=== PATIENT | male | born 1940 | race Caucasian/White ===

== ENCOUNTER → 2020-07-29 09:24 | Outpatient (BNVA) | payer MEDICARE, OTHER, SELFPAY | PROVIDERS: PCP Internal Medicine; Referring Provider Internal Medicine; Visit Provider Internal Medicine Cardiovascular Disease | DX: I49.5 Sick sinus syndrome (principal); I48.92 Unspecified atrial flutter; I50.20 Unspecified systolic (congestive) heart failure; I42.8 Other cardiomyopathies; Z79.01 Long term (current) use of anticoagulants; Z79.899 Other long term (current) drug therapy; Z95.2 Presence of prosthetic heart valve | CPT/HCPCS: Q3014 ==

== ENCOUNTER 2020-11-09 07:08 | Outpatient (REF) | payer MEDICARE, OTHER, SELFPAY ==
[2020-11-09 11:13] LABS: MANUAL DIFF FLAG NO
[2020-11-09 11:36] LABS: Basophils Percent Auto 0.3 % (0-2); Eosinophils Absolute Auto 0.1 X10*3/uL (0.0-0.4); Eosinophils Percent Auto 1.3 % (0-4); Hematocrit 39.8 % (42-52); Hemoglobin 12.8 g/dl (14.0-18.0); Imm Gran Abs Auto 0.06 X10*3/uL (0.00-0.03); Imm Gran Pct Auto 0.9 % (0.0-0.4); Lymphocytes Absolute Auto 1.3 X10*3/uL (1.2-4.9); Mean Corpuscular HGB Conc 32.2 g/dl (31.0-36.0); Mean Corpuscular Volume 93.4 fL (80-98); Monocytes Absolute Auto 0.7 X10*3/uL (0.1-1.2); Monocytes Percent Auto 10.2 % (2-11); Neutrophils Absolute Auto 4.9 X10*3/uL (2.0-8.3); Neutrophils Percent Auto 69.3 % (45-73); Platelet Count 269 X10*3/uL (160-400); Red Blood Count 4.26 X10*6/uL (4.60-5.80); Red Cell Distribution Width 12.8 % (11.0-16.0)
[2020-11-09 11:40] LABS: Glucose Urine UA NEG (NEG); Leukocyte Esterase Urine NEG (NEG); Nitrite Urine NEG (NEG); PH 5.5 (5.0-8.0); Specific Gravity - Urine 1.015 (1.005-1.025); Urine Blood NEG (NEG); Urine Ketones NEG (NEG); Urine Protein NEG (NEG-TRACE)
[2020-11-09 11:48] LABS: Estimated Average Glucose 177 mg/dL; Hemoglobin A1c % 7.8 %
[2020-11-09 11:57] LABS: Appearance Urine CLEAR; Color Urine STRAW
[2020-11-09 12:08] LABS: RBC Urine 0 /HPF (0); WBC Urine 0 /HPF (0-4)
[2020-11-09 12:14] LABS: Alanine Aminotransferase 17 U/L (0-40); Albumin Level 4.3 g/dL (3.5-5.0); Alkaline Phosphatase 56 U/L (39-117); Anion Gap 15 (12-20); Aspartate Amino Transferase 16 U/L (5-37); Bilirubin Total 0.6 mg/dL (0.0-1.0); Blood Urea Nitrogen 24 mg/dL (9-16); Calcium 8.6 mg/dL (8.4-10.2); Carbon Dioxide 26 mmol/L (22-29); Chloride 103 mmol/L (96-108); Cholesterol 162 mg/dL; Estimated Glomerular Filt Rate 34; Glucose Fasting 193 mg/dL (60-99); HDL Cholesterol 38 mg/dL; LDL Cholesterol Calculated 83 mg/dl; Potassium 4.9 mmol/L (3.3-5.1); Sodium 139 mmol/L (135-145); Thyroid Stimulating Hormone 1.55 uIU/mL (0.32-4.0); Triglycerides 209 mg/dL
[2020-11-09 12:18] LABS: Creatinine Urine 24.33 mg/dL; Microalbum/Creatinine Ratio Ur 73.9 ug/mg cr
[2020-11-09 12:48] LABS: Folate 11.3 ng/mL (> or = 4.0); Vitamin B12 746 pg/mL (200-900)
== END 2020-11-09 07:09 | disposition home or self-care (01) ==
LOC: HO.HMGCLDS 07:08
PROVIDERS: PCP Internal Medicine; Visit Provider Internal Medicine Cardiovascular Disease
DX: E11.21 Type 2 diabetes mellitus with diabetic nephropathy (principal); I48.3 Typical atrial flutter; E53.8 Deficiency of other specified B group vitamins; I35.0 Nonrheumatic aortic (valve) stenosis
CPT/HCPCS: 36415; 80053; 80061; 81001; 82043; 82607; 82746; 83036; 84443; 85025

== ENCOUNTER 2021-01-28 06:16 | Outpatient (REF) | payer MEDICARE, OTHER, SELFPAY ==
[2021-01-28 11:22] LABS: Glucose Urine UA 100 MG/DL (NEG); Leukocyte Esterase Urine NEG (NEG); Nitrite Urine NEG (NEG); Specific Gravity - Urine 1.025 (1.005-1.025); Urine Blood NEG (NEG); Urine Ketones 5 MG/DL (NEG); Urine Protein 1+ MG/DL (NEG-TRACE)
[2021-01-28 11:23] LABS: Appearance Urine CLOUDY; Color Urine YELLOW
[2021-01-28 11:26] LABS: MANUAL DIFF FLAG NO
[2021-01-28 11:38] LABS: Basophils Percent Auto 0.4 % (0-2); Eosinophils Absolute Auto 0.1 X10*3/uL (0.0-0.4); Eosinophils Percent Auto 1.4 % (0-4); Hematocrit 40.6 % (42-52); Hemoglobin 13.1 g/dl (14.0-18.0); Imm Gran Abs Auto 0.04 X10*3/uL (0.00-0.03); Imm Gran Pct Auto 0.6 % (0.0-0.4); Lymphocytes Absolute Auto 1.2 X10*3/uL (1.2-4.9); Lymphocytes Percent Auto 17.5 % (20-40); Mean Corpuscular HGB Conc 32.3 g/dl (31.0-36.0); Mean Corpuscular Hemoglobin 30.3 pg (27.0-33.0); Mean Platelet Volume 9.8 fL (9.4-12.4); Monocytes Absolute Auto 0.6 X10*3/uL (0.1-1.2); Monocytes Percent Auto 8.2 % (2-11); Neutrophils Absolute Auto 5.1 X10*3/uL (2.0-8.3); Neutrophils Percent Auto 71.9 % (45-73); Platelet Count 301 X10*3/uL (160-400); Red Blood Count 4.32 X10*6/uL (4.60-5.80); Red Cell Distribution Width 12.6 % (11.0-16.0); White Blood Count 7.1 X10*3/uL (4.8-10.8)
[2021-01-28 11:41] LABS: Amorphous Sediment Urine 1+ /LPF; Mucus Urine 1+ /LPF; RBC Urine 0 /HPF (0); Squamous Epithelial Cell Urine 1+ /LPF; WBC Urine 0 /HPF (0-4)
[2021-01-28 11:42] LABS: Hematocrit 40.6 % (42-52); Mean Corpuscular Volume 93.8 fL (80-98); Mean Platelet Volume 9.8 fL (9.4-12.4); Platelet Count 300 X10*3/uL (160-400); Red Blood Count 4.33 X10*6/uL (4.60-5.80); Red Cell Distribution Width 12.7 % (11.0-16.0); White Blood Count 6.8 X10*3/uL (4.8-10.8)
[2021-01-28 12:07] LABS: Anion Gap 17 (12-20); Blood Urea Nitrogen 27 mg/dL (9-16); Calcium 9.1 mg/dL (8.4-10.2); Carbon Dioxide 22 mmol/L (22-29); Chloride 104 mmol/L (96-108); Estimated Glomerular Filt Rate 36; Glucose Random 270 mg/dL (60-115); Potassium 4.7 mmol/L (3.3-5.1); Sodium 138 mmol/L (135-145)
[2021-01-28 12:10] LABS: Alanine Aminotransferase 20 U/L (0-40); Albumin Level 4.2 g/dL (3.5-5.0); Alkaline Phosphatase 56 U/L (39-117); Anion Gap 18 (12-20); Aspartate Amino Transferase 14 U/L (5-37); Bilirubin Total 0.6 mg/dL (0.0-1.0); Blood Urea Nitrogen 27 mg/dL (9-16); Calcium 8.8 mg/dL (8.4-10.2); Carbon Dioxide 22 mmol/L (22-29); Chloride 105 mmol/L (96-108); Cholesterol 168 mg/dL; Estimated Glomerular Filt Rate 36; Glucose Fasting 267 mg/dL (60-99); HDL Cholesterol 38 mg/dL; LDL Cholesterol Calculated 80 mg/dl; Potassium 4.6 mmol/L (3.3-5.1); Sodium 140 mmol/L (135-145); Total Protein 6.9 g/dL (6.5-8.0); Triglycerides 251 mg/dL
[2021-01-28 12:22] LABS: Creatinine Urine 264.07 mg/dL
[2021-01-28 13:08] LABS: Estimated Average Glucose 174 mg/dL; Hemoglobin A1c % 7.7 %
== END 2021-01-28 06:17 | disposition home or self-care (01) ==
LOC: HO.HMGCLDS 06:16
PROVIDERS: Internal Medicine Cardiovascular Disease; PCP Internal Medicine; Visit Provider Internal Medicine
DX: E11.21 Type 2 diabetes mellitus with diabetic nephropathy (principal); I35.0 Nonrheumatic aortic (valve) stenosis; I11.0 Hypertensive heart disease with heart failure; I50.20 Unspecified systolic (congestive) heart failure; I48.0 Paroxysmal atrial fibrillation
CPT/HCPCS: 36415; 80048; 80053; 80061; 81001; 82043; 83036; 83880; 85025; 85027

== ENCOUNTER 2021-10-31 10:04 | Outpatient (REF) | payer MEDICARE, OTHER, SELFPAY ==
[2021-10-31 11:13] LABS: MANUAL DIFF FLAG NO
[2021-10-31 11:17] LABS: Basophils Percent Auto 0.2 % (0-2); Eosinophils Absolute Auto 0.1 X10*3/uL (0.0-0.4); Eosinophils Percent Auto 0.8 % (0-4); Hematocrit 40.1 % (42.0-52.0); Imm Gran Abs Auto 0.04 X10*3/uL (0.00-0.03); Imm Gran Pct Auto 0.5 % (0.0-0.4); Lymphocytes Absolute Auto 1.3 X10*3/uL (1.2-4.9); Lymphocytes Percent Auto 14.9 % (20-40); Mean Corpuscular HGB Conc 32.4 g/dl (31.0-36.0); Mean Corpuscular Hemoglobin 30.4 pg (27.0-33.0); Mean Corpuscular Volume 93.7 fL (80.0-98.0); Mean Platelet Volume 9.7 fL (9.4-12.4); Monocytes Absolute Auto 0.7 X10*3/uL (0.1-1.2); Monocytes Percent Auto 8.6 % (2-11); Neutrophils Absolute Auto 6.5 x10*3/uL (2.0-8.3); Platelet Count 334 X10*3/uL (160-400); Red Blood Count 4.28 X10*6/uL (4.60-5.80); Red Cell Distribution Width 12.6 % (11.0-16.0); White Blood Count 8.6 X10*3/uL (4.8-10.8)
[2021-10-31 11:42] LABS: Alanine Aminotransferase 13 U/L (0-40); Albumin Level 4.4 g/dL (3.5-5.0); Alkaline Phosphatase 60 U/L (39-117); Anion Gap 15 (12-20); Aspartate Amino Transferase 13 U/L (5-37); Bilirubin Total 0.5 mg/dL (0.0-1.0); Blood Urea Nitrogen 30 mg/dL (9-16); Calcium 9.4 mg/dL (8.4-10.2); Carbon Dioxide 23 mmol/L (22-29); Chloride 105 mmol/L (96-108); Estimated Glomerular Filt Rate 30; Glucose Random 157 mg/dL (60-115); Magnesium 1.7 mg/dL (1.6-2.6); Potassium 5.6 mmol/L (3.3-5.1); Sodium 137 mmol/L (135-145); Total Protein 7.3 g/dL (6.5-8.0)
== END 2021-10-31 10:05 | disposition home or self-care (01) ==
LOC: HO.HMGCLDS 10:04
PROVIDERS: Visit Provider Internal Medicine
DX: I44.2 Atrioventricular block, complete (principal); I48.3 Typical atrial flutter; E53.8 Deficiency of other specified B group vitamins; E11.21 Type 2 diabetes mellitus with diabetic nephropathy
CPT/HCPCS: 36415; 80053; 83735; 85025

== ENCOUNTER 2021-11-03 08:43 | Outpatient (REF) | payer MEDICARE, OTHER, SELFPAY ==
[2021-11-03 11:46] LABS: Anion Gap 13 (12-20); Blood Urea Nitrogen 28 mg/dL (9-16); Calcium 9.3 mg/dL (8.4-10.2); Carbon Dioxide 24 mmol/L (22-29); Chloride 106 mmol/L (96-108); Estimated Glomerular Filt Rate 30; Glucose Random 165 mg/dL (60-115); Potassium 5.5 mmol/L (3.3-5.1); Sodium 137 mmol/L (135-145)
== END 2021-11-03 08:44 | disposition home or self-care (01) ==
LOC: HO.HMGCLDS 08:43
PROVIDERS: PCP Internal Medicine; Visit Provider Internal Medicine
DX: E87.5 Hyperkalemia (principal); N28.9 Disorder of kidney and ureter, unspecified
CPT/HCPCS: 36415; 80048

== ENCOUNTER → 2021-11-21 14:41 | Outpatient (BNVA) | payer MEDICARE, OTHER, SELFPAY | PROVIDERS: PCP Internal Medicine; Visit Provider Internal Medicine Cardiovascular Disease | DX: I50.20 Unspecified systolic (congestive) heart failure (principal); I48.92 Unspecified atrial flutter; Z79.01 Long term (current) use of anticoagulants; Z79.899 Other long term (current) drug therapy; Z95.2 Presence of prosthetic heart valve; Z45.018 Encounter for adjustment and management of other part of cardiac pacemaker | CPT/HCPCS: 93005 ==

== ENCOUNTER → 2021-11-22 13:50 | Outpatient (REF) | payer MEDICARE, OTHER, SELFPAY ==
--- NOTE | 2021-11-22 14:01 | CA_ITS ---
Transthoracic Echocardiogram Patient (Last, First, Middle): Mario Walters O Gender: Male Date of : 1940 Age: 81 Procedure Date: 11/22/2021 Procedure Type: Transthoracic Echocardiogram Location: OP Height: 170.18 cm Weight: 87.54 kg BSA: 1.99 m2 Heart Rate: bpm BP: 138 / 82 mmHg Prep Manager: PRINCESS Referring MD: Hipolito Mehta MD Symptoms: I50.20 - Unspecified systolic (congestive) heart failure Study Quality: Fair/contrast Conclusions: - The left ventricular systolic function is moderately decreased. The visually estimated ejection fraction is between 35-40%. - A bioprosthetic aortic valve is present. The prosthetic aortic valve appears to be functioning normally. - There is moderate mitral annular calcification. There is mild mitral valve regurgitation. - There is mild dilatation of the sinuses of Valsalva measuring 4.14 cm. Findings Procedure Information Contrast agent, definity, is being given per protocol without apparent complications. Left Ventricle Normal left ventricular cavity size. The left ventricular systolic function is moderately decreased. The visually estimated ejection fraction is between 35-40%. There is moderate global hypokinesis. E/E prime ratio is between 8 and 15 consistent with indeterminate filling pressures. Evidence suggests grade I (mild) diastolic dysfunction. There is mild septal asymmetric hypertrophy. Basal to mid anterior septum looks almost akinetic. Right Ventricle Mildly increased right ventricular cavity size. There is normal right ventricular systolic function. Atria The left atrium is mildly dilated. The right atrium is normal in size. Aortic Valve A bioprosthetic aortic valve is present. The prosthetic aortic valve appears to be functioning normally. The mean gradient is 10 mmHg. The aortic valve area is 1.95 cm2. There is no aortic valve regurgitation. Mitral Valve There is moderate mitral annular calcification. There is mild mitral valve regurgitation. There is no mitral valve stenosis. Pulmonic Valve The pulmonic valve was not well visualized. Tricuspid Valve Normal tricuspid valve structure. There is trace tricuspid valve regurgitation. The pulmonary artery systolic pressure is normal. Great Vessels There is mild dilatation of the sinuses of Valsalva measuring 4.14 cm, no dilatation of the sino tubular ridge measuring 3.60 cm, and no dilatation of the ascending aorta measuring 3.80 cm. Venous The inferior vena cava is normal in size and collapses greater than 50% with inspiration. Pericardium/Pleural There is no evidence of pericardial effusion. Prior Study Comparison No significant change compared to prior study dated: 09/15/2019. Measurements 2D Linear Measurements IVSd: 1.16 0.6-0.9/0.6-1.0 cm LVIDd: 5.85 3.9-5.3/4.2-5.9 cm LVIDd Index: 2.94 2.4-3.2/2.2-3.1 cm/m2 LVIDs: 4.88 2.0-3.6 cm LVPWd: 0.94 0.7-1.1 cm LA Diam: 4.00 2.7-3.8/3.0-4.0 cm LAIDs Index: 2.01 1.5-2.3 cm/m2 LV Mass: 313.95 67-162/88-224 g LV Mass Index: 157.77 43-95/49-115 g/m2 LVOT Diam: 2.10 3.0+(-)1.3 cm 2D Systolic Function EF 4C: 40.40 >55% EF 2C: 42.40 >55% EF BiP: 41.30 >55% Mitral Valve MV Pk E: 0.72 MV PK A: 1.04 MV Decel Time: 254.00 E/A: 0.70 E'Lateral: 5.00 E'Medial: 4.79 E/E' Med: 15.10 E/E' Lat: 14.50 PHT: 74.00 MVA PHT: 2.97 Decel Union: 2.86 Aortic Valve AoV Pk Mitch: 2.03 AoV Mn Mitch: 1.53 AoV VTI: 0.47 AoV Pk Grad: 16.00 Aov Mn Grad: 10.00 BRADLEY Cont.VTI: 1.95 LVOT LVOT Pk Mitch: 1.07 LVOT Mn Mitch: 0.86 LVOT VTI: 0.26 LVOT Pk Grad: 5.00 LVOT Mn Grad: 3.00 LVOT Diam: 2.10 LVOT Area: 3.46 Diastolic Function MV Pk E: 0.72 MV Pk A: 1.04 E/A: 0.70 E'Medial: 4.79 E/E' Med: 15.10 E' Laterial: 5.00 E/E' Lat: 14.50 Right Ventricle TAPSE (mm): 19.40 TVS' Mitch: 9.90 Tricuspid Valve TR Pk Mitch: 2.65 TR Pk Grad: 28.00 RA Press: 3.00 RVSP: 31.00 Great Vessels Aorta Sinus of Valsalva: 4.14 2.0-3.[address] Ridge: 3.60 1.7-3.4 cm Ao Asc: 3.80 2.1-3.4 cm Updated in Other Vendor System with Status of Final Sandro Shea MD electronically signed on 11/24/2021 11:50:16 AM with status of Final
== END ==
LOC: HO.CARD 13:50
PROVIDERS: PCP Internal Medicine; Visit Provider Internal Medicine Cardiovascular Disease
DX: I50.20 Unspecified systolic (congestive) heart failure (principal)
CPT/HCPCS: 93306; 99212; Q9957

== ENCOUNTER 2021-11-30 12:28 | Outpatient (REF) | payer MEDICARE, OTHER, SELFPAY ==
[2021-11-30 13:43] LABS: MANUAL DIFF FLAG NO
[2021-11-30 13:48] LABS: Basophils Percent Auto 0.4 % (0-2); Eosinophils Absolute Auto 0.1 X10*3/uL (0.0-0.4); Eosinophils Percent Auto 1.6 % (0-4); Hematocrit 38.9 % (42.0-52.0); Hemoglobin 12.6 g/dl (14.0-18.0); Imm Gran Abs Auto 0.05 X10*3/uL (0.00-0.03); Imm Gran Pct Auto 0.7 % (0.0-0.4); Lymphocytes Absolute Auto 1.2 X10*3/uL (1.2-4.9); Lymphocytes Percent Auto 15.5 % (20-40); Mean Corpuscular HGB Conc 32.4 g/dl (31.0-36.0); Mean Corpuscular Hemoglobin 30.1 pg (27.0-33.0); Mean Corpuscular Volume 92.8 fL (80.0-98.0); Mean Platelet Volume 9.8 fL (9.4-12.4); Monocytes Absolute Auto 0.6 X10*3/uL (0.1-1.2); Monocytes Percent Auto 8.6 % (2-11); Neutrophils Absolute Auto 5.5 x10*3/uL (2.0-8.3); Neutrophils Percent Auto 73.2 % (45-73); Platelet Count 299 X10*3/uL (160-400); Red Blood Count 4.19 X10*6/uL (4.60-5.80); Red Cell Distribution Width 12.8 % (11.0-16.0); White Blood Count 7.4 X10*3/uL (4.8-10.8)
[2021-11-30 14:13] LABS: Anion Gap 16 (12-20); Blood Urea Nitrogen 23 mg/dL (9-16); Calcium 9.2 mg/dL (8.4-10.2); Carbon Dioxide 23 mmol/L (22-29); Chloride 104 mmol/L (96-108); Estimated Glomerular Filt Rate 28; Glucose Random 204 mg/dL (60-115); Potassium 4.5 mmol/L (3.3-5.1); Sodium 138 mmol/L (135-145)
[2021-11-30 14:35] LABS: Thyroid Stimulating Hormone 0.78 uIU/mL (0.32-4.0)
[2021-11-30 15:12] LABS: Vitamin B12 622 pg/mL (200-900)
[2021-11-30 15:49] LABS: Folate 12.4 ng/mL (> or = 4.0)
== END 2021-11-30 12:29 | disposition home or self-care (01) ==
LOC: HO.HMGCLDS 12:28
PROVIDERS: PCP Internal Medicine; Referring Provider Internal Medicine Cardiovascular Disease; Visit Provider Internal Medicine
DX: I48.3 Typical atrial flutter (principal); I44.2 Atrioventricular block, complete; E11.21 Type 2 diabetes mellitus with diabetic nephropathy; E53.8 Deficiency of other specified B group vitamins; I10 Essential (primary) hypertension
CPT/HCPCS: 36415; 80048; 82607; 82746; 83735; 84443; 85025

== ENCOUNTER 2022-01-25 07:56 | Outpatient (REF) | payer MEDICARE, OTHER, SELFPAY ==
[2022-01-25 11:59] LABS: Anion Gap 13 (12-20); Blood Urea Nitrogen 33 mg/dL (9-16); Calcium 9.1 mg/dL (8.4-10.2); Carbon Dioxide 24 mmol/L (22-29); Chloride 104 mmol/L (96-108); Estimated Glomerular Filt Rate 25; Potassium 4.6 mmol/L (3.3-5.1); Sodium 136 mmol/L (135-145)
[2022-01-25 12:18] LABS: Creatinine Urine 155.77 mg/dL; Microalbum/Creatinine Ratio Ur 67.4 ug/mg cr; Protein/Creatinine Ratio, Ur 0.18 (<0.2); Total Protein Urine Random 28 mg/dL (<12)
[2022-01-25 12:43] LABS: B Type Natriuretic Peptide 143 pg/mL (<100)
[2022-01-26 13:14] LABS: Calcium (PTHI) 9.2 mg/dL (8.6-10.3); PTHI 94 pg/mL (16-77)
== END 2022-01-25 07:57 | disposition home or self-care (01) ==
LOC: HO.HMGCLDS 07:56
PROVIDERS: Internal Medicine Cardiovascular Disease; Visit Provider Internal Medicine Nephrology
DX: N18.30 Chronic kidney disease, stage 3 unspecified (principal)
CPT/HCPCS: 36415; 80051; 82043; 82306; 82310; 82565; 83880; 83970; 84156; 84520

== ENCOUNTER 2022-03-16 06:38 | Outpatient (REF) | payer MEDICARE, OTHER, SELFPAY ==
[2022-03-16 11:38] LABS: Estimated Average Glucose 180 mg/dL; Hemoglobin A1c % 7.9 %
[2022-03-16 11:50] LABS: Appearance Urine CLEAR; Color Urine YELLOW; Glucose Urine UA NEG (NEG); Leukocyte Esterase Urine NEG (NEG); Nitrite Urine NEG (NEG); PH 5.5 (5.0-8.0); Urine Blood NEG (NEG); Urine Ketones NEG (NEG); Urine Protein TRACE MG/DL (NEG-TRACE)
[2022-03-16 11:51] LABS: Alanine Aminotransferase 24 U/L (0-40); Albumin Level 4.3 g/dL (3.5-5.0); Alkaline Phosphatase 66 U/L (39-117); Anion Gap 14 (12-20); Aspartate Amino Transferase 18 U/L (5-37); Bilirubin Total 0.7 mg/dL (0.0-1.0); Blood Urea Nitrogen 39 mg/dL (9-16); Calcium 9.2 mg/dL (8.4-10.2); Carbon Dioxide 26 mmol/L (22-29); Chloride 103 mmol/L (96-108); Cholesterol 205 mg/dL; Estimated Glomerular Filt Rate 24; Glucose Fasting 200 mg/dL (60-99); HDL Cholesterol 38 mg/dL; LDL Cholesterol Calculated 118 mg/dl; Potassium 4.9 mmol/L (3.3-5.1); Sodium 138 mmol/L (135-145); Total Protein 7.1 g/dL (6.5-8.0); Triglycerides 247 mg/dL
[2022-03-16 12:26] LABS: Microalbum/Creatinine Ratio Ur 99.8 ug/mg cr
[2022-03-16 14:12] LABS: Oval Fat Bodies Urine NOTED; RBC Urine 0-2 /HPF (0); Squamous Epithelial Cell Urine 1+ /LPF; WBC Urine 0-2 /HPF (0-4)
== END 2022-03-16 06:39 | disposition home or self-care (01) ==
LOC: HO.HMGCLDS 06:38
PROVIDERS: Visit Provider Internal Medicine
DX: E11.21 Type 2 diabetes mellitus with diabetic nephropathy (principal); I48.3 Typical atrial flutter; I35.0 Nonrheumatic aortic (valve) stenosis; E53.8 Deficiency of other specified B group vitamins
CPT/HCPCS: 36415; 80053; 80061; 81001; 82043; 83036

== ENCOUNTER 2022-06-16 07:02 | Outpatient (REF) | payer MEDICARE, OTHER, SELFPAY ==
[2022-06-16 11:43] LABS: Estimated Average Glucose 194 mg/dL; Hemoglobin A1c % 8.4 %
[2022-06-16 11:44] LABS: Alanine Aminotransferase 25 U/L (0-40); Albumin Level 4.3 g/dL (3.5-5.0); Alkaline Phosphatase 63 U/L (39-117); Anion Gap 15 (12-20); Aspartate Amino Transferase 19 U/L (5-37); Bilirubin Total 0.6 mg/dL (0.0-1.0); Blood Urea Nitrogen 40 mg/dL (9-16); Calcium 8.9 mg/dL (8.4-10.2); Carbon Dioxide 25 mmol/L (22-29); Chloride 103 mmol/L (96-108); Cholesterol 208 mg/dL; Estimated Glomerular Filt Rate 20; Glucose Fasting 219 mg/dL (60-99); HDL Cholesterol 36 mg/dL; LDL Cholesterol Calculated 120 mg/dl; Potassium 4.8 mmol/L (3.3-5.1); Sodium 138 mmol/L (135-145); Triglycerides 262 mg/dL
[2022-06-16 14:13] LABS: Creatinine Urine 203.27 mg/dL; Microalbum/Creatinine Ratio Ur 33.9 ug/mg cr
== END 2022-06-16 07:03 | disposition home or self-care (01) ==
LOC: HO.HMGCLDS 07:02
PROVIDERS: PCP Internal Medicine; Visit Provider Internal Medicine
DX: E11.21 Type 2 diabetes mellitus with diabetic nephropathy (principal); E53.8 Deficiency of other specified B group vitamins; I10 Essential (primary) hypertension
CPT/HCPCS: 36415; 80053; 80061; 82043; 83036

== ENCOUNTER 2022-07-17 09:55 | Emergency (ER) | payer MEDICARE, OTHER, SELFPAY ==
--- NOTE | ~2022-07-17 | XR_ITS ---
EXAMINATION: XR CHEST CLINICAL INFORMATION: Cough. COMPARISON: 04/30/2019 chest radiograph. TECHNIQUE: Frontal view of the chest was obtained. FINDINGS: Support devices: Left-sided pacemaker device appears in good position. Aortic valve prosthesis in place. Multilevel sternotomy wires are intact. No significant abnormality is noted involving the heart, lungs, mediastinum, bony thorax or soft tissues. XR/XR chest 1V IMPRESSION: No acute cardiopulmonary process.
[2022-07-17 09:58] VITALS: BP 134/52; PULSE 70; RESP 18; TEMP 36.6; O2SAT 97; BMI 31.3
--- NOTE | 2022-07-17 11:13 | ED.GENADULT ---
HPI - General Adult General Chief complaint: Upper Respiratory Symptoms Stated complaint: COVID + CONGESTION Time Seen by Provider: 07/17/22 11:12 Source: patient Mode of arrival: ambulatory Limitations: no limitations History of Present Illness HPI narrative: Patient is an 82 year old assigned male at with a history of a-flutter, DM, HTN, and a pacemaker presenting to the emergency department today with persistent COVID-19 symptoms. Patient states that he tested positive for COVID-19 over 13 days ago and he continues to have a cough, sore throat, and feeling generally unwell. Patient denies any dizziness, lightheadedness, abdominal pain, nausea, vomiting, fever, chills, blurry vision, double vision, loss of vision, chest pain, difficulty breathing, shortness of breath, back pain, night sweats, pain with urination, increased urinary frequency, increased urinary urgency, blood in his urine or stool, syncope or a near syncopal episode, recent trauma or falls, bowel incontinence, bladder incontinence, bowel retention, bladder retention, or any other complaints at this time. Onset (ago): day(s) Severity: mild Severity scale (1-10): 2 Relieving factors: none Exacerbating factors: none Associated symptoms: cough Treatments prior to arrival: none Related Data Home Medications Medication Instructions Recorded Confirmed metformin 1,000 mg tablet 1,000 mg PO BID 07/29/20 11/21/21 tamsulosin 0.4 mg capsule 0.4 mg PO DAILY 07/29/20 11/21/21 vitamin B12 500 mcg-folic acid 400 1 tab PO DAILY 07/29/20 11/21/21 mcg tablet Previous Rx's Medication Instructions Recorded furosemide 20 mg tablet 20 mg PO DAILY #90 tabs 12/22/20 metoprolol succinate 25 mg 25 mg PO BID #90 tabs 11/23/21 tablet,extended release 24 hr apixaban 2.5 mg tablet (Eliquis) 2.5 mg PO BID #180 tabs 01/02/22 amiodarone 200 mg tablet 200 mg PO DAILY #90 tabs 05/01/22 hydralazine 25 mg tablet 25 mg PO BID #180 tabs 05/16/22 benzonatate 100 mg capsule 100 mg PO BID PRN cough 7 days #14 07/17/22 caps doxycycline hyclate 100 mg tablet 100 mg PO BID 7 days #14 tabs 07/17/22 lidocaine HCl 2 % mucosal solution 2.5 ml mucous membrane BID PRN 07/17/22 (Lidocaine Viscous) pain #100 mL prednisone 20 mg tablet 20 mg PO DAILY 12 days #26 tabs 07/17/22 Allergies Allergy/AdvReac Type Severity Reaction Status Date / Time No Known Allergies Allergy Verified 11/21/21 14:43 [No Known Allergies*] Review of Systems Constitutional: Constitutional: Reports no additional constitutional complaints, Denies chills, Denies fever(s) and Denies night sweats Eyes: Eyes: Reports no additional eye complaints, Denies blurry vision, Denies change in vision, Denies diplopia, Denies eye discharge, Denies loss of vision and Denies eye pain ENT: Denies dizziness and Reports sore throat Cardiovascular: Cardiovascular: Reports no additional cardiovascular complaints, Denies chest pain, Denies lightheadedness, Denies Loss of Consciousness and Denies dyspnea Respiratory: Respiratory: Reports no additional respiratory complaints, Reports cough and Denies dyspnea Gastrointestinal: Gastrointestinal: Reports no additional gastrointestinal complaints, Denies abdominal pain, Denies melena, Denies hematochezia, Denies change in bowel habits and Denies change in stool character Genitourinary: Genitourinary: Reports no additional male genitourinary complaints, Denies hematuria, Denies oliguria, Denies difficulty urinating, Denies dysuria, Denies urinary frequency, Denies urinary hesitancy, Denies urinary incontinence and Denies urinary urgency Musculoskeletal: Musculoskeletal: Reports no additional musculoskeletal complaints, Denies numbness and Denies tingling Neurologic: Denies dizziness, Denies loss of vision, Denies numbness and Denies tingling Psychiatric: Psychiatric: Reports no additional psychiatric complaints Endocrine: Endocrine: Reports no additional endocrine complaints Hematologic/Lymphatic: Hematologic/Lymphatic: Reports no additional hematologic/lymphatic complaints Allergic/Immunologic: Allergic/Immunologic: Reports no additional allergic/immunologic complaints PMFSH Past Medical History Attestation statement: The following information was validated with the patient. Source: old records reviewed Medical History Cardiac pacemaker in situ CKD (chronic kidney disease) CVA (cerebral vascular accident) Diabetes mellitus Heart failure with reduced ejection fraction HTN (hypertension) Nonischemic cardiomyopathy Paroxysmal atrial flutter Sick sinus syndrome Surgical History History of cardioversion Hx of cardiac cath Hx of colonoscopy Status post aortic valve replacement Family History Family History Father No problems noted. Mother CVD (cardiovascular disease) Social History Social History Smoked in Last 30 Days: No Advance Directives: No Advance Directives Information Provided: Yes Physical Exam ED Vital Signs: Vital Signs - 24 hr 07/17/22 09:58 Temperature 97.8 F Pulse Rate 70 Respiratory Rate 18 Blood Pressure 134/52 L Pulse Oximetry 97 Oxygen Delivery Method Room Air BMI result Body Mass Index 31.3 Const General: cooperative, no acute distress, alert and awake Nutritional Appearance: well nourished Orientation/consciousness: patient oriented x3 Limitations: no limitations HENMT Head: Yes normal to inspection and Yes atraumatic Ears: hearing grossly normal bilaterally and external ears normal General nose exam: Normal external nose present, no nasal discharge noted and no epistaxis Face and sinus: Yes normal facial exam, No abrasion and No laceration Mouth: Normal oral and palatal mucosa present, no drooling and no muffled voice Eyes General: appearance normal, both eyes and all related structures Periorbital: periorbital findings normal Eyelids: Yes eyelids normal Conjunctivae: conjunctivae normal Pupils: Equal, round and reactive pupils present EOM: EOMs intact bilaterally Neck Neck: Yes normal visual inspection, Yes full ROM and Yes no lymphadenopathy Chest Chest palpation & inspection: normal inspection of the chest Resp Effort & Inspection: normal respiratory effort, able to speak in complete sentences and Actively coughing Auscultation: clear to auscultation bilaterally Cardio Rate: regular rate Rhythm: regular rhythm GI Inspection: Yes normal to inspection Neuro General: patient oriented x3 and moves all extremities Cranial nerves: Yes Equal, round and reactive pupils present Cognition (Neuro): normal cognition Motor exam (neuro): 5/5 motor strength present throughout Sensory Exam: Normal double simultaneous stimulation for sensation Coordination: [id number] test normal Extrem General: Yes normal to inspection, Yes full ROM and Yes capillary refill normal Psych Appearance: grossly normal Mental Status: mental status grossly normal Affect: normal affect Attitude: cooperative Thought process: Normal thought process present Thought content: Normal thought content present Insight: Good insight present (Psych) Medical Decision Making MDM Narrative Medical decision making narrative: Patient is an 82 year old assigned male at with a history of a-flutter, DM, HTN, and a pacemaker presenting to the emergency department today with continued COVID-19 symptoms. Patient's physical exam showed an actively coughing individual but was otherwise unremarkable. Patient's chest x-ray showed no acute process. I explained my physical exam findings as well as all test results to the patient. I answered all questions asked by the patient. I stressed the importance of the patient taking his medication as prescribed. I stressed the importance of the patient following up with his primary care provider. I stressed the importance of the patient returning to the emergency department immediately if his symptoms were to worsen or if he were to develop any dizziness, shortness of breath, difficulty breathing, chest pain, blurry vision, loss of vision, nausea, vomiting, abdominal pain, fever, chills, back pain, or any other complaints. Patient verbalized agreement and understanding with this treatment plan and discharge. Medical Records Medical records reviewed: Yes I reviewed the patient's medical records. Imaging Data Chest x-ray: Attestation: I personally reviewed and interpreted this imaging study as follows: My impression: No acute process. Radiologist's impression: EXAMINATION: XR CHEST CLINICAL INFORMATION: Cough. COMPARISON: 04/30/2019 chest radiograph. TECHNIQUE: Frontal view of the chest was obtained. FINDINGS: Support devices: Left-sided pacemaker device appears in good position. Aortic valve prosthesis in place. Multilevel sternotomy wires are intact. No significant abnormality is noted involving the heart, lungs, mediastinum, bony thorax or soft tissues. XR/XR chest 1V IMPRESSION: No acute cardiopulmonary process. ? Dictated By: Ash Lan MD Signed By: Electronically signed by Ash Lan MD 07/17/22 1100 Discharge Plan Discharge Clinical Impression: Upper respiratory infection Patient Disposition: Home, Self-Care Instructions: Upper Respiratory Infection (ED) Additional Instructions: Follow up with your primary care provider. Return to the emergency department immediately if your symptoms worsen or if you develop any dizziness, shortness of breath, difficulty breathing, chest pain, blurry vision, loss of vision, nausea, vomiting, abdominal pain, fever, chills, back pain, or any other complaints. Prescriptions: New prednisone 20 mg tablet 20 mg PO DAILY 12 Days Qty: 26 0RF Rx Instructions: Take 3 tablets for 5 days THEN; Take 2 tablets for 4 days THEN; Take 1 tablet for 3 days doxycycline hyclate 100 mg tablet 100 mg PO BID 7 Days Qty: 14 0RF lidocaine HCl [Lidocaine Viscous] 2 % solution 2.5 ml mucous membrane BID PRN (Reason: pain) Qty: 100 0RF benzonatate 100 mg capsule 100 mg PO BID PRN (Reason: cough) 7 Days Qty: 14 0RF No Action furosemide 20 mg tablet 20 mg PO DAILY Qty: 90 1RF metoprolol succinate 25 mg tablet extended release 24 hr 25 mg PO BID Qty: 90 1RF Eliquis 2.5 mg tablet 2.5 mg PO BID Qty: 180 0RF Rx Instructions: Please call and schedule cardiology appt for refills amiodarone 200 mg tablet 200 mg PO DAILY Qty: 90 0RF Rx Instructions: Call for cardiology follow up appointment hydralazine 25 mg tablet 25 mg PO BID Qty: 180 2RF tamsulosin 0.4 mg capsule 0.4 mg PO DAILY metformin 1,000 mg tablet 1,000 mg PO BID vitamin G42-mwtmo acid 500-400 mcg tablet 1 tab PO DAILY Rx Instructions: administer with a meal Referrals: Talat Paz DO [Primary Care Provider] - Interventions: ED Discharge Assessment Last Done: 07/17/22 12:32 Discharge Date/Time: 07/17/22 12:33 Print Language: Hungarian
--- OUTSIDE RECORDS SUMMARY | 2022-07-17 11:37 | XMS_ITS | Continuity of Care Document ---
:1940 Author Organization [facility] Address [address] [place] [id number]- Care Team Providers Name Role Phone Talat Paz DO Primary Care Physician Encounter [facility] [place] Date(s): 01/25/22 - 02/01/22 [facility] [address] [place] [id number] Attending Physician: Kj Dorsey MD Referring Physician: Talat Paz DO Allergies, Adverse Reactions, Alerts No Known Allergies Medications amiodarone 200 mg oral tablet 200 mg, 1, tablet, By Mouth, Daily, Refills 0, Maintenance, 10/02/19 13:04:00 EST Start Date: 10/02/19 Status: Orderedapixaban 5 mg oral tablet = 5 mg, By Mouth, 2 times a day, # 60 tablet, 3 Refills, Maintenance, 01/18/19 14:09:25 EDT, Tablet Start Date: 01/18/19 Stop Date: 05/18/19 Status: OrderedB-12 1000 mcg oral tablet 1 tablet = 1,000 mcg, By Mouth, Daily, 0 Refills, Maintenance, 10/02/19 13:04:00 EST Start Date: 10/02/19 Status: OrderedglipiZIDE 5 mg oral tablet, extended release 1 tablet = 5 mg, By Mouth, Daily, # 30 tablet, 0 Refills, Maintenance, 01/25/22 13:51:00 EDT, ER Tablet, Partial fill upon patient request if the prescription is for a schedule II opioid drug. Start Date: 01/25/22 Status: OrderedhydrALAZINE 25 mg oral tablet 25 mg, 1, tablet, By Mouth, 2 times a day, # 60 tablet, Refills 0, Maintenance, 01/25/22 13:50:00 EDT, Partial fill upon patient request if the prescription is for a schedule II opioid drug. Start Date: 01/25/22 Status: OrderedMetformin = 1,000 mg, By Mouth, 2 times a day, Start on 01/20/2019, 0 Refills, Maintenance, 01/02/18 11:43:18 EDT, Start on 01/20/2019 Start Date: 01/02/18 Status: Orderedmetoprolol 25 mg oral tablet, extended release 25 mg, 1, tablet, By Mouth, Daily, # 30 tablet, Refills 0, Maintenance, 08/08/21 19:19:00 EST, Partial fill upon patient request if the prescription is for a schedule II opioid drug. Start Date: 08/08/21 Status: Orderedtamsulosin 0.4 mg oral capsule 0.4 mg, 1, capsule, By Mouth, Daily, # 30 capsule, Refills 0, Maintenance, 01/02/18 11:43:52 EDT Start Date: 01/02/18 Status: OrderedWalker See Instructions, # 1 each, Maintenance, Use the walker for stability as you get stronger following cardiac surgery, 02/26/19 12:02:20 EDT, Compound Start Date: 02/26/19 Status: Ordered Problem List Condition Effective Dates Status Health Status Informant Ascending aortic Active aneurysm/dilation(Confirmed) Aortic stenosis, severe(Confirmed) Active Atrial flutter(Confirmed) Active Cholelithiasis(Confirmed) Active Obesity (BMI 33 as of Active 02/05/2019)(Confirmed) Cardiomyopathy(Confirmed) Active CVA (cerebral vascular accident), 1987 Active residual aphasia(Confirmed)1 CKD (chronic kidney Active disease)(Confirmed) Diabetes mellitus(Confirmed)2 Active SOBOE (shortness of breath on Active exertion)(Confirmed) Ex-smoker(Confirmed) Active Alcohol use, drinks bourbon Active daily(Confirmed) HTN (hypertension)(Confirmed) Active ED (erectile dysfunction)(Confirmed) Active 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) Mild Mitral regurgitation(Confirmed) 01/16/19 Active Neuropathy(Confirmed) Active Obese class I(Confirmed) Active PND (paroxysmal nocturnal Active dyspnea)(Confirmed) Right bundle branch block 01/02/18 Active (RBBB)(Confirmed) Umbilical hernia(Confirmed) Active 1RIGHT CEREBELLAR [id number] NEUROPATHY Vital Signs Most recent to oldest [Reference Range]: 1 Height 170 cm (01/25/22 1:46 PM) Weight 87.2 kg (01/25/22 1:46 PM) Oxygen Saturation [94-100 %] 99 % (01/25/22 1:46 PM) Pulse Rate [55-90 bpm] 88 bpm (01/25/22 1:46 PM) Body Mass Index [18.5-24.99] 30.17 *>HHI* (01/25/22 1:46 PM) Blood Pressure [90-138/55-84 mm Hg] 124/76 mm Hg (01/25/22 1:46 PM) Respiratory Rate [16-30 br/min] 18 br/min (01/25/22 1:46 PM) Mode of Delivery (Oxygen) Room air (01/25/22 1:46 PM) Blood pressure sites Arm, right (01/25/22 1:46 PM) Weight Obtained Via Patient/family stated (01/25/22 1:46 PM) Social History Social History Type Response Smoking Status Former smoker entered on: 05/06/18 Sex
--- OUTSIDE RECORDS SUMMARY | 2022-07-17 11:37 | XMS_ITS | Continuity of Care Document ---
:1940 Author Organization [facility] Address [address] [place] [phone]- Care Team Providers Name Role Phone Talat Paz DO Primary Care Physician Encounter [facility] [facility] [id number] Date(s): 10/02/19 - 10/09/19 [facility] [address] [place] [id number] [facility] Attending Physician: Kj Dorsey MD Referring Physician: Hipoilto Metha MD Allergies, Adverse Reactions, Alerts Substance Reaction Severity Status NKA Active Medications amiodarone 200 mg oral tablet 200 mg, 1, tablet, By Mouth, Daily, Refills 0, Maintenance, 10/02/19 13:04:00 EST Start Date: 10/02/19 Status: Orderedapixaban 5 mg oral tablet = 5 mg, By Mouth, 2 times a day, # 60 tablet, 3 Refills, Maintenance, 01/18/19 14:09:25 EDT, Tablet Start Date: 01/18/19 Stop Date: 05/18/19 Status: Orderedaspirin 81 mg oral delayed release tablet 81 mg, By Mouth, Daily, # 30 tablet, Refills 11, Tot. Refills 11, Maintenance, 01/18/19 14:06:35 EDT, Route to Pharmacy Electronically, [id number], [facility] Start Date: 01/18/19 Stop Date: 01/13/20 Status: OrderedB-12 1000 mcg oral tablet 1 tablet = 1,000 mcg, By Mouth, Daily, 0 Refills, Maintenance, 10/02/19 13:04:00 EST Start Date: 10/02/19 Status: OrderedCoreg 6.25 mg oral tablet 6.25 mg, 1, tablet, By Mouth, 2 times a day, # 60 tablet, Refills 0, Tot. Refills 0, Maintenance, 02/26/19 12:00:17 EDT, Route to Pharmacy Electronically, [id number], [facility] Start Date: 02/26/19 Status: Orderedfluticasone 27.5 mcg/inh nasal spray 1 sprays, Nares, Both, Daily, PRN for allergy symptoms, # 10 Gm, 0 Refills, Maintenance, 01/02/18 11:45:14 EDT, [place] Start Date: 01/02/18 Status: OrderedGlyBURIDE = 5 mg, By Mouth, Daily, 0 Refills, Maintenance, 01/02/18 11:43:38 EDT Start Date: 01/02/18 Status: OrderedMetformin = 1,000 mg, By Mouth, 2 times a day, Start on 01/20/2019, 0 Refills, Maintenance, 01/02/18 11:43:18 EDT, Start on 01/20/2019 Start Date: 01/02/18 Status: Orderedmetoprolol 25 mg oral tablet 25 mg, 1, tablet, By Mouth, 2 times a day, Refills 0, Maintenance, 10/02/19 13:04:00 EST Start Date: 10/02/19 Status: Orderedtamsulosin 0.4 mg oral capsule 0.4 mg, 1, capsule, By Mouth, Daily, # 30 capsule, Refills 0, Maintenance, 01/02/18 11:43:52 EDT Start Date: 01/02/18 Status: Orderedvalsartan 80 mg oral tablet 80 mg, 1, tablet, By Mouth, Daily, Refills 0, Maintenance, 10/02/19 13:03:00 EST Start Date: 10/02/19 Status: OrderedWalker See Instructions, # 1 each, [...] Mild Mitral regurgitation(Confirmed) 01/16/19 Active Neuropathy(Confirmed) Active PND (paroxysmal nocturnal Active dyspnea)(Confirmed) Right bundle branch block 01/02/18 Active (RBBB)(Confirmed) Umbilical hernia(Confirmed) Active 1RIGHT CEREBELLAR [id number] NEUROPATHY Vital Signs Most recent to oldest [Reference Range]: 1 Height 170 cm (10/02/19 12:59 PM) Oxygen Saturation [94-100 %] 98 % (10/02/19 12:59 PM) Pulse Rate [55-90 bpm] 60 bpm (10/02/19 12:59 PM) Blood Pressure [90-138/55-84 mm Hg] 138/60 mm Hg (10/02/19 12:59 PM) Blood pressure sites Arm, left (10/02/19 12:59 PM) Social History Social History Type Response Smoking Status Former smoker entered on: 05/06/18 Sex
--- OUTSIDE RECORDS SUMMARY | 2022-07-17 11:37 | XMS_ITS | Continuity of Care Document ---
:1940 Author Organization [facility] Address [address] [place] [address]- Care Team Providers Name Role Phone Talat Paz DO Primary Care Physician Encounter [facility] [place] Date(s): 03/24/19 - 09/26/[address] [address]- [facility] Encounter Diagnosis Nonrheumatic aortic valve disorder, unspecified (Final) - Discharge Disposition: A-D/C Home Attending Physician: Kj Dorsey MD Admitting Physician: Kj Dorsey MD Referring Physician: Kj Dorsey MD Allergies, Adverse Reactions, Alerts Substance Reaction Severity Status NKA Active Medications apixaban 5 mg oral tablet = 5 mg, By Mouth, 2 times a day, # 60 tablet, 3 Refills, Maintenance, 01/18/19 14:09:25 EDT, Tablet Start Date: 01/18/19 Stop Date: 05/18/19 Status: Orderedaspirin 81 mg oral delayed release tablet 81 mg, By Mouth, Daily, # 30 tablet, Refills 11, Tot. Refills 11, Maintenance, 01/18/19 14:06:35 EDT, Route to Pharmacy Electronically, [id number], [facility] Start Date: 01/18/19 Stop Date: 01/13/20 Status: OrderedCoreg 6.25 mg oral tablet 6.25 mg, 1, tablet, By Mouth, 2 times a day, # 60 tablet, Refills 0, Tot. Refills 0, Maintenance, 02/26/19 12:00:17 EDT, Route to Pharmacy Electronically, [id number], [facility] 3 Start Date: 02/26/19 Status: Orderedfluticasone 27.5 mcg/inh nasal spray 1 sprays, Nares, Both, Daily, PRN for allergy symptoms, # 10 Gm, 0 Refills, Maintenance, 01/02/18 11:45:14 EDT, [place] Start Date: 01/02/18 Status: OrderedGlyBURIDE = 5 mg, By Mouth, Daily, 0 Refills, Maintenance, 01/02/18 11:43:38 EDT Start Date: 01/02/18 Status: OrderedMetformin = 1,000 mg, By Mouth, 2 times a day, Start on 01/20/2019, 0 Refills, Maintenance, 01/02/18 11:43:18 EDT, Start on 01/20/2019 Start Date: 01/02/18 Status: Orderedtamsulosin 0.4 mg oral capsule 0.4 [...] Active (RBBB)(Confirmed) Umbilical hernia(Confirmed) Active 1RIGHT CEREBELLAR [id number] NEUROPATHY Vital Signs Most recent to oldest [Reference Range]: 1 Height 170 cm (03/24/19 2:26 PM) Weight 85 kg (03/24/19 2:26 PM) Pulse Rate [55-90 bpm] 85 bpm (03/24/19 2:26 PM) Body Mass Index [18.5-24.99] 29.41 *H* (03/24/19 2:26 PM) Blood Pressure [90-138/55-84 mm Hg] 104/60 mm Hg (03/24/19 2:26 PM) Blood pressure sites Arm, right (03/24/19 2:26 PM) Weight Obtained Via Patient/family stated (03/24/19 2:26 PM) Dry Weight Obtained Via Patient/family stated (03/24/19 2:26 PM) Social History Social History Type Response Smoking Status Former smoker entered on: 05/06/18 Sex
--- OUTSIDE RECORDS SUMMARY | 2022-07-17 11:37 | XMS_ITS | Continuity of Care Document ---
:1940 Author Organization [facility] Address [address] [address]- Care Team Providers Name Role Phone Talat Paz DO Primary Care Physician Encounter [facility] [place] Date(s): 12/03/20 - 01/02/21 [facility] [address] [place] [id number] Allergies, Adverse Reactions, Alerts Substance Reaction Severity [...] 01/18/19 14:06:35 EDT, Route to Pharmacy Electronically, [id number], [facility] Start Date: 01/18/19 Stop Date: 01/13/20 Status: OrderedB-12 1000 mcg oral tablet 1 tablet = 1,000 mcg, By Mouth, Daily, 0 Refills, Maintenance, 10/02/19 13:04:00 EST Start Date: 10/02/19 Status: OrderedCoreg 6.25 mg oral tablet 6.25 mg, 1, tablet, By Mouth, 2 times a day, # 60 tablet, Refills 0, Tot. Refills 0, Maintenance, 02/26/19 12:00:17 EDT, Route to Pharmacy Electronically, [id number][facility] Start Date: 02/26/19 Status: Orderedfluticasone 27.5 mcg/inh nasal spray 1 sprays, Nares, Both, Daily, PRN for allergy symptoms, # 10 Gm, 0 Refills, Maintenance, 01/02/18 11:45:14 EDT, [place] Start Date: 01/02/18 Status: OrderedGlyBURIDE = 5 [...] Active (RBBB)(Confirmed) Umbilical hernia(Confirmed) Active 1RIGHT CEREBELLAR [id number] NEUROPATHY Social History Social History Type Response Smoking Status Former smoker entered on: 05/06/18 Sex
--- OUTSIDE RECORDS SUMMARY | 2022-07-17 11:37 | XMS_ITS | Continuity of Care Document ---
:1940 Author Organization [facility] Address [address] [place] [address]- Care Team Providers Name Role Phone Talat Paz DO Primary Care Physician Encounter [facility] [place] [facility] R [id number] Date(s): 10/02/19 - 10/12/19 [facility] [address] [place] [address]- [facility] Attending Physician: Linda Begum Admitting Physician: AdmtrLinda Referring Physician: Admtr, Linda Allergies, Adverse Reactions, Alerts Substance Reaction Severity [...] 01/18/19 14:06:35 EDT, Route to Pharmacy Electronically, [id number], [facility] Start Date: 01/18/19 Stop [...] 02/26/19 12:00:17 EDT, Route to Pharmacy Electronically, [id number], [facility] 3 Start Date: 02/26/19 Status: Orderedfluticasone 27.5 mcg/inh nasal spray 1 sprays, Nares, Both, Daily, PRN for allergy symptoms, # 10 Gm, 0 Refills, Maintenance, 01/02/18 11:45:14 EDT, [place] Start Date: 01/02/18 Status: OrderedGlyBURIDE = 5 [...] Active (RBBB)(Confirmed) Umbilical hernia(Confirmed) Active 1RIGHT CEREBELLAR [id number] NEUROPATHY Social History Social History Type Response Smoking Status Former smoker entered on: 05/06/18 Sex
--- OUTSIDE RECORDS SUMMARY | 2022-07-17 11:37 | XMS_ITS | Continuity of Care Document ---
:1940 Author Organization [facility] Address [address] [place] [address]- Care Team Providers Name Role Phone Talat Paz DO Primary Care Physician Encounter [facility] Date(s): 08/08/21 - 08/09/[address] [id number] Encounter Diagnosis Complete heart block (Final) - 08/08/21 Discharge Disposition: A-D/C Home Attending Physician: Eugene Arrieta MD Admitting Physician: Meagan Barnett MD Referring Physician: Not on Staff, Referring MD Allergies, Adverse Reactions, Alerts Substance Reaction [...] 10/02/19 13:04:00 EST Start Date: 10/02/19 Status: Orderedmagnesium oxide 400 mg oral tablet 1 tablet = 400 mg, By Mouth, 2 times a day, for 5 days, # 10 tablet, 0 Refills, Acute 08/14/21 12:55:00 EST, 08/09/21 12:55:00 EST, Tablet, [facility], Partial fill upon patient request if the prescription is for a schedule II opioid rebecca... Start Date: 08/09/21 Stop Date: 08/14/21 Status: OrderedMetformin = 1,000 mg, By Mouth, [...] II opioid drug. Start Date: 08/08/21 Status: Orderedmetoprolol 25 mg oral tablet, extended release 25 mg, XL Tablet, By Mouth, 08/09/21 9:00:00 EST Start Date: 08/09/21 Stop Date: 08/09/21 Status: Completedtamsulosin 0.4 mg oral capsule 0.4 mg, 1, [...] Active (RBBB)(Confirmed) Umbilical hernia(Confirmed) Active 1RIGHT CEREBELLAR [id number] NEUROPATHY Results Radiology Reports Exam Date Time Procedure Performing Provider Status 08/09/21 10:07 AM Chest 2 Views Frontal and Lat Navdeep Calderon (Verified) Notes:(Chest 2 Views Frontal and Lat) Reason For Exam: PostopRESULT: Chest 2 Views Frontal and Lat Chest 2 Views Frontal and Lat CLINICAL INDICATION: Reason: Postop; Clinical Question(s): Line Placement; Pneumothorax; Special Instructions: Patient may go unmonitored. Please keep film at back desk COMPARISON: Chest x-ray, 08/08/2021. Chest CT, 12/24/2020. FINDINGS: Right IJ sheath and temporary pacer lead have been removed. There is a new left-sided pacemaker with leads directed towards the right atrium and right ventricle. The cardiac silhouette is within normal limits status post aortic valve replacement. Intact median sternotomy wires are present. Hilar and mediastinal contours are normal. The lungs are clear. Minimal bilateral pleural effusions are seen on the lateral view. There is no pneumothorax or evidence of CHF No acute osseous abnormality is noted. IMPRESSION: New left-sided pacemaker in appropriate position. Minimal bilateral pleural effusions are present. The lungs are otherwise clear. No CHF. WSN: [id number] Ordering Physician: Luis Jacobo Dictated By: Danna Morris MD Dictated Date/Time: 08/09/21 10:11 a Reviewed By: Danna Morris MD Signed By: Danna Morris MD Signed Date/Time: 08/09/21 10:11 am Transcribed By: KATHY Transcribed Date/Time: 08/09/21 10:08 am Exam Date Time Procedure Performing Provider Status 08/08/21 1:34 PM Chest Portable Livier Tirado; Jaylon (Verified) Notes:(Chest Portable) Reason For Exam: Line PlacementRESULT: Chest Portable Chest Portable Reason: Line Placement; Clinical Question(s): Line Placement COMPARISON: Chest CT 12/24/2020. FINDINGS: LINES AND TUBES: Right IJ temporary pacer terminates at the anatomical site of the subclavian/IJ junction. LUNGS AND PLEURA: Decreased lung volumes. Worsening mild scattered bilateral interstitial opacities, worse at the bases and on the left. Prominent central pulmonary vascularity. No pleural effusion. No pneumothorax. HEART, MEDIASTINUM AND PINA: Heart is at the upper limits of normal for size. Aortic valve replacement. Widened mediastinal silhouette which may be positional. BONES AND SOFT TISSUES: No acute abnormality. IMPRESSION: Slight worsening of bilateral interstitial opacities and central pulmonary vascularity concerning for pulmonary edema. Temporary right IJ pacer. I have personally reviewed the images and I agree with this report. WSN: [id number] Ordering Physician: Florida Rodriguez Dictated By: Toi Sidhu MD Dictated Date/Time: 08/08/21 3:09 pm Reviewed By: Lawrence Mccray MD, V Signed By: Lawrence Mccray MD, V Signed Date/Time: 08/08/21 3:14 pm Transcribed By: KATHY Transcribed Date/Time: 08/08/21 1:44 pm Exam Date Time Procedure Performing Provider Status 08/08/21 11:07 AM Chest Portable Toya Maza; Auth (V erified) Notes:(Chest Portable) Reason For Exam: Shortness of BreathRESULT: Chest Portable Chest Portable INDICATION: Pt reported initial period of SOB and called EMS. SOB resolved prior to EMS arrival- reporting vertigo, found to be bradycardic in the mid twenties; Reason: Shortness of Breath; Clinical Question(s): CHF COMPARISON: Chest radiographs most recently 02/24/2019. CT chest 12/24/2020. FINDINGS: LINES AND TUBES: None. LUNGS AND PLEURA: Mild bibasilar patchy opacities. No pleural effusion. No pneumothorax. HEART, MEDIASTINUM AND PINA: Heart is normal in size. Aortic valve prosthesis. Aorta is mildly calcified. BONES AND SOFT TISSUES: No acute abnormality. Unchanged median sternotomy wires. IMPRESSION: Mild bibasilar opacities could represent atelectasis, pneumonia, or aspiration. I have personally reviewed the images and I agree with this report. WSN: [id number] Ordering Physician: Florida Rodriguez Dictated By: Carol Ramos MD Dictated Date/Time: 08/08/21 11:19 a Reviewed By: Juan Ceron MD Signed By: Juan Ceron MD Signed Date/Time: 08/08/21 11:24 am Transcribed By: KATHY Transcribed Date/Time: 08/08/21 11:13 am Vital Signs Most recent to oldest 1 2 3 [Reference Range]: Height 170 cm 170 cm 170 cm (08/09/21 7:46 AM) (08/09/21 2:40 AM) (08/08/21 8:14 PM) Weight 87.2 kg (08/09/21 5:20 AM) Oxygen Saturation [94-100 %] 100 % 98 % 95 % (08/09/21 7:46 AM) (08/09/21 2:40 AM) (08/08/21 8:14 PM) Pulse Rate [55-90 bpm] 59 bpm 59 bpm 60 bpm (08/09/21 9:24 AM) (08/09/21 7:46 AM) (08/09/21 2:40 AM) Blood Pressure [90-138/55-84 169/77 mm Hg 169/77 mm Hg 132 /65 mm Hg mm Hg] *H* *H* (08/09/21 2:40 A M) (08/09/21 9:24 AM) (08/09/21 7:46 AM) Respiratory Rate [16-30 18 br/min 20 br/min 19 br/mi n br/min] (08/09/21 7:46 AM) (08/09/21 2:40 AM) (08/08/21 8:14 PM) Temperature [96.8-100.4 97.4 DegF 97.5 DegF 97.9 Deg F DegF] (08/09/21 7:46 AM) (08/09/21 2:40 AM) (08/08/21 8:14 PM) Mode of Delivery (Oxygen) Room air Room air Room a ir (08/09/21 7:46 AM) (08/09/21 2:40 AM) (08/08/21 8:14 PM) Blood pressure sites Arm, right Arm, right Arm, right (08/09/21 7:46 AM) (08/09/21 2:40 AM) (08/08/21 8:14 PM) Temperature Route Temporal Temporal Oral (08/09/21 7:46 AM) (08/09/21 2:40 AM) (08/08/21 8:14 PM) Dry Weight 88.4 kg (08/08/21 4:43 PM) Weight Obtained Via Bed scale (08/09/21 5:20 AM) Social History Social History Type Response Smoking Status Former smoker entered on: 05/06/18 Sex
--- OUTSIDE RECORDS SUMMARY | 2022-07-17 11:37 | XMS_ITS | Continuity of Care Document ---
:1940 Author Organization [facility] Address [address] [place] [address]- Care Team Providers Name Role Phone Talat Paz DO Primary Care Physician Encounter [place] Date(s): 12/08/21 - 01/07/22 [facility] [address] [place] [id number] Allergies, Adverse Reactions, Alerts No Known Allergies [...] 10/02/19 13:04:00 EST Start Date: 10/02/19 Status: OrderedMetformin = 1,000 mg, By Mouth, [...] Active (RBBB)(Confirmed) Umbilical hernia(Confirmed) Active 1RIGHT CEREBELLAR [id number] NEUROPATHY Social History Social History Type Response Smoking Status Former smoker entered on: 05/06/18 Sex
--- OUTSIDE RECORDS SUMMARY | 2022-07-17 11:37 | XMS_ITS | Continuity of Care Document ---
:1940 Author Organization [facility] Address [address] [place] [address]- Care Team Providers Name Role Phone Talat Paz DO Primary Care Physician [place] [facility] [place](s): 08/26/21 - 09/25/21 [facility] [address] [place] [address]- [place] Allergies, Adverse Reactions, Alerts No Known Allergies [...] Active (RBBB)(Confirmed) Umbilical hernia(Confirmed) Active 1RIGHT CEREBELLAR [id number] NEUROPATHY Social History Social History Type Response Smoking Status Former smoker entered on: 05/06/18 Sex
--- OUTSIDE RECORDS SUMMARY | 2022-07-17 11:37 | XMS_ITS | Continuity of Care Document ---
:1940 Author Organization [facility] Address [address] [place] [address]- Care Team Providers Name Role Phone Talat Paz DO Primary Care Physician [place] [facility] [place](s): 08/25/21 - 09/24/21 [facility] [address] [place] [address]- Attending Physician: Linda Begum Admitting Physician: Linda Begum Referring Physician: Linda Begum Allergies, Adverse Reactions, Alerts No Known Allergies [...] Active (RBBB)(Confirmed) Umbilical hernia(Confirmed) Active 1RIGHT CEREBELLAR [id number] NEUROPATHY Social History Social History Type Response Smoking Status Former smoker entered on: 05/06/18 Sex
--- OUTSIDE RECORDS SUMMARY | 2022-07-17 11:37 | XMS_ITS | Continuity of Care Document ---
:1940 Author Organization [facility] Address [address] [place] [address]- Care Team Providers Name Role Phone Talat Paz DO Primary Care Physician Encounter [facility] [place] Date(s): 01/25/22 - 02/24/22 [facility] [address] [place] [id number] Attending Physician: Linda Begum Admitting Physician: Linda [...] Active (RBBB)(Confirmed) Umbilical hernia(Confirmed) Active 1RIGHT CEREBELLAR [id number] NEUROPATHY Social History Social History Type Response Smoking Status Former smoker entered on: 05/06/18 Sex
--- OUTSIDE RECORDS SUMMARY | 2022-07-17 11:37 | XMS_ITS | Continuity of Care Document ---
:1940 Author Organization [facility] Address [address] [address]- Care Team Providers Name Role Phone Talat Paz DO Primary Care Physician [place] [facility] [place] [facility] [place] 01[place]21[place]21 - 01/28/21 [facility] [address] [place] [id number] Attending Physician: Kj Dorsey MD Referring Physician: Talat Paz DO Allergies, Adverse Reactions, Alerts Substance Reaction Severity [...] 01/18/19 14:06:35 EDT, Route to Pharmacy Electronically, [id number], [facility] Start Date: 01/18/19 Stop [...] 02/26/19 12:00:17 EDT, Route to Pharmacy Electronically, [id number], [facility] Start Date: 02/26/19 Status: Orderedfluticasone 27.5 mcg/inh nasal spray 1 sprays, Nares, Both, Daily, PRN for allergy symptoms, # 10 Gm, 0 Refills, Maintenance, 01/02/18 11:45:14 EDT, [place] Start Date: 01/02/18 Status: OrderedGlyBURIDE = 5 [...] Active (RBBB)(Confirmed) Umbilical hernia(Confirmed) Active 1RIGHT CEREBELLAR [id number] NEUROPATHY Vital Signs Most recent to oldest [Reference Range]: 1 Height 170 cm (01/21/21 11:43 AM) Weight 87.5 kg (01/21/21 11:43 AM) Body Mass Index [18.5-24.99] 30.28 *>HHI* (01/21/21 11:43 AM) Weight Obtained Via Patient/family stated (01/21/21 11:43 AM) Social History Social History Type Response Smoking Status Former smoker entered on: 05/06/18 Sex
--- OUTSIDE RECORDS SUMMARY | 2022-07-17 11:37 | XMS_ITS | Continuity of Care Document ---
:1940 Author Organization [facility] Address [address] [address]- Care Team Providers Name Role Phone Talat Paz DO Primary Care Physician [place] [facility] [place] [facility] [place] 01/21/21 - 02/20/21 [facility] [address] [id number] Attending Physician: Linda Begum Admitting Physician: Linda Begum Referring Physician: AdmtrLinda Allergies, Adverse Reactions, Alerts Substance Reaction Severity [...] 01/18/19 14:06:35 EDT, Route to Pharmacy Electronically, [id number], [facility] Start Date: 01/18/19 Stop [...] 02/26/19 12:00:17 EDT, Route to Pharmacy Electronically, [id number], [facility] 3 Start Date: 02/26/19 Status: Orderedfluticasone 27.5 mcg/inh nasal spray 1 sprays, Nares, Both, Daily, PRN for allergy symptoms, # 10 Gm, 0 Refills, Maintenance, 01/02/18 11:45:14 EDT, [place] Start Date: 01/02/18 Status: OrderedGlyBURIDE = 5 [...] Active (RBBB)(Confirmed) Umbilical hernia(Confirmed) Active 1RIGHT CEREBELLAR [id number] NEUROPATHY Social History Social History Type Response Smoking Status Former smoker entered on: 05/06/18 Sex
--- NOTE | 2022-07-17 12:32 | PC.NURSE ---
patient discharged by provider . patient aware of plan of care .
== END 2022-07-17 12:33 | disposition home or self-care (01) ==
PROVIDERS: Emergency Provider Emergency Medicine; PCP Internal Medicine
DX: J06.9 Acute upper respiratory infection, unspecified (principal); E11.22 Type 2 diabetes mellitus with diabetic chronic kidney disease; I13.0 Hypertensive heart and chronic kidney disease with heart failure and stage 1 through stage 4 chronic kidney disease, or unspecified chronic kidney disease; N18.9 Chronic kidney disease, unspecified; I50.20 Unspecified systolic (congestive) heart failure; Z95.0 Presence of cardiac pacemaker; Z79.84 Long term (current) use of oral hypoglycemic drugs; Z79.01 Long term (current) use of anticoagulants
CPT/HCPCS: 71045; 99283; 99284

== ENCOUNTER 2022-09-07 06:15 | Outpatient (REF) | payer MEDICARE, OTHER, SELFPAY ==
[2022-09-07 11:42] LABS: Creatinine Urine 92.04 mg/dL; Microalbum/Creatinine Ratio Ur 73.8 ug/mg cr
[2022-09-07 12:13] LABS: Anion Gap 13 (12-20); Blood Urea Nitrogen 36 mg/dL (9-16); Calcium 8.8 mg/dL (8.4-10.2); Carbon Dioxide 27 mmol/L (22-29); Chloride 103 mmol/L (96-108); Estimated Glomerular Filt Rate 25; Potassium 4.8 mmol/L (3.3-5.1); Sodium 138 mmol/L (135-145); Vitamin D 25-OH Total 22.5 ng/mL (>30)
[2022-09-10 13:09] LABS: Calcium (PTHI) 8.8 mg/dL (8.6-10.3); PTHI 98 pg/mL (16-77)
== END 2022-09-07 06:16 | disposition home or self-care (01) ==
LOC: HO.HMGCLDS 06:15
PROVIDERS: PCP Internal Medicine; Visit Provider Internal Medicine Nephrology
DX: N18.30 Chronic kidney disease, stage 3 unspecified (principal)
CPT/HCPCS: 36415; 80051; 82043; 82306; 82310; 82565; 83970; 84520

== ENCOUNTER → 2022-09-13 15:22 | Outpatient (BNVA) | payer MEDICARE, OTHER, SELFPAY | PROVIDERS: PCP Internal Medicine; Referring Provider Internal Medicine; Visit Provider Internal Medicine Cardiovascular Disease | DX: I48.92 Unspecified atrial flutter (principal); I50.20 Unspecified systolic (congestive) heart failure; Z79.01 Long term (current) use of anticoagulants; Z79.899 Other long term (current) drug therapy; Z45.018 Encounter for adjustment and management of other part of cardiac pacemaker; Z95.2 Presence of prosthetic heart valve | CPT/HCPCS: 93005; 93280; 99212 ==

== ENCOUNTER 2022-10-26 07:34 | Outpatient (REF) | payer MEDICARE, OTHER, SELFPAY ==
[2022-10-26 11:24] LABS: MANUAL DIFF FLAG NO
[2022-10-26 11:32] LABS: Basophils Percent Auto 0.5 % (0-2); Eosinophils Absolute Auto 0.1 X10*3/uL (0.0-0.4); Hemoglobin 12.8 g/dl (14.0-18.0); Imm Gran Abs Auto 0.03 X10*3/uL (0.00-0.03); Imm Gran Pct Auto 0.5 % (0.0-0.4); Lymphocytes Absolute Auto 1.3 X10*3/uL (1.2-4.9); Lymphocytes Percent Auto 21.2 % (20-40); Mean Corpuscular Volume 90.5 fL (80.0-98.0); Mean Platelet Volume 9.9 fL (9.4-12.4); Monocytes Absolute Auto 0.6 X10*3/uL (0.1-1.2); Monocytes Percent Auto 9.6 % (2-11); Neutrophils Percent Auto 66.2 % (45-73); Platelet Count 334 X10*3/uL (160-400); Red Blood Count 4.42 X10*6/uL (4.60-5.80); Red Cell Distribution Width 13.2 % (11.0-16.0)
[2022-10-26 11:47] LABS: Estimated Average Glucose 203 mg/dL; Hemoglobin A1c % 8.7 %
[2022-10-26 12:07] LABS: Alanine Aminotransferase 19 U/L (0-40); Alkaline Phosphatase 57 U/L (39-117); Anion Gap 16 (12-20); Aspartate Amino Transferase 14 U/L (5-37); Bilirubin Total 0.6 mg/dL (0.0-1.0); Blood Urea Nitrogen 38 mg/dL (9-16); Calcium 8.9 mg/dL (8.4-10.2); Carbon Dioxide 23 mmol/L (22-29); Chloride 105 mmol/L (96-108); Cholesterol 172 mg/dL; Estimated Glomerular Filt Rate 23; Glucose Fasting 183 mg/dL (60-99); HDL Cholesterol 39 mg/dL; LDL Cholesterol Calculated 108 mg/dl; Potassium 4.7 mmol/L (3.3-5.1); Sodium 139 mmol/L (135-145); Total Protein 6.4 g/dL (6.5-8.0); Triglycerides 127 mg/dL
== END 2022-10-26 07:35 | disposition home or self-care (01) ==
LOC: HO.HMGCLDS 07:34
PROVIDERS: PCP Internal Medicine; Visit Provider Internal Medicine
DX: E11.21 Type 2 diabetes mellitus with diabetic nephropathy (principal); N18.30 Chronic kidney disease, stage 3 unspecified
CPT/HCPCS: 36415; 80053; 80061; 83036; 85025

== ENCOUNTER 2023-01-29 06:07 | Outpatient (REF) | payer MEDICARE, OTHER, SELFPAY ==
[2023-01-29 11:59] LABS: Estimated Average Glucose 194 mg/dL; Hemoglobin A1c % 8.4 %
[2023-01-29 12:16] LABS: Alanine Aminotransferase 18 U/L (0-40); Albumin Level 3.9 g/dL (3.5-5.0); Alkaline Phosphatase 52 U/L (39-117); Anion Gap 12 (12-20); Aspartate Amino Transferase 14 U/L (5-37); Bilirubin Total 0.7 mg/dL (0.0-1.0); Blood Urea Nitrogen 31 mg/dL (9-16); Carbon Dioxide 28 mmol/L (22-29); Chloride 104 mmol/L (96-108); Cholesterol 188 mg/dL; Estimated Glomerular Filt Rate 23; Glucose Fasting 193 mg/dL (60-99); HDL Cholesterol 34 mg/dL; LDL Cholesterol Calculated 107 mg/dl; Potassium 4.7 mmol/L (3.3-5.1); Sodium 139 mmol/L (135-145); Total Protein 6.3 g/dL (6.5-8.0); Triglycerides 238 mg/dL
== END 2023-01-29 06:08 | disposition home or self-care (01) ==
LOC: HO.HMGCLDS 06:07
PROVIDERS: PCP Internal Medicine; Visit Provider Internal Medicine
DX: E11.21 Type 2 diabetes mellitus with diabetic nephropathy (principal); I48.3 Typical atrial flutter; I10 Essential (primary) hypertension; E53.8 Deficiency of other specified B group vitamins
CPT/HCPCS: 36415; 80053; 80061; 83036

== ENCOUNTER 2023-03-01 06:01 | Outpatient (REF) | payer MEDICARE, OTHER, SELFPAY ==
--- NOTE | ~2023-03-01 | XR_ITS ---
EXAMINATION: XR CHEST CLINICAL INFORMATION: Atrial flutter COMPARISON: 07/17/2022 TECHNIQUE: 2 views of the chest were obtained. FINDINGS: Heart size upper limits of normal. Status post median sternotomy with aortic valve prosthesis and left chest wall bipolar pacemaker. There is no evidence of CHF. No infiltrates, pleural effusions or lung masses are seen. XR/XR chest 2V IMPRESSION: No acute intrathoracic disease.
[2023-03-01 11:30] LABS: Hematocrit 36.8 % (42.0-52.0); Hemoglobin 11.8 g/dl (14.0-18.0); Mean Corpuscular HGB Conc 32.1 g/dl (31.0-36.0); Mean Corpuscular Hemoglobin 30.2 pg (27.0-33.0); Mean Corpuscular Volume 94.1 fL (80.0-98.0); Mean Platelet Volume 9.8 fL (9.4-12.4); Platelet Count 312 X10*3/uL (160-400); Red Blood Count 3.91 X10*6/uL (4.60-5.80); Red Cell Distribution Width 13.1 % (11.0-16.0); White Blood Count 5.8 X10*3/uL (4.8-10.8)
[2023-03-01 12:14] LABS: Alanine Aminotransferase 18 U/L (0-40); Alkaline Phosphatase 49 U/L (39-117); Anion Gap 12 (12-20); Aspartate Amino Transferase 17 U/L (5-37); Bilirubin Direct 0.2 mg/dL (0.0-0.5); Bilirubin Total 0.7 mg/dL (0.0-1.0); Blood Urea Nitrogen 39 mg/dL (9-16); Calcium 8.5 mg/dL (8.4-10.2); Carbon Dioxide 24 mmol/L (22-29); Chloride 110 mmol/L (96-108); Estimated Glomerular Filt Rate 25; Glucose Random 208 mg/dL (60-115); Potassium 4.7 mmol/L (3.3-5.1); Sodium 141 mmol/L (135-145); TSH reflex Free T4 1.58 uIU/mL (0.32-4.0); Total Protein 6.8 g/dL (6.5-8.0)
== END 2023-03-01 06:02 | disposition home or self-care (01) ==
LOC: HO.HMGCLDS 06:01
PROVIDERS: Absent Provider Internal Medicine Cardiovascular Disease; PCP Internal Medicine; Visit Provider Internal Medicine Nephrology
DX: I48.92 Unspecified atrial flutter (principal); N18.30 Chronic kidney disease, stage 3 unspecified; Z79.899 Other long term (current) drug therapy
CPT/HCPCS: 36415; 71046; 80048; 80076; 84443; 85027

== ENCOUNTER 2023-03-01 08:22 | Outpatient (REF) | payer MEDICARE, OTHER, SELFPAY | END 2023-03-01 08:23 | disposition home or self-care (01) | LOC: HO.HMGCX 08:22 | PROVIDERS: Visit Provider Internal Medicine Cardiovascular Disease | DX: Z13.89 Encounter for screening for other disorder (principal) ==

== ENCOUNTER → 2023-03-12 09:46 | Outpatient (REF) | payer MEDICARE, OTHER, SELFPAY | LOC: HO.CARD 09:46 | PROVIDERS: PCP Internal Medicine; Visit Provider Internal Medicine Cardiovascular Disease | DX: I50.20 Unspecified systolic (congestive) heart failure (principal) | CPT/HCPCS: 93306; Q9957 ==

== ENCOUNTER 2023-03-22 13:28 | Outpatient (AMB) | payer MEDICARE, OTHER, SELFPAY ==
--- NOTE | 2023-03-22 13:54 | MHC.OFFVIS ---
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 Recent echocardiogram shows moderate LV systolic dysfunction with LVEF of 35-40%. Normally functioning bioprosthetic aortic valve. He has been doing well overall from cardiac perspective. He has had no recurrent palpitation irregular heartbeat. No recent hospitalization with heart failure. Denies orthopnea, PND, leg edema. Weight has remained stable. Takes all his medications. No bleeding issues or neurologic events. No lightheadedness, syncope. [facility] Medical History Cardiac pacemaker in situ CKD (chronic kidney disease) CVA (cerebral vascular accident) Diabetes mellitus Heart failure with reduced ejection fraction HTN (hypertension) Nonischemic cardiomyopathy Paroxysmal atrial flutter Sick sinus syndrome Surgical History History of cardioversion Hx of cardiac cath Hx of colonoscopy Status post aortic valve replacement Family History Father No problems noted. Mother CVD (cardiovascular disease) Review of Systems Const Denies chills, Denies fatigue, Denies fever(s), Denies frequent falls, Denies weakness, Denies weight gain and Denies weight loss ENT Denies dizziness Card Denies chest pain, Denies leg edema, Denies lightheadedness, Denies palpitations, Denies dyspnea, Denies dyspnea on exertion, Denies orthopnea and Denies other (loss of consciousness) Resp Denies cough, Denies dyspnea and Denies dyspnea on exertion GI Denies hematochezia and Denies change in stool character Musc Denies abnormal gait, Denies muscle weakness, Denies numbness, Denies radiating pain into limb and Denies tingling Neuro Denies abnormal gait, Denies dizziness, Denies frequent falls, Denies numbness, Denies tingling and Denies weakness Endo Denies fatigue and Denies palpitations Physical Exam Vital Signs: Last Vital Signs Pulse 68 03/22/23 13:55 BP 120/76 03/22/23 13:55 BMI result Body Mass Index 31.8 Const General: cooperative, comfortable, no acute distress, alert and awake Nutritional Appearance: overweight Orientation/consciousness: patient oriented x3 Neck Neck: Yes trachea midline, Yes supple and Yes no JVD Chest Chest palpation & inspection: normal inspection of the chest Resp Effort & Inspection: normal respiratory effort Auscultation: clear to auscultation bilaterally Cardio Jugular venous distension: no JVD Palpation: normal PMI Rate: regular rate Rhythm: regular rhythm Heart sounds: S1 normal heart sound present, S2 normal heart sound present, no click, no gallops and Murmur heart sound present systolic early, decrescendo and crescendo GI Auscultation: normal bowel sounds Skin General skin exam: no rashes or lesions noted and ecchymosis Neuro General: patient oriented x3 and no focal motor deficits Extrem General: Yes no clubbing, cyanosis or edema Office Procedures Cardiac Device Check Cardiac Device Check Details: Dual-chamber Medtronic pacemaker in place. Programmed in DDDR at 60 beats per minute. Atrial pacing 96% of time. Ventricular pacing 99% time. No episodes of atrial fibrillation noted. Atrial ventricular pacing thresholds are excellent and reprogrammed to enhance battery life. Atrial ventricular sensing could not be checked. Pacing lead impedance is stable. Battery life is excellent at 10 years after reprogramming [id number] Cardiac Device Check, pacemaker dual lead Procedure code (CPT) selection complete EKG Details: EKGs AV dual paced rhythm at 68 beats per minute [id number], Complete Assessment & Plan Assessment & Plan (1) Heart failure with reduced ejection fraction: Code(s): I50.20 - Unspecified systolic (congestive) heart failure Plan: Heart failure with reduced ejection fraction with persistent moderate LV systolic dysfunction. Clinically euvolemic and well compensated. Doing well on current medical therapy. No recent hospitalization. Given his renal dysfunction cannot be on renin angiotensin antagonist. Currently on hydralazine for afterload reduction. Continue metoprolol therapy for neurohormonal modulation. Blood pressure is currently well optimized. Continue current low-dose Lasix therapy. Has done very well with rhythm control approach. Daily weight monitoring avoidance of salt loading was discussed advised to call me with worsening symptoms. (2) Paroxysmal atrial flutter: Code(s): I48.92 - Unspecified atrial flutter Plan: Paroxysmal atrial flutter with heart failure syndrome. Clinically doing well with rhythm control approach will continue pursue rhythm control approach. Continue amiodarone therapy. Annual check for amiodarone toxicity should be pursued. EKGs every 6 months. Continue full oral anticoagulation, currently on Eliquis 2.5 mg b.i.d.. Quarterly renal function test should be pursued. (3) Cardiac pacemaker in situ: Code(s): Z95.0 - Presence of cardiac pacemaker Plan: Cardiac pacemaker in-situ, working well. Reprogrammed for adequate function. Will follow remotely every 3 months. Follow up in the clinic in 6 months time. Pacemaker was reprogrammed with improvement in battery life overall. (4) Status post aortic valve replacement: Comment: status post 25 mm Griffin Magna valve along with 32 mm Tarumo Dacron graft for severe aortic stenosis and ascending aortic aneurysm, February of 2019. minimal coronary artery disease at the time of cardiac catheterization for surgery Code(s): Z95.2 - Presence of prosthetic heart valve Plan: Status post bioprosthetic aortic valve replacement with ascending aortic repair. Currently doing well. Continue full oral anticoagulation as above. Continue aggressive risk factor modification. SBE prophylaxis as per ACC/aha guidelines. Will follow up in the clinic in 6 months time, sooner p.r.n.. Thank you for allowing me to partake in his care Coding Level of Care Code Est Pt Level 4 (81499) Diagnoses Heart failure with reduced ejection fraction I50.20 Paroxysmal atrial flutter I48.92 Cardiac pacemaker in situ Z95.0 Status post aortic valve replacement Z95.2 CPT Codes Cardiac Device Check - Cardiac Device 2: 54310-VC Cardiac Device Check, pacemaker dual lead ([id number]) EKG - CPT: 63817-Xbsmqtkrmezulnnbr, Complete ([id number])
[2023-03-22 13:55] VITALS: BP 120/76; PULSE 68; BMI 31.8
== END 2023-03-22 15:00 | disposition home or self-care (01) ==
PROVIDERS: Visit Provider Internal Medicine Cardiovascular Disease
DX: I48.92 Unspecified atrial flutter (principal); Z95.0 Presence of cardiac pacemaker
CPT/HCPCS: 93280; 99214

== ENCOUNTER → 2023-03-22 13:28 | Outpatient (BNVA) | payer MEDICARE, OTHER, SELFPAY | PROVIDERS: Visit Provider Internal Medicine Cardiovascular Disease | DX: I50.20 Unspecified systolic (congestive) heart failure (principal); I48.92 Unspecified atrial flutter; Z45.018 Encounter for adjustment and management of other part of cardiac pacemaker; Z95.2 Presence of prosthetic heart valve; Z79.01 Long term (current) use of anticoagulants; Z79.899 Other long term (current) drug therapy | CPT/HCPCS: 93005; 93280; 99212 ==

== ENCOUNTER 2023-04-24 06:12 | Outpatient (REF) | payer MEDICARE, OTHER, SELFPAY ==
[2023-04-24 11:37] LABS: Estimated Average Glucose 183 mg/dL
[2023-04-24 12:12] LABS: Alanine Aminotransferase 25 U/L (0-40); Albumin Level 4.1 g/dL (3.5-5.0); Alkaline Phosphatase 52 U/L (39-117); Anion Gap 13 (12-20); Aspartate Amino Transferase 17 U/L (5-37); Bilirubin Total 0.5 mg/dL (0.0-1.0); Blood Urea Nitrogen 50 mg/dL (9-16); Calcium 9.1 mg/dL (8.4-10.2); Carbon Dioxide 25 mmol/L (22-29); Chloride 105 mmol/L (96-108); Cholesterol 141 mg/dL; Estimated Glomerular Filt Rate 21; Glucose Fasting 218 mg/dL (60-99); HDL Cholesterol 38 mg/dL; LDL Cholesterol Calculated 65 mg/dl; Potassium 5.1 mmol/L (3.3-5.1); Sodium 138 mmol/L (135-145); Total Protein 6.9 g/dL (6.5-8.0); Triglycerides 192 mg/dL
== END 2023-04-24 06:13 | disposition home or self-care (01) ==
LOC: HO.HMGCLDS 06:12
PROVIDERS: PCP Internal Medicine; Visit Provider Internal Medicine
DX: E11.21 Type 2 diabetes mellitus with diabetic nephropathy (principal); I35.0 Nonrheumatic aortic (valve) stenosis; I48.3 Typical atrial flutter; E53.8 Deficiency of other specified B group vitamins; I10 Essential (primary) hypertension
CPT/HCPCS: 36415; 80053; 80061; 83036

== ENCOUNTER → 2023-05-29 23:59 | Outpatient (BNV) | payer MEDICARE, OTHER, SELFPAY ==
--- NOTE | 2023-06-04 10:46 | MHC.OFFVIS ---
Intake Intake Visit Reasons: Remote Device Check- Medtronic Allergies No Known Allergies [No Known Allergies*] Allergy (Verified 11/21/21 14:43) [facility] Medical History Cardiac pacemaker in situ CKD (chronic kidney disease) CVA (cerebral vascular accident) Diabetes mellitus Heart failure with reduced ejection fraction HTN (hypertension) Nonischemic cardiomyopathy Paroxysmal atrial flutter Sick sinus syndrome Surgical History History of cardioversion Hx of cardiac cath Hx of colonoscopy Status post aortic valve replacement Family History Father No problems noted. Mother CVD (cardiovascular disease) Office Procedures Cardiac Device Check Cardiac Device Check Details: Remote pacemaker report generated 05/29/2023. Pacemaker function is adequate [id number] Cardiac Device Interrogation, pacemaker Procedure code (CPT) selection complete Coding Level of Care Code Procedure Only CPT Codes Cardiac Device Check - Cardiac Device 12: [id number]-[id number] Cardiac Device Interrogation, pacemaker ([id number])
== END ==
PROVIDERS: PCP Internal Medicine; Visit Provider Internal Medicine Cardiovascular Disease
DX: I49.5 Sick sinus syndrome (principal); Z95.0 Presence of cardiac pacemaker
CPT/HCPCS: 93294

== ENCOUNTER 2023-07-25 06:06 | Outpatient (REF) | payer MEDICARE, OTHER, SELFPAY ==
[2023-07-25 11:20] LABS: MANUAL DIFF FLAG NO
[2023-07-25 11:53] LABS: Alanine Aminotransferase 21 U/L (0-40); Albumin Level 4.2 g/dL (3.5-5.0); Alkaline Phosphatase 61 U/L (39-117); Anion Gap 13 (12-20); Aspartate Amino Transferase 19 U/L (5-37); Bilirubin Direct 0.3 mg/dL (0.0-0.5); Bilirubin Total 0.6 mg/dL (0.0-1.0); Blood Urea Nitrogen 43 mg/dL (9-16); Calcium 9.1 mg/dL (8.4-10.2); Carbon Dioxide 24 mmol/L (22-29); Chloride 106 mmol/L (96-108); Estimated Glomerular Filt Rate 22; Glucose Fasting 204 mg/dL (60-99); Potassium 4.2 mmol/L (3.3-5.1); Sodium 139 mmol/L (135-145)
[2023-07-25 11:55] LABS: Estimated Average Glucose 194 mg/dL; Hemoglobin A1c % 8.4 % (<6.0)
[2023-07-25 12:03] LABS: Basophils Percent Auto 0.2 % (0-2); Eosinophils Absolute Auto 0.1 X10*3/uL (0.0-0.4); Eosinophils Percent Auto 1.1 % (0-4); Hematocrit 37.9 % (42.0-52.0); Hemoglobin 12.3 g/dl (14.0-18.0); Imm Gran Abs Auto 0.05 X10*3/uL (0.00-0.03); Imm Gran Pct Auto 0.8 % (0.0-0.4); Lymphocytes Percent Auto 16.7 % (20-40); Mean Corpuscular HGB Conc 32.5 g/dl (31.0-36.0); Mean Corpuscular Hemoglobin 30.2 pg (27.0-33.0); Mean Corpuscular Volume 93.1 fL (80.0-98.0); Mean Platelet Volume 10.1 fL (9.4-12.4); Monocytes Absolute Auto 0.5 X10*3/uL (0.1-1.2); Monocytes Percent Auto 8.4 % (2-11); Neutrophils Absolute Auto 4.5 x10*3/uL (2.0-8.3); Neutrophils Percent Auto 72.8 % (45-73); Platelet Count 380 X10*3/uL (160-400); Red Blood Count 4.07 X10*6/uL (4.60-5.80); Red Cell Distribution Width 12.6 % (11.0-16.0); White Blood Count 6.2 X10*3/uL (4.8-10.8)
== END 2023-07-25 06:07 | disposition home or self-care (01) ==
LOC: HO.HMGCLDS 06:06
PROVIDERS: PCP Internal Medicine; Visit Provider Internal Medicine
DX: E11.21 Type 2 diabetes mellitus with diabetic nephropathy (principal); I35.0 Nonrheumatic aortic (valve) stenosis; I48.3 Typical atrial flutter; E53.8 Deficiency of other specified B group vitamins; I10 Essential (primary) hypertension
CPT/HCPCS: 36415; 80048; 80076; 83036; 85025

== ENCOUNTER → 2023-08-28 23:59 | Outpatient (BNV) | payer MEDICARE, OTHER, SELFPAY ==
--- NOTE | 2023-08-28 16:03 | MHC.OFFVIS ---
Intake Intake Visit Reasons: Remote Device Check- Medtronic Allergies No Known Allergies [No Known Allergies*] Allergy (Verified 11/21/21 14:43) PFSH Medical History Cardiac pacemaker in situ CKD (chronic kidney disease) CVA (cerebral vascular accident) Diabetes mellitus Heart failure with reduced ejection fraction HTN (hypertension) Nonischemic cardiomyopathy Paroxysmal atrial flutter Sick sinus syndrome Surgical History History of cardioversion Hx of cardiac cath Hx of colonoscopy Status post aortic valve replacement Family History Father No problems noted. Mother CVD (cardiovascular disease) Office Procedures Cardiac Device Check Cardiac Device Check Details: Remote pacemaker report generated 08/28/2023. Pacemaker function is adequate. [id number] Cardiac Device Interrogation, pacemaker Procedure code (CPT) selection complete Assessment & Plan Assessment & Plan (1) Cardiac pacemaker in situ: Code(s): Z95.0 - Presence of cardiac pacemaker Plan: See above Coding Level of Care Code Procedure Only Diagnoses Cardiac pacemaker in situ Z95.0 CPT Codes Cardiac Device Check - Cardiac Device 12: [id number] Cardiac Device Interrogation, pacemaker ([id number])
== END ==
PROVIDERS: PCP Internal Medicine; Visit Provider Internal Medicine Cardiovascular Disease
DX: I49.5 Sick sinus syndrome (principal); Z95.0 Presence of cardiac pacemaker
CPT/HCPCS: 93294

== ENCOUNTER 2023-09-07 13:42 | Outpatient (AMB) | payer MEDICARE, OTHER, SELFPAY ==
[2023-09-07 13:57] VITALS: BP 110/62; PULSE 65; BMI 30.5
--- NOTE | 2023-09-07 13:57 | MHC.OFFVIS ---
Intake Vital Signs 09/07/23 13:57 Height 5 ft 7 in Weight 194 lb 14.218 oz BMI 30.5 BP 110/62 Blood Pressure Location Lt brachial Position Sitting Pulse 65 Pulse Source Monitor Intake Visit Reasons: overdue follow-up Synthetic Department Supervisor: Synthetic Department Supervisor Present Allergies No Known Allergies [No Known Allergies*] Allergy (Verified 09/07/23 14:00) Medication List - Last Reconciled 09/07/23 by Gertrude Cuevas NP-C amiodarone 200 mg PO DAILY apixaban (Eliquis) 2.5 mg PO BID atorvastatin 10 mg PO DAILY furosemide 20 mg PO DAILY glipizide ER 10 mg PO DAILY hydralazine 25 mg PO BID metformin 1,000 mg PO BID metoprolol succinate ER 50 mg PO DAILY tamsulosin 0.4 mg PO DAILY vitamin W17-fqyen acid 500-400 mcg 1 tab PO DAILY HPI overdue follow-up HPI Details Mario is an 83-year-old male with past medical history of hypertension, diabetes, nonischemic cardiomyopathy, heart failure with reduced EF, aortic stenosis status post aortic valve replacement, paroxysmal atrial fibrillation, sick sinus syndrome status post dual-chamber pacemaker placement who presents for follow-up. Today he reports that he has been doing well since his last visit. He denies having any concerning cardiac symptoms. No chest discomfort at rest or with activity. He will feel some shortness of breath if having to climb an incline but otherwise breathing is comfortable. No heart palpitations, presyncope, syncope, PND, orthopnea or edema. Takes all meds as directed. Plans to go on a cruise in September. No bleeding issues reported. Significant other is present. [facility] Medical History Cardiac pacemaker in situ CVA (cerebral vascular accident) Diabetes mellitus CKD (chronic kidney disease) HTN (hypertension) Paroxysmal atrial flutter Heart failure with reduced ejection fraction Nonischemic cardiomyopathy Sick sinus syndrome Surgical History Status post aortic valve replacement History of cardioversion Hx of cardiac cath Hx of colonoscopy Family History Father No problems noted. Mother CVD (cardiovascular disease) Review of Systems Const All systems reviewed & are unremarkable except as noted in HPI and below ENT Reports dizziness (if stands quickly) Card Denies chest pain, Denies chest pain at rest, Denies chest pain with activity, Denies rapid heart rate, Denies pedal edema, Denies edema, Denies leg edema, Denies lightheadedness, Denies palpitations, Denies dyspnea, Denies dyspnea on exertion and Denies orthopnea Resp Denies cough, Denies dyspnea and Denies dyspnea on exertion GI Denies hematochezia and Denies change in stool character Musc Denies abnormal gait, Denies limited range of motion, Denies muscle cramps, Denies muscle weakness, Denies numbness, Denies radiating pain into limb, Denies stiffness and Denies tingling Neuro Denies abnormal gait, Reports dizziness (if stands quickly), Denies numbness and Denies tingling Endo Denies palpitations Physical Exam Vital Signs: Last Vital Signs Pulse 65 09/07/23 13:57 BP 110/62 09/07/23 13:57 BMI result Body Mass Index 30.5 Const General: cooperative, healthy appearing, comfortable and no acute distress Orientation/consciousness: patient oriented x3 Neck Neck: Yes normal visual inspection Resp Effort & Inspection: normal respiratory effort Auscultation: clear to auscultation bilaterally, no crackles, no rales, no rhonchi and no wheezes Cardio Jugular venous distension: no JVD Rate: regular rate Rhythm: regular rhythm Heart sounds: S1 normal heart sound present, S2 normal heart sound present, no murmurs and no rubs Neuro General: patient oriented x3 Extrem General: Yes normal to inspection and No no pedal edema Psych Appearance: grossly normal Mental Status: mental status grossly normal Speech and movement: Normal speech and movement present Office Procedures Cardiac Device Check Cardiac Device Check Details: Medtronic device check today showing battery 7.6 years, A and V thresholds, DDDRmode, low rate 60, no 80 or AF, V paced 98.2%, a paced 96.2% [id number] Cardiac Device Check, pacemaker dual lead Procedure code (CPT) selection complete EKG Details: Today, read by me, AV paced rhythm, rate 65, no acute findings noted [id number], Complete Assessment & Plan Assessment & Plan (1) Heart failure with reduced ejection fraction: Code(s): I50.20 - Unspecified systolic (congestive) heart failure Plan: History of heart failure with reduced EF. Last echocardiogram done 03/22/2023 showing EF 35-40%, normally function bioprosthetic aortic valve replacement. EF unchanged from echo a year prior. On examination today he has no clinical signs of decompensated heart failure. He is not on Dudley/Arb due to chronic kidney disease. He is on hydralazine, metoprolol and Lasix. Signs and symptoms of heart failure reviewed with him and he states understanding. Vital signs well controlled at present. Cardiology follow-up 6 months, sooner if needed (2) Nonischemic cardiomyopathy: Comment: LVEF of 40% by echocardiogram Code(s): I42.8 - Other cardiomyopathies Plan: As above (3) Status post aortic valve replacement: Comment: status post 25 mm Griffin Magna valve along with 32 mm Tarumo Dacron graft for severe aortic stenosis and ascending aortic aneurysm, February of 2019. minimal coronary artery disease at the time of cardiac catheterization for surgery Code(s): Z95.2 - Presence of prosthetic heart valve Plan: Aortic valve functioning normally on last echocardiogram. Will plan for repeat echo prior to his next visit in 6 months (4) Paroxysmal atrial flutter: Code(s): I48.92 - Unspecified atrial flutter Plan: History of paroxysmal atrial fibrillation. Currently suppressed with amiodarone 200 mg daily. He is reporting no concerning symptoms suggestive of toxicity. Labs done on 07/25/2023 showed normal LFTs. Labs done 03/01/2023 showed TSH 1.58. Chest x-ray from 03/01/2023 showed no acute findings. EKG from today shows a/V paced rhythm. Will have him continue on amiodarone for rhythm control, continue metoprolol for heart rate control. Continue Eliquis at 2.5 mg b.i.d. for anticoagulation. No bleeding issues reported. Labs from 07/25/2023 showed creatinine 2.71, hematocrit 37.9. (5) Cardiac pacemaker in situ: Code(s): Z95.0 - Presence of cardiac pacemaker Plan: Medtronic dual-chamber pacemaker in place. Office interrogation today shows device is functioning normally. No alerts. Remote monitoring in use. Next office interrogation in 6 months. Pacemaker site benign (6) Sick sinus syndrome: Code(s): I49.5 - Sick sinus syndrome Plan: As above Plan Time spent on chart review, documentation, interview and assessment Orders: Orders CA echo transthoracic complete 02/11/24 I42.8 - Other cardiomyopathies, Z95.2 - Presence of prosthetic heart valve Coding Level of Care Code Est Pt Level 4 (58275) Diagnoses Heart failure with reduced ejection fraction I50.20 Nonischemic cardiomyopathy I42.8 Status post aortic valve replacement Z95.2 Paroxysmal atrial flutter I48.92 Cardiac pacemaker in situ Z95.0 Sick sinus syndrome I49.5 CPT Codes Cardiac Device Check - Cardiac Device 2: 28615-MS Cardiac Device Check, pacemaker dual lead ([id number]) EKG - CPT: 50290-Rwqlvfyjtepqgyvfj, Complete ([id number]) Time Spent (min) 30
== END 2023-09-07 14:54 | disposition home or self-care (01) ==
PROVIDERS: PCP Internal Medicine; Visit Provider Nurse Practitioner Family
DX: I50.20 Unspecified systolic (congestive) heart failure (principal); I42.8 Other cardiomyopathies; Z95.2 Presence of prosthetic heart valve; I48.92 Unspecified atrial flutter; Z95.0 Presence of cardiac pacemaker; I49.5 Sick sinus syndrome
CPT/HCPCS: 93010; 93280; 99214

== ENCOUNTER → 2023-09-07 13:42 | Outpatient (BNVA) | payer MEDICARE, OTHER, SELFPAY | PROVIDERS: PCP Internal Medicine; Visit Provider Nurse Practitioner Family | DX: I50.20 Unspecified systolic (congestive) heart failure (principal); I42.8 Other cardiomyopathies; I48.92 Unspecified atrial flutter; Z95.2 Presence of prosthetic heart valve; Z79.01 Long term (current) use of anticoagulants; Z79.899 Other long term (current) drug therapy; Z45.018 Encounter for adjustment and management of other part of cardiac pacemaker | CPT/HCPCS: 93005; 93280; 99212 ==

== ENCOUNTER → 2023-11-27 23:59 | Outpatient (BNV) | payer MEDICARE, OTHER, SELFPAY ==
--- NOTE | 2023-11-28 14:44 | MHC.OFFVIS ---
Intake Intake Visit Reasons: Remote Device Check- Medtronic Allergies No Known Allergies [No Known Allergies*] Allergy (Verified 09/07/23 14:00) [facility] Medical History Cardiac pacemaker in situ CVA (cerebral vascular accident) Diabetes mellitus CKD (chronic kidney disease) HTN (hypertension) Paroxysmal atrial flutter Heart failure with reduced ejection fraction Nonischemic cardiomyopathy Sick sinus syndrome Surgical History Status post aortic valve replacement History of cardioversion Hx of cardiac cath Hx of colonoscopy Family History Father No problems noted. Mother CVD (cardiovascular disease) Office Procedures Cardiac Device Check Cardiac Device Check Details: Remote pacemaker report generated 11/27/2023. Pacemaker function is adequate. No episodes of atrial fibrillation noted [id number] Cardiac Device Interrogation, pacemaker Procedure code (CPT) selection complete Assessment & Plan Assessment & Plan (1) Cardiac pacemaker in situ: Code(s): Z95.0 - Presence of cardiac pacemaker Plan: See above Coding Level of Care Code Procedure Only Diagnoses Cardiac pacemaker in situ Z95.0 CPT Codes Cardiac Device Check - Cardiac Device 12: [id number] Cardiac Device Interrogation, pacemaker ([id number])
== END ==
PROVIDERS: PCP Internal Medicine; Visit Provider Internal Medicine Cardiovascular Disease
DX: Z45.018 Encounter for adjustment and management of other part of cardiac pacemaker (principal)
CPT/HCPCS: 93294

== ENCOUNTER 2024-01-22 06:16 | Outpatient (REF) | payer MEDICARE, OTHER, SELFPAY ==
[2024-01-22 10:42] LABS: MANUAL DIFF FLAG NO
[2024-01-22 10:53] LABS: Basophils Percent Auto 0.4 % (0-2); Eosinophils Absolute Auto 0.2 X10*3/uL (0.0-0.4); Eosinophils Percent Auto 2.6 % (0-4); Hematocrit 38.1 % (42.0-52.0); Hemoglobin 12.3 g/dl (14.0-18.0); Imm Gran Abs Auto 0.05 X10*3/uL (0.00-0.03); Imm Gran Pct Auto 0.7 % (0.0-0.4); Lymphocytes Percent Auto 14.6 % (20-40); Mean Corpuscular HGB Conc 32.3 g/dl (31.0-36.0); Mean Corpuscular Hemoglobin 30.5 pg (27.0-33.0); Mean Corpuscular Volume 94.5 fL (80.0-98.0); Mean Platelet Volume 9.6 fL (9.4-12.4); Monocytes Absolute Auto 0.7 X10*3/uL (0.1-1.2); Monocytes Percent Auto 9.5 % (2-11); Neutrophils Absolute Auto 4.9 x10*3/uL (2.0-8.3); Neutrophils Percent Auto 72.2 % (45-73); Platelet Count 345 X10*3/uL (160-400); Red Blood Count 4.03 X10*6/uL (4.60-5.80); White Blood Count 6.8 X10*3/uL (4.8-10.8)
[2024-01-22 11:26] LABS: Anion Gap 14 (12-20); Blood Urea Nitrogen 38 mg/dL (9-16); Calcium 9.2 mg/dL (8.4-10.2); Carbon Dioxide 25 mmol/L (22-29); Chloride 106 mmol/L (96-108); Estimated Glomerular Filt Rate 28; Potassium 5.1 mmol/L (3.3-5.1); Sodium 140 mmol/L (135-145)
[2024-01-22 11:38] LABS: Creatinine Urine 131.53 mg/dL; Microalbum/Creatinine Ratio Ur 50.1 ug/mg cr (<30)
[2024-01-22 11:43] LABS: Parathyroid Hormone Intact 90.1 pg/mL (8.7-77.1)
[2024-01-22 11:48] LABS: Vitamin D 25-OH Total 45.5 ng/mL (>30)
== END 2024-01-22 06:17 | disposition home or self-care (01) ==
LOC: HO.HMGCLDS 06:16
PROVIDERS: PCP Internal Medicine; Visit Provider Internal Medicine Nephrology
DX: N18.30 Chronic kidney disease, stage 3 unspecified (principal)
CPT/HCPCS: 36415; 80051; 82043; 82306; 82310; 82565; 82570; 83970; 84520; 85025

== ENCOUNTER → 2024-02-11 10:58 | Outpatient (REF) | payer MEDICARE, OTHER, SELFPAY ==
--- NOTE | 2024-02-11 11:01 | CA_ITS ---
Transthoracic Echocardiogram Patient (Last, First, Middle): Mario Walters O Gender: Male Date of : 1940 Age: 84 Procedure Date: 02/11/2024 Procedure Type: Transthoracic Echocardiogram Location: OP Height: 170.18 cm Weight: 87.54 kg BSA: 1.99 m2 Heart Rate: bpm BP: 119 / 70 mmHg Lab Engineer: PRINCESS Referring MD: Gertrude Cuevas DOOR SLINGER-C Perforator: Hipolito Mehta MD Symptoms: I42.8 - Other cardiomyopathies Study Quality: Fair ECG Rhythm: Sinus Conclusions: - 1. Moderately reduced LV systolic function with LVEF of 35-40% with pseudonormal filling pattern 2. Mild biatrial enlargement 3. Increased gradient across bioprosthetic aortic valve with possible patient prosthesis mismatch 4. Normal RV systolic pressure 5. Mildly dilated aortic root and upper limits of normal ascending aorta 6. No gross pericardial effusion Findings Left Ventricle Normal left ventricular cavity size. There is normal left ventricular wall thickness. The left ventricular systolic function is moderately decreased. The visually estimated ejection fraction is between 35-40%. There is moderate global hypokinesis. There is paradoxical septal motion consistent with a right ventricular pacemaker. Spectral Doppler is indicative of a pseudonormal filling pattern. E/E prime ratio is between 8 and 15 consistent with indeterminate filling pressures. There is mild septal asymmetric hypertrophy. Peak GLS is -13.1%, moderately reduced. Right Ventricle Normal right ventricular cavity size. There is normal right ventricular systolic function. There is a pacemaker wire seen in the right ventricle. Atria The left atrium is mildly dilated. There is no evidence of interatrial shunt. The right atrium is mildly dilated. A pacemaker wire is identified in the right atrium. Aortic Valve A bioprosthetic aortic valve is present. The mean gradient is 17 mmHg. Mean gradient across the bioprosthetic aortic valve on mildly increased a 17 mm Hg. Would suggest patient prosthesis mismatch.The valve is well seated without abnormal rocking motion Mitral Valve There is mild anterior and moderate posterior mitral leaflet thickening. There is mild mitral annular calcification. There is trace mitral valve regurgitation. There is no mitral valve stenosis. Pulmonic Valve The pulmonic valve was not well visualized. Tricuspid Valve Likely normal tricuspid valve structure and function. There is mild tricuspid valve regurgitation. The right ventricular systolic pressure is normal. The right ventricular systolic pressure is 33 mmHg. Normal right atrial pressure. There is no evidence of pulmonary hypertension. Great Vessels The pulmonary artery was not well visualized. Small plaque is seen in the sino tubular ridge. Venous The inferior vena cava is normal in size and collapses greater than 50% with inspiration. Pericardium/Pleural There is no evidence of pericardial effusion. Measurements 2D Linear Measurements IVSd: 1.21 0.6-0.9/0.6-1.0 cm LVIDd: 5.51 3.9-5.3/4.2-5.9 cm LVIDd Index: 2.77 2.4-3.2/2.2-3.1 cm/m2 LVIDs: 4.65 2.0-3.6 cm LVPWd: 0.92 0.7-1.1 cm LA Diam: 3.90 2.7-3.8/3.0-4.0 cm LAIDs Index: 1.96 1.5-2.3 cm/m2 LV Mass: 290.17 67-162/88-224 g LV Mass Index: 145.81 43-95/49-115 g/m2 LVOT Diam: 2.00 3.0+(-)1.3 cm 2D Systolic Function EF 4C: 39.90 >55% EF 2C: 38.20 >55% EF BiP: 37.80 >55% Mitral Valve MV Pk E: 0.95 MV PK A: 0.87 MV Decel Time: 200.00 E/A: 1.10 E'Lateral: 8.38 E'Medial: 5.33 E/E' Med: 17.80 E/E' Lat: 11.30 PHT: 58.00 MVA PHT: 3.79 Decel [place]: 4.74 Aortic Valve AoV Pk Mitch: 2.72 AoV Mn Mitch: 1.94 AoV VTI: 0.65 AoV Pk Grad: 30.00 Aov Mn Grad: 17.00 BRADLEY Cont.VTI: 0.95 LVOT LVOT Pk Mitch: 0.84 LVOT Mn Mitch: 0.64 LVOT VTI: 0.20 LVOT Pk Grad: 3.00 LVOT Mn Grad: 2.00 LVOT Diam: 2.00 LVOT Area: 3.14 Diastolic Function MV Pk E: 0.95 MV Pk A: 0.87 E/A: 1.10 E'Medial: 5.33 E/E' Med: 17.80 E' Laterial: 8.38 E/E' Lat: 11.30 Right Ventricle TAPSE (mm): 25.90 TVS' Mitch: 10.70 Tricuspid Valve TR Pk Mitch: 2.74 TR Pk Grad: 30.00 RA Press: 3.00 RVSP: 33.00 Great Vessels Aorta Sinus of Valsalva: 4.37 2.0-3.[address] Ridge: 3.09 1.7-3.4 cm Ao Asc: 3.60 2.1-3.4 cm Updated in Other Vendor System with Status of Final Hipolito Mehta MD electronically signed on 02/11/2024 1:23:49 PM with status of Final
== END ==
LOC: HO.CARD 10:58
PROVIDERS: PCP Internal Medicine; Visit Provider Nurse Practitioner Family
DX: I42.9 Cardiomyopathy, unspecified (principal); Z95.2 Presence of prosthetic heart valve
CPT/HCPCS: 93306; 93356

== ENCOUNTER → 2024-02-11 11:01 | Outpatient (BNV) | payer MEDICARE, OTHER, SELFPAY | PROVIDERS: PCP Internal Medicine; Visit Provider Internal Medicine Cardiovascular Disease | DX: T82.09XA Other mechanical complication of heart valve prosthesis, initial encounter (principal); I42.2 Other hypertrophic cardiomyopathy; R93.1 Abnormal findings on diagnostic imaging of heart and coronary circulation; I36.1 Nonrheumatic tricuspid (valve) insufficiency | CPT/HCPCS: 93306; 93356 ==

== ENCOUNTER 2024-02-25 12:36 | Outpatient (AMB) | payer MEDICARE, OTHER, SELFPAY ==
--- NOTE | 2024-02-25 12:40 | A.OFFVIS_ITS ---
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 Web Site Designer: Web Site Designer Present Accompanied by: Spouse Allergies No Known Allergies [No Known Allergies*] Allergy (Verified 09/07/23 14:00) Medication List - Last Reconciled 02/25/24 by Hipolito Mehta MD amiodarone 200 mg PO DAILY apixaban (Eliquis) 2.5 mg PO BID atorvastatin 10 mg PO DAILY dulaglutide (Trulicity) mg subcut furosemide 20 mg PO DAILY glipizide ER 10 mg PO DAILY hydralazine 25 mg PO BID metformin 1,000 mg PO BID metoprolol succinate ER 50 mg PO DAILY tamsulosin 0.4 mg PO DAILY vitamin O60-bndwq acid 500-400 mcg 1 tab PO DAILY HPI Comments Details: Mario comes for follow-up. He has been doing very well from cardiac perspective. Regularly doing activity 5 times a week. Denies any worsening cardiac symptoms. No lightheadedness at rest. Does get some orthostatic lightheadedness and has to get up slowly. Denies any syncopal episodes. No prolonged palpitation irregular heartbeat. No bleeding issues or neurologic events. Denies any orthopnea, PND, leg edema. Denies any exertional chest pain. Comes for pacemaker evaluation. He says furosemide was reduced by his sausage stringer about 6 weeks ago. Since then he has not noticed any worsening heart failure symptoms. [facility] Medical History Cardiac pacemaker in situ CVA (cerebral vascular accident) Diabetes mellitus CKD (chronic kidney disease) HTN (hypertension) Paroxysmal atrial flutter Heart failure with reduced ejection fraction Nonischemic cardiomyopathy Sick sinus syndrome Surgical History Status post aortic valve replacement History of cardioversion Hx of cardiac cath Hx of colonoscopy Family History Father No problems noted. Mother CVD (cardiovascular disease) Review of Systems Const Denies chills, Denies fatigue, Denies fever(s), Denies frequent falls, Denies weakness, Denies weight gain and Denies weight loss ENT Denies dizziness Card Denies chest pain, Denies leg edema, Denies lightheadedness, Denies palpitations, Denies dyspnea, Denies dyspnea on exertion, Denies orthopnea and Denies other (loss of consciousness) Resp Denies cough, Denies dyspnea and Denies dyspnea on exertion GI Denies hematochezia and Denies change in stool character Musc Denies abnormal gait, Denies muscle weakness, Denies numbness, Denies radiating pain into limb and Denies tingling Neuro Denies abnormal gait, Denies dizziness, Denies frequent falls, Denies numbness, Denies tingling and Denies weakness Endo Denies fatigue and Denies palpitations Physical Exam Vital Signs: Last Vital Signs Pulse 67 02/25/24 12:44 BP 110/70 02/25/24 12:44 BMI result Body Mass Index 28.7 Const General: cooperative, healthy appearing, comfortable and no acute distress Orientation/consciousness: patient oriented x3 Neck Neck: Yes normal visual inspection Resp Effort & Inspection: normal respiratory effort Auscultation: clear to auscultation bilaterally, no crackles, no rales, no rhonchi and no wheezes Cardio Jugular venous distension: no JVD Rate: regular rate Rhythm: regular rhythm Heart sounds: S1 normal heart sound present, S2 normal heart sound present, no murmurs and no rubs Neuro General: patient oriented x3 Extrem General: Yes normal to inspection and No no pedal edema Psych Appearance: grossly normal Mental Status: mental status grossly normal Speech and movement: Normal speech and movement present Office Procedures Cardiac Device Check Cardiac Device Check Details: Dual-chamber Medtronic pacemaker in place. Programmed in DDDR at 60 beats per minute. Atrial ventricular pacing greater than 90% of time. No arrhythmias detected. Atrial sensing was at 2.4 mV. Ventricular sensing could not be check ed. Atrial ventricular pacing thresholds excellent and reprogrammed to enhance battery life. Pacing lead impedance is stable. Battery life is at about 9 years [id number] Cardiac Device Check, pacemaker dual lead Procedure code (CPT) selection complete EKG Details: EKG shows AV dual paced rhythm at 67 beats per minute [id number], Complete Assessment & Plan Assessment & Plan (1) Cardiac pacemaker in situ: Code(s): Z95.0 - Presence of cardiac pacemaker Category: Medical Plan: Cardiac pacemaker in-situ, patient ventricularly pacer dependent most likely due to aortic valve replacement and AV conduction abnormality. Will continue monitor remotely every 3 months. Also follow-up pacer telemetry remotely. Pacemaker was reprogrammed for adequate functioning. (2) Paroxysmal atrial flutter: Code(s): I48.92 - Unspecified atrial flutter Category: Medical Plan: Paroxysmal atrial fibrillation which is currently suppressed on amiodarone therapy. Has derived significant clinical benefit from rhythm control approach with no heart failure admissions. Continue rhythm control approach. Continue amiodarone therapy. Annual check for amiodarone toxicity. Continue full oral anticoagulation, currently on Eliquis 2.5 mg b.i.d.. (3) Heart failure with reduced ejection fraction: Code(s): I50.20 - Unspecified systolic (congestive) heart failure Category: Medical Plan: Heart failure with reduced ejection fraction, clinically euvolemic and well compensated on current dose of diuretics. Advise heart failure monitoring at home. Daily weight monitoring avoidance of salt loading was discussed. Additio nal diuretics as need be. Continue current neurohormonal modulation with metoprolol therapy. Continue current vasodilators therapy with hydralazine. Continue rhythm control approach as above. Additional diuretics as need be. Most recent echocardiogram shows persistent moderate LV systolic dysfunction. (4) Status post aortic valve replacement: Comment: status post 25 mm Griffin Magna valve along with 32 mm Tarumo Dacron graft for severe aortic stenosis and ascending aortic aneurysm, February of 2019. minimal coronary artery disease at the time of cardiac catheterization for surgery Code(s): Z95.2 - Presence of prosthetic heart valve Category: Surgical Plan: Status post aortic valve replacement with increased gradient noted on recent echocardiogram. Will continue monitor clinically as well as follow-up echocardiogram in a year's time. SBE prophylaxis as per ACC/aha guidelines. Continue full oral anticoagulation as above. Will follow up in the clinic in 6 months time, sooner p.r.n.. Thank you for allowing me to partake in his care Coding Level of Care Code Est Pt Level 4 (48019) Diagnoses Cardiac pacemaker in situ Z95.0 Paroxysmal atrial flutter I48.92 Heart failure with reduced ejection fraction I50.20 Status post aortic valve replacement Z95.2 CPT Codes Cardiac Device Check - Cardiac Device 2: [id number]-[id number] Cardiac Device Check, pacemaker dual lead ([id number]) EKG - CPT: 34286-[id number], Complete ([id number])
[2024-02-25 12:44] VITALS: BP 110/70; PULSE 67; BMI 28.7
== END 2024-02-25 13:05 | disposition home or self-care (01) ==
PROVIDERS: PCP Internal Medicine; Visit Provider Internal Medicine Cardiovascular Disease
DX: I50.20 Unspecified systolic (congestive) heart failure (principal); I48.92 Unspecified atrial flutter; Z95.0 Presence of cardiac pacemaker; Z95.2 Presence of prosthetic heart valve; R94.31 Abnormal electrocardiogram [ECG] [EKG]
CPT/HCPCS: 93010; 93280; 99214

== ENCOUNTER → 2024-02-25 12:36 | Outpatient (BNVA) | payer MEDICARE, OTHER, SELFPAY | PROVIDERS: PCP Internal Medicine; Visit Provider Internal Medicine Cardiovascular Disease | DX: Z45.018 Encounter for adjustment and management of other part of cardiac pacemaker (principal); I48.92 Unspecified atrial flutter; I50.20 Unspecified systolic (congestive) heart failure; Z95.2 Presence of prosthetic heart valve | CPT/HCPCS: 93005; 93280; 99212 ==

== ENCOUNTER → 2024-02-25 23:59 | Outpatient (BNV) | payer MEDICARE, OTHER, SELFPAY ==
--- NOTE | 2024-03-03 13:28 | MHC.OFFVIS ---
Intake Visit Reasons: Remote Device Check- Medtronic Allergies No Known Allergies [No Known Allergies*] Allergy (Verified 09/07/23 14:00) PFS Medical History Cardiac pacemaker in situ CVA (cerebral vascular accident) Diabetes mellitus CKD (chronic kidney disease) HTN (hypertension) Paroxysmal atrial flutter Heart failure with reduced ejection fraction Nonischemic cardiomyopathy Sick sinus syndrome Surgical History Status post aortic valve replacement History of cardioversion Hx of cardiac cath Hx of colonoscopy Family History Father No problems noted. Mother CVD (cardiovascular disease) Office Procedures Cardiac Device Check Cardiac Device Check Details: Remote pacemaker report generated 02/25/2024. Pacemaker function is adequate [id number] Cardiac Device Interrogation, pacemaker Procedure code (CPT) selection complete Assessment & Plan Assessment & Plan (1) Cardiac pacemaker in situ: Code(s): Z95.0 - Presence of cardiac pacemaker Category: Medical Plan: See above Coding Level of Care Code Procedure Only Diagnoses Cardiac pacemaker in situ Z95.0 CPT Codes Cardiac Device Check - Cardiac Device 12: [id number] Cardiac Device Interrogation, pacemaker ([id number])
== END ==
PROVIDERS: PCP Internal Medicine; Visit Provider Internal Medicine Cardiovascular Disease
DX: Z45.018 Encounter for adjustment and management of other part of cardiac pacemaker (principal)
CPT/HCPCS: 93294

== ENCOUNTER 2024-04-14 13:06 | Outpatient (AMB) | payer MEDICARE, OTHER, SELFPAY ==
--- NOTE | 2024-04-14 14:11 | MHC.OFFWIV ---
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 Diabetic. 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 His assists with HPI he apparently walked on the hot pavement of their driveway Thursday 04/05. He has significant neuropathy in his feet and he could not feel the burning. notes she applied cold water and ice to feet and there was no blistering at the time. They left on a cruise the following morning this is when they noted significant blistering of the bottom of his bilateral feet. Was seen by the cruise ship doctor where it seems he was started on a course of clindamycin, dressing changes, Silvadene an elevation of his feet. They note he was doing fairly well throughout their trip and over the past 2 days the left foot began with increased swelling, redness and drainage. He is afebrile here today but notes he has been complaining of chills for the past several days. [facility] Medical History Cardiac pacemaker in situ CVA (cerebral vascular accident) Diabetes mellitus CKD (chronic kidney disease) HTN (hypertension) Paroxysmal atrial flutter Heart failure with reduced ejection fraction Nonischemic cardiomyopathy Sick sinus syndrome Surgical History Status post aortic valve replacement History of cardioversion Hx of cardiac cath Hx of colonoscopy Family History Father No problems noted. Mother CVD (cardiovascular disease) Social History Patient Tobacco Use Status: Former Tobacco user Review of Systems Const Reports as per HPI and Reports no additional complaints Musc Reports no additional complaints and Reports as per HPI Skin/Breast Denies lesions Neuro Reports no additional complaints and Reports as per HPI Physical Exam Vital Signs: Last Vital Signs Temp 98.7 F 04/14/24 14:12 Pulse 87 04/14/24 14:12 BP 128/80 04/14/24 14:12 Pulse Ox 98 04/14/24 14:12 Oxygen Delivery Method Room Air 04/14/24 14:12 BMI result Body Mass Index 30.2 Const General: cooperative, comfortable and no acute distress Orientation/consciousness: patient oriented x3 Resp Effort & Inspection: normal respiratory effort Auscultation: clear to auscultation bilaterally Cardio Rate: regular rate Rhythm: regular rhythm Heart sounds: S1 normal heart sound present and S2 normal heart sound present Neuro General: patient oriented x3 Extrem Right lower extremity: edema (Mild generalized of the foot) and foot (Plantar surface under MTPs there is second-degree burn without sign of infe) Details: toes with normal ROM and motor-sensory exam (Patient has no feeling in foot) Left lower extremity: edema, ankle (1+ edema with reduced pulses) and foot (Rubor and edema extending up past the mid foot) Details: other (Second-degree burn with significant weeping dorsal surface of MTPs eschar noted a great toe); abnormal capillary refill Assessment & Plan Assessment & Plan (1) Second degree burn of plantar aspect of foot: Code(s): T25.229A - Burn of second degree of unspecified foot, initial encounter Qualifiers: Encounter type: initial encounter Laterality: left Qualified Code(s): T25.222A - Burn of second degree of left foot, initial encounter (2) Cellulitis of foot associated with diabetes mellitus: Code(s): E11.628 - Type 2 diabetes mellitus with other skin complications; L03.119 - Cellulitis of unspecified part of limb Plan Advised patient given worsening symptoms while on antibiotics he likely needs IV antibiotics and inpatient wound care. They will proceed to [facility] Emergency Department of colon and expect. Follow-up with PCP post hospital. Coding Level of Care Code New Pt Level 4 (43420) Diagnoses Partial thickness burn of plantar aspect of left foot, initial encounter T25.222A Encounter type: initial encounter Laterality: left Cellulitis of foot associated with diabetes mellitus E11.628; L03.119
[2024-04-14 14:12] VITALS: BP 128/80; PULSE 87; TEMP 37.1; O2SAT 98; BMI 30.2
== END 2024-04-14 14:47 | disposition home or self-care (01) ==
PROVIDERS: PCP Internal Medicine; Visit Provider Physician Assistant
DX: T25.222A Burn of second degree of left foot, initial encounter (principal); E11.628 Type 2 diabetes mellitus with other skin complications; L03.119 Cellulitis of unspecified part of limb
CPT/HCPCS: 99204

== ENCOUNTER 2024-04-14 15:15 | Observation (INO) | payer MEDICARE, OTHER, SELFPAY ==
--- NOTE | ~2024-04-14 | XR_ITS ---
EXAMINATION: BILATERAL FEET CLINICAL INFORMATION: Redness and swelling of feet with question of osteomyelitis COMPARISON: None available. TECHNIQUE: 3 views each foot FINDINGS: Left: Degenerative changes are seen at the interphalangeal joints. Some mild degenerative changes are seen at the first MTP joint. Some small osteophytes are noted arising from the medial and lateral malleolus. Enthesopathy seen at the Achilles tendon insertion. There is a small plantar calcaneal spur. No bony destructive lesions seen to suggest the presence of osteomyelitis. Vascular calcium is present. Right: Degenerative changes are seen at the interphalangeal joints. Some mild degenerative changes are seen at the first MTP joint. Some small osteophytes are noted arising from the medial and lateral malleolus. Enthesopathy seen at the Achilles tendon insertion. No bony destructive lesions seen to suggest the presence of osteomyelitis. Vascular calcium is present. XR/XR foot RT 2V IMPRESSION: No evidence of osteomyelitis. Degenerative changes as described above.
--- NOTE | ~2024-04-14 | XR_ITS ---
EXAMINATION: BILATERAL FEET CLINICAL INFORMATION: Redness and swelling of feet with question of osteomyelitis COMPARISON: None available. TECHNIQUE: 3 views each foot FINDINGS: Left: Degenerative changes are seen at the interphalangeal joints. Some mild degenerative changes are seen at the first MTP joint. Some small osteophytes are noted arising from the medial and lateral malleolus. Enthesopathy seen at the Achilles tendon insertion. There is a small plantar calcaneal spur. No bony destructive lesions seen to suggest the presence of osteomyelitis. Vascular calcium is present. Right: Degenerative changes are seen at the interphalangeal joints. Some mild degenerative changes are seen at the first MTP joint. Some small osteophytes are noted arising from the medial and lateral malleolus. Enthesopathy seen at the Achilles tendon insertion. No bony destructive lesions seen to suggest the presence of osteomyelitis. Vascular calcium is present. XR/XR foot LT 2V IMPRESSION: No evidence of osteomyelitis. Degenerative changes as described above.
[2024-04-14 16:10] VITALS: BP 130/48; PULSE 89; RESP 16; TEMP 36.9; O2SAT 94; BMI 30.2
--- NOTE | 2024-04-14 16:24 | ED_ITS ---
HPI - General Adult General Chief complaint: Extremity Problem Stated complaint: burned both feet Time Seen by Provider: 04/14/24 23:10 Source: patient Mode of arrival: ambulatory Limitations: no limitations History of Present Illness ED Provider: MILY TREVINO narrative: Patient diabetic with history of AFib on amiodarone and Eliquis apparently walked on hot black top about 10 days ago just for 2 minute and noticed blister sole of both front of the feet patient went to cruise and was taken care of wounds locally day comes here as wound seems to be infected now spreading to the left dorsum of the foot no fever but does feel chills patient is prescribed clindamicin at the cruise ship and was given tetanus immunoglobulin which has been taking clindamycin for 1 week without much response Related Data Home Medications ?Medication ?Instructions ?Recorded ?Confirmed metformin 1,000 mg tablet 1,000 mg PO BID 07/29/20 02/25/24 tamsulosin 0.4 mg capsule 0.4 mg PO DAILY 07/29/20 02/25/24 vitamin B12 500 mcg-folic acid 400 1 tab PO DAILY 07/29/20 02/25/24 mcg tablet glipizide 10 mg tablet, extended 10 mg PO DAILY 09/13/22 02/25/24 release 24 hr metoprolol succinate 50 mg 50 mg PO DAILY 09/13/22 02/25/24 tablet,extended release 24 hr atorvastatin 10 mg tablet 10 mg PO DAILY 09/07/23 02/25/24 dulaglutide 0.75 mg/0.5 mL mg subcut 02/25/24 02/25/24 subcutaneous pen injector (Trulicity) cholecalciferol (vitamin D3) 25 25 mcg PO DAILY 04/14/24 mcg (1,000 unit) capsule Previous Rx's ?Medication ?Instructions ?Recorded furosemide 20 mg tablet 20 mg PO DAILY #90 tabs 12/22/20 hydralazine 25 mg tablet 25 mg PO BID #180 tabs 07/17/23 amiodarone 200 mg tablet 200 mg PO DAILY #90 tabs 08/13/23 apixaban 2.5 mg tablet (Eliquis) 2.5 mg PO BID #180 tabs 03/25/24 Allergies Allergy/AdvReac Type Severity Reaction Status Date / Time No Known Allergies Allergy Verified 04/14/24 16:14 [No Known Allergies*] Review of Systems 2 Review of Systems: Yes all other systems are reviewed and are negative [facility] Past Medical History Medical History Cardiac pacemaker in situ CVA (cerebral vascular accident) Diabetes mellitus CKD (chronic kidney disease) HTN (hypertension) Paroxysmal atrial flutter Heart failure with reduced ejection fraction Nonischemic cardiomyopathy Sick sinus syndrome Surgical History Status post aortic valve replacement History of cardioversion Hx of cardiac cath Hx of colonoscopy Family History Family History Father No problems noted. Mother CVD (cardiovascular disease) Social History Social History Alcohol intake: never Patient Tobacco Use Status: Former Tobacco user Smoked in Last 30 Days: No Advance Directives: No Advance Directives Information Provided: No Physical Exam ED Vital Signs: Vital Signs - 24 hr 04/14/24 16:10 04/14/24 22:10 04/14/24 23:56 Temperature 98.4 F 97 F 98.1 F Pulse Rate 89 71 60 Respiratory Rate 16 16 18 Blood Pressure 130/48 L 151/76 H 133/46 L Pulse Oximetry 94 99 98 Oxygen Delivery Method Room Air Room Air Room Air 04/15/24 02:53 04/15/24 04:53 04/15/24 06:16 Temperature 98.1 F 97.9 F Pulse Rate 64 64 62 Respiratory Rate 18 18 18 Blood Pressure 108/50 L 118/52 L 120/52 L Pulse Oximetry 98 98 98 Oxygen Delivery Method Room Air Room Air Room Air BMI result Body Mass Index 30.2 Appearance: Alert. Oriented X3. No acute distress. Complaining of chills Eyes: No pallor or icterus ENT: Pharynx normal. Oral Mucosa moist Neck: Normal inspection. Neck supple. CVS: Normal heart rate and rhythm. Pulses normal. Respiratory: No respiratory distress. Equal air entry bilateral, no wheezing/rales/rhonchi Abdomen: Soft and nontender. Bowel sounds are present, Skin: Skin warm and dry. Warmth in the left lower extremity ulcers at soles of both feet with surrounding erythema. Normal skin turgor. Extremities: No lower extremity edema. No calf tenderness Neuro: Oriented X 3. No motor deficit. No sensory deficit.No cerebellar signs , cranial nerves II-XII intact Extrem Other: Course Course Course Narrative: RME: done by ALYSSA Seals. Patient presents to ED for bilateral foot burn that occurred last week but now left foot is red warm and swollen. Patient denies any chest pain or shortness of breath. Patient states no fever but admits to chills. On exam right foot burn is healing. Left foot significantly more swollen with redness and warmth. Labs x-ray ordered. Medications Administered Discontinued Medications Generic Name Dose Route Start Last Admin Trade Name Freq PRN Reason Stop Dose Admin Diphtheria/Tetanus/Acell Pertussis 0.5 ml 04/15/24 07:07 04/15/24 07:20 Diphth,Pertus(Acell),Tet Adult 0.5 Ml Syringe IM 04/15/24 07:08 0.5 ml .ONCE ONE Administration Vancomycin HCl 1,500 mg/ 500 mls @ 333.333 mls/hr 04/14/24 23:17 04/15/24 01:52 Sodium Chloride IV 04/15/24 00:46 Infused ONCE ONE Infusion Sodium Chloride 1,000 mls @ 999 mls/hr 04/15/24 01:29 04/15/24 06:31 Ns IV 04/15/24 02:29 Infused .Q1H1M ONE Infusion Medical Decision Making Medical Decision Making [facility] Narrative: Patient with stage II thermal burn both feet with surrounding infection diabetic failed outpatient clindamycin will admit patient for IV antibiotics wound cleaned and Xeroform dressing was applied Differential Diagnosis Differential Diagnoses: The differential diagnosis associated with the presentation includes Cellulitis/bacteremia/second-degree infected burn Admission/Observation Consideration of admission/observation: Escalation of care including admission/observation considered Consult Healthcare Provider Management of the patient was discussed with: Hospitalist Hospitalist was informed about admission of this patient at 04:00 Lab Data [facility] Lab Attestation statement: I reviewed the patient's lab results. 04/14/24 16:56 04/14/24 16:56 Labs: Lab Results 04/14/24 04/14/24 Range/Units 16:56 23:34 WBC 12.6 H (4.8-10.8) X10*3/uL RBC 3.58 L (4.60-5.80) X10*6/uL Hgb 10.8 L (14.0-18.0) g/dl Hct 33.6 L (42.0-52.0) % MCV 93.9 (80.0-98.0) fL MCH 30.2 (27.0-33.0) pg MCHC 32.1 (31.0-36.0) g/dl RDW 13.2 (11.0-16.0) % Plt Count 426 H (160-400) X10*3/uL MPV 9.4 (9.4-12.4) fL Immature Gran % (Auto) 0.6 H (0.0-0.4) % Neut % (Auto) 80.0 H (45-73) % Lymph % (Auto) 7.9 L (20-40) % Cache % (Auto) 10.7 (2-11) % Eos % (Auto) 0.6 (0-4) % Baso % (Auto) 0.2 (0-2) % Lymph # (Auto) 1.0 L (1.2-4.9) X10*3/uL Cache # (Auto) 1.4 H (0.1-1.2) X10*3/uL Eos # (Auto) 0.1 (0.0-0.4) X10*3/uL Baso # (Auto) 0.0 (0.0-0.2) X10*3/uL Abs Immat Gran (auto) 0.07 H (0.00-0.03) X10*3/uL Absolute Neuts (auto) 10.1 H (2.0-8.3) x10*3/uL Absolute Nucleated RBC 0.000 (0.0-0.012) X10*3/uL Nucleated RBC % (auto) 0.0 (0.0-0.2) /100WBC ESR 87 H (0-15) MM/HR PT 14.0 H (11.1-13.3) SEC INR 1.2 H (0.9-1.1) APTT 31.8 (26.0-36.8) SEC Sodium 140 (135-145) mmol/L Potassium 4.9 (3.3-5.1) mmol/L Chloride 106 (96-108) mmol/L Carbon Dioxide 25 (22-29) mmol/L Anion Gap 14 (12-20) BUN 38 H (9-16) mg/dL Creatinine 2.58 H (0.5-1.4) mg/dL Estim Creat Clear Calc 21.7 Estimated GFR 24 Random Glucose 134 H (60-115) mg/dL Lactic Acid 0.9 (0.5-2.0) mmol/L Calcium 9.5 (8.4-10.2) mg/dL Total Bilirubin 0.5 (0.0-1.0) mg/dL AST 32 (5-37) U/L ALT 32 (0-40) U/L Alkaline Phosphatase 69 (39-117) U/L C-Reactive Protein 10.35 H (< or = 0.50) mg/dL Total Protein 7.0 (6.5-8.0) g/dL Albumin 3.9 (3.5-5.0) g/dL Discharge Plan Discharge Clinical Impression: Second degree burn of plantar aspect of foot, Cellulitis Patient Disposition: Admitted As Inpatient Print Language: Australian
[2024-04-14 17:01] LABS: MANUAL DIFF FLAG NO
[2024-04-14 17:10] LABS: Basophils Percent Auto 0.2 % (0-2); Eosinophils Absolute Auto 0.1 X10*3/uL (0.0-0.4); Eosinophils Percent Auto 0.6 % (0-4); Hematocrit 33.6 % (42.0-52.0); Hemoglobin 10.8 g/dl (14.0-18.0); Imm Gran Abs Auto 0.07 X10*3/uL (0.00-0.03); Imm Gran Pct Auto 0.6 % (0.0-0.4); Lymphocytes Percent Auto 7.9 % (20-40); Mean Corpuscular HGB Conc 32.1 g/dl (31.0-36.0); Mean Corpuscular Hemoglobin 30.2 pg (27.0-33.0); Mean Corpuscular Volume 93.9 fL (80.0-98.0); Mean Platelet Volume 9.4 fL (9.4-12.4); Monocytes Absolute Auto 1.4 X10*3/uL (0.1-1.2); Monocytes Percent Auto 10.7 % (2-11); Neutrophils Absolute Auto 10.1 x10*3/uL (2.0-8.3); Platelet Count 426 X10*3/uL (160-400); Red Blood Count 3.58 X10*6/uL (4.60-5.80); Red Cell Distribution Width 13.2 % (11.0-16.0); White Blood Count 12.6 X10*3/uL (4.8-10.8)
[2024-04-14 17:15] LABS: Alanine Aminotransferase 32 U/L (0-40); Albumin Level 3.9 g/dL (3.5-5.0); Alkaline Phosphatase 69 U/L (39-117); Anion Gap 14 (12-20); Aspartate Amino Transferase 32 U/L (5-37); Bilirubin Total 0.5 mg/dL (0.0-1.0); Blood Urea Nitrogen 38 mg/dL (9-16); C Reactive Protein 10.35 mg/dL (< or = 0.50); Calcium 9.5 mg/dL (8.4-10.2); Carbon Dioxide 25 mmol/L (22-29); Chloride 106 mmol/L (96-108); Creatinine Clr Calc Pharmacy 21.7; Estimated Glomerular Filt Rate 24; Glucose Random 134 mg/dL (60-115); Potassium 4.9 mmol/L (3.3-5.1); Sodium 140 mmol/L (135-145)
[2024-04-14 17:37] LABS: INTERNATIONAL NORM RATIO 1.2 (0.9-1.1)
[2024-04-14 17:40] LABS: Partial Thromboplastin Time 31.8 SEC (26.0-36.8)
[2024-04-14 18:23] LABS: Erythrocyte Sedimentation Rate 87 MM/HR (0-15)
[2024-04-14 22:10] VITALS: BP 151/76; PULSE 71; RESP 16; TEMP 36.1; O2SAT 99
[2024-04-14] MEDS: vancomycin HCL 1,500 MG in 0.9 % Sodium Chloride 500 ML 333.33 MG IV (23:42)
[2024-04-14 23:50] LABS: Lactic Acid 0.9 mmol/L (0.5-2.0)
[2024-04-14 23:56] VITALS: BP 133/46; PULSE 60; RESP 18; TEMP 36.7; O2SAT 98
--- NOTE | 2024-04-14 23:57 | MHC.EDTECH ---
Patient came in from the waiting room,changed into hospital attire,vitals taken. Patient has wounds bilaterally to the bottoms of both feet,cleaned with peroxide and saline per doctors request xeroform applied to areas with a telfa dressing and cling wrap,patient tolerated well,patient was given a tuna sandwich and a can of lynn brittni. Belongings list completed copy placed in chart,call han in reach
[2024-04-15] VITALS (10 sets, daily range): BP systolic 105–155; BP diastolic 46–69; PULSE 58–68; RESP 16–18; TEMP 36.1–37; O2SAT 96–98
[2024-04-15] MEDS: 0.9 % Sodium Chloride 1,000 ML 999 ML IV (01:50)
--- NOTE | 2024-04-15 03:14 | MHC.EDTECH ---
Patient stood at the side of bed to use urinal,urinated 250MLs yellow in color,vitals taken,patient repositioned to comfort call han in reach
--- NOTE | 2024-04-15 06:18 | MHC.EDTECH ---
Hourly rounds and vitals completed,patient urinated 225MLS in urinal,patient is resting comfortably call han in reach
[2024-04-15] MEDS: Diphth,Pertus(ACell),Tet Adult 0.5 ML SYRINGE IM (07:20)
[2024-04-15 08:22] LABS: Estimated Average Glucose 131 mg/dL; Hemoglobin A1c % 6.2 % (<6.0)
--- NOTE | 2024-04-15 09:03 | P.HPHOSP_ITS ---
History of Present Illness Date of Service: 04/15/24 Attending physician on admission: [facility] Chief Complaint: bilateral foot becerril 84 year old male with history of paroxysmal atrial flutter anticoagulated with Eliquis, [id number] type 2 diabetes, heart failure reduced ejection fraction, sick sinus syndrome s/p pacemaker placement, nonischemic cardiomyopathy, hypertension, s/p TAVR, diabetic polyneuropathy presents to the ED for evaluation of becerril to the bilateral feet sustained 11 days ago. He reports he was walking barefoot on pavement and due to his polyneuropathy, was unable to feel the pain of the pavement burning him. About 2 days later he developed large blisters on the bottom of his feet. He had just embarked on a cruise for vacation and [place] He was ultimately prescribed clindamycin and recommended to use Silvadene with dressings and leg elevation. He has been taking as prescribed and had been improving until 2 days ago when the redness and swelling began worsening and was present on the dorsal aspect of the left foot. Denies any fevers but has had chills. Denies purulent drainage. Reports his girlfriend has been cleaning and dressing his feet on a daily basis. Since arrival, vitals have been stable the blood pressures overnight were slightly soft. Blood pressure on admission 120/51. He initially had a leukocytosis of 12.6, improved to 8.5 this morning. Renal function is baseline, consistent with CKD stage 4, electrolyte levels are normal. Hemoglobin A1c was checked and is normal at 6.2%. CRP 10.35, ESR 87. X-ray of the bilateral feet negative for osteomyelitis. In the ED, was given 1 L IV NS and vancomycin. Tetanus booster was also administered. Review of Systems 2 Review of Systems: Yes all other systems are reviewed and are negative [facility] Medical History Cardiac pacemaker in situ CVA (cerebral vascular accident) Diabetes mellitus CKD (chronic kidney disease) HTN (hypertension) Paroxysmal atrial flutter Heart failure with reduced ejection fraction Nonischemic cardiomyopathy Sick sinus syndrome Family History Father No problems noted. Mother CVD (cardiovascular disease) Surgical History Status post aortic valve replacement History of cardioversion Hx of cardiac cath Hx of colonoscopy Social History Alcohol intake: never Patient Tobacco Use Status: Never used Tobacco Smoked in Last 30 Days: No Currently Displaying Signs/Symptoms of Drug Intoxication Withdrawal: No Advance Directives: No Advance Directives Information Provided: No service: No Meds Allergies Allergy/AdvReac Type Severity Reaction Status Date / Time No Known Allergies Allergy Verified 04/14/24 16:14 [No Known Allergies*] Active Medications: Current Medications Apixaban (Apixaban 2.5 Mg Tablet) 2.5 mg PO BID [facility] Glucose (Glucose Gel 15 Gm Gel..Gram.) 15 gm PO Q15M PRN; Protocol PRN Reason: per Hypoglycemia Standing Ord. Dextrose (D10) 250 mls @ 750 mls/hr IV Q15M PRN; Protocol PRN Reason: per Hypoglycemia Standing Ord. Insulin Human Lispro (Insulin Lispro 100 Unit/Ml 3 Ml Vial) 0 unit SUBCUT QIDACHS [facility]; Protocol Home Medications ?Medication ?Instructions ?Recorded ?Confirmed ?Last Taken ?Type tamsulosin 0.4 mg capsule 0.4 mg PO DAILY 07/29/20 04/15/24 04/14/24 History vitamin B12 500 mcg-folic acid 400 1 tab PO DAILY 07/29/20 04/15/24 04/14/24 History mcg tablet glipizide 10 mg tablet, extended 10 mg PO BID 09/13/22 04/15/24 04/14/24 History release 24 hr metoprolol succinate 50 mg 50 mg PO DAILY 09/13/22 04/15/24 04/14/24 History tablet,extended release 24 hr atorvastatin 10 mg tablet 10 mg PO DAILY 09/07/23 04/15/24 04/14/24 History dulaglutide 0.75 mg/0.5 mL 0.75 mg subcut MCCLURE 02/25/24 04/15/24 04/13/24 History subcutaneous pen injector (Trulicity) cholecalciferol (vitamin D3) 25 25 mcg PO DAILY 04/14/24 04/15/24 04/14/24 History mcg (1,000 unit) capsule Physical Exam 2 Vital Signs and Narrative: Vital Signs: Last Vital Signs Temp 97.7 F 04/15/24 08:39 Pulse 58 04/15/24 08:39 Resp 16 04/15/24 08:39 BP 105/50 L 04/15/24 08:39 Pulse Ox 98 04/15/24 08:39 O2 Del Method Room Air 04/15/24 08:39 BMI result Body Mass Index 30.2 Constitutional - Awake and Alert, No apparent distress Eyes - PERRLA, EOMI Cardiovascular - S1S2, RRR, No edema Respiratory - Normal lung expansion, Normal respiratory effort, No respiratory distress, CTA bilaterally Gastrointestinal - NT / ND; +BS; No rebound or guarding Extremities - no calf tenderness bilaterally, no swelling Skin - Warm/Dry. stage 2 partial thickness becerril to the plantar surface of the ball of the bilatearl feet extending between the L great and 2nd toes. There is erythema, warmth, and swelling wrapping to the medial dorsum of the foot onto themedial malleolus Neurological - Alert & oriented x3 Psychological - Appropriate affect Results Labs 04/15/24 09:51 04/15/24 09:51 Labs: Laboratory Results - last 24 hr 04/14/24 04/14/24 16:56 23:34 MCV 93.9 MCH 30.2 MCHC 32.1 RDW 13.2 Plt Count 426 H MPV 9.4 Immature Gran % (Auto) 0.6 H Neut % (Auto) 80.0 H Lymph % (Auto) 7.9 L [place] % (Auto) 10.7 Eos % (Auto) 0.6 Baso % (Auto) 0.2 Lymph # (Auto) 1.0 L [place] # (Auto) 1.4 H Eos # (Auto) 0.1 Baso # (Auto) 0.0 Abs Immat Gran (auto) 0.07 H Absolute Neuts (auto) 10.1 H Absolute Nucleated RBC 0.000 Nucleated RBC % (auto) 0.0 ESR 87 H PT 14.0 H INR 1.2 H APTT 31.8 Anion Gap 14 Estim Creat Clear Calc 21.7 Estimated GFR 24 Random Glucose 134 H Estimat Average Glucose 131 Hemoglobin A1c % 6.2 H Lactic Acid 0.9 Calcium 9.5 Total Bilirubin 0.5 AST 32 ALT 32 Alkaline Phosphatase 69 C-Reactive Protein 10.35 H Total Protein 7.0 Albumin 3.9 Imaging Radiologist's Impressions: Impressions Foot X-Ray 04/14/24 16:30 IMPRESSION: No evidence of osteomyelitis. Degenerative changes as described above. Foot X-Ray 04/14/24 16:30 IMPRESSION: No evidence of osteomyelitis. Degenerative changes as described above. Assessment and Plan (1) Cellulitis: Status: Acute (2) Second degree burn of plantar aspect of foot: Status: Acute Plan 84 year old male with history of paroxysmal atrial flutter anticoagulated with Eliquis, [id number] type 2 diabetes, heart failure reduced ejection fraction, sick sinus syndrome s/p pacemaker placement, nonischemic cardiomyopathy, hypertension, s/p TAVR, diabetic polyneuropathy to be observed for cellulitis of the LLE r/t 2nd degree partial thickness becerril of the bilateral plantar surface of the feet. #Acute cellulitis of the LLE r/t 2nd degree partial thickness becerril of the bilateral plantar surface of the feet failed outpt therapy with clindamycin IV zosyn (initiated 04/15) silvadene to plantar surface feet bilaterally with nonstick dressing and gauze for now. Wound care consult pending Leukocytosis resolved. No sepsis #Non insulin dependent type 2 diabetes controlled with a1c 6.2% poc glucose, diabetic diet admelog ss. hold glipizide/trulicity #HTN blood pressures soft. resume metoprolol and lasix. hold lisinopril for now #Paroxysmal atrial fibrillation/flutter- rate controlled contionue eliquis for ac, metorprolol and amiodarone #HFrEF/ischemic cardiomyopathy/hld euvolemic, continue po lasix continue bb, statin #bph flomax #CKD stage 4 renal function baseline #Anemia of chronic disease h/h above transfusion threshold dvt prophylaxis- eliquis full code Quality Stroke Does the patient have a stroke diagnosis?: No VTE Prior VTE?: No VTE Risk Level:: Medical - moderate - high VTE Device Contraindication: Treatment Not Indicated VTE Drug Contraindication: N/A - Med Ordered
--- NOTE | 2024-04-15 09:03 | PHA.MEDREC ---
Addendum entered by Page Francisco [facility] 04/15/24 09:32: REVIEWED Original Note: Pharmacy Consult ? Medication Reconciliation Pharmacy has completed the medication reconciliation. Confirmed medications with list provided by patient. Patient also confirmed his Trulicity Pen which he takes once weekly on Sundays and he took it this past Sunday.
[2024-04-15] MEDS: Apixaban 2.5 MG TABLET PO ×2 (09:12→20:24)
[2024-04-15 09:56] LABS: MANUAL DIFF FLAG NO
[2024-04-15 10:00] LABS: Basophils Percent Auto 0.4 % (0-2); Eosinophils Absolute Auto 0.2 X10*3/uL (0.0-0.4); Hematocrit 28.7 % (42.0-52.0); Hemoglobin 9.6 g/dl (14.0-18.0); Imm Gran Abs Auto 0.04 X10*3/uL (0.00-0.03); Imm Gran Pct Auto 0.5 % (0.0-0.4); Lymphocytes Absolute Auto 0.7 X10*3/uL (1.2-4.9); Lymphocytes Percent Auto 7.8 % (20-40); Mean Corpuscular HGB Conc 33.4 g/dl (31.0-36.0); Mean Corpuscular Hemoglobin 31.1 pg (27.0-33.0); Mean Corpuscular Volume 92.9 fL (80.0-98.0); Mean Platelet Volume 9.1 fL (9.4-12.4); Monocytes Absolute Auto 0.9 X10*3/uL (0.1-1.2); Monocytes Percent Auto 10.5 % (2-11); Neutrophils Absolute Auto 6.7 x10*3/uL (2.0-8.3); Neutrophils Percent Auto 78.8 % (45-73); Platelet Count 347 X10*3/uL (160-400); Red Blood Count 3.09 X10*6/uL (4.60-5.80); Red Cell Distribution Width 13.1 % (11.0-16.0); White Blood Count 8.5 X10*3/uL (4.8-10.8)
[2024-04-15] MEDS: Amiodarone HCL 200 MG TABLET PO (10:11)
[2024-04-15 10:12] LABS: Anion Gap 13 (12-20); Blood Urea Nitrogen 30 mg/dL (9-16); Calcium 8.4 mg/dL (8.4-10.2); Carbon Dioxide 24 mmol/L (22-29); Chloride 108 mmol/L (96-108); Creatinine Clr Calc Pharmacy 25.4; Estimated Glomerular Filt Rate 29; Glucose Random 124 mg/dL (60-115); Sodium 140 mmol/L (135-145)
[2024-04-15] MEDS: Piperacillin Sodium/Tazobactam 3.375 GM in 0.9 % Sodium Chloride 50 ML IV ×2 (10:46→18:32)
[2024-04-15] MEDS: Silver Sulfadiazine 1 % Cream 20 GM TUBE 1 APPL TOPICAL (10:51)
[2024-04-15 11:36] LABS: Glucose, Whole Blood 87 mg/dL (60-115)
--- NOTE | 2024-04-15 12:26 | HO.WOUND ---
Wound Consult: Initial 84yr old Male admitted to [facility] on 03/10/24 - See progress notes and H&P for detailed history.? Wound consult placed for Bilateral Plantar Foot Kirk.? Patient agreeable to assessment and photo documentation.? Patient reports the injury happened over a week ago due to walking on Asphalt barefoot - pt reports he has neuropathy and did not realize he was burning his feet. He reports he went on cruise to [facility] the following day and saw a doctor on the ship. He reports upon completion of cruise when home he went to walk in clinic who sent him to [facility] ED. Patient continue to denies pain and reports neuropathy. Patient reports he is a diabetic but does not check his sugars at home often - he is not able to provide recent blood glucose trends. Silvadine was ordered by provider for daily application I have requested for twice a a day to keep moist and prevent microbial growth. The patient will benefit from Diabetic Education, including blood glucose monitoring, neuropathy, shoe fit and feet inspections. Bilateral Plantar Feet Etiology: ?Thermal Kirk - second degree Measurements: see charting for detailed measurements Wound Bed: partial thickness tissue loss with no deeper structures noted - dry pale slough adherent to wound bed Drainage / Odor: None noted at the time of my consult Edges: ? well defined and macerated on the left April wound: ?blanchable erythema, + DP pulse noted, no warmth and minimal swelling noted Pain: denies reports neuropathy Goals of Treatment: ? Continue with Silvadine twice daily and wrap dressings Recommendations: 1. Provide adequate and supplemental nutrition.? 2. When applicable maintain blood glucose levels per Providers order. 3. Bilateral Plantar Feet - Elevate Lower Legs with pillows. Cleanse with NS moist gauze. Apply thick layer of Silvadine per Provider orders, cover with dry gauze / nonadherent gauze, followed by wrap. Change twice a day. Re-consult wound care Nurse for wound deterioration or wound changes.
[2024-04-15 17:03] LABS: Glucose, Whole Blood 135 mg/dL (60-115)
[2024-04-15] MEDS: 0.9 % Sodium Chloride Flush 3 ML SYRINGE IVFLUSH ×2 (17:12→20:24)
--- NOTE | 2024-04-15 18:24 | MHC.EDTECH ---
Patient given dinner tray
[2024-04-15 20:05] LABS: Glucose, Whole Blood 153 mg/dL (60-115)
[2024-04-15] MEDS: Insulin Lispro 100 UNIT/ML 3 ML VIAL SUBCUT (20:24)
[2024-04-16] MEDS: Piperacillin Sodium/Tazobactam 3.375 GM in 0.9 % Sodium Chloride 50 ML IV ×2 (01:08→06:30)
[2024-04-16 04:00] VITALS: BP 149/66; PULSE 86; RESP 20; TEMP 36.6; O2SAT 94
[2024-04-16 07:06] VITALS: BP 140/68; PULSE 55; RESP 16; TEMP 36.7; O2SAT 97
[2024-04-16] MEDS: Apixaban 2.5 MG TABLET PO (07:21)
[2024-04-16] MEDS: Amiodarone HCL 200 MG TABLET PO (07:21)
[2024-04-16] MEDS: Cyanocobalamin (Vitamin B-12) 500 MCG TABLET PO (07:21)
[2024-04-16] MEDS: Tamsulosin HCL 0.4 MG CAPSULE PO (07:21)
[2024-04-16] MEDS: Cholecalciferol (Vitamin D3) 25 MCG TABLET PO (07:21)
[2024-04-16] MEDS: Furosemide 20 MG TABLET PO (07:22)
[2024-04-16] MEDS: Atorvastatin Calcium 10 MG TABLET PO (07:22)
[2024-04-16 07:26] LABS: Glucose, Whole Blood 85 mg/dL (60-115)
[2024-04-16] MEDS: Silver Sulfadiazine 1 % Cream 20 GM TUBE 1 APPL TOPICAL (08:24)
--- NOTE | 2024-04-16 08:52 | PC.NURSE ---
Refusing Fall risk interventions.
--- NOTE | 2024-04-16 09:11 | PC.NURSE ---
Wound care done per Order. Pt tolerated well. Wound be with granulation, no odor, mod s/s drainage, wound edges slightly macerated, MD photos sent. Wound Progressing well.
--- NOTE | 2024-04-16 09:56 | MHC.CM.PN ---
pt lives with girlfriend is independent has a ride home
--- NOTE | 2024-04-16 10:22 | P.DS_ITS ---
DS: Providers Provider Date of Service: 04/16/24 Date of admission: 04/15/24 09:55 Primary care physician: Talat Paz DO Consults: 04/15/24 09:50 Consult to Wound Care Routine Reason for consultation: becerril plantar surface bilateral feet 04/16/24 06:46 Consult to Wound Care Routine Reason for consultation: Bilateral Food Wounds. DS: Diagnosis Discharge Diagnosis (1) Cellulitis: Status: Acute (2) Second degree burn of plantar aspect of foot: Status: Acute DS: Summary Hospital Course Hospital Course: admission hpi Chief Complaint: bilateral foot becerril 84 year old male with history of paroxysmal atrial flutter anticoagulated with Eliquis, [id number] type 2 diabetes, heart failure reduced ejection fraction, sick sinus syndrome s/p pacemaker placement, nonischemic cardiomyopathy, hypertension, s/p TAVR, diabetic polyneuropathy presents to the ED for evaluation of becerril to the bilateral feet sustained 11 days ago. He reports he was walking barefoot on pavement and due to his polyneuropathy, was unable to feel the pain of the pavement burning him. About 2 days later he developed large blisters on the bottom of his feet. He had just embarked on a cruise for vacation and [place] He was ultimately prescribed clindamycin and recommended to use Silvadene with dressings and leg elevation. He has been taking as prescribed and had been improving until 2 days ago when the redness and swelling began worsening and was present on the dorsal aspect of the left foot. Denies any fevers but has had chills. Denies purulent drainage. Reports his girlfriend has been cleaning and dressing his feet on a daily basis. Since arrival, vitals have been stable the blood pressures overnight were slightly soft. Blood pressure on admission 120/51. He initially had a leukocytosis of 12.6, improved to 8.5 this morning. Renal function is baseline, consistent with CKD stage 4, electrolyte levels are normal. Hemoglobin A1c was checked and is normal at 6.2%. CRP 10.35, ESR 87. X-ray of the bilateral feet negative for osteomyelitis. In the ED, was given 1 L IV NS and vancomycin. Tetanus booster was also administered. Hospital course 84 year old male with history of paroxysmal atrial flutter anticoagulated with Eliquis, [id number] type 2 diabetes, heart failure reduced ejection fraction, sick sinus syndrome s/p pacemaker placement, nonischemic cardiomyopathy, hypertension, s/p TAVR, diabetic polyneuropathy to be observed for cellulitis of the LLE r/t 2nd degree partial thickness becerril of the bilateral plantar surface of the feet. #Acute cellulitis of the left lower extremity related to second-degree partial thickness becerril on the bilateral plantar surfaces of the feet. He had minimal erythema in the right foot which seems resolved. The wounds on the plantar aspect don't look infected. Will change antibiotics to Doxycycline for 1 week. W ound care for bilateral plantar feet: elevate lower legs with pillows. Cleanse with normal saline (NS) moist gauze. Apply a thick layer of Silvadene as per provider orders, cover with dry gauze or non-adherent gauze, followed by a wrap. Change twice a day. Outpatient wound clinic follow-up. He will have home health services. Final diagnoses: Ceelulitis of the foot, wound of plantar of both feet Time Attestation Discharge Coordination Time (in mins): 35 Quality: Safe Use of Opioids Does Pt have an Active Cancer Diagnosis on the Problem List?: No Quality: Stroke Does the patient have a stroke diagnosis?: No Physical Exam Vital Signs: Vital Signs: Last Vital Signs Temp 98.1 F 04/16/24 07:06 Pulse 55 04/16/24 07:06 Resp 16 04/16/24 07:06 BP 140/68 H 04/16/24 07:06 Pulse Ox 97 04/16/24 07:06 O2 Del Method Room Air 04/16/24 07:06 BMI result Body Mass Index 30.2 General: AO X 3, no acute distress Resp: CTA bilateral CVS: S1,S2,RRR GI: +BS, NT, no distention Skin: No rash Neuro: motor grossly intact Psych: appropriate affect DS: Data Data Completed and Pending Labs on day of discharge: Laboratory Results - last 24 hr 04/15/24 04/15/24 04/15/24 11:33 16:57 19:58 POC Glucose 87 135 H 153 H 04/16/24 07:10 POC Glucose 85 Discharge Plan Discharge Anticipated Discharge Date/Time: 04/16/24 10:16 Patient Disposition: Home Health Service Discharge Diagnosis: Cellulitis and wound of plantar of both fee Referrals: Talat Paz DO [Primary Care Provider] - 1 Week Discharge Medications: New doxycycline hyclate 100 mg tablet 100 mg PO BID 7 Days Qty: 14 0RF silver sulfadiazine [Silvadene] 1 % cream 1 appl topical BID Qty: 50 0RF Rx Instructions: apply a 1.5 mm thickness Continued furosemide 20 mg tablet 20 mg PO DAILY Qty: 90 1RF hydralazine 25 mg tablet 25 mg PO BID Qty: 180 2RF amiodarone 200 mg tablet 200 mg PO DAILY Qty: 90 3RF Eliquis 2.5 mg tablet 2.5 mg PO BID Qty: 180 3RF cholecalciferol (vitamin D3) 25 mcg (1,000 unit) capsule 25 mcg PO DAILY tamsulosin 0.4 mg capsule 0.4 mg PO DAILY vitamin [id number] acid 500-400 mcg tablet 1 tab PO DAILY Rx Instructions: administer with a meal glipizide 10 mg tablet extended release 24hr 10 mg PO BID metoprolol succinate 50 mg tablet extended release 24 hr 50 mg PO DAILY atorvastatin 10 mg tablet 10 mg PO DAILY Trulicity 0.75 mg/0.5 mL pen injector 0.75 mg subcut MCCLURE Discharge Orders: Discharge Order (Routine); Ordered 04/16/24 Ordered By: Joseph Torrez Diet: Diabetic diet Activity on Discharge: As tolerated Stand Alone Forms: Patient Portal Discharge page Print Language: Slovenian Activity Restrictions/Additional Instructions: Topical Wound Care Recommendations: Bilateral Plantar Feet - Elevate Lower Legs with pillows. Cleanse with NS moist gauze. Apply thick layer of Silvadine per Provider orders, cover with dry gauze / nonadherent gauze, followed by wrap. Change twice a day. Recommend follow up out patient Wound Clinic at [address] [place] [id number] and to call for an appointment at time of discharge. [phone].? Care Plan Goals: wound healing and resolution of cellulitis Health Concerns: Acute cellulitis of the LLE r/t 2nd degree partial thickness becerril of the bilateral plantar surface of the feet Plan of Treatment: take Doxycyline for cellulitis follow above instruction follow up with your doctor in a week Assessment: see above
[2024-04-16 10:25] LABS: MANUAL DIFF FLAG NO
[2024-04-16 10:32] LABS: Basophils Percent Auto 0.2 % (0-2); Eosinophils Absolute Auto 0.2 X10*3/uL (0.0-0.4); Eosinophils Percent Auto 1.9 % (0-4); Hematocrit 33.2 % (42.0-52.0); Hemoglobin 10.9 g/dl (14.0-18.0); Imm Gran Abs Auto 0.08 X10*3/uL (0.00-0.03); Imm Gran Pct Auto 0.7 % (0.0-0.4); Lymphocytes Absolute Auto 0.8 X10*3/uL (1.2-4.9); Lymphocytes Percent Auto 6.9 % (20-40); Mean Corpuscular HGB Conc 32.8 g/dl (31.0-36.0); Mean Corpuscular Hemoglobin 30.5 pg (27.0-33.0); Mean Platelet Volume 9.1 fL (9.4-12.4); Monocytes Absolute Auto 1.2 X10*3/uL (0.1-1.2); Monocytes Percent Auto 10.7 % (2-11); Neutrophils Percent Auto 79.6 % (45-73); Platelet Count 419 X10*3/uL (160-400); Red Blood Count 3.57 X10*6/uL (4.60-5.80); Red Cell Distribution Width 12.9 % (11.0-16.0); White Blood Count 11.3 X10*3/uL (4.8-10.8)
[2024-04-16 10:51] LABS: Anion Gap 13 (12-20); Blood Urea Nitrogen 25 mg/dL (9-16); Calcium 9.3 mg/dL (8.4-10.2); Carbon Dioxide 24 mmol/L (22-29); Chloride 107 mmol/L (96-108); Creatinine Clr Calc Pharmacy 25.9; Estimated Glomerular Filt Rate 29; Glucose Random 135 mg/dL (60-115); Potassium 5.4 mmol/L (3.3-5.1); Sodium 139 mmol/L (135-145)
--- NOTE | 2024-04-16 10:55 | W.MHC.F2F ---
Service Date Service Date: 04/16/24 Encounter Date of encounter: 05/14/24 Reasons for Services Signs and symptoms assessed: Bilateral plantar wounds Reason for assisted: wound care Homebound: Leaving the home is medically contraindicated at this time without the asist of a device and/or another person due th the listed conditions above and below. Reason homebound: pain with ambulation and unable to drive Homebound supporting statement: Has burn wounds at the plantar of both feet, making ambulation difficult and therefore needs the assistance of another person Certification: Based on the above findings, I certify that this patient is confined to the home and needs intermittent assisted care, physical therapy and/or speech therapy, or continues to need occupational therapy. The patient is under my care, and I have initiated the establishment of the plan of care. The patient will be followed by a physician who will periodically review the plan of care. Time Spent With Patient Time: Total time managing care of this patient today ____ minutes.
[2024-04-16] MEDS: Sodium Zirconium Cyclosilicate 10 GM POWD.PACK PO (11:43)
[2024-04-16 11:46] LABS: Glucose, Whole Blood 114 mg/dL (60-115)
[2024-04-16 14:54] VITALS: BP 143/71; PULSE 70; RESP 18; TEMP 36.5; O2SAT 95
--- NOTE | 2024-04-16 15:33 | HO.WOUND ---
Wound Consult: Chart follow up 84yr old Male admitted to [facility] on 03/10/24 - See progress notes and H&P for detailed history.? Wound consult follow up for Bilateral Plantar Foot Becerril.? Received second wound consult request for bilateral foot becerril which were assessed yesterday 04/15/24. Spoke to direct care nurse auto trigger from assessment - no new concerns for bilateral feet at this time - direct care nurse advised to follow topical wound care orders in place. (Confirmed topical orders are in chart from ED) Information from previous consultation: Patient reports the injury happened over a week ago due to walking on Asphalt barefoot - pt reports he has neuropathy and did not realize he was burning his feet. He reports he went on cruise to [employer] the following day and saw a doctor on the ship. He reports upon completion of cruise when home he went to walk in clinic who sent him to [facility] ED. Patient continue to denies pain and reports neuropathy. Patient reports he is a diabetic but does not check his sugars at home often - he is not able to provide recent blood glucose trends. Silvadine was ordered by provider for daily application I have requested for twice a a day to keep moist and prevent microbial growth. The patient will benefit from Diabetic Education, including blood glucose monitoring, neuropathy, shoe fit and feet inspections. Bilateral Plantar Feet Etiology: ?Thermal Becerril - second degree Measurements: see charting for detailed measurements Wound Bed: partial thickness tissue loss with no deeper structures noted - dry pale slough adherent to wound bed Drainage / Odor: None noted at the time of my consult Edges: ? well defined and macerated on the left April wound: ?blanchable erythema, + DP pulse noted, no warmth and minimal swelling noted Pain: denies reports neuropathy Goals of Treatment: ? Continue with Silvadine twice daily and wrap dressings Recommendations: 1. Provide adequate and supplemental nutrition.? 2. When applicable maintain blood glucose levels per Providers order. 3. Bilateral Plantar Feet - Elevate Lower Legs with pillows. Cleanse with NS moist gauze. Apply thick layer of Silvadine per Provider orders, cover with dry gauze / nonadherent gauze, followed by wrap. Change twice a day. Re-consult wound care Nurse for wound deterioration or wound changes.
[2024-04-16 15:51] LABS: Glucose, Whole Blood 123 mg/dL (60-115)
[2024-04-16 16:09] LABS: Anion Gap 12 (12-20); Carbon Dioxide 25 mmol/L (22-29); Chloride 105 mmol/L (96-108); Sodium 138 mmol/L (135-145)
[2024-04-16 16:09] LABS: Anion Gap 15 (12-20); Carbon Dioxide 22 mmol/L (22-29); Chloride 105 mmol/L (96-108); Sodium 138 mmol/L (135-145)
== END 2024-04-16 16:39 | disposition home health service (06) ==
LOC: HO.ED 04-15 07:19 → HO.EDOVER 04-15 10:05 → HO.S3 04-15 16:46
PROVIDERS: Physician Assistant; Admitting Provider Physician Assistant; Emergency Provider Internal Medicine; PCP Internal Medicine; Visit Provider Internal Medicine
DX: L03.90 Cellulitis, unspecified (principal); T25.222A Burn of second degree of left foot, initial encounter; T25.221A Burn of second degree of right foot, initial encounter; X08.8XXA Exposure to other specified smoke, fire and flames, initial encounter; Y93.9 Activity, unspecified; Y92.9 Unspecified place or not applicable; Y99.9 Unspecified external cause status; I13.0 Hypertensive heart and chronic kidney disease with heart failure and stage 1 through stage 4 chronic kidney disease, or unspecified chronic kidney disease; I43 Cardiomyopathy in diseases classified elsewhere; E11.22 Type 2 diabetes mellitus with diabetic chronic kidney disease; N18.4 Chronic kidney disease, stage 4 (severe); I50.20 Unspecified systolic (congestive) heart failure; D63.1 Anemia in chronic kidney disease; I48.0 Paroxysmal atrial fibrillation; N40.0 Benign prostatic hyperplasia without lower urinary tract symptoms; Z79.01 Long term (current) use of anticoagulants; Z95.0 Presence of cardiac pacemaker; Z23 Encounter for immunization
CPT/HCPCS: 36415; 73620; 80048; 80051; 80053; 82947; 83036; 83605; 85025; 85610; 85652; 85730; 86140; 90471; 90715; 96361; 96365; 96366; 96367; 99221; 99285; J2543; J3371

== ENCOUNTER → 2024-04-15 09:55 | Outpatient (BNV) | payer MEDICARE, OTHER, SELFPAY | PROVIDERS: Admitting Provider Physician Assistant; Emergency Provider Internal Medicine; PCP Internal Medicine; Visit Provider Physician Assistant | DX: L03.90 Cellulitis, unspecified (principal); T25.229A Burn of second degree of unspecified foot, initial encounter | CPT/HCPCS: 99222; 99239; G0180 ==

== ENCOUNTER → 2024-05-25 23:59 | Outpatient (BNV) | payer MEDICARE, OTHER, SELFPAY ==
--- NOTE | 2024-05-30 14:46 | MHC.OFFVIS ---
Intake Visit Reasons: Remote Device Check- [employer] Allergies No Known Allergies [No Known Allergies*] Allergy (Verified 04/14/24 16:14) PFS Medical History Cardiac pacemaker in situ CVA (cerebral vascular accident) Diabetes mellitus CKD (chronic kidney disease) HTN (hypertension) Paroxysmal atrial flutter Heart failure with reduced ejection fraction Nonischemic cardiomyopathy Sick sinus syndrome Surgical History Status post aortic valve replacement History of cardioversion Hx of cardiac cath Hx of colonoscopy Family History Father No problems noted. Mother CVD (cardiovascular disease) Social History Alcohol intake: never Patient Tobacco Use Status: Never used Tobacco service: No Office Procedures Cardiac Device Check Cardiac Device Check Details: Remote pacemaker report generated 05/25/2024. Pacemaker function is adequate. No episodes of atrial fibrillation [id number] Cardiac Device Interrogation, pacemaker Procedure code (CPT) selection complete Assessment & Plan Assessment & Plan (1) Cardiac pacemaker in situ: Code(s): Z95.0 - Presence of cardiac pacemaker Category: Medical Plan: See above Coding Level of Care Code Procedure Only Diagnoses Cardiac pacemaker in situ Z95.0 CPT Codes Cardiac Device Check - Cardiac Device 12: [id number] Cardiac Device Interrogation, pacemaker ([id number])
== END ==
PROVIDERS: PCP Internal Medicine; Visit Provider Internal Medicine Cardiovascular Disease
DX: Z45.018 Encounter for adjustment and management of other part of cardiac pacemaker (principal)
CPT/HCPCS: 93294

== ENCOUNTER 2024-08-19 13:00 | Outpatient (RCR) | payer MEDICARE, OTHER, SELFPAY ==
--- NOTE | ~2024-08-19 | XR_ITS ---
EXAMINATION: XR FOOT, LEFT CLINICAL INFORMATION: Nonhealing wound left foot COMPARISON: 04/14/2024 report only. Images are not available at this time for comparison. TECHNIQUE: AP, lateral, and oblique views of the left foot. FINDINGS: Moderate degenerative changes in the first MTP joint and IP joints of the toes. Diffuse demineralization. Radiopaque marker placed by technologist to indicate the area of concern as indicated by the patient and the fifth metatarsophalangeal joint. There are destructive changes along the proximal lateral aspect of the base of the fifth toe proximal phalanx with fracture extending into the proximal articular surface concerning for osteomyelitis given the clinical history provided. Adjacent soft tissue swelling. Bony erosion at the medial aspect of the fifth metatarsal head. Small plantar calcaneal spur. Dorsal calcaneal enthesopathy. XR/XR foot LT min 3V IMPRESSION: There are destructive changes along the proximal lateral aspect of the base of the fifth toe proximal phalanx with fracture extending into the proximal articular surface concerning for osteomyelitis given the clinical history provided. Adjacent soft tissue swelling. This study was presented to me on July 09, 2024 for interpretation. PSA staff will provide results to referring provider at this time. Electronically signed by: Erlinda Davis MD 07/09/2024 07:49 AM EDT RP
== END 2024-10-02 14:26 | disposition home or self-care (01) ==
LOC: HO.WCC 13:00
PROVIDERS: PCP Internal Medicine; Visit Provider Surgery
DX: T25.292A Burn of second degree of multiple sites of left ankle and foot, initial encounter (principal); T25.291A Burn of second degree of multiple sites of right ankle and foot, initial encounter; Z79.01 Long term (current) use of anticoagulants; Z79.2 Long term (current) use of antibiotics; Z79.899 Other long term (current) drug therapy
CPT/HCPCS: 11042; 11043; 11044; 16020; 16025; 73630; 87070; 87073; 87077; 87186; 87205; 88304; 88305; 88311; 97597

== ENCOUNTER → 2024-08-23 23:59 | Outpatient (BNV) | payer MEDICARE, OTHER, SELFPAY ==
--- NOTE | 2024-09-04 16:03 | MHC.OFFVIS ---
Intake Visit Reasons: Remote Device Check- [employer] Allergies No Known Allergies [No Known Allergies*] Allergy (Verified 08/26/24 07:30) PFS Medical History Cardiac pacemaker in situ CVA (cerebral vascular accident) Diabetes mellitus CKD (chronic kidney disease) HTN (hypertension) Paroxysmal atrial flutter Heart failure with reduced ejection fraction Nonischemic cardiomyopathy Sick sinus syndrome Surgical History Status post aortic valve replacement History of cardioversion Hx of cardiac cath Hx of colonoscopy Family History Father No problems noted. Mother CVD (cardiovascular disease) Social History Household Members: Significant Other and Family Housing: House Alcohol intake: never Patient Tobacco Use Status: Never used Tobacco service: Yes Office Procedures Cardiac Device Check Cardiac Device Check Details: Remote pacemaker report generated 08/23/2024. Pacemaker function is adequate. [id number] Cardiac Device Interrogation, pacemaker Procedure code (CPT) selection complete Assessment & Plan Assessment & Plan (1) Cardiac pacemaker in situ: Code(s): Z95.0 - Presence of cardiac pacemaker Category: Medical Plan: See above Coding Level of Care Code Procedure Only Diagnoses Cardiac pacemaker in situ Z95.0 CPT Codes Cardiac Device Check - Cardiac Device 12: [id number] Cardiac Device Interrogation, pacemaker ([id number])
== END ==
PROVIDERS: PCP Internal Medicine; Visit Provider Internal Medicine Cardiovascular Disease
DX: Z45.018 Encounter for adjustment and management of other part of cardiac pacemaker (principal)
CPT/HCPCS: 93294

== ENCOUNTER 2024-08-26 07:09 | Inpatient (IN) | payer MEDICARE, OTHER, SELFPAY ==
[2024-08-26] VITALS (15 sets, daily range): BP systolic 95–136; BP diastolic 33–96; PULSE 56–86; RESP 14–20; TEMP 35.8–37.2; O2SAT 96–98; BMI 29.0
--- NOTE | ~2024-08-26 | CT_ITS ---
EXAMINATION: CT left foot CLINICAL INFORMATION: Question osteomyelitis COMPARISON: X-ray 08/26/2024 TECHNIQUE: Axial imaging. Sagittal and coronal reconstructions. FINDINGS: Resection of the fifth digit at the level of the proximal fifth metatarsal shaft. Nonspecific amorphous calcifications adjacent to the amputation margin. Status post resection of the fourth digit at the level of the mid metatarsal shaft. No erosive changes or periosteal reactions are evident in this region. No erosive or aggressive changes identified in the remainder of the bones. There is undulation of the plantar aspect of the soft tissues of the mid/forefoot could be related to the positioning, versus soft tissue ulceration. There is soft tissue swelling and edema in the plantar soft tissues of the mid and forefoot, and in the first toe, which could reflect edema or cellulitis. No organized fluid collection or abscess is evident by CT. There is dorsal foot soft tissue swelling and strandy changes in the subcutaneous tissues which could represent edema or cellulitis.. CT/CT foot LT wo IV con IMPRESSION: 1. Status post resection of the fifth ray and the fourth ray at the level of the metatarsal shafts. No CT findings suggest definite osteomyelitis. 2. There is a soft tissue swelling in the foot, and in the first toe, with findings suggesting edema or cellulitis. No organized fluid collection is evident on the noncontrast CT. 3. No CT findings of definite osteomyelitis otherwise evident. MRI evaluation is more sensitive, could be considered as clinically indicated. Electronically signed by: Jone Fontaine MD 08/27/2024 05:40 PM EST
--- NOTE | ~2024-08-26 | CT_ITS ---
EXAMINATION: CT HEAD WITHOUT CONTRAST (STROKE PROTOCOL) CLINICAL INFORMATION: Stroke protocol. Left sided weakness. COMPARISON: CT chest dated May 01, 2019. TECHNIQUE: Contiguous axial imaging was performed from the skull base to vertex without intravenous administration of contrast. This CT examination was performed using dose optimization techniques as appropriate, variously including the following: *Automated exposure control *Adjustment of mA and/or kV according to patient size (this includes techniques or standardized protocols for targeted exams where dose is matched to indication/reason for exam; i.e. extremities or head) *Use of iterative reconstruction technique DLP: 818 mGy-cm FINDINGS: Focal hypodensity centered in the right basal ganglia frontal crane radiata white matter. No acute intracranial hemorrhage, mass effect, midline shift, hydrocephalus or herniation. Bilateral multifocal patchy and confluent deep periventricular white matter hypodensities involving centrum semiovale and crane radiata. Prominence of the extra-axial CSF spaces, cerebral sulci and ventricles likely central volume loss. Posterior cranial fossa contents demonstrated no acute intracranial hemorrhage or mass effect. Sellar/suprasellar region demonstrated no gross masses. Craniocervical junction is intact. There is a partially calcified pannus formation, periodontal region. Calcified plaques in the cavernous and supraclinoid segments both ICA. Tympanic cavities and mastoid air cells are aerated. Bony calvarium is intact. Skull base is intact. No air-fluid levels in the included paranasal sinuses. No mass or hemorrhage in the intraconal or extraconal compartments of the orbits. CT/CT head for STROKE IMPRESSION: Concerning acute to subacute nonhemorrhagic stroke/ischemia centered in the right basal ganglia/frontal crane radiata white matter. Discussed with the emergency physician Dr. Makenna Tirado at 8:00 AM. Small vessel occlusive disease. Global atrophy. Atherosclerosis disease. This critical result was discussed with at hours on . It was ascertained that the content and urgency of the report was understood at the time of direct communication. Electronically signed by: Real Nunez MD 08/26/2024 08:04 AM [facility]
--- NOTE | ~2024-08-26 | CT_ITS ---
EXAMINATION: CT angio head neck STROKE CLINICAL INFORMATION: CONFUSED COMPARISON: CT head 11/27/2018 and 08/26/2024 TECHNIQUE: Test bolus sequences followed by intravenous administration of Omnipaque 350. Helical imaging was performed in the axial plane from the mediastinum to the skull vertex. Delayed postcontrast imaging of the head was also performed. The data was processed at the health information technologist's workstation for generation of MIP sequences. Three-dimensional volume rendered reformatted images were also generated at an offline 3-D workstation. Arterial stenoses are measured in accordance with NASCET criteria or similar method if applicable. This CT examination was performed using dose optimization techniques as appropriate, variously including the following: * Automated exposure control * Adjustment of mA and/or kV according to patient size (this includes techniques or standardized protocols for targeted exams where dose is matched to indication/reason for exam; i.e. extremities or head) Use of iterative reconstruction technique DLP: 1703 mGy-cm. FINDINGS: CT head: Right basal ganglial lacunar infarct is new from 2019. Otherwise, santoyo-white matter differentiation is preserved. No acute edematous territorial infarction or intracranial hemorrhage. No abnormal enhancement. No abnormal mass effect or midline shift is seen. No extra-axial fluid collections are identified. There is no abnormal enhancement. No hydrocephalus. Proportional prominence of the ventricles and sulcal spaces is consistent with mild volume loss. Patchy periventricular and deep white matter hypoattenuation is consistent with mild small vessel ischemic changes. The cerebellar tonsils are well positioned. No acute osseous or soft tissue abnormality. The mastoid air cells and visualized portions of the paranasal sinuses are well aerated. CTA neck: The imaged aortic arch is normal. The origins of the great vessels are normal. The common carotid arteries are widely patent. Mild peripheral calcifications of the right greater than left carotid bifurcation, nonhemodynamically significant. The cervical internal carotid arteries are normal. The left vertebral artery is not opacified with a short segment reconstituted from C2 to C4, and the intracranial segment with retrograde opacification from the dominant right vertebral artery. The right vertebral artery is widely patent throughout its course. Nonvascular: There is a right thyroid 0.8 cm hypodense nodule. The soft tissues of the neck are otherwise unremarkable. The imaged portions of the lungs are clear. Moderate to severe cervical spondylosis with multilevel ankylosis. Calcification of the posterior longitudinal ligament results in multilevel mild canal stenosis. Partially visualized intact sternotomy wires and left subclavian pacemaker. CTA head: Cavernous ICAs: Scattered atherosclerotic calcifications results in multifocal moderate stenosis bilaterally. A1 segments, anterior communicating artery, and A2 segments: Left A1 segment is diminutive. Patent without significant stenosis. M1 segments and major MCA branches: Bilateral M1 segments are patent without significant stenosis. P1, P2 and proximal P3 segments of the regrinder: Moderate right P1 stenosis of the short segment of the right STONE UNLOADER. Otherwise, patent without significant stenosis. Left -type STONE UNLOADER. Intracranial vertebral arteries, cerebellar arteries and basilar artery: Patent without significant stenosis. CT/CT angio head neck STROKE IMPRESSION: Head CT: 1. Right basal ganglial/crane radiata lacunar infarct, new from 2019. 2. No evidence for acute edematous territorial infarction or intracranial hemorrhage. CTA Head/Neck: 1. Multifocal moderate stenosis in the bilateral cavernous internal carotid arteries related to atherosclerotic calcifications. 2. Right P1 segment moderate stenosis. 3. No high-grade stenosis, proximal occlusion or saccular aneurysm of the vasculature of the head and neck. Nonvascular: Right thyroid 0.8 cm hypodense nodule. If clinically warranted, consider nonemergent thyroid ultrasound for further assessment. Electronically signed by: Sarah Albert DO 08/26/2024 08:38 AM [facility]
--- NOTE | ~2024-08-26 | MR_ITS ---
EXAMINATION: MR BRAIN WITHOUT CONTRAST CLINICAL INFORMATION: Right lacunar infarct on CT COMPARISON: CTA head and neck on 08/26/2024 TECHNIQUE: MRI of the brain was obtained using routine sequences without contrast. FINDINGS: Multiple foci of restricted diffusion scattered through the bilateral cerebral hemispheres including the right basal ganglia, right crane radiata, and left precentral gyrus cortex. There is suggestion of additional focus in the right cerebellum. No hemorrhagic transformation. There are several foci of susceptibility artifact scattered through the bilateral cerebral hemispheres likely reflecting chronic microhemorrhages. Scattered and confluent periventricular and deep white matter T2/FLAIR hyperintensities, nonspecific however commonly seen with small vessel ischemic disease. Diffuse prominence of the sulci with associated ex vacuo dilation of the ventricles compatible with global cerebral atrophy. No midline shift or hydrocephalus. No acute extra-axial fluid collections. The osseous structures are unremarkable. The pituitary gland, pineal gland and remaining midline structures are unremarkable. No orbital pathology. The paranasal sinuses and mastoid air cells are clear. MR/MR head/brain wo con IMPRESSION: -Multifocal acute infarcts scattered through the bilateral cerebral hemispheres and probably the right cerebellum most suggestive of embolic shower. No hemorrhagic transformation. -Chronic microangiopathy and global cerebral atrophy. Electronically signed by: Ariana Aguilera MD 08/29/2024 01:34 PM EST
--- NOTE | ~2024-08-26 | XR_ITS ---
EXAMINATION: XR CHEST CLINICAL INFORMATION: ?aspiration COMPARISON: 08/27/2024 CT abdomen and pelvis. 08/26/2024 x-ray chest. 03/01/2023 x-ray chest. TECHNIQUE: AP portable view of the chest was obtained. FINDINGS: [Lead pacemaker device again noted in place with leads extending into the right atrium and right ventricle. There has been a median sternotomy and aortic valve replacement. Top normal cardiac size although possibly magnified by projection. Mediastinal and hilar contours are normal. Mild calcification of the aorta. Lungs are clear bilaterally. No pneumothorax or effusion. There are mild to moderate degenerative changes throughout the spine and involving both shoulder joints. XR/XR chest 1V IMPRESSION: 1. No active pulmonary disease. 2. Minor left greater than right basilar airspace disease seen on recent CT abdomen and pelvis is not well seen on today's radiograph. Electronically signed by: Darrius Somers MD 08/28/2024 02:44 PM [facility]
--- NOTE | ~2024-08-26 | XR_ITS ---
EXAMINATION: XR RIGHT SHOULDER XR LEFT FOOT CLINICAL INFORMATION: Fall, right shoulder pain. Left foot chronic wound, question osteomyelitis. COMPARISON: Left foot 06/12/2024, 04/14/2024. TECHNIQUE: 2 views of the right shoulder. 3 views of the left foot. FINDINGS: RIGHT SHOULDER: Diffuse demineralization. Advanced degenerative changes in the acromioclavicular joint with joint space narrowing and hypertrophic change. Minimally imaged median sternotomy wires and overlying leads would be better characterized with dedicated views of the chest. Glenohumeral alignment maintained. Advanced degenerative changes in the glenohumeral joint. There appears to be periosteal reaction/periostitis along the partially imaged proximal shaft of the humerus with faint calcifications in the adjacent soft tissues. Dedicated views of the right humerus recommended for further evaluation. LEFT FOOT: Diffuse demineralization. Moderate degenerative changes in the first metatarsophalangeal joint. Degenerative changes in the interphalangeal joints. Small plantar and posterior calcaneal spurs. Interval resection of the fourth digit at the level of the mid fourth metatarsal shaft. Interval resection of fifth digit at the level of the proximal fifth metatarsal shaft. Overlying soft tissue swelling with faint amorphous calcifications distal to the fourth and fifth metatarsal remnants. There are lucencies in the overlying soft tissues. XR/XR foot LT min 3V IMPRESSION: 1. Advanced degenerative changes in the acromioclavicular and glenohumeral joints. 2. There appears to be periosteal reaction/periostitis along the partially imaged proximal shaft of the humerus with faint calcifications in the adjacent soft tissues. Dedicated views of the right humerus recommended for further evaluation. 3. Interval resection of the fourth digit of the left foot at the level of the mid fourth metatarsal shaft. Interval resection of fifth digit at the level of the proximal fifth metatarsal shaft. Overlying soft tissue swelling with faint amorphous calcifications distal to the fourth and fifth metatarsal remnants. There are lucencies in the overlying soft tissues. This study was presented today. August 26, 2024. for interpretation. Stat results provided at this time as requested by referring provider. Electronically signed by: Erlinda Davis MD 08/26/2024 11:33 AM [facility]
--- NOTE | ~2024-08-26 | XR_ITS ---
EXAMINATION: XR RIGHT SHOULDER XR LEFT FOOT CLINICAL INFORMATION: Fall, right shoulder pain. Left foot chronic wound, question osteomyelitis. COMPARISON: Left foot 06/12/2024, 04/14/2024. TECHNIQUE: 2 views of the right shoulder. 3 views of the left foot. FINDINGS: RIGHT SHOULDER: Diffuse demineralization. Advanced degenerative changes in the acromioclavicular joint with joint space narrowing and hypertrophic change. Minimally imaged median sternotomy wires and overlying leads would be better characterized with dedicated views of the chest. Glenohumeral alignment maintained. Advanced degenerative changes in the glenohumeral joint. There appears to be periosteal reaction/periostitis along the partially imaged proximal shaft of the humerus with faint calcifications in the adjacent soft tissues. Dedicated views of the right humerus recommended for further evaluation. LEFT FOOT: Diffuse demineralization. Moderate degenerative changes in the first metatarsophalangeal joint. Degenerative changes in the interphalangeal joints. Small plantar and posterior calcaneal spurs. Interval resection of the fourth digit at the level of the mid fourth metatarsal shaft. Interval resection of fifth digit at the level of the proximal fifth metatarsal shaft. Overlying soft tissue swelling with faint amorphous calcifications distal to the fourth and fifth metatarsal remnants. There are lucencies in the overlying soft tissues. XR/XR shoulder RT min 2V IMPRESSION: 1. Advanced degenerative changes in the acromioclavicular and glenohumeral joints. 2. There appears to be periosteal reaction/periostitis along the partially imaged proximal shaft of the humerus with faint calcifications in the adjacent soft tissues. Dedicated views of the right humerus recommended for further evaluation. 3. Interval resection of the fourth digit of the left foot at the level of the mid fourth metatarsal shaft. Interval resection of fifth digit at the level of the proximal fifth metatarsal shaft. Overlying soft tissue swelling with faint amorphous calcifications distal to the fourth and fifth metatarsal remnants. There are lucencies in the overlying soft tissues. This study was presented today. August 26, 2024. for interpretation. Stat results provided at this time as requested by referring provider. Electronically signed by: Erlinda Davis MD 08/26/2024 11:33 AM [facility] [place] [place]
--- NOTE | ~2024-08-26 | CT_ITS ---
EXAMINATION: CT ABDOMEN AND PELVIS WITHOUT CONTRAST CLINICAL INFORMATION: Bacteremia COMPARISON: None available. TECHNIQUE: Multidetector volumetric imaging was performed from the superior aspect of the liver through the pubic symphysis. Sagittal and coronal reformatted images were obtained on the technologist's workstation. This CT examination was performed using dose optimization techniques as appropriate, variously including the following: *Automated exposure control *Adjustment of mA and/or kV according to patient size (this includes techniques or standardized protocols for targeted exams where dose is matched to indication/reason for exam; i.e. extremities or head) *Use of iterative reconstruction technique DLP: 982 mGy-cm FINDINGS: LUNG BASES: There is bilateral basilar pleural thickening and bilateral lower lobe atelectasis/lower lower lobe consolidation. Mild cardiomegaly without effusion. There is aortic valve stent in place. There are pacer electrodes in right atrium and right ventricle. LIVER, GALLBLADDER, AND BILIARY TREE: The liver is normal in size, shape, and attenuation. No focal hepatic lesion or biliary ductal dilatation is present. There are multiple radiopaque gallstones without wall thickening. PANCREAS: Unremarkable. SPLEEN: Unremarkable. ADRENAL GLANDS: Unremarkable. KIDNEYS AND URETERS: The kidneys are normal in size, shape, and attenuation. No hydronephrosis, hydroureter, or calculi seen. There is mild bilateral perinephric stranding. BLADDER: The bladder is nondistended with a Zavala's catheter within. GASTROINTESTINAL TRACT: There is scattered gas, stool and diverticuli seen throughout the colon without mural thickening, obstruction. The small bowel loops are normal caliber. Appendix is normal caliber. No free air or free fluid. ABDOMINAL WALL: No significant hernia is appreciated. LYMPH NODES: Normal. VASCULAR: Unremarkable. PELVIC VISCERA: There is significant enlargement of prostate gland old with Zavala's catheter in the bladder. There is no free air or free fluid. No evidence of inguinal hernia. OSSEOUS STRUCTURES: Mild ventral spondylosis upper and mid lumbar spine. No aggressive lytic or sclerotic process seen. There are median sternotomy sutures from previous intervention. CT/CT abdomen pelvis wo IV con IMPRESSION: No acute intra-abdominal process seen. Mild constipation. Cholelithiasis without wall thickening. Significant prostate enlargement with a Zavala's catheter in the decompressed bladder. Fleischner guidelines were followed. Electronically signed by: Casey Herrera MD 08/28/2024 06:10 PM [facility]
--- NOTE | ~2024-08-26 | XR_ITS ---
EXAMINATION: XR CHEST CLINICAL INFORMATION: confusion COMPARISON: X-ray dated March 01, 2023 TECHNIQUE: Frontal view of the chest was obtained. FINDINGS: Poor inspiration. Cardiomediastinal silhouette overlaps the left hemithorax due to patient's positioning. Questionable haziness in the left lower hemithorax. Prominence of the interstitial markings. Metallic heart valve prosthesis likely aortic. 2. Intact electrode leads in the right heart chambers, left-sided pacemaker. Sternal wires. Calcified plaque thoracic aortic arch. Normal-sized heart silhouette. Osteopenia versus osteoporosis. Multilevel spondylosis. Degenerative changes in the right shoulder. XR/XR chest 1V IMPRESSION: Mild interstitial lung edema and questionable left-sided pleural effusion. Electronically signed by: Real Nunez MD 08/26/2024 08:34 AM [facility]
--- NOTE | ~2024-08-26 | CT_ITS ---
EXAMINATION: CT CERVICAL SPINE WITHOUT CONTRAST CLINICAL INFORMATION: neck pain r/o osteo, subulxation. COMPARISON: CTA head/neck 08/26/2024 TECHNIQUE: Contiguous helical images of the cervical spine were obtained without IV contrast. Multiplanar reconstructions were performed. This CT examination was performed using dose optimization techniques as appropriate, variously including the following: * Automated exposure control * Adjustment of mA and/or kV according to patient size (this includes techniques or standardized protocols for targeted exams where dose is matched to indication/reason for exam; i.e. extremities or head) Use of iterative reconstruction technique DLP: 386 mGy-cm FINDINGS: Partial ankylosis of C2-C3 and C5-C7 with calcification of the posterior longitudinal ligament and multilevel anterior bridging osteophytes. Calcified posterior longitudinal in a result in multilevel mild canal stenosis. No significant neural foraminal stenosis. The atlantoaxial and atlantooccipital articulations are intact. Moderate atlantodental spondylosis. No evidence of acute fracture or traumatic subluxation of the cervical spine. There is straightening of the normal cervical curvature with otherwise maintained sagittal alignment. Vertebral body heights and intervertebral disc spaces are maintained. No prevertebral soft tissue swelling. There is no cervical lymphadenopathy. Multiple hypodense bilateral thyroid nodules, largest right-sided nodule measuring up to 1 cm and the largest left-sided nodule measuring up to 1.5 cm. The visualized base of the brain is unremarkable. The visualized lung apices are clear. CT/CT cervical spine wo IV con IMPRESSION: 1. No evidence of acute fracture or traumatic subluxation of the cervical spine. 2. Multiple hypodense bilateral thyroid nodules, largest right-sided nodule measuring up to 1 cm and the largest left-sided nodule measuring up to 1.5 cm. If clinically warranted, consider nonemergent thyroid ultrasound for further assessment. Electronically signed by: Sarah Albert DO 08/30/2024 04:32 PM EST
--- NOTE | 2024-08-26 07:17 | ECG_ITS ---
Test Reason : altered mental Blood Pressure : / mmHG Vent. Rate : 070 BPM Atrial Rate : 042 BPM P-R Int : 172 ms QRS Dur : 168 ms QT Int : 514 ms P-R-T Axes : 000 131 118 degrees QTc Int : 555 ms AV dual-paced rhythm with occasional Premature ventricular complexes Abnormal ECG When compared with ECG of 28-JAN-2020 12:40, Electronic ventricular pacemaker has replaced Sinus rhythm Referred By: Generic ED Physician Electronically Signed By:LUIS MIGUEL RANDALL
--- NOTE | 2024-08-26 07:28 | ED_ITS ---
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 Per EMS, family reported malaise, lethargy, decreased PO intake x3 days with garbled speech since this morning. 0841 -- Patient's son and girlfriend are now at bedside. Patient lives with son. Son reports patient began complaining of chills Sunday night (4 days ago). Since this time has been intermittently lethargic with decreased PO intake. He has not had a documented fever at home. Son reports recent unwitnessed falls over the last few days. He admits to finding patient on the floor 2-3 times. Is unsure of head strike however full examined patient and did not appreciate any trauma to the head or body. Patient was however reporting pain to his right shoulder and would not let his son palpate the area. He states that patient began to have garbled speech intermittently since yesterday. Patient was able state I don't want to take an ambulance this morning around 0600 and upon girlfriend's arrival at the home around 0630, patient's speech was garbled and he was not making sense. EMS was called and patient was transported to ED. Per son, patient has history of CVA >30 years ago which resulted in right sided deficits. He completed rehab at that time and no longer has any deficits from this stroke. Related Data Home Medications ?Medication ?Instructions ?Recorded ?Confirmed tamsulosin 0.4 mg capsule 0.4 mg PO DAILY 07/29/20 08/26/24 vitamin B12 500 mcg-folic acid 400 1 tab PO DAILY 07/29/20 08/26/24 mcg tablet glipizide 10 mg tablet, extended 10 mg PO BID 09/13/22 08/26/24 release 24 hr metoprolol succinate 50 mg 50 mg PO DAILY 09/13/22 08/26/24 tablet,extended release 24 hr atorvastatin 10 mg tablet 10 mg PO DAILY 09/07/23 08/26/24 cholecalciferol (vitamin D3) 25 25 mcg PO DAILY 04/14/24 08/26/24 mcg (1,000 unit) capsule dulaglutide 0.75 mg/0.5 mL 0.75 mg subcut MCCLURE 08/26/24 08/26/24 subcutaneous pen injector (Trulicity) finasteride 5 mg tablet 5 mg PO DAILY 08/26/24 08/26/24 furosemide 20 mg tablet 20 mg PO DAILY 08/26/24 08/26/24 Previous Rx's ?Medication ?Instructions ?Recorded apixaban 2.5 mg tablet (Eliquis) 2.5 mg PO BID #180 tabs 03/25/24 amiodarone 200 mg tablet 200 mg PO DAILY #90 tabs 08/25/24 Allergies Allergy/AdvReac Type Severity Reaction Status Date / Time No Known Allergies Allergy Verified 08/26/24 07:30 [No Known Allergies*] Review of Systems 2 Review of Systems: Yes Unobtainable due to mental status PMFSH Past Medical History Source: old records reviewed, obtained from family and nursing notes reviewed Medical History Cardiac pacemaker in situ CVA (cerebral vascular accident) Diabetes mellitus CKD (chronic kidney disease) HTN (hypertension) Paroxysmal atrial flutter Heart failure with reduced ejection fraction Nonischemic cardiomyopathy Sick sinus syndrome Surgical History Status post aortic valve replacement History of cardioversion Hx of cardiac cath Hx of colonoscopy Family History Family History Father No problems noted. Mother CVD (cardiovascular disease) Social History Social History Household Members: Significant Other and Family Housing: House Alcohol intake: never Patient Tobacco Use Status: Never used Tobacco service: No Physical Exam ED Vital Signs: Vital Signs - 24 hr 08/26/24 07:26 08/26/24 07:39 08/26/24 08:23 Temperature 97 F Pulse Rate 70 60 Respiratory Rate 16 18 Blood Pressure 108/47 L 95/33 L 119/49 L Pulse Oximetry 97 97 Oxygen Delivery Method Room Air Room Air 08/26/24 08:33 08/26/24 09:11 08/26/24 09:19 Temperature 96.4 F L Pulse Rate 60 Respiratory Rate 18 Blood Pressure 112/47 L 100/59 L Pulse Oximetry 98 Oxygen Delivery Method Room Air 08/26/24 10:00 08/26/24 10:12 08/26/24 10:15 Temperature 96.5 F L 97.2 F Pulse Rate 63 66 Respiratory Rate 18 18 Blood Pressure 107/44 L 123/47 L 123/47 L Pulse Oximetry 98 Oxygen Delivery Method Room Air 08/26/24 10:20 08/26/24 11:56 08/26/24 14:25 Temperature 97.2 F 97.4 F 98.2 F Pulse Rate 64 67 70 Respiratory Rate 18 20 18 Blood Pressure 122/43 L 104/62 123/51 L Pulse Oximetry 97 96 97 Oxygen Delivery Method Room Air Room Air Room Air BMI result Body Mass Index 29.0 patient hypotensive on arrival, afebrile, not hypoxic General: sitting comfortably on the exam bed. Skin: +see below Head: Normocephalic, atraumatic. EENT: Hearing is intact b/l. Conjunctiva clear. PERRLA. EOM intact. Moist mucous membranes.? Neck: Supple without LAD Cardiac: Chest wall symmetric. RRR Lungs: Normal respiratory effort without accessory muscle use. CTA bilaterally Abdomen: Soft, non-tender, non-distended. No rebound tenderness or guarding. Positive BS x4. Back: No midline spinous or paraspinal tenderness. No step off deformity. Ext: + see photos of bilateral LEs below. well healed wound to lateral aspect of right foot. no active drainage or bleeding. no surrounding erythema. no warmth. no streaking. s/p left 4th/5th TMA with well healed scar to lateral left foot. two open wounds to plantar aspect of left foot. no active drainage. no warmth. + no obvious deformity to right shoulder. not ttp. no overlying edema or erythema. pain on abduction of right shoulder. 2+radial/ ulnar pulse intact. Neuro: Alert, intermittently following commands, garbled speech. NIH score 12. NIH Stroke Scale Internal: Initial- Upon Arrival Time: 07:30 Level of Consciousness: Alert Level of Consciousness Questions: Answers neither question correctly Level of Consciousness Commands: Performs one task correctly Best Gaze: Normal Visual: No visual loss Facial Palsy: Partial paralysis Motor Arm (Right): No drift Motor Arm (Left): No effort against gravity Motor Leg (Right): No drift Motor Leg (Left): Some effort against gravity Limb Ataxia: Absent Sensory: Normal Best Language: No aphasia Dysarthia: Severe dysarthria Extinction and Inattention: No abnormality Score: 12 Course Course Course Narrative: 1010 -- Leukocytosis of 13.1. I received a critical result of 47 band neurtrophils around 926. At that time I became concerned for sepsis. Sepsis protocol initiated. I ordered zosyn and azithromycin for broad spectrum coverage. Patient placed on martha hugger. His chemistry shows hyponatremia to 130 and acute on chronic kidney injury with BUN of 86 and creatinine of 3.96. random glucose 280. no concern for hypoglycemic event. troponin 142.3. his EKG is non ischemic. unlikely ACS. troponin likely elevated secondary to chronic kidney disease. will repeat for delta. his BNP is elevated to 1179, concern for fluid overload. Patient initially received 1L of IVF. Will hold on fluid resuscitation. His CXR shows mild left sided pleural effusion. I do not appreciate any focal infiltrate or consolidation. On chart review, patient takes 20mg lasix daily. 40 IV lasix ordered for dieresis. Stress does of hydrocortisone ordered. His urine is negative for infection. He has tested negative for covid, flu, and rsv. > I spoke with Dr. Shea regarding elevated trop. recommending repeat delta. no further recommendations. > on arrival, patient's NIH stroke scale was noted to be 12. Stroke protocol ordered. The CT scan of his head shows right basil ganglial/ crane radiata lacunar infarct, new from 2019. The CTA of his head/ neck does not demonstrate acute ischemic stroke. I did speak with neurologist, Dr. Damon, who recommends MRI for further characterization as CT findings may not be acute. patient is already anticoagulated. > xr left foot and right shoulder pending > will present to hospitalist for admission 1223 -- repeat troponin 117.5. no concern for ACS. Medications Administered Generic Name Dose Route Start Last Admin Trade Name Ralph PRN Reason Stop Dose Admin Amiodarone HCl 200 mg 08/26/24 15:00 08/26/24 16:49 Amiodarone Hcl 200 Mg Tablet PO 200 mg DAILY FARZAD Administration Apixaban 2.5 mg 08/26/24 21:00 08/26/24 22:00 Apixaban 2.5 Mg Tablet PO 2.5 mg BID FARZAD Administration Furosemide 40 mg 08/26/24 15:25 08/26/24 16:35 Furosemide 40 Mg/4 Ml Vial IVPUSH Not Given DAILY FARZAD Protocol Insulin Human Lispro 0 unit 08/26/24 21:00 08/26/24 22:00 Insulin Lispro 100 Unit/Ml 3 Ml Vial SUBCUT 4 unit [facility] Administration Protocol Sodium Chloride 3 ml 08/26/24 16:00 08/26/24 22:01 0.9 % Sodium Chloride Flush 3 Ml Syringe IVFLUSH 3 ml QSHIFT FARZAD Administration Discontinued Medications Generic Name Dose Route Start Last Admin Trade Name Ralph PRN Reason Stop Dose Admin Furosemide 40 mg 08/26/24 09:20 08/26/24 10:12 Furosemide 40 Mg/4 Ml Vial IVPUSH 08/26/24 09:21 40 mg ONCE ONE Administration Protocol Hydrocortisone Sodium Succinate 100 mg 08/26/24 09:45 08/26/24 10:14 Hydrocortisone Sod Succ/Pf 100 Mg Vial IVPUSH 08/26/24 09:46 100 mg ONCE ONE Administration Sodium Chloride 1,000 mls @ 999 mls/hr 08/26/24 07:45 08/26/24 09:14 Ns IV 08/26/24 08:45 Infused .Q1H1M FARZAD Infusion Piperacillin Sod/Tazobactam 100 mls @ 200 mls/hr 08/26/24 09:45 08/26/24 11:15 Sod 4.5 gm/ Sodium Chloride IV 08/26/24 10:14 Infused ONCE ONE Infusion Azithromycin 500 mg/ Sodium 250 mls @ 125 mls/hr 08/26/24 09:45 08/26/24 17:21 Chloride IV 08/26/24 11:44 Infused ONCE ONE Infusion Vancomycin HCl 1,500 mg/ 500 mls @ 333.333 mls/hr 08/26/24 19:28 08/26/24 23:31 Sodium Chloride IV 08/26/24 20:57 Infused ONCE ONE Infusion Iohexol 100 ml 08/26/24 08:02 08/26/24 08:02 Iohexol 350 Mg/Ml 100 Ml Infus..Btl IV 08/26/24 08:03 70 ml ONCE ONE Administration Olanzapine 2.5 mg 08/26/24 11:18 08/26/24 11:23 Olanzapine 2.5 Mg Tablet PO 08/26/24 11:19 2.5 mg ONCE ONE Administration Medical Decision Making Medical Decision Making [facility] Narrative: 84 year old female with pmhx significant for CVA (>30 years ago without residual deficits), 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 Hypotensive to 108/47. Hypothermic to 96.5. Vitals otherwise wnl. NIH score 12 on arrival. Stroke protocol ordered. Patient is anticoagulated on Eliquis and is not a candidate for TPA. Labs, ekg, cxr, xr right shoulder/ left foot, CT/CTA head ordered. I have considered the following differential diagnoses: ischemic v hemorrhagic stroke, anemia, electrolyte abnormality, pneumonia, bronchitis, viral syndrome, urinary tract infection, encephalitis, shoulder fracture, shoulder contusion, shoulder sprain/ strain, chronic diabetic foot wounds vs osteomyelitis, hypoglycemia Differential Diagnosis Differential Diagnoses: The differential diagnosis associated with the presentation includes as above. Admission/Observation Consideration of admission/observation: Escalation of care including admission/observation considered Patient admitted to medicine. Consult Healthcare Provider Management of the patient was discussed with: Hospitalist and Laboratory Asst Neurology - Dr. Damon Cardiology - Dr. Shea Lab Data [facility] Lab Attestation statement: I reviewed the patient's lab results. as above. 08/26/24 08:19 08/26/24 19:15 Labs: Lab Results 08/26/24 08/26/24 08/26/24 Range/Units 07:32 07:46 08:19 WBC 13.1 H (4.8-10.8) X10*3/uL RBC 4.01 L (4.60-5.80) X10*6/uL Hgb 11.4 L (14.0-18.0) g/dl Hct 34.6 L (42.0-52.0) % MCV 86.3 (80.0-98.0) fL MCH 28.4 (27.0-33.0) pg MCHC 32.9 (31.0-36.0) g/dl RDW 15.7 (11.0-16.0) % Plt Count 201 D (160-400) X10*3/uL MPV 10.4 (9.4-12.4) fL Immature Gran % (Auto) Cancelled Neut % (Auto) Cancelled Lymph % (Auto) Cancelled Chaves % (Auto) Cancelled Eos % (Auto) Cancelled Baso % (Auto) Cancelled Lymph # (Auto) Cancelled Chaves # (Auto) Cancelled Eos # (Auto) Cancelled Baso # (Auto) Cancelled Abs Immat Gran (auto) Cancelled Absolute Neuts (auto) Cancelled Absolute Nucleated RBC 0.000 (0.0-0.012) X10*3/uL Nucleated RBC % (auto) 0.0 (0.0-0.2) /100WBC Neutrophils % (Manual) 46 (45-73) % Band Neutrophils % 47 H (3-5) % Lymphocytes % (Manual) 1 L (20-40) % Atypical Lymphs % (Man) 2 (0-6) % Monocytes % (Manual) 3 (2-11) % Metamyelocytes % 1 % Abs Neuts (Manual) 12.2 H (2.0-8.3) X10*3/uL Lymphocytes # (Manual) 0.1 L (1.2-4.9) X10*3/uL Atyp Lymphs # (Manual) 0.3 x10*3/uL Monocytes # (Manual) 0.4 (0.1-1.2) X10*3/uL Metamyelocytes # 0.1 X10*3/uL Toxic Vacuolation PRESENT Dohle Bodies PRESENT Platelet Estimate NORMAL (NORMAL) Plt Morphology Comment NORMAL RBC Morphology NOTED Ovalocytes 1+ (5-14) /OIF Milton Cells 3+ (>5) /OIF PT (10.9-12.4) SEC Whole Blood PT 19.5 H (11.1-13.5) sec INR (0.9-1.1) Whole Blood INR 1.6 H (0.9-1.1) APTT 33.9 (26.0-36.8) SEC Sodium 130 L (135-145) mmol/L Potassium 4.1 (3.3-5.1) mmol/L Chloride 99 (96-108) mmol/L Carbon Dioxide 19 L (22-29) mmol/L Anion Gap 16 (12-20) BUN 86 H (9-16) mg/dL Creatinine 3.96 H (0.5-1.4) mg/dL Estim Creat Clear Calc 13.4 Estimated GFR 14 POC Glucose 287 H (60-115) mg/dL Random Glucose 280 H (60-115) mg/dL Lactic Acid 2.0 (0.5-2.0) mmol/L Calcium 8.3 L D (8.4-10.2) mg/dL Magnesium 1.8 (1.6-2.6) mg/dL Total Bilirubin 0.7 (0.0-1.0) mg/dL AST 70 H (5-37) U/L ALT 71 H (0-40) U/L Alkaline Phosphatase 84 (39-117) U/L Ammonia 25 (13-55) umol/L Total Creatine Kinase 98 (38-174) U/L Troponin I High Sens 142.3 H* (<3.5-35.0) ng/L B-Natriuretic Peptide 1179 H (<100) pg/mL Total Protein 5.9 L (6.5-8.0) g/dL Albumin 3.1 L (3.5-5.0) g/dL Lipase 38 (8-78) U/L TSH 1.62 (0.32-4.0) uIU/mL Urine Color Urine Appearance Urine pH (5.0-9.0) Ur Specific [place] (1.005-1.025) Urine Protein (Neg-Trace) mg/dL Urine Glucose (UA) (Negative) mg/dL Urine Ketones (Negative) mg/dL Urine Blood (Negative) Urine Nitrite (Negative) Ur Leukocyte Esterase (Negative) Urine RBC (0-2) /HPF Urine WBC (0-5) /HPF Ur Squamous Epith Cells (0-2) /HPF Urine Bacteria (None Seen) Hyaline Casts (0-2) /LPF Urine Opiates Screen (Not Detect) Ur Buprenorphine Scrn (Not Detect) ng/mL Ur Oxycodone Screen (Not Detect) ng/mL Urine Methadone Screen (Not Detect) ng/mL Urine Fentanyl Screen (Not Detect) Ur Barbiturates Screen (Not Detect) Ur Phencyclidine Scrn (Not Detect) Ur Amphetamines Screen (Not Detect) U Benzodiazepines Scrn (Not Detect) Urine Cocaine Screen (Not Detect) U Marijuana (THC) Screen (Not Detect) Influenza Type A (PCR) NEGATIVE (Negative) Influenza Type B (PCR) NEGATIVE (Negative) RSV RNA Qual (PCR) NEGATIVE (Negative) SARS-CoV-2 RNA (RT-PCR) NEGATIVE (Negative) 08/26/24 08/26/24 08/26/24 Range/Units 08:20 09:15 11:52 WBC (4.8-10.8) X10*3/uL RBC (4.60-5.80) X10*6/uL Hgb (14.0-18.0) g/dl Hct (42.0-52.0) % MCV (80.0-98.0) fL MCH (27.0-33.0) pg MCHC (31.0-36.0) g/dl RDW (11.0-16.0) % Plt Count (160-400) X10*3/uL MPV (9.4-12.4) fL Immature Gran % (Auto) Neut % (Auto) Lymph % (Auto) Chaves % (Auto) Eos % (Auto) Baso % (Auto) Lymph # (Auto) Chaves # (Auto) Eos # (Auto) Baso # (Auto) Abs Immat Gran (auto) Absolute Neuts (auto) Absolute Nucleated RBC (0.0-0.012) X10*3/uL Nucleated RBC % (auto) (0.0-0.2) /100WBC Neutrophils % (Manual) (45-73) % Band Neutrophils % (3-5) % Lymphocytes % (Manual) (20-40) % Atypical Lymphs % (Man) (0-6) % Monocytes % (Manual) (2-11) % Metamyelocytes % % Abs Neuts (Manual) (2.0-8.3) X10*3/uL Lymphocytes # (Manual) (1.2-4.9) X10*3/uL Atyp Lymphs # (Manual) x10*3/uL Monocytes # (Manual) (0.1-1.2) X10*3/uL Metamyelocytes # X10*3/uL Toxic Vacuolation Dohle Bodies Platelet Estimate (NORMAL) Plt Morphology Comment RBC Morphology Ovalocytes /OIF Milton Cells /OIF PT 17.0 H (10.9-12.4) SEC Whole Blood PT (11.1-13.5) sec INR 1.5 H (0.9-1.1) Whole Blood INR (0.9-1.1) APTT (26.0-36.8) SEC Sodium (135-145) mmol/L Potassium (3.3-5.1) mmol/L Chloride (96-108) mmol/L Carbon Dioxide (22-29) mmol/L Anion Gap (12-20) BUN (9-16) mg/dL Creatinine (0.5-1.4) mg/dL Estim Creat Clear Calc Estimated GFR POC Glucose (60-115) mg/dL Random Glucose (60-115) mg/dL Lactic Acid (0.5-2.0) mmol/L Calcium (8.4-10.2) mg/dL Magnesium (1.6-2.6) mg/dL Total Bilirubin (0.0-1.0) mg/dL AST (5-37) U/L ALT (0-40) U/L Alkaline Phosphatase (39-117) U/L Ammonia (13-55) umol/L Total Creatine Kinase (38-174) U/L Troponin I High Sens 117.5 H* (<3.5-35.0) ng/L B-Natriuretic Peptide (<100) pg/mL Total Protein (6.5-8.0) g/dL Albumin (3.5-5.0) g/dL Lipase (8-78) U/L TSH (0.32-4.0) uIU/mL Urine Color Yellow Urine Appearance Clear Urine pH 5.0 (5.0-9.0) Ur Specific [place] 1.015 (1.005-1.025) Urine Protein 30 (1+) H (Neg-Trace) mg/dL Urine Glucose (UA) 100 H (Negative) mg/dL Urine Ketones Negative (Negative) mg/dL Urine Blood Negative (Negative) Urine Nitrite Negative (Negative) Ur Leukocyte Esterase Negative (Negative) Urine RBC 0-2 (0-2) /HPF Urine WBC 0-5 (0-5) /HPF Ur Squamous Epith Cells 6-10 (0-2) /HPF Urine Bacteria None Seen (None Seen) Hyaline Casts 0-2 (0-2) /LPF Urine Opiates Screen Not Detected (Not Detect) Ur Buprenorphine Scrn Not Detected (Not Detect) ng/mL Ur Oxycodone Screen Not Detected (Not Detect) ng/mL Urine Methadone Screen Not Detected (Not Detect) ng/mL Urine Fentanyl Screen Not Detected (Not Detect) Ur Barbiturates Screen Not Detected (Not Detect) Ur Phencyclidine Scrn Not Detected (Not Detect) Ur Amphetamines Screen Not Detected (Not Detect) U Benzodiazepines Scrn Not Detected (Not Detect) Urine Cocaine Screen Not Detected (Not Detect) U Marijuana (THC) Screen Not Detected (Not Detect) Influenza Type A (PCR) (Negative) Influenza Type B (PCR) (Negative) RSV RNA Qual (PCR) (Negative) SARS-CoV-2 RNA (RT-PCR) (Negative) Independent Interpretation I performed an independent interpretation of an: CT Scan Interpretation: CT head/ brain CTA head CXR without focal infiltrate or consolidation Radiology Impression Discussion of test interpretation with radiology: I have reviewed the radiologist's reading. Radiologist Impression: EXAMINATION: XR CHEST CLINICAL INFORMATION: confusion COMPARISON: X-ray dated March 01, 2023 TECHNIQUE: Frontal view of the chest was obtained. FINDINGS: Poor inspiration. Cardiomediastinal silhouette overlaps the left hemithorax due to patient's positioning. Questionable haziness in the left lower hemithorax. Prominence of the interstitial markings. Metallic heart valve prosthesis likely aortic. 2. Intact electrode leads in the right heart chambers, left-sided pacemaker. Sternal wires. Calcified plaque thoracic aortic arch. Normal-sized heart silhouette. Osteopenia versus osteoporosis. Multilevel spondylosis. Degenerative changes in the right shoulder. XR/XR chest 1V IMPRESSION: Mild interstitial lung edema and questionable left-sided pleural effusion. Electronically signed by: Real Nunez MD 08/26/2024 08:34 AM EST EXAMINATION: XR RIGHT SHOULDER XR LEFT FOOT CLINICAL INFORMATION: Fall, right shoulder pain. Left foot chronic wound, question osteomyelitis. COMPARISON: Left foot 06/12/2024, 04/14/2024. TECHNIQUE: 2 views of the right shoulder. 3 views of the left foot. FINDINGS: RIGHT SHOULDER: Diffuse demineralization. Advanced degenerative changes in the acromioclavicular joint with joint space narrowing and hypertrophic change. Minimally imaged median sternotomy wires and overlying leads would be better characterized with dedicated views of the chest. Glenohumeral alignment maintained. Advanced degenerative changes in the glenohumeral joint. There appears to be periosteal reaction/periostitis along the partially imaged proximal shaft of the humerus with faint calcifications in the adjacent soft tissues. Dedicated views of the right humerus recommended for further evaluation. LEFT FOOT: Diffuse demineralization. Moderate degenerative changes in the first metatarsophalangeal joint. Degenerative changes in the interphalangeal joints. Small plantar and posterior calcaneal spurs. Interval resection of the fourth digit at the level of the mid fourth metatarsal shaft. Interval resection of fifth digit at the level of the proximal fifth metatarsal shaft. Overlying soft tissue swelling with faint amorphous calcifications distal to the fourth and fifth metatarsal remnants. There are lucencies in the overlying soft tissues. XR/XR foot LT min 3V IMPRESSION: 1. Advanced degenerative changes in the acromioclavicular and glenohumeral joints. 2. There appears to be periosteal reaction/periostitis along the partially imaged proximal shaft of the humerus with faint calcifications in the adjacent soft tissues. Dedicated views of the right humerus recommended for further evaluation. 3. Interval resection of the fourth digit of the left foot at the level of the mid fourth metatarsal shaft. Interval resection of fifth digit at the level of the proximal fifth metatarsal shaft. Overlying soft tissue swelling with faint amorphous calcifications distal to the fourth and fifth metatarsal remnants. There are lucencies in the overlying soft tissues. This study was presented today. August 26, 2024. for interpretation. Stat results provided at this time as requested by referring provider. Electronically signed by: Erlinda Davis MD 08/26/2024 11:33 AM [facility] Independent Historian Clinical information obtained from an independent historian. History obtained from or confirmed by: Other (son, girlfriend) External Record Review External record reviewed: Inpatient record, Office record, Outpatient record, Prior outpatient labs, Prior outpatient radiology, Primary care record and Outside ED record Prescription Management I considered prescription management with: Antibiotic Chronic Conditions Patient?s care impacted by: Diabetes and Other (heart failure, ) Social Determinants Patient?s care significantly limited by Social Determinants of Health including: Other Social Determinant of Health Critical Care Time Critical Care Time Critical Care Time: Yes Total Critical Care Time: 40 Attestation: Critical care time in the amount of 40 minutes has been provided to the patient in terms of direct patient care, frequent reevaluation, consultation with neurology and cardiology, review and interpretation of medical data and results, and management of potentially life-threatening conditions. This is all outside of any medical procedures. Discharge Plan Discharge Clinical Impression: Congestive heart failure (CHF), Acute kidney injury superimposed on chronic kidney disease, Elevated troponin, Altered mental status, Acute hyponatremia Patient Disposition: Admitted As Inpatient Interventions: Admission Worksheet (ED) Last Done: 08/26/24 11:41 Discharge Date/Time: 08/26/24 17:23
[2024-08-26 07:36] LABS: Glucose, Whole Blood 287 mg/dL (60-115)
[2024-08-26] MEDS: 0.9 % Sodium Chloride 1,000 ML 999 ML IV (07:39)
[2024-08-26 07:52] LABS: Prothrombin Time Whole Bld POC 19.5 sec (11.1-13.5); ~PT, ~INR - Anti Coag Clinic 1.6 (0.9-1.1)
--- OUTSIDE RECORDS SUMMARY | 2024-08-26 07:57 | XMS_ITS | Continuity of Care Document ---
Author Organization [facility] Address [address] [place] [address] Phone [phone] Care Team Providers Care Label Pinker Name Role Phone Talat Paz M.D. Care Team Information Recei gabriela [phone] Problems Active Problems Provider Date Vitamin B12 deficiency (non anaemic) Rafael mahajan M.D. Onset: 11/05/2023 Erectile dysfunction Rafael Foote M.D. Onset : 11/05/2023 Type 2 diabetes mellitus Rafael Foote M.D. O nset: 11/05/2023 Atrial flutter Rafael Foote M.D. Onset: Essential hypertension Rafael Foote M.D. Ons et: 11/05/2023 Heart valve replacement Rafael Foote M.D. On set: 01/04/2024 Cardiac pacemaker in situ Rafael Foote M.D. Onset: 11/05/2023 Hypertriglyceridemia Rafael Foote M.D. Onset : 11/05/2023 Chronic progressive renal failure Rafael shah M.D. Onset: 11/05/2023 Hypercholesterolemia Rafael Foote M.D. Onset : 11/05/2023 Social History Type Date Description Comments Sex Unknown Tobacco Use Start: Unknown Never Smoked Cigarettes ETOH Use Occasionally consumes alcoho l Allergies and adverse reactions Description No Known Drug Allergies Medications Active Medications SIG Qnty Indications Ordering Provider Date Vitamin K370psu (1000 Ut) Chewtabs Rafael Foote M.D. 01/04/2024 Vitamin B [id number] Tablets 1 by mouth every day Rafael Foote M.D. 11/05/2023 Trulicity0.75mg/0.5ML Solution Pen-Inject inject 1 pen once a week for 30 days dx: e11.9 2ml E11.9 Niurka Malik M.D. 11/05/2023 Amiodarone [id number] Tablets 1 by mouth every day 90tabs Unknown Atorvastatin Wkrvsyi20yv Tablets 1 by mouth every day 90tabs Talat Paz M.D. Glipizide XL10mg Tablets ER 24HR take 1 tab daily Niurka Malik M.D. Hydralazine PBD47vv Tablets 1 by mouth twice a day Unknown Eliquis2.5mg Tablets 1 by mouth twice a day Hipolito Mehta MD Metoprolol Succinate ER50mg Tablets ER 24HR 1 by mouth every day Roberth Blancas MD Freestyle Lite TestStrips Talat Paz M.D. Tamsulosin HCL0.4mg Capsules 1 cap by mouth every night 90caps Talat Paz M.D. Lyritnyhfu11zz Tablets 2 by mouth every day Talat Paz M.D. Vital Signs Date Vital Result Comment 05/29/2024 10:06am BP Systolic 126 mmHg BP Diastolic 68 mmHg Heart Rate 98 /min Height 67 inches 5'7 Weight 184.25 lb BMI (Body Mass Index) 28.9 kg/m2 Results Test Acquired Date Facility Test Result H/[place] Laboratory test finding 05/29/2024 Inhouse Glucose Fingerstick 152 Hemoglobin A1c 6.7 % Laboratory test finding 01/04/2024 Inhouse Glucose Fingerstick 108 Laboratory test finding 11/05/2023 Inhouse Glucose Fingerstick 180 Hemoglobin A1c 8.1% Medical Devices Description No Information Available Encounters Type Date Location Provider Dx Diagnosis Office Visit 05/29/2024 10:15a Main Office ALYSSA Jackson E11.9 Type 2 diabet es mellitus without complications Z95.0 Presence of cardiac pacemaker Z95.2 Presence of prosthet ic heart valve N19 Unspecified kidney f ailure E78.00 Pure hypercholestero lemia, unspecified Assessments Date Code Description Provider 05/29/2024 E11.9 Type 2 diabetes mellitus wit hout complications ALYSSA Jackson 05/29/2024 Z95.0 Cardiac pacemaker in situ ALYSSA Mojica 05/29/2024 Z95.2 Heart valve replacement ALYSSA Barney 05/29/2024 N19 Chronic progressive renal fa ALYSSA Hays 05/29/2024 E78.00 Hypercholesterolemia ALYSSA Jackson Plan of Treatment Future Appointment(s):* 10/08/2024 10:45 am - ALYSSA Jackson at Main Office 05/29/2024 - ALYSSA Jackson* E11.9 Type 2 diabetes mellitus without complications * Z95.0 Cardiac pacemaker in situ * Z95.2 Heart valve replacement * N19 Chronic progressive renal failure * E78.00 Hypercholesterolemia Functional Status Description No Information Available Mental Status Description No Information Available Referrals Description No Information Available
[2024-08-26] MEDS: iohexoL 350 MG/ML 100 ML INFUS..BTL IV (08:02)
[2024-08-26 08:36] LABS: Hematocrit 34.6 % (42.0-52.0); Hemoglobin 11.4 g/dl (14.0-18.0); Mean Corpuscular HGB Conc 32.9 g/dl (31.0-36.0); Mean Corpuscular Hemoglobin 28.4 pg (27.0-33.0); Mean Corpuscular Volume 86.3 fL (80.0-98.0); Mean Platelet Volume 10.4 fL (9.4-12.4); Platelet Count 201 X10*3/uL (160-400); Red Blood Count 4.01 X10*6/uL (4.60-5.80); Red Cell Distribution Width 15.7 % (11.0-16.0)
[2024-08-26 08:37] LABS: WBC ABN SCTR FOR CBC 1
[2024-08-26 08:38] LABS: White Blood Count 13.1 X10*3/uL (4.8-10.8)
[2024-08-26 08:41] LABS: INTERNATIONAL NORM RATIO 1.5 (0.9-1.1)
[2024-08-26 08:44] LABS: Partial Thromboplastin Time 33.9 SEC (26.0-36.8)
[2024-08-26 08:45] LABS: Ammonia 25 umol/L (13-55)
[2024-08-26 08:46] LABS: Stroke Lab Use COMPLETE
[2024-08-26 08:59] LABS: Albumin Level 3.1 g/dL (3.5-5.0); Anion Gap 16 (12-20); Aspartate Amino Transferase 70 U/L (5-37); Bilirubin Total 0.7 mg/dL (0.0-1.0); Blood Urea Nitrogen 86 mg/dL (9-16); Calcium 8.3 mg/dL (8.4-10.2); Carbon Dioxide 19 mmol/L (22-29); Chloride 99 mmol/L (96-108); Creatinine Clr Calc Pharmacy 13.4; Estimated Glomerular Filt Rate 14; Glucose Random 280 mg/dL (60-115); Lipase 38 U/L (8-78); Magnesium 1.8 mg/dL (1.6-2.6); Potassium 4.1 mmol/L (3.3-5.1); Sodium 130 mmol/L (135-145); Total Protein 5.9 g/dL (6.5-8.0)
[2024-08-26 09:06] LABS: Troponin-I High Sensitivity 142.3 ng/L (<3.5-35.0)
[2024-08-26 09:11] LABS: B Type Natriuretic Peptide 1179 pg/mL (<100)
[2024-08-26 09:16] LABS: Alanine Aminotransferase 71 U/L (0-40); Alkaline Phosphatase 84 U/L (39-117)
--- NOTE | 2024-08-26 09:16 | PC.NURSE ---
speech remains garbled but patient is following commands better. can't complete full neuro exam. equal hand grasp. family at bedside bringing attention to Ramiro foot wounds. both redressed. no exudate. Temp sensing bledsoe in with clear yellow urine out.
[2024-08-26 09:17] LABS: Influenza A PCR NEGATIVE (Negative); Influenza B PCR NEGATIVE (Negative); Resp Syncy Virus RNA Qual PCR NEGATIVE (Negative); SARS COV2 PCR INHOUSE NEGATIVE (Negative)
[2024-08-26 09:27] LABS: Neutrophils Percent Manual 46 % (45-73)
[2024-08-26 09:28] LABS: Atypical Lymph Absolute Manual 0.3 x10*3/uL; Atypical Lymphs Percent Manual 2 % (0-6); Band Neutrophils Percent 47 % (3-5); Burr Cells 3+ (>5) /OIF; Dohle Bodies PRESENT; Lymphocytes Absolute Manual 0.1 X10*3/uL (1.2-4.9); Lymphocytes Percent Manual 1 % (20-40); Metamyelocytes Absolute 0.1 X10*3/uL; Metamyelocytes Percent 1 %; Monocytes Absolute Manual 0.4 X10*3/uL (0.1-1.2); Monocytes Percent Manual 3 % (2-11); Neutrophils Absolute Manual 12.2 X10*3/uL (2.0-8.3); Ovalocytes 1+ (5-14) /OIF; Platelet Estimate NORMAL (NORMAL); Platelet Morphology Comment NORMAL; RBC Morphology NOTED; Toxic Vacuolation PRESENT
[2024-08-26 09:40] LABS: Appearance Urine Clear; Color Urine Yellow; Glucose Urine UA 100 mg/dL (Negative); Leukocyte Esterase Urine Negative (Negative); Nitrite Urine Negative (Negative); Specific Gravity - Urine 1.015 (1.005-1.025); UMIC TRIGGER UACC YES; Urine Blood Negative (Negative); Urine Ketones Negative (Negative); Urine Protein 30 (1+) mg/dL (Neg-Trace)
[2024-08-26 09:44] LABS: Amphetamine Screen Urine Not Detected (Not Detect); Barbiturates, Urine Not Detected (Not Detect); Benzodiazepines Screen Urine Not Detected (Not Detect); Buprenorphine Scr Not Detected (Not Detect); Cannabinoid Screen Urine Not Detected (Not Detect); Cocaine Screen Urine Not Detected (Not Detect); Fentanyl, urine Not Detected (Not Detect); Methadone Screen, Urine Not Detected (Not Detect); Opiate Screen Urine Not Detected (Not Detect); Oxycodone Screen Urine Not Detected (Not Detect); Phencyclidine Screen Urine Not Detected (Not Detect)
[2024-08-26 09:58] LABS: RBC Urine 0-2 /HPF (0-2); WBC Urine 0-5 /HPF (0-5)
[2024-08-26 09:59] LABS: Bacteria Urine None Seen (None Seen); Hyaline Casts Urine 0-2 /LPF (0-2)
[2024-08-26] MEDS: Furosemide 40 MG/4 ML VIAL IVPUSH (10:12)
[2024-08-26] MEDS: Hydrocortisone Sod Succ/PF 100 MG VIAL IVPUSH (10:14)
[2024-08-26] MEDS: Piperacillin Sodium/Tazobactam 4.5 GM in 0.9 % Sodium Chloride 100 ML IV (10:15)
--- NOTE | 2024-08-26 10:21 | PC.NURSE ---
martha sosa held b/c temp is improving.
[2024-08-26 10:39] LABS: TSH reflex Free T4 1.62 uIU/mL (0.32-4.0)
[2024-08-26] MEDS: Azithromycin 500 MG in 0.9 % Sodium Chloride 250 ML 125 MG IV (11:01)
[2024-08-26] MEDS: OLANZapine 2.5 MG TABLET PO (11:23)
--- NOTE | 2024-08-26 11:37 | PC.NURSE ---
Pt had been aggitated, removing clothing repeatedly and pulling at bledsoe. Zyprexa PO given for this reason. family remains at bedside and await hospitalist.
[2024-08-26 12:23] LABS: Troponin-I High Sensitivity 117.5 ng/L (<3.5-35.0)
--- NOTE | 2024-08-26 13:23 | PM.IMHP ---
History of Present Illness Date of Service: 08/26/24 Attending physician on admission: Haritha Robertson Chief Complaint: AMS 84 yo male with PMH significant for CVA (30+ years ago without residual deficits), non-insulin dependent DM, diabetic polyneuropathy, diabetic bilateral foot wounds, s/p CKD, HTN, sick sinus syndrome w/ pacemaker, s/p TAVR, heart failure with reduced EF, paroxysmal Afib anticoagulated with Eliquis presents to the ED today via EMS from home for evaluation of altered mental status, and garbled disoriented speech per family. Family indicate he has not been feeling well generally over the last 3-4 days, was reporting chills intermittently but without knowledge of fevers, reduced PO intake, and appetite, had a couple of episodes of where he was unstable while walking, GF at bedisde notes the son found him to be sitting down on the ground in his room likely trying to ambulate to bathroom overnight- no apparent injury was noted except some discomfort with ROM to R arm/shoulder. Review of Systems Review of Systems: Yes Unobtainable due to mental status [facility] Medical History Cardiac pacemaker in situ CVA (cerebral vascular accident) Diabetes mellitus CKD (chronic kidney disease) HTN (hypertension) Paroxysmal atrial flutter Heart failure with reduced ejection fraction Nonischemic cardiomyopathy Sick sinus syndrome Family History Father No problems noted. Mother CVD (cardiovascular disease) Surgical History Status post aortic valve replacement History of cardioversion Hx of cardiac cath Hx of colonoscopy Social History Alcohol intake: never Patient Tobacco Use Status: Never used Tobacco Smoked in Last 30 Days: No Use of substances other than those prescribed or required for medical reasons: No Advance Directives: No service: No Meds Allergies Allergy/AdvReac Type Severity Reaction Status Date / Time No Known Allergies Allergy Verified 08/26/24 07:30 [No Known Allergies*] Home Medications ?Medication ?Instructions ?Recorded ?Confirmed ?Last Taken ?Type tamsulosin 0.4 mg capsule 0.4 mg PO DAILY 07/29/20 08/26/24 08/25/24 History vitamin B12 500 mcg-folic acid 400 1 tab PO DAILY 07/29/20 08/26/24 08/25/24 History mcg tablet glipizide 10 mg tablet, extended 10 mg PO BID 09/13/22 08/26/24 08/25/24 History release 24 hr metoprolol succinate 50 mg 50 mg PO DAILY 09/13/22 08/26/24 08/25/24 History tablet,extended release 24 hr atorvastatin 10 mg tablet 10 mg PO DAILY 09/07/23 08/26/24 08/25/24 History cholecalciferol (vitamin D3) 25 25 mcg PO DAILY 04/14/24 08/26/24 08/25/24 History mcg (1,000 unit) capsule dulaglutide 0.75 mg/0.5 mL 0.75 mg subcut MCCLURE 08/26/24 08/26/24 08/25/24 History subcutaneous pen injector (Trulicity) finasteride 5 mg tablet 5 mg PO DAILY 08/26/24 08/26/24 08/25/24 History furosemide 20 mg tablet 20 mg PO DAILY 08/26/24 08/26/24 08/25/24 History Physical Exam Vital Signs and Narrative: Vital Signs: Last Vital Signs Temp 97.4 F 08/26/24 11:56 Pulse 67 08/26/24 11:56 Resp 20 08/26/24 11:56 BP 104/62 08/26/24 11:56 Pulse Ox 96 08/26/24 11:56 O2 Del Method Room Air 08/26/24 11:56 BMI result Body Mass Index 29.0 Const: Nutritional Appearance: well nourished Limitations: altered mental status HEENT: Head: Yes normal to inspection Eyes: General: appearance normal, both eyes and all related structures Neck: Yes normal visual inspection Chest: Chest palpation & inspection: normal inspection of the chest Resp: Effort & Inspection: normal respiratory effort Auscultation: diminished lung sounds bilateral Cardio: Rate: regular rate Peripheral pulses: dorsalis pedis present GI: Inspection: Yes normal to inspection Auscultation: normal bowel sounds Skin: General skin exam: no rashes or lesions noted Neuro: General: Unable to assess gait Gait exam (Neuro): Unable to assess gait Psych: Affect: Irritable affect present Results Labs 08/26/24 08:19 08/26/24 08:19 Labs: Laboratory Results - last 24 hr 08/26/24 08/26/24 08/26/24 07:32 07:46 08:19 MCV 86.3 MCH 28.4 MCHC 32.9 RDW 15.7 Plt Count 201 D MPV 10.4 Immature Gran % (Auto) Cancelled Neut % (Auto) Cancelled Lymph % (Auto) Cancelled [place] % (Auto) Cancelled Eos % (Auto) Cancelled Baso % (Auto) Cancelled Lymph # (Auto) Cancelled [place] # (Auto) Cancelled Eos # (Auto) Cancelled Baso # (Auto) Cancelled Abs Immat Gran (auto) Cancelled Absolute Neuts (auto) Cancelled Absolute Nucleated RBC 0.000 Nucleated RBC % (auto) 0.0 Neutrophils % (Manual) 46 Band Neutrophils % 47 H Lymphocytes % (Manual) 1 L Atypical Lymphs % (Man) 2 Monocytes % (Manual) 3 Metamyelocytes % 1 Abs Neuts (Manual) 12.2 H Lymphocytes # (Manual) 0.1 L Atyp Lymphs # (Manual) 0.3 Monocytes # (Manual) 0.4 Metamyelocytes # 0.1 Toxic Vacuolation PRESENT Dohle Bodies PRESENT Platelet Estimate NORMAL Plt Morphology Comment NORMAL RBC Morphology NOTED Ovalocytes 1+ (5-14) [place] Cells 3+ (>5) PT Whole Blood PT 19.5 H INR Whole Blood INR 1.6 H APTT 33.9 Anion Gap 16 Estim Creat Clear Calc 13.4 Estimated GFR 14 POC Glucose 287 H Random Glucose 280 H Lactic Acid 2.0 Calcium 8.3 L D Magnesium 1.8 Total Bilirubin 0.7 AST 70 H ALT 71 H Alkaline Phosphatase 84 Ammonia 25 Total Creatine Kinase 98 Troponin I High Sens 142.3 H* B-Natriuretic Peptide 1179 H Total Protein 5.9 L Albumin 3.1 L Lipase 38 TSH 1.62 Urine Color Urine Appearance Urine pH Ur Specific [place] Urine Protein Urine Glucose (UA) Urine Ketones Urine Blood Urine Nitrite Ur Leukocyte Esterase Urine RBC Urine WBC Ur Squamous Epith Cells Urine Bacteria Hyaline Casts Urine Opiates Screen Ur Buprenorphine Scrn Ur Oxycodone Screen Urine Methadone Screen Urine Fentanyl Screen Ur Barbiturates Screen Ur Phencyclidine Scrn Ur Amphetamines Screen U Benzodiazepines Scrn Urine Cocaine Screen U Marijuana (THC) Screen Influenza Type A (PCR) NEGATIVE Influenza Type B (PCR) NEGATIVE RSV RNA Qual (PCR) NEGATIVE SARS-CoV-2 RNA (RT-PCR) NEGATIVE 08/26/24 08/26/24 08/26/24 08:20 09:15 11:52 MCV MCH MCHC RDW Plt Count MPV Immature Gran % (Auto) Neut % (Auto) Lymph % (Auto) [place] % (Auto) Eos % (Auto) Baso % (Auto) Lymph # (Auto) [place] # (Auto) Eos # (Auto) Baso # (Auto) Abs Immat Gran (auto) Absolute Neuts (auto) Absolute Nucleated RBC Nucleated RBC % (auto) Neutrophils % (Manual) Band Neutrophils % Lymphocytes % (Manual) Atypical Lymphs % (Man) Monocytes % (Manual) Metamyelocytes % Abs Neuts (Manual) Lymphocytes # (Manual) Atyp Lymphs # (Manual) Monocytes # (Manual) Metamyelocytes # Toxic Vacuolation Dohle Bodies Platelet Estimate Plt Morphology Comment RBC Morphology Ovalocytes [place] Cells PT 17.0 H Whole Blood PT INR 1.5 H Whole Blood INR APTT Anion Gap Estim Creat Clear Calc Estimated GFR POC Glucose Random Glucose Lactic Acid Calcium Magnesium Total Bilirubin AST ALT Alkaline Phosphatase Ammonia Total Creatine Kinase Troponin I High Sens 117.5 H* B-Natriuretic Peptide Total Protein Albumin Lipase TSH Urine Color Yellow Urine Appearance Clear Urine pH 5.0 Ur Specific [place] 1.015 Urine Protein 30 (1+) H Urine Glucose (UA) 100 H Urine Ketones Negative Urine Blood Negative Urine Nitrite Negative Ur Leukocyte Esterase Negative Urine RBC 0-2 Urine WBC 0-5 Ur Squamous Epith Cells 6-10 Urine Bacteria None Seen Hyaline Casts 0-2 Urine Opiates Screen Not Detected Ur Buprenorphine Scrn Not Detected Ur Oxycodone Screen Not Detected Urine Methadone Screen Not Detected Urine Fentanyl Screen Not Detected Ur Barbiturates Screen Not Detected Ur Phencyclidine Scrn Not Detected Ur Amphetamines Screen Not Detected U Benzodiazepines Scrn Not Detected Urine Cocaine Screen Not Detected U Marijuana (THC) Screen Not Detected Influenza Type A (PCR) Influenza Type B (PCR) RSV RNA Qual (PCR) SARS-CoV-2 RNA (RT-PCR) Imaging Radiologist's Impressions: Impressions Head/Neck CTA 08/26/24 07:25 IMPRESSION: Head CT: 1. Right basal ganglial/crane radiata lacunar infarct, new from 2018. 2. No evidence for acute edematous territorial infarction or intracranial hemorrhage. CTA Head/Neck: 1. Multifocal moderate stenosis in the bilateral cavernous internal carotid arteries related to atherosclerotic calcifications. 2. Right P1 segment moderate stenosis. 3. No high-grade stenosis, proximal occlusion or saccular aneurysm of the vasculature of the head and neck. Nonvascular: Right thyroid 0.8 cm hypodense nodule. If clinically warranted, consider nonemergent thyroid ultrasound for further assessment. Electronically signed by: Sarah Albert DO 08/26/2024 08:38 AM EST RP Head CT 08/26/24 07:26 IMPRESSION: Concerning acute to subacute nonhemorrhagic stroke/ischemia centered in the right basal ganglia/frontal crane radiata white matter. Discussed with the emergency physician Dr. Makenna Tirado at 8:00 AM. Small vessel occlusive disease. Global atrophy. Atherosclerosis disease. This critical result was discussed with at hours on . It was ascertained that the content and urgency of the report was understood at the time of direct communication. Electronically signed by: Real Nunez MD 08/26/2024 08:04 AM EST RP Chest X-Ray 08/26/24 07:45 IMPRESSION: Mild interstitial lung edema and questionable left-sided pleural effusion. Electronically signed by: Real Nunez MD 08/26/2024 08:34 AM EST RP Foot X-Ray 08/26/24 08:40 IMPRESSION: 1. Advanced degenerative changes in the acromioclavicular and glenohumeral joints. 2. There appears to be periosteal reaction/periostitis along the partially imaged proximal shaft of the humerus with faint calcifications in the adjacent soft tissues. Dedicated views of the right humerus recommended for further evaluation. 3. Interval resection of the fourth digit of the left foot at the level of the mid fourth metatarsal shaft. Interval resection of fifth digit at the level of the proximal fifth metatarsal shaft. Overlying soft tissue swelling with faint amorphous calcifications distal to the fourth and fifth metatarsal remnants. There are lucencies in the overlying soft tissues. This study was presented today. August 26, 2024. for interpretation. Stat results provided at this time as requested by referring provider. Electronically signed by: Erlinda Davis MD 08/26/2024 11:33 AM EST RP Shoulder X-Ray 08/26/24 08:40 IMPRESSION: 1. Advanced degenerative changes in the acromioclavicular and glenohumeral joints. 2. There appears to be periosteal reaction/periostitis along the partially imaged proximal shaft of the humerus with faint calcifications in the adjacent soft tissues. Dedicated views of the right humerus recommended for further evaluation. 3. Interval resection of the fourth digit of the left foot at the level of the mid fourth metatarsal shaft. Interval resection of fifth digit at the level of the proximal fifth metatarsal shaft. Overlying soft tissue swelling with faint amorphous calcifications distal to the fourth and fifth metatarsal remnants. There are lucencies in the overlying soft tissues. This study was presented today. August 26, 2024. for interpretation. Stat results provided at this time as requested by referring provider. Electronically signed by: Erlinda Davis MD 08/26/2024 11:33 AM EST RP Assessment and Plan (1) Paroxysmal atrial flutter: Status: Acute Plan 84-year-old man presenting to the ER after a fall and possible stroke Stroke vs TIA NIH score 12 hx of CVA >30 yrs ago w/o residual s/e CT head- showed concern for acute to subacute nonhemorrhagic stroke/ischemia centered in the right basal ganglia/frontal crane radiata white matter. Small vessel occlusive disease. Global atrophy. Atherosclerosis disease CTA head/neck-No high-grade stenosis, proximal occlusion EKG- AV paced Neurology consulted MRI ordered/pending Echo Stroke education asa, statin MASSIMO on CKD stage 4 Likely secondary to dehydration, possible viral illness with noted elevated LFTs versus acute heart failure Given 1 L of IV fluid in the ED lasix x1 now Recheck BMP this evening Hyponatremia Likely secondary to dehydration vs acute heart failure Recheck BMP this evening, if no improvement consider Nephrology consultation Acute on chronic history of heart failure with reduced ejection fraction Elevated BNP 1179 Echocardiogram pending IV lasix 40 mg now and 40 mg daily Elevated troponins Possibly related to congestive heart failure 142.3, Repeat, 117.5, downtrend EKG- AV paced, sinus rhythm, no ischemic changes noted Leukocytosis No signs of infectious source Monitor PAF Continue amiodarone, BB and Eliquis Sinus rhythm at this time DM2 ss, ada diet BPH continue flomax and finasteride DVT prophylaxis with Eliquis Full code Quality Stroke Does the patient have a stroke diagnosis?: No VTE Prior VTE?: No VTE Risk Level:: Medical - moderate - high VTE Device Contraindication: Treatment Not Indicated VTE Drug Contraindication: N/A - Med Ordered
--- NOTE | 2024-08-26 13:56 | PHA.MEDREC ---
Addendum entered by Froy Giang 08/26/24 14:03: reviewed Original Note: Pharmacy Consult ? Medication Reconciliation Pharmacy has completed the medication reconciliation. Spoke to patients family at bedside to confirm med list. Family was able to confirm all of patient medications. Family states Trulicity 0.75 mg is every Sunday, however patient forgot his dose on 08/24/24 so he took on Sunday08/25/24. l
--- NOTE | 2024-08-26 14:26 | PC.NURSE ---
Pt repositioned in bed. had been screaming out. Still does not follow commands well. Speech is clearing but not perfect. paced rhythm on monitor. moist mm. moving all extremities. pt's comments are nonsequiturs
--- NOTE | 2024-08-26 15:43 | PC.NURSE ---
pt is sleeping after extended period of aggitation. lab draw delayed for a few hours to let patient rest.
[2024-08-26] MEDS: Amiodarone HCL 200 MG TABLET PO (16:49)
[2024-08-26] MEDS: 0.9 % Sodium Chloride Flush 3 ML SYRINGE IVFLUSH ×2 (16:49→22:01)
--- NOTE | 2024-08-26 17:41 | P.CNNE_ITS ---
History of Present Illness Data of Consult Service Date: 08/26/24 Primary Care Provider: DO URIEL Morton Reason for consult: altered mental status This is a 84 yo male with PMH significant for CVA (30+ years ago with slurred speech when tired), non-insulin dependent DM x30yrs, diabetic polyneuropathy, diabetic bilateral foot wounds and toe amputations, s/p CKD, HTN, sick sinus syndrome w/ pacemaker, s/p TAVR, heart failure with reduced EF, paroxysmal Afib anticoagulated with Eliquis presents to the ED today via EMS from home for evaluation of altered mental status, and garbled disoriented speech per family. Family indicate he has not been feeling well generally over the last 3-4 days, was reporting chills intermittently but without knowledge of fevers, reduced PO intake, and appetite, had a couple of episodes of where he was unstable while walking. Son lives with him and found him to be sitting down on the ground in his room likely trying to ambulate to bathroom overnight- no apparent injury was noted except some discomfort with ROM to R arm/shoulder. CTA shows atherosclerotic intracranial small vessel disease but no clots or occlusive lesions or critical stenosis. CT of the brain shows white matter microvascular disease and a a right hemisphere have a lacunar stroke which appears to be old in the basal ganglia and centrum semiovale. MRI has not been done and waiting for his pacemaker guard to see if his pacemaker is compatible. [facility] Past Medical History Medical History Cardiac pacemaker in situ CVA (cerebral vascular accident) Diabetes mellitus CKD (chronic kidney disease) HTN (hypertension) Paroxysmal atrial flutter Heart failure with reduced ejection fraction Nonischemic cardiomyopathy Sick sinus syndrome Family History Family History Father No problems noted. Mother CVD (cardiovascular disease) Surgical History Surgical History Status post aortic valve replacement History of cardioversion Hx of cardiac cath Hx of colonoscopy Social History Social History Alcohol intake: never Patient Tobacco Use Status: Never used Tobacco service: No Meds Allergies Allergy/AdvReac Type Severity Reaction Status Date / Time No Known Allergies Allergy Verified 08/26/24 07:30 [No Known Allergies*] Active Medications: Current Medications Acetaminophen (Acetaminophen 325 Mg Tablet) 650 mg PO Q6H PRN PRN Reason: Pain, Mild (Pain Scale 1-3), fever or headache Acetaminophen (Acetaminophen 325 Mg Tablet) 650 mg PO Q6H PRN PRN Reason: Pain, Mild (Pain Scale 1-3), fever or headache Amiodarone HCl (Amiodarone Hcl 200 Mg Tablet) 200 mg PO DAILY [facility] Last Admin: 08/26/24 16:49 Dose: 200 mg Apixaban (Apixaban 2.5 Mg Tablet) 2.5 mg PO BID [facility] Calcium Carbonate (Calcium Carbonate 750 Mg Tab.Chew) 750 mg PO Q4H PRN PRN Reason: Heartburn Finasteride (Finasteride 5 Mg Tablet) 5 mg PO DAILY [facility] Furosemide (Furosemide 40 Mg/4 Ml Vial) 40 mg IVPUSH DAILY [facility]; Protocol Last Admin: 08/26/24 16:35 Dose: Not Given Magnesium Hydroxide (Milk Of Magnesia 30 Ml Oral.Susp) 30 ml PO DAILY PRN PRN Reason: Constipation Melatonin (Melatonin 3 Mg Tablet) 6 mg PO BEDTIME PRN PRN Reason: Insomnia Metoprolol Succinate (Metoprolol Succinate Er 50 Mg Tab.Er.24h) 50 mg PO DAILY [facility]; Protocol Ondansetron HCl (Ondansetron Hcl 4 Mg/2 Ml Vial) 4 mg IVPUSH Q8H PRN PRN Reason: Nausea and Vomiting Pravastatin Sodium (Pravastatin Sodium 40 Mg Tablet) 40 mg PO DAILY [facility] Sodium Chloride (0.9 % Sodium Chloride Flush 3 Ml Syringe) 3 ml IVFLUSH QSHIFT [facility] Last Admin: 08/26/24 16:49 Dose: 3 ml Tamsulosin HCl (Tamsulosin Hcl 0.4 Mg Capsule) 0.4 mg PO DAILY [facility] Vitamin D (Cholecalciferol (Vitamin D3) 25 Mcg Tablet) 25 mcg PO DAILY [facility] Home Medications ?Medication ?Instructions ?Recorded ?Confirmed ?Last Taken ?Type tamsulosin 0.4 mg capsule 0.4 mg PO DAILY 07/29/20 08/26/24 08/25/24 History vitamin B12 500 mcg-folic acid 400 1 tab PO DAILY 07/29/20 08/26/24 08/25/24 History mcg tablet glipizide 10 mg tablet, extended 10 mg PO BID 09/13/22 08/26/24 08/25/24 History release 24 hr metoprolol succinate 50 mg 50 mg PO DAILY 09/13/22 08/26/24 08/25/24 History tablet,extended release 24 hr atorvastatin 10 mg tablet 10 mg PO DAILY 09/07/23 08/26/24 08/25/24 History cholecalciferol (vitamin D3) 25 25 mcg PO DAILY 04/14/24 08/26/24 08/25/24 History mcg (1,000 unit) capsule dulaglutide 0.75 mg/0.5 mL 0.75 mg subcut [facility]CC[facility]URE 08/26/24 08/26/24 08/25/24 History subcutaneous pen injector (Trulicity) finasteride 5 mg tablet 5 mg PO DAILY 08/26/24 08/26/24 08/25/24 History furosemide 20 mg tablet 20 mg PO DAILY 08/26/24 08/26/24 08/25/24 History Physical Exam 2 Vital Signs: Vital Signs: Last Vital Signs Temp 99.0 F 08/26/24 17:10 Pulse 68 08/26/24 17:10 Resp 14 08/26/24 17:10 BP 118/50 L 08/26/24 17:10 Pulse Ox 96 08/26/24 17:10 O2 Del Method Room Air 08/26/24 17:10 BMI result Body Mass Index 29.0 Neuro: Other: He is obtunded and does not open his eyes. He only moans and groans, does not verbalize or follow any commands. He resists eye opening. There is slight asymmetry of the face is slight flattening of the right nasolabial fold. He can move all 4 extremities against gravity but no flaccidity but does not cardiology consultant or follow commands. He is areflexic throughout. There is some nuchal rigidity. Results Labs 08/26/24 08:19 08/26/24 08:19 Labs: Short CBC 08/26/24 Range/Units 08:19 WBC 13.1 H (4.8-10.8) X10*3/uL Hgb 11.4 L (14.0-18.0) g/dl Hct 34.6 L (42.0-52.0) % Plt Count 201 D (160-400) X10*3/uL BMP 08/26/24 08:19 Sodium 130 L Potassium 4.1 Chloride 99 Carbon Dioxide 19 L BUN 86 H Creatinine 3.96 H Calcium 8.3 L D Cardiac Enzymes 08/26/24 Range/Units 08:19 Total Creatine Kinase 98 (38-174) U/L Liver Function 08/26/24 Range/Units 08:19 Total Bilirubin 0.7 (0.0-1.0) mg/dL AST 70 H (5-37) U/L ALT 71 H (0-40) U/L Alkaline Phosphatase 84 (39-117) U/L Albumin 3.1 L (3.5-5.0) g/dL Urine 08/26/24 Range/Units 09:15 Urine Color Yellow Urine Appearance Clear Urine pH 5.0 (5.0-9.0) Ur Specific Barco 1.015 (1.005-1.025) Urine Protein 30 (1+) H (Neg-Trace) mg/dL Urine Glucose (UA) 100 H (Negative) mg/dL Assessment and Plan (1) Encephalopathy: Status: Acute He does not have clear evidence of a stroke. He has old microvascular disease with lacunar stroke, particularly in the right hemisphere. His exam is relatively nonfocal. He appears to have a multifactorial encephalopathy, possibly infectious, metabolic. Recommendation: MRI of the brain if his pacemaker is MRI compatible. Labs for infectious and metabolic abnormalities including blood and urine cultures. If no obvious cause is found, then a lumbar puncture should also be done. EEG to rule out subclinical seizures Procedures Date of Service Date of Service: 08/26/24
[2024-08-26 18:23] LABS: Glucose, Whole Blood 253 mg/dL (60-115)
--- NOTE | 2024-08-26 19:27 | PM.EVENT ---
Event Note Date of Service: 08/26/24 Event Note: Lab reported Gram-positive bacteremia. Will initiate IV vancomycin. Monitor until culture finalizes Time Spent With Patient Time: Total time managing care of this patient today ____ minutes.
[2024-08-26 19:34] LABS: Anion Gap 17 (12-20); Blood Urea Nitrogen 89 mg/dL (9-16); Calcium 8.3 mg/dL (8.4-10.2); Carbon Dioxide 17 mmol/L (22-29); Chloride 103 mmol/L (96-108); Creatinine Clr Calc Pharmacy 13.7; Estimated Glomerular Filt Rate 15; Glucose Random 252 mg/dL (60-115); Potassium 4.4 mmol/L (3.3-5.1); Sodium 133 mmol/L (135-145)
[2024-08-26 19:40] LABS: B Type Natriuretic Peptide 1532 pg/mL (<100)
[2024-08-26 20:44] LABS: Glucose, Whole Blood 231 mg/dL (60-115)
[2024-08-26] MEDS: Apixaban 2.5 MG TABLET PO (22:00)
[2024-08-26] MEDS: Insulin Lispro 100 UNIT/ML 3 ML VIAL SUBCUT (22:00)
[2024-08-26] MEDS: vancomycin HCL 1,500 MG in 0.9 % Sodium Chloride 500 ML 333.33 MG IV (22:00)
[2024-08-27 04:00] VITALS: BP 117/55; PULSE 87; RESP 18; TEMP 37.4; O2SAT 95
--- NOTE | 2024-08-27 07:00 | CA_ITS ---
Transthoracic Echocardiogram Patient (Last, First, Middle): Mario Walters O Gender: Male Date of : 1940 Age: 84 Procedure Date: 08/27/2024 Procedure Type: Transthoracic [place] [facility] [place]: 167.64 cm Weight: 81.19 kg BSA: 1.91 m2 Heart Rate: bpm BP: 123 / 51 mmHg Director Of Strategic Initiatives: Referring MD: Haritha Robertson NP Symptoms: mallika, elevated bnp Study Quality: Fair ECG Rhythm: Undetermined Conclusions: - The left ventricular systolic function is low normal. The calculated ejection fraction is 54% by biplane method. - Known bioprosthetic aortic valve but not well visualized. Increased gradients, that could be related to valve degeneration. Cannot exclude vegetation. - There is mild dilatation of the ascending aorta measuring 4.10 cm. Findings Left Ventricle Normal left ventricular cavity size. There is moderately increased left ventricular wall thickness. The left ventricular systolic function is low normal. The calculated ejection fraction is 54% by biplane method. There is paradoxical septal motion consistent with a right ventricular pacemaker. Diastolic function is indeterminate on the basis of available data. Right Ventricle Normal right ventricular cavity size and systolic function. There is a pacemaker wire seen in the right ventricle. Atria Moderate biatrial enlargement. Aortic Valve A bioprosthetic aortic valve is present. The prosthetic aortic valve appears to be functioning abnormally. The aortic valve was not well visualized. The peak aortic velocity is 3.14 m/s with a calculated peak gradient of 39 mmHg. The mean gradient is 24 mmHg. Mitral Valve The mitral valve appears normal. There is trace mitral valve regurgitation. There is no mitral valve stenosis. Pulmonic Valve The pulmonic valve is likely normal. Tricuspid Valve There is trace tricuspid valve regurgitation. There is no evidence of pulmonary hypertension. Great Vessels There is mild dilatation of the ascending aorta measuring 4.10 cm. Venous The inferior vena cava is normal in size and collapses greater than 50% with inspiration. Pericardium/Pleural There is no evidence of pericardial effusion. Prior Study Comparison Changes noted compared to prior study dated: 02/11/2024. LVEF difficult to assess, but appears higher than previously reported. Measurements 2D Linear Measurements IVSd: 1.32 0.6-0.9/0.6-1.0 cm LVIDd: 4.78 3.9-5.3/4.2-5.9 cm LVIDd Index: 2.50 2.4-3.2/2.2-3.1 cm/m2 LVIDs: 3.81 2.0-3.6 cm LVPWd: 1.32 0.7-1.1 cm Ao Root: 4.40 2.1-3.5 cm LA Diam: 5.00 2.7-3.8/3.0-4.0 cm LAIDs Index: 2.62 1.5-2.3 cm/m2 LV Mass: 311.28 67-162/88-224 g LV Mass Index: 162.97 43-95/49-115 g/m2 LVOT Diam: 3.40 3.0+(-)1.3 cm 2D Systolic Function EF 4C: 52.00 >55% EF 2C: 56.80 >55% EF BiP: 54.40 >55% Mitral Valve MV VTI: 0.30 MV Pk Mitch: 1.13 MV Mn Mitch: 0.68 MV Pk Grad: 5.00 MV Mn Grad: 2.00 MV Pk E: 1.03 MV Decel Time: 277.00 E'Lateral: 12.40 E'Medial: 5.98 E/E' Med: 17.20 E/E' Lat: 8.30 PHT: 81.00 MVA PHT: 2.72 MVA Continuity: 5.55 Decel [place]: 3.71 Aortic Valve AoV Pk Mitch: 3.14 AoV Mn Mitch: 2.23 AoV VTI: 0.56 AoV Pk Grad: 39.00 Aov Mn Grad: 24.00 BRADLEY Cont.VTI: 2.97 LVOT LVOT Pk Mitch: 1.00 LVOT Mn Mitch: 0.69 LVOT VTI: 0.18 LVOT Pk Grad: 4.00 LVOT Mn Grad: 2.00 LVOT Diam: 3.40 LVOT Area: 9.08 Diastolic Function MV Pk E: 1.03 E'Medial: 5.98 E/E' Med: 17.20 E' Laterial: 12.40 E/E' Lat: 8.30 Right Ventricle TAPSE (mm): 20.00 Tricuspid Valve TR Pk Mitch: 2.47 TR Pk Grad: 24.00 RA Press: 3.00 RVSP: 27.00 Great Vessels Aorta Ao Root-2D: 4.40 2.0-3.7 cm Ao Asc: 4.10 2.1-3.4 cm Pulmonary Valve PV Pk Mitch: 1.37 Peak PV Grad: 8.00 Updated in Other Vendor System with Status of Final Sandro Shea MD electronically signed on 08/27/2024 12:35:25 PM with status of Final
[2024-08-27 07:03] LABS: Glucose, Whole Blood 219 mg/dL (60-115)
[2024-08-27 07:17] VITALS: BP 117/59; PULSE 80; RESP 30; TEMP 36.6; O2SAT 96
[2024-08-27 07:24] LABS: Hematocrit 33.4 % (42.0-52.0); Hemoglobin 11.5 g/dl (14.0-18.0); Mean Corpuscular HGB Conc 34.4 g/dl (31.0-36.0); Mean Corpuscular Hemoglobin 28.8 pg (27.0-33.0); Mean Corpuscular Volume 83.7 fL (80.0-98.0); Red Blood Count 3.99 X10*6/uL (4.60-5.80); Red Cell Distribution Width 15.9 % (11.0-16.0); White Blood Count 15.8 X10*3/uL (4.8-10.8)
[2024-08-27 07:33] LABS: Cholesterol 84 mg/dL (<200); HDL Cholesterol 9 mg/dL (>40); LDL Cholesterol Calculated 39 mg/dL (<100); Triglycerides 180 mg/dL (<150)
[2024-08-27 07:49] LABS: Anion Gap 17 (12-20); Blood Urea Nitrogen 92 mg/dL (9-16); Calcium 8.2 mg/dL (8.4-10.2); Carbon Dioxide 16 mmol/L (22-29); Chloride 105 mmol/L (96-108); Creatinine Clr Calc Pharmacy 12.7; Estimated Glomerular Filt Rate 14; Glucose Random 235 mg/dL (60-115); Potassium 4.3 mmol/L (3.3-5.1); Sodium 134 mmol/L (135-145)
[2024-08-27 08:32] LABS: Mean Platelet Volume 11.5 fL (9.4-12.4); Platelet Count 113 X10*3/uL (160-400)
--- NOTE | 2024-08-27 08:40 | PM.CNNEP ---
History of Present Illness Reason for Consult Consult date: 08/27/24 Chief Complaint Chief complaint: stroke vs tia, massimo, fall History of Present Illness Narrative: Pt is a 84 y/o male with a medical history of CVA (30+ years ago), DMII, diabetic polyneuropathy, chronic bilateral diabetic foot wounds, CKD, HTN, sick sinus syndrome with pacemaker, s/p TAVR, HRrEF, afib. presented 08/26 with altered mental status, had reportedly been feeling unwell for 3-4 days, chills, reduced PO intake. had CT showing concern for nonhemorrhagic stroke/ischemia, being worked up [facility] neurology. also presented with MASSIMO on CKD4 for which nephrology consulted. baseline Creatinine 2.15-2.97, most recent prior to hospitalization on 04/16/24 was 2.16. 08/26/24 creatinine 2.86 08/27/14 creatinine 4.17, BUN 92 urine +1 protein, 100 glucose, no blood or WBCs; most recent microalbumin/creatinine ratio 50 08/26 blood cultures preliminarily +GPC no renal imaging available presented with hyponatremia, Na 130, today sodium 134 pt has received 40mg IVP furosemide x2 08/26 chest xray showed mild interstitial edema, question of pleural effusion home medications include furosemide 20mg daily, no LUIS/ARB per records patient is awake in bed, son at bedside and provides some of history- patient provides one-word answers and is hard of hearing patient denies shortness of breath denies pain- chest pain, abdominal pain, flank pain denies urinary pain (bledsoe in place)- voided 1750mL over last 24 hours with diuresis Review of Systems Constitutional: Reports fatigue, Denies headache(s) and Reports malaise Denies dizziness and Denies headache(s) Cardiovascular: Denies chest pain, Denies leg edema, Denies lightheadedness and Denies dyspnea Respiratory: Denies cough and Denies dyspnea Gastrointestinal: Denies abdominal pain, Denies constipation, Denies diarrhea, Denies nausea and Denies vomiting Genitourinary: Denies hematuria, Denies oliguria, Denies difficulty urinating and Denies flank pain Musculoskeletal: Reports back pain, Denies arthralgias and Denies joint swelling Skin/Breast: Denies rash Denies dizziness and Denies headache(s) Endocrine: Reports fatigue PMFSH Past Medical History Medical History Cardiac pacemaker in situ CVA (cerebral vascular accident) Diabetes mellitus CKD (chronic kidney disease) HTN (hypertension) Paroxysmal atrial flutter Heart failure with reduced ejection fraction Nonischemic cardiomyopathy Sick sinus syndrome Family History Family History Father No problems noted. Mother CVD (cardiovascular disease) Surgical History Surgical History Status post aortic valve replacement History of cardioversion Hx of cardiac cath Hx of colonoscopy Social History Social History Household Members: Significant Other and Family Housing: House Alcohol intake: never Patient Tobacco Use Status: Never used Tobacco service: Yes Meds Allergies Allergy/AdvReac Type Severity Reaction Status Date / Time No Known Allergies Allergy Verified 08/26/24 07:30 [No Known Allergies*] Active Medications: Current Medications Acetaminophen (Acetaminophen 325 Mg Tablet) 650 mg PO Q6H PRN PRN Reason: Pain, Mild (Pain Scale 1-3), fever or headache Acetaminophen (Acetaminophen 325 Mg Tablet) 650 mg PO Q6H PRN PRN Reason: Pain, Mild (Pain Scale 1-3), fever or headache Amiodarone HCl (Amiodarone Hcl 200 Mg Tablet) 200 mg PO DAILY [facility] Last Admin: 08/26/24 16:49 Dose: 200 mg Apixaban (Apixaban 2.5 Mg Tablet) 2.5 mg PO BID [facility] Last Admin: 08/26/24 22:00 Dose: 2.5 mg Calcium Carbonate (Calcium Carbonate 750 Mg Tab.Chew) 750 mg PO Q4H PRN PRN Reason: Heartburn Finasteride (Finasteride 5 Mg Tablet) 5 mg PO DAILY [facility] Furosemide (Furosemide 40 Mg/4 Ml Vial) 40 mg IVPUSH DAILY [facility]; Protocol Last Admin: 08/26/24 16:35 Dose: Not Given Glucose (Glucose Gel 15 Gm Gel..Gram.) 15 gm PO Q15M PRN; Protocol PRN Reason: per Hypoglycemia Standing Ord. Dextrose (D10) 250 mls @ 750 mls/hr IV Q15M PRN; Protocol PRN Reason: per Hypoglycemia Standing Ord. Vancomycin HCl 500 mg/ Sodium (Chloride) 110 mls @ 110 mls/hr IV Q24H [facility] Influenza Virus Vaccine (Flu Vacc [id number](6mos Up)/Pf 0.5 Ml Syringe) 0.5 ml IM .ONCE ONE Stop: 08/29/24 18:23 Insulin Human Lispro (Insulin Lispro 100 Unit/Ml 3 Ml Vial) 0 unit SUBCUT QIDACHS [facility]; Protocol Last Admin: 08/26/24 22:00 Dose: 4 unit Magnesium Hydroxide (Milk Of Magnesia 30 Ml Oral.Susp) 30 ml PO DAILY PRN PRN Reason: Constipation Melatonin (Melatonin 3 Mg Tablet) 6 mg PO BEDTIME PRN PRN Reason: Insomnia Metoprolol Succinate (Metoprolol Succinate Er 50 Mg Tab.Er.24h) 50 mg PO DAILY [facility]; Protocol Ondansetron HCl (Ondansetron Hcl 4 Mg/2 Ml Vial) 4 mg IVPUSH Q8H PRN PRN Reason: Nausea and Vomiting Pharmacy Consult (Consult Rx Vancomycin Dosing) 1 each MISCELLANE DAILY PRN PRN Reason: Consult order Pravastatin Sodium (Pravastatin Sodium 40 Mg Tablet) 40 mg PO DAILY [facility] Sodium Chloride (0.9 % Sodium Chloride Flush 3 Ml Syringe) 3 ml IVFLUSH QSHIFT [facility] Last Admin: 08/26/24 22:01 Dose: 3 ml Tamsulosin HCl (Tamsulosin Hcl 0.4 Mg Capsule) 0.4 mg PO DAILY [facility] Vitamin D (Cholecalciferol (Vitamin D3) 25 Mcg Tablet) 25 mcg PO DAILY [facility] Home Medications ?Medication ?Instructions ?Recorded ?Confirmed ?Last Taken ?Type tamsulosin 0.4 mg capsule 0.4 mg PO DAILY 07/29/20 08/26/24 08/25/24 History vitamin B12 500 mcg-folic acid 400 1 tab PO DAILY 07/29/20 08/26/24 08/25/24 History mcg tablet glipizide 10 mg tablet, extended 10 mg PO BID 09/13/22 08/26/24 08/25/24 History release 24 hr metoprolol succinate 50 mg 50 mg PO DAILY 09/13/22 08/26/24 08/25/24 History tablet,extended release 24 hr atorvastatin 10 mg tablet 10 mg PO DAILY 09/07/23 08/26/24 08/25/24 History cholecalciferol (vitamin D3) 25 25 mcg PO DAILY 04/14/24 08/26/24 08/25/24 History mcg (1,000 unit) capsule dulaglutide 0.75 mg/0.5 mL 0.75 mg subcut MCCLURE 08/26/24 08/26/24 08/25/24 History subcutaneous pen injector (Trulicity) finasteride 5 mg tablet 5 mg PO DAILY 08/26/24 08/26/24 08/25/24 History furosemide 20 mg tablet 20 mg PO DAILY 08/26/24 08/26/24 08/25/24 History Physical Exam Vital Signs: Last Vital Signs Temp 97.9 F 08/27/24 07:17 Pulse 80 08/27/24 07:17 Resp 30 H 08/27/24 07:17 BP 117/59 L 08/27/24 07:17 Pulse Ox 96 08/27/24 07:17 O2 Del Method Room Air 08/27/24 07:17 BMI result Body Mass Index 29.0 Const General: no acute distress, alert and awake Resp Effort & Inspection: normal respiratory effort Auscultation: clear to auscultation bilaterally (upper airway secretions cleared, bilateral posterior lobes clear ) Cardio Rate: regular rate Rhythm: regular rhythm Heart sounds: S1 normal heart sound present, S2 normal heart sound present and Murmur heart sound present GI Palpation (GI): Soft to palpation and nontender General: Yes no CVA tenderness Back/Spine/Pelvis Back: no CVA tenderness Skin Rashes: no rashes Wounds: wounds noted (bilateral toe wounds- covered in gauze dressing) Extrem General: No edema Results Lab Results 08/27/24 07:03 08/27/24 07:03 Lab results: Chemistry 08/26/24 08/26/24 08/27/24 08:19 19:15 07:03 Sodium 130 L 133 L 134 L Potassium 4.1 4.4 4.3 Carbon Dioxide 19 L 17 L 16 L BUN 86 H 89 H 92 H Creatinine 3.96 H 3.86 H 4.17 H* Calcium 8.3 L D 8.3 L 8.2 L Hematology 08/26/24 08/27/24 08:19 07:03 WBC 13.1 H 15.8 H Hgb 11.4 L 11.5 L Plt Count 201 D 113 L D Urinalysis 08/26/24 09:15 Urine Color Yellow Urine Appearance Clear Urine pH 5.0 Ur Specific Mathis 1.015 Urine Protein 30 (1+) H Urine Glucose (UA) 100 H Urine Ketones Negative Urine Blood Negative Urine Nitrite Negative Ur Leukocyte Esterase Negative Urine RBC 0-2 Urine WBC 0-5 Ur Squamous Epith Cells 6-10 Hyaline Casts 0-2 Assessment and Plan (1) Acute kidney injury superimposed on chronic kidney disease: Status: Acute (2) Acute hyponatremia: Status: Acute (3) Bacteremia: Status: Acute (4) Congestive heart failure (CHF): Qualifiers: Heart failure chronicity: unspecified Heart failure type: unspecified Qualified Code(s): I50.9 - Heart failure, unspecified Status: Acute Plan MASSIMO on CKD likely secondary to tubular injury New patient clinically hypovolemic recommend holding diuretics as creatinine continues to rise recommend avoiding additional IV fluids for now, though should encourage PO intake Avoid nephrotoxins recommend daily electrolyte and renal function studies recommend regular blood pressure monitoring, avoid hypotension continue supportive care, will continue to follow Discussed with Dr Kan Hutson Date of Service Date of Service: 08/27/24
[2024-08-27] MEDS: 0.9 % Sodium Chloride Flush 3 ML SYRINGE IVFLUSH ×3 (09:41→23:47)
--- NOTE | 2024-08-27 09:47 | P.PNIM_ITS ---
Subjective Subjective Date of Service: 08/27/24 Review of Systems Follow up encephalopathy very confused, intermittently alert Physical Exam 2 Vital Signs: Vital Signs: Last Vital Signs Temp 97.9 F 08/27/24 07:17 Pulse 80 08/27/24 07:17 Resp 30 H 08/27/24 07:17 BP 117/59 L 08/27/24 07:17 Pulse Ox 96 08/27/24 07:17 O2 Del Method Room Air 08/27/24 07:17 BMI result Body Mass Index 29.0 Appearing in no acute distress lung sounds are clear to auscultation heart regular rate rhythm, clear S1, S2 positive bowel sounds, abdomen is soft, nontender neuro patient is confused Objective Data Active Medications Acetaminophen (Acetaminophen 325 Mg Tablet) 650 mg PO Q6H PRN PRN Reason: Pain, Mild (Pain Scale 1-3), fever or headache Amiodarone HCl (Amiodarone Hcl 200 Mg Tablet) 200 mg PO DAILY [facility] Last Admin: 08/26/24 16:49 Dose: 200 mg Documented By: YOLIE Apixaban (Apixaban 2.5 Mg Tablet) 2.5 mg PO BID [facility] Last Admin: 08/26/24 22:00 Dose: 2.5 mg Documented By: VIANCA Calcium Carbonate (Calcium Carbonate 750 Mg Tab.Chew) 750 mg PO Q4H PRN PRN Reason: Heartburn Finasteride (Finasteride 5 Mg Tablet) 5 mg PO DAILY [facility] Furosemide (Furosemide 40 Mg/4 Ml Vial) 40 mg IVPUSH DAILY [facility]; Protocol Last Admin: 08/26/24 16:35 Dose: Not Given Documented By: YOLIE Non-Admin Reason: Previously Administered Glucose (Glucose Gel 15 Gm Gel..Gram.) 15 gm PO Q15M PRN; Protocol PRN Reason: per Hypoglycemia Standing Ord. Dextrose (D10) 250 mls @ 750 mls/hr IV Q15M PRN; Protocol PRN Reason: per Hypoglycemia Standing Ord. Vancomycin HCl 500 mg/ Sodium (Chloride) 110 mls @ 110 mls/hr IV Q24H [facility] Influenza Virus Vaccine (Flu Vacc [id number](6mos Up)/Pf 0.5 Ml Syringe) 0.5 ml IM .ONCE ONE Stop: 08/29/24 18:23 Insulin Human Lispro (Insulin Lispro 100 Unit/Ml 3 Ml Vial) 0 unit SUBCUT QIDACHS [facility]; Protocol Last Admin: 08/27/24 09:42 Dose: Not Given Documented By: DEVON Non-Admin Reason: No Insulin Coverage Magnesium Hydroxide (Milk Of Magnesia 30 Ml Oral.Susp) 30 ml PO DAILY PRN PRN Reason: Constipation Melatonin (Melatonin 3 Mg Tablet) 6 mg PO BEDTIME PRN PRN Reason: Insomnia Metoprolol Succinate (Metoprolol Succinate Er 50 Mg Tab.Er.24h) 50 mg PO DAILY [facility]; Protocol Ondansetron HCl (Ondansetron Hcl 4 Mg/2 Ml Vial) 4 mg IVPUSH Q8H PRN PRN Reason: Nausea and Vomiting Pharmacy Consult (Consult Rx Vancomycin Dosing) 1 each MISCELLANE DAILY PRN PRN Reason: Consult order Pravastatin Sodium (Pravastatin Sodium 40 Mg Tablet) 40 mg PO DAILY [facility] Sodium Chloride (0.9 % Sodium Chloride Flush 3 Ml Syringe) 3 ml IVFLUSH QSHIFT [facility] Last Admin: 08/27/24 09:41 Dose: 3 ml Documented By: DEVON Tamsulosin HCl (Tamsulosin Hcl 0.4 Mg Capsule) 0.4 mg PO DAILY [facility] Vitamin D (Cholecalciferol (Vitamin D3) 25 Mcg Tablet) 25 mcg PO DAILY [facility] Labs 08/27/24 07:03 08/27/24 07:03 Labs: Laboratory Results - last 24 hr 08/26/24 08/26/24 08/26/24 08:19 09:15 11:52 MCV MCH MCHC RDW Plt Count MPV Absolute Nucleated RBC Nucleated RBC % (auto) Anion Gap Estim Creat Clear Calc Estimated GFR POC Glucose Random Glucose Calcium Troponin I High Sens 117.5 H* B-Natriuretic Peptide Triglycerides Cholesterol LDL Cholesterol, Calc HDL Cholesterol TSH 1.62 Urine RBC 0-2 Urine WBC 0-5 Ur Squamous Epith Cells 6-10 Urine Bacteria None Seen Hyaline Casts 0-2 08/26/24 08/26/24 08/26/24 18:18 19:15 20:38 MCV MCH MCHC RDW Plt Count MPV Absolute Nucleated RBC Nucleated RBC % (auto) Anion Gap 17 Estim Creat Clear Calc 13.7 Estimated GFR 15 POC Glucose 253 H 231 H Random Glucose 252 H Calcium 8.3 L Troponin I High Sens B-Natriuretic Peptide 1532 H Triglycerides Cholesterol LDL Cholesterol, Calc HDL Cholesterol TSH Urine RBC Urine WBC Ur Squamous Epith Cells Urine Bacteria Hyaline Casts 08/27/24 08/27/24 06:56 07:03 MCV 83.7 MCH 28.8 MCHC 34.4 RDW 15.9 Plt Count 113 L D MPV 11.5 Absolute Nucleated RBC 0.000 Nucleated RBC % (auto) 0.0 Anion Gap 17 Estim Creat Clear Calc 12.7 Estimated GFR 14 POC Glucose 219 H Random Glucose 235 H Calcium 8.2 L Troponin I High Sens B-Natriuretic Peptide Triglycerides 180 H Cholesterol 84 LDL Cholesterol, Calc 39 HDL Cholesterol 9 L TSH Urine RBC Urine WBC Ur Squamous Epith Cells Urine Bacteria Hyaline Casts Microbiology Microbiology Results: Microbiology 08/26/24 08:19 Blood Culture - Preliminary Blood - Venous Prelim: GPC Gram Stain only 08/26/24 08:24 Blood Culture - Preliminary Blood - Venous Prelim: GPC Gram Stain only Assessment and Plan (1) Bacteremia: Status: Acute Plan 84-year-old man presenting to the ER after a fall and possible stroke Staph aureus, likely MSSA bacteremia started on Vancomycin switched to Ancef follow final cx ? secondary to osteo to foot, CT of foot ordered wound cx ordered Echo pending to rule out vegetation ID consult Acute metabolic encephalopathy continues to be confused, intermittent alertness, occasional left-sided drift Very short communication Possibly related to bacteremia versus stroke versus seizure Stroke vs TIA NIH score 12 hx of CVA >30 yrs ago w/o residual s/e CT head- showed concern for acute to subacute nonhemorrhagic stroke/ischemia centered in the right basal ganglia/frontal crane radiata white matter. Small vessel occlusive disease. Global atrophy. Atherosclerosis disease CTA head/neck-No high-grade stenosis, proximal occlusion EKG- AV paced Neurology consulted>obtain MRI, EEG (no tech in house, possibly tomorrow), LP if everything neg and symptoms do not improve MRI ordered/pending (has pacer, waiting or rep) Echo pending Stroke education Hold meds now d/t encephalopathy MASSIMO on CKD stage 4. Worsening creatinine Likely secondary to dehydration versus acute heart failure Given 1 L of IV fluid in the ED lasix x1 now Nephro following>stop lasix and IV fluids for now, seems like ATN Hyponatremia. Improving Likely secondary to dehydration vs acute heart failure Nephrology following Acute on chronic history of heart failure with reduced ejection fraction Elevated BNP 1179, 1532 Echocardiogram pending IV lasix 40 mg x1 (nephro rec stopping lasix) cardiology consultation Elevated troponins Possibly related to congestive heart failure 142.3, Repeat, 117.5, downtrend EKG- AV paced, sinus rhythm, no ischemic changes noted PAF Continue amiodarone, BB and Eliquis when able to take po Sinus rhythm at this time DM2 ss, ada diet BPH continue flomax and finasteride when able to take po DVT prophylaxis with Eliquis Full code Quality Stroke Does the patient have a stroke diagnosis?: No VTE Prior VTE?: No VTE Risk Level:: Medical - moderate - high VTE Device Contraindication: Treatment Not Indicated VTE Drug Contraindication: N/A - Med Ordered
[2024-08-27 10:57] LABS: Glucose, Whole Blood 214 mg/dL (60-115)
--- NOTE | 2024-08-27 11:16 | MHC.CM.PN ---
IMM 08/27/24, Pt lives alone, was independent, no DME prior to hosp stay. He was active with [facility] for wound care, update sent to them. [place] [facility] [place]. PCP confirmed: Dr. Paz. HCP on file at [facility] [place], CM to obtain copy. Family assists with care, son helps with wound care and laundry. DCP: TBD. CM to follow and assist with DC plan.
[2024-08-27 11:17] VITALS: BP 112/56; PULSE 60; RESP 28; TEMP 37.7; O2SAT 97
--- NOTE | 2024-08-27 11:38 | PM.CNCAR ---
History of Present Illness History of Present Illness Date of Service: 08/27/24 Chief complaint: stroke vs tia, mallika, fall Narrative: We have been asked to see Mario in cardiology consultation. Previous notes were reviewed. He generally sees Dr. Mehta in the clinic. Has a history of bioprosthetic aortic valve replacement, congestive heart failure and atrial flutter/fibrillation on amiodarone. He also has a pacemaker in place. Discussed with son at the bedside and also reviewed chart, discussed with hospitalist. Essentially, admitted for evaluation of altered mental status. Garbled/disoriented speech. Has not been feeling well for the last few days. Was reporting chills intermittently. Gait instability. In this context, he was admitted. Currently, he is not really answering any questions and essentially staring at the ceiling. Son is next to him at the bedside. Review of Systems Review of Systems: Yes all other systems are reviewed and are negative Constitutional: Constitutional: Reports as per HPI and Reports no additional constitutional complaints Eyes: Eyes: Reports as per HPI and Denies no additional eye complaints ENT: Denies system reviewed and no additional complaints, except as documented and Reports as per HPI Cardiovascular: Cardiovascular: Reports as per HPI, Reports no additional cardiovascular complaints, Denies acrocyanosis, Denies cool extremities, Denies chest pain, Denies leg edema, Denies lightheadedness, Denies palpitations and Denies dyspnea Respiratory: Respiratory: Reports as per HPI, Denies no additional respiratory complaints and Denies dyspnea Gastrointestinal: Gastrointestinal: Reports as per HPI and Denies no additional gastrointestinal complaints Genitourinary: Genitourinary: Reports no additional male genitourinary complaints and Reports as per HPI Musculoskeletal: Musculoskeletal: Reports no additional musculoskeletal complaints and Reports as per HPI Integumentary/Breasts: Skin/Breast: Reports system reviewed and no additional complaints, except as docu Neurologic: Reports system reviewed and no additional complaints, except as documented and Reports as per HPI Psychiatric: Psychiatric: Reports no additional psychiatric complaints and Reports as per HPI Endocrine: Endocrine: Reports no additional endocrine complaints, Reports as per HPI and Denies palpitations Hematologic/Lymphatic: Hematologic/Lymphatic: Reports no additional hematologic/lymphatic complaints and Reports as per HPI Allergic/Immunologic: Allergic/Immunologic: Reports no additional allergic/immunologic complaints and Reports as per HPI [facility] Past Medical History Medical History Cardiac pacemaker in situ CVA (cerebral vascular accident) Diabetes mellitus CKD (chronic kidney disease) HTN (hypertension) Paroxysmal atrial flutter Heart failure with reduced ejection fraction Nonischemic cardiomyopathy Sick sinus syndrome Family History Family History Father No problems noted. Mother CVD (cardiovascular disease) Surgical History Surgical History Status post aortic valve replacement History of cardioversion Hx of cardiac cath Hx of colonoscopy Social History Social History Household Members: Significant Other and Family Housing: House Alcohol intake: never Patient Tobacco Use Status: Never used Tobacco service: Yes Meds Allergies Allergy/AdvReac Type Severity Reaction Status Date / Time No Known Allergies Allergy Verified 08/26/24 07:30 [No Known Allergies*] Active Medications: Current Medications Acetaminophen (Acetaminophen 325 Mg Tablet) 650 mg PO Q6H PRN PRN Reason: Pain, Mild (Pain Scale 1-3), fever or headache Amiodarone HCl (Amiodarone Hcl 200 Mg Tablet) 200 mg PO DAILY [facility] Last Admin: 08/27/24 11:16 Dose: Not Given Apixaban (Apixaban 2.5 Mg Tablet) 2.5 mg PO BID [facility] Last Admin: 08/27/24 11:17 Dose: Not Given Calcium Carbonate (Calcium Carbonate 750 Mg Tab.Chew) 750 mg PO Q4H PRN PRN Reason: Heartburn Finasteride (Finasteride 5 Mg Tablet) 5 mg PO DAILY [facility] Last Admin: 08/27/24 11:17 Dose: Not Given Glucose (Glucose Gel 15 Gm Gel..Gram.) 15 gm PO Q15M PRN; Protocol PRN Reason: per Hypoglycemia Standing Ord. Vancomycin HCl 500 mg/ Sodium (Chloride) 110 mls @ 110 mls/hr IV Q24H [facility] Influenza Virus Vaccine (Flu Vacc [id number](6mos Up)/Pf 0.5 Ml Syringe) 0.5 ml IM .ONCE ONE Stop: 08/29/24 18:23 Insulin Human Lispro (Insulin Lispro 100 Unit/Ml 3 Ml Vial) 0 unit SUBCUT QIDACHS [facility]; Protocol Last Admin: 08/27/24 09:42 Dose: Not Given Magnesium Hydroxide (Milk Of Magnesia 30 Ml Oral.Susp) 30 ml PO DAILY PRN PRN Reason: Constipation Melatonin (Melatonin 3 Mg Tablet) 6 mg PO BEDTIME PRN PRN Reason: Insomnia Metoprolol Succinate (Metoprolol Succinate Er 50 Mg Tab.Er.24h) 50 mg PO DAILY [facility]; Protocol Last Admin: 08/27/24 11:17 Dose: Not Given Ondansetron HCl (Ondansetron Hcl 4 Mg/2 Ml Vial) 4 mg IVPUSH Q8H PRN PRN Reason: Nausea and Vomiting Pharmacy Consult (Consult Rx Vancomycin Dosing) 1 each MISCELLANE DAILY PRN PRN Reason: Consult order Pravastatin Sodium (Pravastatin Sodium 40 Mg Tablet) 40 mg PO DAILY [facility] Last Admin: 08/27/24 11:17 Dose: Not Given Sodium Chloride (0.9 % Sodium Chloride Flush 3 Ml Syringe) 3 ml IVFLUSH QSHIFT [facility] Last Admin: 08/27/24 09:41 Dose: 3 ml Tamsulosin HCl (Tamsulosin Hcl 0.4 Mg Capsule) 0.4 mg PO DAILY [facility] Last Admin: 08/27/24 11:17 Dose: Not Given Vitamin D (Cholecalciferol (Vitamin D3) 25 Mcg Tablet) 25 mcg PO DAILY [facility] Last Admin: 08/27/24 11:17 Dose: Not Given Home Medications ?Medication ?Instructions ?Recorded ?Confirmed ?Last Taken ?Type tamsulosin 0.4 mg capsule 0.4 mg PO DAILY 07/29/20 08/26/24 08/25/24 History vitamin B12 500 mcg-folic acid 400 1 tab PO DAILY 07/29/20 08/26/24 08/25/24 History mcg tablet glipizide 10 mg tablet, extended 10 mg PO BID 09/13/22 08/26/24 08/25/24 History release 24 hr metoprolol succinate 50 mg 50 mg PO DAILY 09/13/22 08/26/24 08/25/24 History tablet,extended release 24 hr atorvastatin 10 mg tablet 10 mg PO DAILY 09/07/23 08/26/24 08/25/24 History cholecalciferol (vitamin D3) 25 25 mcg PO DAILY 04/14/24 08/26/24 08/25/24 History mcg (1,000 unit) capsule dulaglutide 0.75 mg/0.5 mL 0.75 mg subcut MCCLURE 08/26/24 08/26/24 08/25/24 History subcutaneous pen injector (Trulicity) finasteride 5 mg tablet 5 mg PO DAILY 08/26/24 08/26/24 08/25/24 History furosemide 20 mg tablet 20 mg PO DAILY 08/26/24 08/26/24 08/25/24 History Physical Exam Vital Signs: Vital Signs: Last Vital Signs Temp 99.8 F 08/27/24 11:17 Pulse 60 08/27/24 11:17 Resp 28 H 08/27/24 11:17 BP 112/56 L 08/27/24 11:17 Pulse Ox 97 08/27/24 11:17 O2 Del Method Room Air 08/27/24 11:17 BMI result Body Mass Index 29.0 Const: General: lethargic and patient obtunded Orientation/consciousness: No patient oriented x3, patient obtunded and lethargic HEENT: Other: Unremarkable Head: Yes normal to inspection Neck: Neck: Yes normal visual inspection Chest: Chest palpation & inspection: normal inspection of the chest Resp: Auscultation: clear to auscultation bilaterally Cardio: Palpation: normal PMI Heart sounds: S1 normal heart sound present, S2 normal heart sound present, no gallops, Murmur heart sound present systolic II/ and at the right sternal border and no rubs GI: Palpation (GI): Soft to palpation Back/Spine/Pelvis: Other: unremarkable Skin: General skin exam: no rashes or lesions noted Neuro: General: No patient oriented x3 and patient obtunded Extrem: General: Yes normal to inspection Psych: Mental Status: mental status grossly abnormal Objective Labs and Meds 08/27/24 07:03 08/27/24 07:03 Lab results: Laboratory Results - last 24 hr 08/26/24 08/26/24 08/26/24 11:52 18:18 19:15 WBC RBC Hgb Hct MCV MCH MCHC RDW Plt Count MPV Absolute Nucleated RBC Nucleated RBC % (auto) Sodium 133 L Potassium 4.4 Chloride 103 Carbon Dioxide 17 L Anion Gap 17 BUN 89 H Creatinine 3.86 H Estim Creat Clear Calc 13.7 Estimated GFR 15 POC Glucose 253 H Random Glucose 252 H Calcium 8.3 L Troponin I High Sens 117.5 H* B-Natriuretic Peptide 1532 H Triglycerides Cholesterol LDL Cholesterol, Calc HDL Cholesterol 08/26/24 08/27/24 08/27/24 20:38 06:56 07:03 WBC 15.8 H RBC 3.99 L Hgb 11.5 L Hct 33.4 L MCV 83.7 MCH 28.8 MCHC 34.4 RDW 15.9 Plt Count 113 L D MPV 11.5 Absolute Nucleated RBC 0.000 Nucleated RBC % (auto) 0.0 Sodium 134 L Potassium 4.3 Chloride 105 Carbon Dioxide 16 L Anion Gap 17 BUN 92 H Creatinine 4.17 H* Estim Creat Clear Calc 12.7 Estimated GFR 14 POC Glucose 231 H 219 H Random Glucose 235 H Calcium 8.2 L Troponin I High Sens B-Natriuretic Peptide Triglycerides 180 H Cholesterol 84 LDL Cholesterol, Calc 39 HDL Cholesterol 9 L 08/27/24 10:50 WBC RBC Hgb Hct MCV MCH MCHC RDW Plt Count MPV Absolute Nucleated RBC Nucleated RBC % (auto) Sodium Potassium Chloride Carbon Dioxide Anion Gap BUN Creatinine Estim Creat Clear Calc Estimated GFR POC Glucose 214 H Random Glucose Calcium Troponin I High Sens B-Natriuretic Peptide Triglycerides Cholesterol LDL Cholesterol, Calc HDL Cholesterol ECG Interpretation: EKG with AV dual-chamber paced rhythm at 70/Min; PVCs. Assessment and Plan (1) Encephalopathy: Status: Acute (2) Altered mental status: Status: Acute (3) Status post aortic valve replacement: Status: Acute (4) Nonischemic cardiomyopathy: Status: Acute (5) Sick sinus syndrome: Status: Acute (6) Cardiac pacemaker in situ: Status: Acute (7) Bacteremia: Status: Acute Plan Pertinent data reviewed. Labs show some leukocytosis. Abnormal kidney function. BUN/Creatinine is much above his baseline. Troponins are 117 and 142. Preliminary blood cultures positive for Staphylococcus aureus. Clinically, he is almost unresponsive and not really answering any questions. Staring at the ceiling. Not clear if it is from stroke or seizures. MRI is pending.\ From cardiac, we will start with an echocardiogram. Need to evaluate for any endocarditis. Cover him with empiric antibiotics. We will follow with you closely. Discussed with son. Procedures Date of Service Date of Service: 08/27/24
[2024-08-27 11:54] LABS: MRSA Nasal PCR NEGATIVE (Negative); SA Nasal PCR POSITIVE (Negative)
[2024-08-27] MEDS: Heparin Sodium,Porcine 5,000 UNIT/ML VIAL 5000 UNIT SUBCUT ×2 (13:01→23:46)
[2024-08-27] MEDS: ceFAZolin Sodium/Dextrose,Iso 2 GM/50 ML PIGGYBACK IV ×2 (13:16→23:47)
--- NOTE | 2024-08-27 13:17 | HO.WOUND ---
Wound Consult: Initial 84yr old male? admitted to [facility] on 08/27/24 - See progress notes and H&P for detailed history.? Wound consult placed for Coccyx and Bilateral Feet. Patient treats at outpt wound clinic regularly. Family at bedside report significant improvment since treating at wound care outpt. Patient agreeable to assessment and photo documentation.? Coccyx assessed - remains blanchable red pink intact with dry desquamation noted - of importance direct care nurse reports areas was light purple earlier today and had resolved by the time of my assessment. Of importance the patient lab values shows thrombocytopenia. which may be contributing to pigmentation changes noted to hands, feet and previous coccyx area. DTI will not resolve with in hours of initial assessment. Coccyx and buttock Etiology: MASD ?Present on Admission Wound Bed: red pink blanchable tissue with dry desquamation Drainage / Odor: none Edges: ? attached April wound: Intact - ? No Induration, Fluctuance or Warmth noted Pain: denies Goals of Treatment: ? Off Load Pressure continue with Triad to protect from moisture and friction Right Lateral Foot - Dry stable scab in place - initial recommendation to paint with betadine but after discussion with family they report significant closure with use of Durafiber AG - agreeable to continue to use Durafiber Ag for continued healing. Left Lateral Foot - Healed incision and not purpura to 3rd toe. Left Plantar Foot Etiology: Diabetic Wound Wound Bed: red moist tissue with some slough noted Drainage / Odor: alvarez drainage no odor Edges: ? callused and unattached April wound: two open lesions noted - ? No Induration, Fluctuance or Warmth noted Medial side below great toe joint light blue purple bruising noted - consider thrombocytopenia etiology, +PP noted. Pain: denies reports neuropathy Goals of Treatment: ? Off Load Pressure continue with Durafiber AG Wound swab completed to Left Plantar wound. Of note no s/s of infection at the time of my assessment. Recommendations: 1. Turn and Reposition every 2 hours and as needed for patient comfort.? Use pillows or wedges to support off loading positions. 2. Off Load all bony prominences with use of pillows and heel boots if needed.? Apply Preventative foams where needed. ? 3. Monitor for incontinence and moisture control, use barrier creams when needed for prevention and treatment. 4. Provide adequate and supplemental nutrition.? 5. Continue low air loss mattress. 6. When applicable maintain blood glucose levels per Providers order. 7. Coccyx - Off Load Pressure - Cleanse with PH balance spray or wipes, pat dry. ?Apply thin layer of Triad to wound bed - only pat and dab no scrub and rub when soiling occurs. Reapply thin layer PRN after each episode of incontinence. 8. Right Lateral Foot and Left Plantar Wound - Cleanse with NS pat dry. Apply skin prep to periwound, allow to dry. Cover wound bed with Durafiber AG, dry gauze and ABD followed by gauze wrap. Change every other day. Recommend continued follow up out patient Wound Clinic at [address] [place] [id number] and to call for an appointment at time of discharge. [phone].? Re-consult wound care Nurse for wound deterioration or wound changes.
[2024-08-27] MEDS: Acetaminophen Supp 650 MG SUPP.RECT PR (13:24)
[2024-08-27 15:29] VITALS: TEMP 36.7
[2024-08-27 16:00] VITALS: BP 134/63; PULSE 59; RESP 18; TEMP 36.5; O2SAT 96
[2024-08-27 16:30] LABS: Glucose, Whole Blood 238 mg/dL (60-115)
--- NOTE | 2024-08-27 17:09 | W.PM.IDCN ---
History of Present Illness Data of Consult Service Date: 08/27/24 Requesting physician: Haritha Robertson Primary Care Provider: DO URIEL Morton Reason for consult: encephalopathy He presents with weakness and encephalopathy. He has staph aureus bacteremia He has left foot ulcer and CT scan is pending. He has had CVA and DM. He has pacer and echo pending,but no skin issues. Review of Systems Review of Systems: Yes all other systems are reviewed and are negative PMFSH Past Medical History Medical History Cardiac pacemaker in situ CVA (cerebral vascular accident) Diabetes mellitus CKD (chronic kidney disease) HTN (hypertension) Paroxysmal atrial flutter Heart failure with reduced ejection fraction Nonischemic cardiomyopathy Sick sinus syndrome Family History Family History Father No problems noted. Mother CVD (cardiovascular disease) Family history: reviewed and not pertinent Surgical History Surgical History Status post aortic valve replacement History of cardioversion Hx of cardiac cath Hx of colonoscopy Social History Social History Household Members: Significant Other and Family Housing: House Alcohol intake: never Patient Tobacco Use Status: Never used Tobacco service: Yes Meds Allergies Allergy/AdvReac Type Severity Reaction Status Date / Time No Known Allergies Allergy Verified 08/26/24 07:30 [No Known Allergies*] Active Medications: Current Medications Acetaminophen (Acetaminophen 325 Mg Tablet) 650 mg PO Q6H PRN PRN Reason: Pain, Mild (Pain Scale 1-3), fever or headache Acetaminophen (Acetaminophen Supp 650 Mg Supp.Rect) 650 mg [place] Q6H PRN PRN Reason: Fever Last Admin: 08/27/24 13:24 Dose: 650 mg Amiodarone HCl (Amiodarone Hcl 200 Mg Tablet) 200 mg PO DAILY [facility] Last Admin: 08/27/24 11:16 Dose: Not Given Apixaban (Apixaban 2.5 Mg Tablet) 2.5 mg PO BID [facility] Last Admin: 08/27/24 11:17 Dose: Not Given Calcium Carbonate (Calcium Carbonate 750 Mg Tab.Chew) 750 mg PO Q4H PRN PRN Reason: Heartburn Finasteride (Finasteride 5 Mg Tablet) 5 mg PO DAILY [facility] Last Admin: 08/27/24 11:17 Dose: Not Given Glucose (Glucose Gel 15 Gm Gel..Gram.) 15 gm PO Q15M PRN; Protocol PRN Reason: per Hypoglycemia Standing Ord. Heparin Sodium (Porcine) (Heparin Sodium,Porcine 5,000 Unit/Ml Vial) 5,000 unit SUBCUT Q12H [facility] Last Admin: 08/27/24 13:01 Dose: 5,000 unit Cefazolin Sodium/Dextrose (Ancef) 2 gm in 50 mls @ 100 mls/hr IV Q12H [facility] Last Infusion: 08/27/24 14:01 Dose: Infused Influenza Virus Vaccine (Flu Vacc [id number](6mos Up)/Pf 0.5 Ml Syringe) 0.5 ml IM .ONCE ONE Stop: 08/29/24 18:23 Insulin Human Lispro (Insulin Lispro 100 Unit/Ml 3 Ml Vial) 0 unit SUBCUT QIDACHS [facility]; Protocol Last Admin: 08/27/24 16:24 Dose: Not Given Magnesium Hydroxide (Milk Of Magnesia 30 Ml Oral.Susp) 30 ml PO DAILY PRN PRN Reason: Constipation Melatonin (Melatonin 3 Mg Tablet) 6 mg PO BEDTIME PRN PRN Reason: Insomnia Metoprolol Succinate (Metoprolol Succinate Er 50 Mg Tab.Er.24h) 50 mg PO DAILY [facility]; Protocol Last Admin: 08/27/24 11:17 Dose: Not Given Ondansetron HCl (Ondansetron Hcl 4 Mg/2 Ml Vial) 4 mg IVPUSH Q8H PRN PRN Reason: Nausea and Vomiting Pravastatin Sodium (Pravastatin Sodium 40 Mg Tablet) 40 mg PO DAILY [facility] Last Admin: 08/27/24 11:17 Dose: Not Given Sodium Chloride (0.9 % Sodium Chloride Flush 3 Ml Syringe) 3 ml IVFLUSH QSHIFT [facility] Last Admin: 08/27/24 16:24 Dose: 3 ml Tamsulosin HCl (Tamsulosin Hcl 0.4 Mg Capsule) 0.4 mg PO DAILY [facility] Last Admin: 08/27/24 11:17 Dose: Not Given Vitamin D (Cholecalciferol (Vitamin D3) 25 Mcg Tablet) 25 mcg PO DAILY [facility] Last Admin: 08/27/24 11:17 Dose: Not Given Home Medications ?Medication ?Instructions ?Recorded ?Confirmed ?Last Taken ?Type tamsulosin 0.4 mg capsule 0.4 mg PO DAILY 07/29/20 08/26/24 08/25/24 History vitamin B12 500 mcg-folic acid 400 1 tab PO DAILY 07/29/20 08/26/24 08/25/24 History mcg tablet glipizide 10 mg tablet, extended 10 mg PO BID 09/13/22 08/26/24 08/25/24 History release 24 hr metoprolol succinate 50 mg 50 mg PO DAILY 09/13/22 08/26/24 08/25/24 History tablet,extended release 24 hr atorvastatin 10 mg tablet 10 mg PO DAILY 09/07/23 08/26/24 08/25/24 History cholecalciferol (vitamin D3) 25 25 mcg PO DAILY 04/14/24 08/26/24 08/25/24 History mcg (1,000 unit) capsule dulaglutide 0.75 mg/0.5 mL 0.75 mg subcut [facility] 08/26/24 08/26/24 08/25/24 History subcutaneous pen injector (Trulicity) finasteride 5 mg tablet 5 mg PO DAILY 08/26/24 08/26/24 08/25/24 History furosemide 20 mg tablet 20 mg PO DAILY 08/26/24 08/26/24 08/25/24 History Physical Exam Vital Signs: Vital Signs: Last Vital Signs Temp 97.7 F 08/27/24 16:00 Pulse 59 08/27/24 16:00 Resp 18 08/27/24 16:00 BP 134/63 08/27/24 16:00 Pulse Ox 96 08/27/24 16:00 O2 Del Method Room Air 08/27/24 16:00 BMI result Body Mass Index 29.0 Const: General: cooperative HEENT: Head: Yes normal to inspection Face and sinus: Yes normal facial exam Mouth: Normal oral and palatal mucosa present Teeth and gingiva: dentition normal Eyes: General: appearance normal, both eyes and all related structures Pupils: Equal, round and reactive pupils present Resp: Effort & Inspection: normal respiratory effort Cardio: Rate: regular rate Rhythm: regular rhythm GI: Palpation (GI): Soft to palpation and nontender : General: Yes no CVA tenderness Back/Spine/Pelvis: Back: no CVA tenderness Skin: General skin exam: no rashes or lesions noted Neuro: General: moves all extremities Cranial nerves: Yes Equal, round and reactive pupils present Extrem: General: Yes normal to inspection Psych: Appearance: grossly normal Results Labs 08/27/24 07:03 08/27/24 07:03 Labs: Short CBC 08/27/24 Range/Units 07:03 WBC 15.8 H (4.8-10.8) X10*3/uL Hgb 11.5 L (14.0-18.0) g/dl Hct 33.4 L (42.0-52.0) % Plt Count 113 L D (160-400) X10*3/uL BMP 08/26/24 08/27/24 19:15 07:03 Sodium 133 L 134 L Potassium 4.4 4.3 Chloride 103 105 Carbon Dioxide 17 L 16 L BUN 89 H 92 H Creatinine 3.86 H 4.17 H* Calcium 8.3 L 8.2 L Microbiology Microbiology Results: Microbiology 08/27/24 12:34 Foot - Wound Gram Stain - Final 08/26/24 08:24 Blood - Venous Blood Culture - Preliminary Staphylococcus aureus 08/26/24 08:19 Blood - Venous Blood Culture - Preliminary Staphylococcus aureus Assessment and Plan (1) Bacteremia: Status: Acute (2) Altered mental status: Status: Acute Plan MSSA bacteremia presumed. Final culture pending There is possibility of endocarditis. Would continue Kefzol. Await echo evaluate endocarditis. Check CT left foot. Probably 6 weeks IV antibiotics.
[2024-08-27 20:00] VITALS: BP 117/54; PULSE 60; RESP 20; TEMP 37.4; O2SAT 94
[2024-08-27 21:08] LABS: Glucose, Whole Blood 231 mg/dL (60-115)
[2024-08-28] VITALS (8 sets, daily range): BP systolic 112–152; BP diastolic 53–86; PULSE 60–66; RESP 17–20; TEMP 36.1–36.7; O2SAT 93–96
--- NOTE | 2024-08-28 | EEG_ITS ---
FINDINGS: The waking background activity consists of a diffuse, low voltage 6 hertz theta intermixed with muscle artifact anteriorly. Photic stimulation is without activation. Hyperventilation was omitted. No paroxysmal features are identified. IMPRESSION: This is an abnormal EEG due to diffuse background slowing consistent with a diffuse encephalopathic process. MD MELISA Virk/ALEJANDRO / [phone]
[2024-08-28 07:56] LABS: Glucose, Whole Blood 294 mg/dL (60-115)
[2024-08-28 07:56] LABS: Anion Gap 22 (12-20); Blood Urea Nitrogen 110 mg/dL (9-16); Calcium 8.5 mg/dL (8.4-10.2); Carbon Dioxide 15 mmol/L (22-29); Chloride 109 mmol/L (96-108); Creatinine Clr Calc Pharmacy 11.7; Estimated Glomerular Filt Rate 12; Glucose Random 326 mg/dL (60-115); Potassium 4.5 mmol/L (3.3-5.1); Sodium 141 mmol/L (135-145)
[2024-08-28 08:11] LABS: Glucose, Whole Blood 278 mg/dL (60-115)
[2024-08-28 09:10] LABS: Basophils Absolute Auto 0.1 X10*3/uL (0.0-0.2); Basophils Percent Auto 0.3 % (0-2); Eosinophils Absolute Auto 0.1 X10*3/uL (0.0-0.4); Eosinophils Percent Auto 0.8 % (0-4); Hematocrit 36.2 % (42.0-52.0); Hemoglobin 12.4 g/dl (14.0-18.0); Imm Gran Abs Auto 0.29 X10*3/uL (0.00-0.03); Imm Gran Pct Auto 1.9 % (0.0-0.4); Lymphocytes Absolute Auto 0.5 X10*3/uL (1.2-4.9); Lymphocytes Percent Auto 2.9 % (20-40); MANUAL DIFF FLAG SCAN; Mean Corpuscular HGB Conc 34.3 g/dl (31.0-36.0); Mean Corpuscular Hemoglobin 28.4 pg (27.0-33.0); Mean Corpuscular Volume 82.8 fL (80.0-98.0); Monocytes Absolute Auto 1.8 X10*3/uL (0.1-1.2); Monocytes Percent Auto 11.6 % (2-11); Neutrophils Absolute Auto 12.6 x10*3/uL (2.0-8.3); Neutrophils Percent Auto 82.5 % (45-73); Red Blood Count 4.37 X10*6/uL (4.60-5.80); Red Cell Distribution Width 16.4 % (11.0-16.0); SCAN SMEAR FLAG 1; White Blood Count 15.3 X10*3/uL (4.8-10.8)
[2024-08-28 09:49] LABS: Mean Platelet Volume 11.8 fL (9.4-12.4); Platelet Count 61 X10*3/uL (160-400)
[2024-08-28 09:50] LABS: SLIDE REVIEW VERIFIED
--- NOTE | 2024-08-28 09:51 | PM.PNCARD ---
Subjective Subjective Date of Service: 08/28/24 Interval history: Patient is somewhat more alert but he is in the process of getting an EEG and seems to be uncomfortable with that. He is not tolerating the placement of electrodes in the head. Per discussion with family who is at the bedside, he has been a bit more alert after the last encounter yesterday morning. Review of Systems Review of Systems Unable to obtain full review of systems because of patient's overall condition Physical Exam Vital Signs: Last Vital Signs Temp 97.6 F 08/28/24 07:55 Pulse 60 08/28/24 07:55 Resp 17 08/28/24 07:55 BP 127/60 08/28/24 07:55 Pulse Ox 93 08/28/24 07:55 O2 Del Method Room Air 08/28/24 07:55 BMI result Body Mass Index 29.0 Const General: ill appearing and tired appearing HEENT Other: Unremarkable Head: Yes normal to inspection Neck Neck: Yes normal visual inspection Chest Chest palpation & inspection: normal inspection of the chest Resp Auscultation: clear to auscultation bilaterally Cardio Palpation: normal PMI Heart sounds: S1 normal heart sound present, S2 normal heart sound present, no gallops, Murmur heart sound present systolic II/ and at the right sternal border and no rubs GI Palpation (GI): Soft to palpation Back/Spine/Pelvis Other: unremarkable Skin General skin exam: no rashes or lesions noted Neuro Other: No focal deficits Extrem General: Yes normal to inspection Psych Mental Status: mental status grossly abnormal Objective Labs and Meds 08/28/24 08:49 08/28/24 07:33 Lab results: Laboratory Results - last 24 hr 08/27/24 08/27/24 08/27/24 10:26 10:50 16:24 WBC RBC Hgb Hct MCV MCH MCHC RDW Plt Count MPV Immature Gran % (Auto) Neut % (Auto) Lymph % (Auto) [place] % (Auto) Eos % (Auto) Baso % (Auto) Lymph # (Auto) [place] # (Auto) Eos # (Auto) Baso # (Auto) Abs Immat Gran (auto) Absolute Neuts (auto) Absolute Nucleated RBC Nucleated RBC % (auto) Smear Tech's Comments Sodium Potassium Chloride Carbon Dioxide Anion Gap BUN Creatinine Estim Creat Clear Calc Estimated GFR POC Glucose 214 H 238 H Random Glucose Calcium Nasal Screen MRSA (PCR) NEGATIVE Nasal S. aureus Screen POSITIVE A Nasal MRSA/S.aureus Interp SEE NOTE 08/27/24 08/28/24 08/28/24 20:59 07:14 07:33 WBC RBC Hgb Hct MCV MCH MCHC RDW Plt Count MPV Immature Gran % (Auto) Neut % (Auto) Lymph % (Auto) [place] % (Auto) Eos % (Auto) Baso % (Auto) Lymph # (Auto) [place] # (Auto) Eos # (Auto) Baso # (Auto) Abs Immat Gran (auto) Absolute Neuts (auto) Absolute Nucleated RBC Nucleated RBC % (auto) Smear Tech's Comments Sodium 141 Potassium 4.5 Chloride 109 H Carbon Dioxide 15 L Anion Gap 22 H BUN 110 H Creatinine 4.52 H* Estim Creat Clear Calc 11.7 Estimated GFR 12 POC Glucose 231 H 294 H Random Glucose 326 H Calcium 8.5 Nasal Screen MRSA (PCR) Nasal S. aureus Screen Nasal MRSA/S.aureus Interp 08/28/24 08/28/24 08:07 08:49 WBC 15.3 H RBC 4.37 L Hgb 12.4 L Hct 36.2 L MCV 82.8 MCH 28.4 MCHC 34.3 RDW 16.4 H Plt Count 61 L D MPV 11.8 Immature Gran % (Auto) 1.9 H Neut % (Auto) 82.5 H Lymph % (Auto) 2.9 L [place] % (Auto) 11.6 H Eos % (Auto) 0.8 Baso % (Auto) 0.3 Lymph # (Auto) 0.5 L [place] # (Auto) 1.8 H Eos # (Auto) 0.1 Baso # (Auto) 0.1 Abs Immat Gran (auto) 0.29 H Absolute Neuts (auto) 12.6 H Absolute Nucleated RBC 0.000 Nucleated RBC % (auto) 0.0 Smear Tech's Comments VERIFIED Sodium Potassium Chloride Carbon Dioxide Anion Gap BUN Creatinine Estim Creat Clear Calc Estimated GFR POC Glucose 278 H Random Glucose Calcium Nasal Screen MRSA (PCR) Nasal S. aureus Screen Nasal MRSA/S.aureus Interp Imaging Radiologist's impression: Impressions Foot CT 08/27/24 10:09 IMPRESSION: 1. Status post resection of the fifth ray and the fourth ray at the level of the metatarsal shafts. No CT findings suggest definite osteomyelitis. 2. There is a soft tissue swelling in the foot, and in the first toe, with findings suggesting edema or cellulitis. No organized fluid collection is evident on the noncontrast CT. 3. No CT findings of definite osteomyelitis otherwise evident. MRI evaluation is more sensitive, could be considered as clinically indicated. Electronically signed by: Jone Fontaine MD 08/27/2024 05:40 PM [facility] - [place], [place] Progress Note: A&P Assessment and plan (1) Encephalopathy: Status: Acute (2) Altered mental status: Status: Acute (3) Status post aortic valve replacement: Status: Acute (4) Nonischemic cardiomyopathy: Status: Acute (5) Sick sinus syndrome: Status: Acute (6) Cardiac pacemaker in situ: Status: Acute (7) Bacteremia: Status: Acute Plan Overall, bacteremia, positive cultures for Staphylococcus aureus/Enterococcus. Labs show leukocytosis, thrombocytopenia, acute on chronic renal failure. In the echocardiogram, LVEF is 54%. With regard to the bioprosthetic aortic valve, increased gradients which could be related to valve degeneration versus infection. Overall, antibiotics per ID recommendations. Ideally, needs a MAYDA but he does not appear to be clinically suitable. Mental status is not normal and platelets are also dropping. Also even if there is any obvious vegetation, he is not a suitable candidate for cardiac surgery. Most likely, will need to treat only conservatively. With regard to low platelets, obtain Hematology consult. Overall guarded prognosis. High risk of decompensation and . Discussed with family at the bedside. They understand the seriousness. Concerns answered. Discussed with Juliana Sarmiento. Time Spent With Patient Time: Total time managing care of this patient today ____ minutes. Progress Note: Quality Stroke Does the patient have a stroke diagnosis?: No Procedures Date of Service Date of Service: 08/28/24
[2024-08-28 11:35] LABS: Glucose, Whole Blood 289 mg/dL (60-115)
--- NOTE | 2024-08-28 11:44 | P.PNIM_ITS ---
Subjective Subjective Date of Service: 08/28/24 Interval History: seen and examined this morning follow up for encephalopathy patient is awake and alert this morning, knows his name and that he is in the hospital denies neck pain, but yelling when tissue recovery technician attempting to move head to place electrodes denies sob, fever, abdominal pain but unable to obtain full ROS due to confusion Neurologic Neurologic: Reports confusion Psychiatric Psychiatric: Reports confusion Physical Exam 2 Vital Signs: Vital Signs: Last Vital Signs Temp 98.0 F 08/28/24 11:38 Pulse 60 08/28/24 11:38 Resp 19 08/28/24 11:38 BP 131/63 08/28/24 11:38 Pulse Ox 96 08/28/24 11:38 O2 Del Method Room Air 08/28/24 11:38 BMI result Body Mass Index 29.0 Const: General: alert, awake and confusion Nutritional Appearance: average body habitus Orientation/consciousness: oriented to person, oriented to place and confusion Resp: Effort & Inspection: normal respiratory effort, able to speak in complete sentences, no respiratory distress and no use of accessory muscles A uscultation: clear to auscultation bilaterally Cardio: Rate: regular rate GI: Inspection: No distended Palpation (GI): Soft to palpation and nontender : Other: bledsoe draining clear yellow urine Neuro: Other: able to answer some questions and follow some commands; exam limited due to confusion;unable to bring chin to chest but family says poor cervical ROM at baseline; remains confused; speech dysarthric; able to move all 4 extremities but ?LUE weakness General: oriented to person, oriented to place and confusion Extrem: General: Yes no pedal edema Objective Data Active Medications Acetaminophen (Acetaminophen 325 Mg Tablet) 650 mg PO Q6H PRN PRN Reason: Pain, Mild (Pain Scale 1-3), fever or headache Acetaminophen (Acetaminophen Supp 650 Mg Supp.Rect) 650 mg [place] Q6H PRN PRN Reason: Fever Last Admin: 08/27/24 13:24 Dose: 650 mg Documented By: DEVON Amiodarone HCl (Amiodarone Hcl 200 Mg Tablet) 200 mg PO DAILY [facility] Last Admin: 08/28/24 09:11 Dose: Not Given Documented By: JADE Non-Admin Reason: NPO Apixaban (Apixaban 2.5 Mg Tablet) 2.5 mg PO BID [facility] Last Admin: 08/28/24 09:11 Dose: Not Given Documented By: JADE Non-Admin Reason: NPO Calcium Carbonate (Calcium Carbonate 750 Mg Tab.Chew) 750 mg PO Q4H PRN PRN Reason: Heartburn Finasteride (Finasteride 5 Mg Tablet) 5 mg PO DAILY [facility] Last Admin: 08/28/24 09:34 Dose: Not Given Documented By: JADE Non-Admin Reason: NPO Glucose (Glucose Gel 15 Gm Gel..Gram.) 15 gm PO Q15M PRN; Protocol PRN Reason: per Hypoglycemia Standing Ord. Cefazolin Sodium/Dextrose (Ancef) 2 gm in 50 mls @ 100 mls/hr IV Q12H [facility] Last Infusion: 08/28/24 01:19 Dose: Infused Documented By: CONOR Vancomycin HCl 500 mg/ Sodium (Chloride) 110 mls @ 110 mls/hr IV Q24H [facility] Influenza Virus Vaccine (Flu Vacc [id number](6mos Up)/Pf 0.5 Ml Syringe) 0.5 ml IM .ONCE ONE Stop: 08/29/24 18:23 Insulin Human Lispro (Insulin Lispro 100 Unit/Ml 3 Ml Vial) 0 unit SUBCUT QIDACHS [facility]; Protocol Last Admin: 08/28/24 08:33 Dose: Not Given Documented By: JADE Non-Admin Reason: No Insulin Coverage Magnesium Hydroxide (Milk Of Magnesia 30 Ml Oral.Susp) 30 ml PO DAILY PRN PRN Reason: Constipation Melatonin (Melatonin 3 Mg Tablet) 6 mg PO BEDTIME PRN PRN Reason: Insomnia Metoprolol Succinate (Metoprolol Succinate Er 50 Mg Tab.Er.24h) 50 mg PO DAILY [facility]; Protocol Last Admin: 08/28/24 09:34 Dose: Not Given Documented By: JADE Non-Admin Reason: NPO Ondansetron HCl (Ondansetron Hcl 4 Mg/2 Ml Vial) 4 mg IVPUSH Q8H PRN PRN Reason: Nausea and Vomiting Pharmacy Consult (Consult Rx Vancomycin Dosing) 1 each MISCELLANE DAILY PRN PRN Reason: Consult order Pravastatin Sodium (Pravastatin Sodium 40 Mg Tablet) 40 mg PO DAILY [facility] Last Admin: 08/28/24 09:34 Dose: Not Given Documented By: JADE Non-Admin Reason: NPO Sodium Chloride (0.9 % Sodium Chloride Flush 3 Ml Syringe) 3 ml IVFLUSH QSHIFT [facility] Last Admin: 08/28/24 09:34 Dose: Not Given Documented By: JADE Non-Admin Reason: IV Running Tamsulosin HCl (Tamsulosin Hcl 0.4 Mg Capsule) 0.4 mg PO DAILY [facility] Last Admin: 08/28/24 09:34 Dose: Not Given Documented By: JADE Non-Admin Reason: NPO Vitamin D (Cholecalciferol (Vitamin D3) 25 Mcg Tablet) 25 mcg PO DAILY [facility] Last Admin: 08/28/24 09:11 Dose: Not Given Documented By: JADE Non-Admin Reason: NPO Labs 08/28/24 08:49 08/28/24 07:33 Labs: Laboratory Results - last 24 hr 08/27/24 08/27/24 08/27/24 10:26 16:24 20:59 MCV MCH MCHC RDW Plt Count MPV Immature Gran % (Auto) Neut % (Auto) Lymph % (Auto) [place] % (Auto) Eos % (Auto) Baso % (Auto) Lymph # (Auto) [place] # (Auto) Eos # (Auto) Baso # (Auto) Abs Immat Gran (auto) Absolute Neuts (auto) Absolute Nucleated RBC Nucleated RBC % (auto) Smear Tech's Comments Anion Gap Estim Creat Clear Calc Estimated GFR POC Glucose 238 H 231 H Random Glucose Calcium Nasal Screen MRSA (PCR) NEGATIVE Nasal S. aureus Screen POSITIVE A Nasal MRSA/S.aureus Interp SEE NOTE 08/28/24 08/28/24 08/28/24 07:14 07:33 08:07 MCV MCH MCHC RDW Plt Count MPV Immature Gran % (Auto) Neut % (Auto) Lymph % (Auto) [place] % (Auto) Eos % (Auto) Baso % (Auto) Lymph # (Auto) [place] # (Auto) Eos # (Auto) Baso # (Auto) Abs Immat Gran (auto) Absolute Neuts (auto) Absolute Nucleated RBC Nucleated RBC % (auto) Smear Tech's Comments Anion Gap 22 H Estim Creat Clear Calc 11.7 Estimated GFR 12 POC Glucose 294 H 278 H Random Glucose 326 H Calcium 8.5 Nasal Screen MRSA (PCR) Nasal S. aureus Screen Nasal MRSA/S.aureus Interp 08/28/24 08/28/24 08:49 11:07 MCV 82.8 MCH 28.4 MCHC 34.3 RDW 16.4 H Plt Count 61 L D MPV 11.8 Immature Gran % (Auto) 1.9 H Neut % (Auto) 82.5 H Lymph % (Auto) 2.9 L [place] % (Auto) 11.6 H Eos % (Auto) 0.8 Baso % (Auto) 0.3 Lymph # (Auto) 0.5 L [place] # (Auto) 1.8 H Eos # (Auto) 0.1 Baso # (Auto) 0.1 Abs Immat Gran (auto) 0.29 H Absolute Neuts (auto) 12.6 H Absolute Nucleated RBC 0.000 Nucleated RBC % (auto) 0.0 Smear Tech's Comments VERIFIED Anion Gap Estim Creat Clear Calc Estimated GFR POC Glucose 289 H Random Glucose Calcium Nasal Screen MRSA (PCR) Nasal S. aureus Screen Nasal MRSA/S.aureus Interp Microbiology Microbiology Results: Microbiology 08/26/24 08:24 Blood Culture - Preliminary Blood - Venous Staphylococcus aureus Enterococcus/Streptococcus sp 08/26/24 08:19 Blood Culture - Preliminary Blood - Venous Staphylococcus aureus Enterococcus/Streptococcus sp 08/27/24 12:34 Gram Stain - Final Foot - Wound Routine Culture - Preliminary Culture in progress. Assessment and Plan (1) Bacteremia: Status: Acute (2) Encephalopathy: Status: Acute (3) Acute kidney injury superimposed on chronic kidney disease: Status: Acute Plan This is 84-year-old male with history of type 2 diabetes, paroxysmal atrial fibrillation on Eliquis, CKD 4,HFrEF, SSS s/p PPM, nonischemic cardiomyopathy, HTN, h/o TAVT who presented to the ED with change in mental status,intermittent lethargy, decreased PO intake and dsarthria concerning for possible stroke. Bacteremia 2/2 blood cultures growing MSSA and enterococccus/streptococcus sp - final speciation pending was getting ancef however, d/w ID will change to dapto to cover for both of above check surveillance cultures CT of foot ordered, no convincing evidence of osteo wound cx ordered - superficial so likely poor yield but pending Echo -can't rule out vegetation but poor candidate for MAYDA at this time CT AP - pending ID following Acute metabolic encephalopathy awake and alert this am but remains confused; ongoing dysarthria and ?left UE weakness Possibly related to bacteremia versus stroke versus seizure MRI pending, EEG pending Stroke vs TIA NIH score 12 hx of CVA >30 yrs ago w/o residual s/e CT head- showed concern for acute to subacute nonhemorrhagic stroke/ischemia centered in the right basal ganglia/frontal crane radiata white matter. Small vessel occlusive disease. Global atrophy. Atherosclerosis disease CTA head/neck-No high-grade stenosis, proximal occlusion EKG- AV paced Neurology consulted>obtain MRI, EEG done report pending, LP if everything neg and symptoms do not improve MRI ordered/pending: has pacer, waiting or rep- likely tomorrow 08/29 Echo as above Stroke education PT/OT - rec STR upon discharge; speech rec repeat cxr and then trial NDD1 diet with honey thick liqs if negative with strict aspiration precautions and 1:1 feeds MASSIMO on CKD stage 4. Worsening creatinine Nephro following>rec trial of diuresis, if no improvement may need HD if no improvement in renal function -nephro will discuss with family metabolic acidosis ?due to worsening renal failure vs early DKA check BHB, VBG follow renal function closely thrombocytopenia rule out HUS, DIC hematology consultation pending nephrology following follow CBC Hyponatremia. resolved Acute on chronic history of heart failure with reduced ejection fraction Elevated BNP 1179, 1532 Echocardiogram with EF 54% cardiology following nephrology rec to resume IV lasix Elevated troponins Possibly due to demand 142.3, Repeat, 117.5, downtrend EKG- AV paced, sinus rhythm, no ischemic changes noted PAF Continue amiodarone, BB when able to take po Eliquis on hold for possible LP Sinus rhythm at this time DM2 ss, ada diet BPH on flomax and finasteride at baseline - resume when able to tolerate diet thyroid nodule TSH normal outpatient US DVT prophylaxis with mechanical devices; hold eliquis for possible LP Full code patient requires ongoing inpatient stay for encephalopathy, probable stroke, bacteremia, MASSIMO, thrombocytopenia requiring multiple specialists intervention, IV antibiotics, close monitoring. Quality Stroke Does the patient have a stroke diagnosis?: No VTE Prior VTE?: No VTE Risk Level:: Medical - moderate - high VTE Device Contraindication: Treatment Not Indicated VTE Drug Contraindication: N/A - Med Ordered
[2024-08-28] MEDS: ceFAZolin Sodium/Dextrose,Iso 2 GM/50 ML PIGGYBACK IV (11:49)
[2024-08-28 12:19] LABS: Beta-Hydroxybutyrate 1.34 mmol/L (0.02-0.27)
[2024-08-28 12:40] LABS: Vancomycin Random 11.2 mcg/mL (15-20)
[2024-08-28 13:07] LABS: Atypical Lymph Absolute Manual 0.2 x10*3/uL; Atypical Lymphs Percent Manual 1 % (0-6); Band Neutrophils Percent 9 % (3-5); Large Platelet PRESENT; Lymphocytes Absolute Manual 0.3 X10*3/uL (1.2-4.9); Lymphocytes Percent Manual 2 % (20-40); Metamyelocytes Absolute 0.2 X10*3/uL; Metamyelocytes Percent 1 %; Monocytes Absolute Manual 1.1 X10*3/uL (0.1-1.2); Monocytes Percent Manual 7 % (2-11); Neutrophils Absolute Manual 13.6 X10*3/uL (2.0-8.3); Neutrophils Percent Manual 80 % (45-73); Platelet Estimate DECREASED (NORMAL); Platelet Morphology Comment NOTED; RBC Morphology NOTED
[2024-08-28 13:08] LABS: Acanthocytes 2+ (3-5) /OIF; Burr Cells 3+ (>5) /OIF; Dohle Bodies PRESENT; Ovalocytes 1+ (5-14) /OIF; Tear Drop Cells 1+ (0-2) /OIF
[2024-08-28 13:15] LABS: Venous Blood Gas Refer to POC result
--- NOTE | 2024-08-28 13:15 | PM.PNNEP ---
Subjective Subjective Date of Service: 08/28/24 Interval history: Pt is a 84 y/o male with a medical history of CVA (30+ years ago), DMII, diabetic polyneuropathy, chronic bilateral diabetic foot wounds, CKD, HTN, sick sinus syndrome with pacemaker, s/p TAVR, HRrEF, afib. presented 08/26 with altered mental status, had reportedly been feeling unwell for 3-4 days, chills, reduced PO intake. had CT showing concern for nonhemorrhagic stroke/ischemia, being worked up [facility] neurology. also presented with MASSIMO on CKD4 for which nephrology consulted. baseline Creatinine 2.15-2.97, most recent prior to hospitalization on 04/16/24 was 2.16. 08/26/24 creatinine 2.86 08/27/14 creatinine 4.17, BUN 92 urine +1 protein, 100 glucose, no blood or WBCs; most recent microalbumin/creatinine ratio 50 08/26 blood cultures preliminarily +GPC no renal imaging available presented with hyponatremia, Na 130, today sodium 134 pt has received 40mg IVP furosemide x2 08/26 chest xray showed mild interstitial edema, question of pleural effusion home medications include furosemide 20mg daily, no LUIS/ARB per records patient is awake in bed, son at bedside and provides some of history- patient provides one-word answers and is hard of hearing patient denies shortness of breath denies pain- chest pain, abdominal pain, flank pain denies urinary pain (bledsoe in place)- voided 1750mL over last 24 hours with diuresis Physical Exam Vital Signs: Vital Signs: Last Vital Signs Temp 97.6 F 08/28/24 07:55 Pulse 60 08/28/24 07:55 Resp 17 08/28/24 07:55 BP 127/60 08/28/24 07:55 Pulse Ox 93 08/28/24 07:55 O2 Del Method Room Air 08/28/24 07:55 BMI result Body Mass Index 29.0 Objective Data Labs 08/28/24 08:49 08/28/24 07:33 Labs: Laboratory Results - last 24 hr 08/27/24 08/27/24 08/27/24 10:26 10:50 16:24 Sodium Potassium Chloride Carbon Dioxide Anion Gap BUN Creatinine Estim Creat Clear Calc Estimated GFR POC Glucose 214 H 238 H Random Glucose Calcium Nasal Screen MRSA (PCR) NEGATIVE Nasal S. aureus Screen POSITIVE A Nasal MRSA/S.aureus Interp SEE NOTE 08/27/24 08/28/24 08/28/24 20:59 07:14 07:33 Sodium 141 Potassium 4.5 Chloride 109 H Carbon Dioxide 15 L Anion Gap 22 H BUN 110 H Creatinine 4.52 H* Estim Creat Clear Calc 11.7 Estimated GFR 12 POC Glucose 231 H 294 H Random Glucose 326 H Calcium 8.5 Nasal Screen MRSA (PCR) Nasal S. aureus Screen Nasal MRSA/S.aureus Interp 08/28/24 08:07 Sodium Potassium Chloride Carbon Dioxide Anion Gap BUN Creatinine Estim Creat Clear Calc Estimated GFR POC Glucose 278 H Random Glucose Calcium Nasal Screen MRSA (PCR) Nasal S. aureus Screen Nasal MRSA/S.aureus Interp Microbiology Microbiology Results: Microbiology 08/26/24 08:24 Blood - Venous Blood Culture - Preliminary Staphylococcus aureus Enterococcus/Streptococcus sp 08/26/24 08:19 Blood - Venous Blood Culture - Preliminary Staphylococcus aureus Enterococcus/Streptococcus sp 08/27/24 12:34 Foot - Wound Gram Stain - Final 08/27/24 12:34 Foot - Wound Routine Culture - Preliminary Culture in progress. Procedures Date of Service Date of Service: 08/28/24 Assessment & Plan Assessment and plan (1) Acute kidney injury superimposed on chronic kidney disease: Status: Acute (2) Acute hyponatremia: Status: Acute (3) Bacteremia: Status: Acute (4) Congestive heart failure (CHF): Status: Acute Plan MASSIMO on CKD likely secondary to tubular injury Worsening crackles heard at the bases, without other obvious heart failure signs. Cardiology input appreciated. ok to trial diuresis given lack of improvement in renal function while holding diuretics. Discussed with family (son, partner at bedside) and pt that renal function is continuing to worsen, if trend persists, will likely need dialysis as life saving measure. Discussed that if HD is needed, it may be temporary, but could end up needing ongoing HD permanently. Family verbalizes understanding- patient does not clearly verbalize understanding, though family states with his chronic kidney disease he has been aware that dialysis may be needed in the future. Avoid nephrotoxins recommend daily electrolyte and renal function studies recommend regular blood pressure monitoring, avoid hypotension continue supportive care, will continue to follow Discussed with Dr Omer Time Spent With Patient Time: Total time managing care of this patient today ____ minutes. Progress Note: Quality Stroke Does the patient have a stroke diagnosis?: No
[2024-08-28 13:16] LABS: VBG Base Excess -6.4 mmol/L; VBG HCO3 16 mmol/L (22-26); VBG pCO2 24 mmHg; VBG pH 7.42 (7.32-7.43); VBG pO2 95 mmHg
[2024-08-28] MEDS: DAPTOmycin 650 MG in 0.9 % Sodium Chloride 50 ML 99.91 MG IV (13:20)
[2024-08-28 13:25] LABS: INTERNATIONAL NORM RATIO 1.1 (0.9-1.1); Prothrombin Time 13.1 SEC (10.9-12.4)
[2024-08-28 13:29] LABS: Fibrinogen > 700 MG/DL (259-690)
[2024-08-28 13:44] LABS: Lactate Dehydrogenase 302 U/L (118-273)
[2024-08-28] MEDS: 0.9 % Sodium Chloride Flush 3 ML SYRINGE IVFLUSH ×2 (14:14→20:14)
[2024-08-28] MEDS: Furosemide 100 MG/10 ML VIAL 80 MG IVPUSH (14:18)
--- NOTE | 2024-08-28 14:54 | P.CNHO_ITS ---
Subjective - Subjective Chief complaint: Altered mental status Patient: new to practice Consult date: 08/28/24 Requesting Physician: Hospitalist team Primary Care Provider: Talat Paz DO HPI - Consult Narrative Reason for consult: Thrombocytopenia Narrative: Mario Walters is a 84 year old male who was brought in by family members for altered mental status. 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 About 2 days prior to admission patient developed a fever, generalized weakness, loss of appetite. He quickly progressed to lethargy and disorientation at which point the family decided to bring the patient to emergency department. Workup in the ED with CT angiogram of head and neck showed multifocal moderate stenosis in bilateral internal carotid arteries related to atherosclerotic calcifications. Head CT was concerning for acute to subacute nonhemorrhagic stroke ischemia in the right basal ganglia/frontal white matter. Labs showed acute on chronic kidney failure, elevated BNP and leukocytosis. His platelet count was 201 K on 08/26/24. Next day platelet counts dropped to 113 K and subsequently 61 K. in April 2024 his platelet count was 347 K. Patient was also diagnosed with staphylococcal aureus bacteremia. Patient remains somnolent. His son and are at the bedside with the historians. Prior to all this patient was independent of all ADLs and had no problem with mentation. Review of Systems - Constitutional Reports as per HPI - Cardiovascular Reports no additional cardiovascular complaints - Respiratory Reports no additional respiratory complaints - Gastrointestinal Reports no additional gastrointestinal complaints - Neurologic Reports no additional neurologic complaints, Reports as per HPI, Reports abnormal speech, Reports confusion, Denies dizziness, Denies headache(s) [facility] Medical History: Medical History (Last Reviewed 08/27/24 @ 17:12 by Sherron Solis MD) Cardiac pacemaker in situ CKD (chronic kidney disease) CVA (cerebral vascular accident) Diabetes mellitus Heart failure with reduced ejection fraction HTN (hypertension) Nonischemic cardiomyopathy Paroxysmal atrial flutter Sick sinus syndrome Family History: Family History (Last Reviewed 08/27/24 @ 17:12 by Sherron Solis MD) Father No problems noted. 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 Home Medications and Allergies Current Medications: Current Medications Acetaminophen (Acetaminophen 325 Mg Tablet) 650 mg PO Q6H PRN PRN Reason: Pain, Mild (Pain Scale 1-3), fever or headache Acetaminophen (Acetaminophen Supp 650 Mg Supp.Rect) 650 mg NM Q6H PRN PRN Reason: Fever Last Admin: 08/27/24 13:24 Dose: 650 mg Amiodarone HCl (Amiodarone Hcl 200 Mg Tablet) 200 mg PO DAILY [facility] Last Admin: 08/28/24 09:11 Dose: Not Given Apixaban (Apixaban 2.5 Mg Tablet) 2.5 mg PO BID [facility] Last Admin: 08/28/24 09:11 Dose: Not Given Calcium Carbonate (Calcium Carbonate 750 Mg Tab.Chew) 750 mg PO Q4H PRN PRN Reason: Heartburn Finasteride (Finasteride 5 Mg Tablet) 5 mg PO DAILY [facility] Last Admin: 08/28/24 09:34 Dose: Not Given Glucose (Glucose Gel 15 Gm Gel..Gram.) 15 gm PO Q15M PRN; Protocol PRN Reason: per Hypoglycemia Standing Ord. Daptomycin 650 mg/ Sodium (Chloride) 63 mls @ 99.912 mls/hr IV Q48H [facility] Last Infusion: 08/28/24 14:14 Dose: Infused Influenza Virus Vaccine (Flu Vacc [id number](6mos Up)/Pf 0.5 Ml Syringe) 0.5 ml IM .ONCE ONE Stop: 08/29/24 18:23 Insulin Human Lispro (Insulin Lispro 100 Unit/Ml 3 Ml Vial) 0 unit SUBCUT QIDACHS [facility]; Protocol Last Admin: 08/28/24 11:46 Dose: Not Given Magnesium Hydroxide (Milk Of Magnesia 30 Ml Oral.Susp) 30 ml PO DAILY PRN PRN Reason: Constipation Melatonin (Melatonin 3 Mg Tablet) 6 mg PO BEDTIME PRN PRN Reason: Insomnia Metoprolol Succinate (Metoprolol Succinate Er 50 Mg Tab.Er.24h) 50 mg PO DAILY [facility]; Protocol Last Admin: 08/28/24 09:34 Dose: Not Given Ondansetron HCl (Ondansetron Hcl 4 Mg/2 Ml Vial) 4 mg IVPUSH Q8H PRN PRN Reason: Nausea and Vomiting Sodium Chloride (0.9 % Sodium Chloride Flush 3 Ml Syringe) 3 ml IVFLUSH QSHIFT [facility] Last Admin: 08/28/24 14:14 Dose: 3 ml Tamsulosin HCl (Tamsulosin Hcl 0.4 Mg Capsule) 0.4 mg PO DAILY [facility] Last Admin: 08/28/24 09:34 Dose: Not Given Vitamin D (Cholecalciferol (Vitamin D3) 25 Mcg Tablet) 25 mcg PO DAILY [facility] Last Admin: 08/28/24 09:11 Dose: Not Given Home Medications ?Medication ?Instructions ?Recorded ?Confirmed ?Type tamsulosin 0.4 mg capsule 0.4 mg PO DAILY 07/29/20 08/26/24 History vitamin B12 500 mcg-folic acid 400 1 tab PO DAILY 07/29/20 08/26/24 History mcg tablet glipizide 10 mg tablet, extended 10 mg PO BID 09/13/22 08/26/24 History release 24 hr metoprolol succinate 50 mg 50 mg PO DAILY 09/13/22 08/26/24 History tablet,extended release 24 hr atorvastatin 10 mg tablet 10 mg PO DAILY 09/07/23 08/26/24 History cholecalciferol (vitamin D3) 25 25 mcg PO DAILY 04/14/24 08/26/24 History mcg (1,000 unit) capsule dulaglutide 0.75 mg/0.5 mL 0.75 mg subcut MCCLURE 08/26/24 08/26/24 History subcutaneous pen injector (Trulicity) finasteride 5 mg tablet 5 mg PO DAILY 08/26/24 08/26/24 History furosemide 20 mg tablet 20 mg PO DAILY 08/26/24 08/26/24 History Allergies Allergy/AdvReac Type Severity Reaction Status Date / Time No Known Allergies Allergy Verified 08/26/24 07:30 [No Known Allergies*] Physical Exam Vital signs: Vital Signs Temp 98.0 F 08/28/24 11:38 Pulse 60 08/28/24 11:38 Resp 19 08/28/24 11:38 BP 152/70 H 08/28/24 14:18 Pulse Ox 96 08/28/24 11:38 O2 Del Method Room Air 08/28/24 11:38 Intake & Output 08/27/24 08/28/24 08/28/24 18:59 06:59 18:59 Intake Total 50 / 100 50 / 100 113 / 113 Output Total 450 / 1100 650 / 1100 500 / 500 Balance -400 / -1000 -600 / -1000 -387 / -387 Urine Output (Average ml/kg/hr) 0.46 0.66 0.51 Intake: Intake, IV Amount 50 / 100 50 / 100 113 / 113 DAPTOmycin 650 mg In 0.9 % 63 / 63 Sodium Chloride 50 ml @ 99.912 mls/hr IV Q48H [facility] Rx#: [id number] ceFAZolin Sodium/Dextrose,Iso 2 50 / 100 50 / 100 50 / 50 gm In 50 ml @ 100 mls/hr IV Q12H [facility] Rx#:[id number] Output: Output, Urine Amount 650 / 650 500 / 500 Output, Urine Amount (Catheter) 450 / 450 Urethral 450 / 450 Other: NPO Yes No Breakfast % Eaten 0% Lunch % Eaten 0% Eating (Feeding) Ability 1:1 Feed Number of Incontinent Voids 0 Number of Unmeasured Voids 0 Number of Bowel Movements 0 0 Urine Color Yellow Yellow Weight 81.6 kg - Constitutional Present: obtunded - Routine HEENT Exam Eye: Present: normal appearance - Routine Neck Exam Absent: lymphadenopathy - Routine Respiratory Exam Absent: accessory muscle use, rhonchi, wheezes - Routine Cardiovascular Exam Cardiovascular: Present: S1, S2 - Routine Abdominal Exam Present: soft. Absent: organomegaly Hem/Onc Consult Result - Labs CBC & Chem 7: 08/29/24 06:10 08/29/24 06:10 Labs: Short CBC 08/28/24 Range/Units 08:49 WBC 15.3 H (4.8-10.8) X10*3/uL Hgb 12.4 L (14.0-18.0) g/dl Hct 36.2 L (42.0-52.0) % Plt Count 61 L D (160-400) X10*3/uL BMP 08/28/24 07:33 Sodium 141 Potassium 4.5 Chloride 109 H Carbon Dioxide 15 L BUN 110 H Creatinine 4.52 H* Calcium 8.5 Assessment and Plan Patient Active problem list reviewed?: Yes (1) Thrombocytopenia Status: Acute Assessment and plan: 1. This is 84-year-old male admitted for encephalopathy, MSSA bacteremia found to thrombocytopenia. His platelets dropped from around 200 on the day of admission to about 60 K within 2 days. He received 2 doses of heparin on 08/27/2024 when the platelet counts already dropped to 113 K.. Although the platelet counts dropped by 50%, he had heparin exposure after the platelets started to decline therefore heparin induced thrombocytopenia is also unlikely. Multiple other prior blood tests over the years shows normal platelets counts. Coagulation test shows no evidence of DIC, he has normal PT/INR, PTT and fibrinogen levels. He has acute on chronic renal insufficiency with no significant elevation of LDH. Smear will be evaluated further for schistocytes although not reported in the differential. He does not have significant anemia, no elevation of bilirubin to suggest hemolysis. Therefore less likely for this to be myelophthisic process. I suspect this acute drop in platelet counts is related to infection/sepsis. Antibiotics can also cause thrombocytopenia. I recommend monitoring his blood counts daily as well as liver functions and LDH. I will follow with you, thank you for the consultation. - Time Spent With Patient Time Spent with Patient (in minutes): 20 Additional Coding: - Additional E/M codes Complex E/M visit Add On: CPT G2211
--- NOTE | 2024-08-28 15:46 | MHC.SL.SWA ---
Speech Pathologist Impression: Risk of Aspiration Due to: Lethargy Neurological Condition Poor PO Intake Dysphasia Diet Status: Liquid Consistency and Strategies for Safe Swallow: Liquid Intake Recommendation: Honey Thick Liquid Intake Strategies: Double Swallow Liquids by Teaspoon Only Solid Food Consistency: Dietary Recommendations: Pureed (NDD1) Additional Modifications to Solid Foods: Patient requires strict aspiration precautions. All puree/liquid by tsp only. Assure that patient is adequately alert and awake before attempting feeding, do not attempt if patient is lethargic or becomes lethargic during meal. Assure that patient has swallowed before presenting more food. Patient presents with a delay of swallow (2-3 seconds) observe for swallow before presenting more food/liquid. Discontinue with clinical signs of aspiration including wet voice, increased airway noise, coughing, drop in 02. Oral Medication Intake: Crushed with Puree Please contact the pharmacy regarding appropriate crushable or liquid drug formulations that are available whenever modified delivery is recommended. Compensatory Strategies and Precautions to be Taken for Safe Swallow: Sitting Upright (90 deg) Double Swallow Liquids from Spoon Small Bites and Sips Alternate Liquids/Solids Supervision While Eating and Drinking for Safe Swallow: Total Assistance (1:1) Foods to Avoid: Mixed consistencies Swallowing Recommended Treatments: Compens. Strategy Educat. Recommendation for Speech: Inpatient Speech Therapy Speech Therapy through Rehab Facility Comment: Patient presents with a moderate to severe oral pharyngeal dysphagia, and moderate to severe dysarthria, generalized weakness and lethargy. Patient is able to follow directions, answer questions in conversation, produces markedly slurred/imprecise speech that is at times unintelligible. On swallow, patient has marked delay of initiating swallow, appears to need to effortfully swallow, and often swallows twice to clear bolus, with reduced laryngeal elevation on swallow. Patient likely had aspiration event on water trial this evaluation. Recommended to PA repeat CXR to rule out aspiration. If airway clear, recommend UPGRADE diet from NPO to Puree (NDD2) with HONEY THICK liquids (by tsp only), pills crushed in puree. PA/RD notified of recommendation by secure text, discussed with RN in person. Family ? if patient can continue to have moistened swabs for mouth moisture, recommended only after patient given oral care. CHIEF INNOVATION OFFICER to follow M-F. Frequency/Duration: Date Range for Service Req: Timeline to reassess: Epic Analyst Clinican/Clinical Fellow: No Supervisory Statement: I have reviewed and agree with the student/clinical fellow's documentation: N/A Speech Language Pathologist: Swati Reinoso M.A., CCC-CHIEF INNOVATION OFFICER
[2024-08-28 15:50] LABS: Anion Gap 21 (12-20); Blood Urea Nitrogen 110 mg/dL (9-16); Calcium 8.5 mg/dL (8.4-10.2); Carbon Dioxide 16 mmol/L (22-29); Chloride 109 mmol/L (96-108); Creatinine Clr Calc Pharmacy 11.7; Estimated Glomerular Filt Rate 12; Glucose Random 380 mg/dL (60-115); Potassium 4.5 mmol/L (3.3-5.1); Sodium 141 mmol/L (135-145)
[2024-08-28] MEDS: Insulin Lispro 100 UNIT/ML 3 ML VIAL SUBCUT ×2 (16:52→20:14)
[2024-08-28 19:34] LABS: Anion Gap 19 (12-20); Blood Urea Nitrogen 122 mg/dL (9-16); Calcium 8.7 mg/dL (8.4-10.2); Carbon Dioxide 17 mmol/L (22-29); Chloride 111 mmol/L (96-108); Creatinine Clr Calc Pharmacy 11.7; Estimated Glomerular Filt Rate 12; Glucose Random 384 mg/dL (60-115); Potassium 4.3 mmol/L (3.3-5.1); Sodium 143 mmol/L (135-145)
[2024-08-28 20:05] LABS: Glucose, Whole Blood 336 mg/dL (60-115)
[2024-08-29] VITALS (8 sets, daily range): BP systolic 131–154; BP diastolic 62–70; PULSE 60–66; RESP 18–20; TEMP 36.2–36.6; O2SAT 96–97
[2024-08-29 06:47] LABS: Anion Gap 21 (12-20); Calcium 8.8 mg/dL (8.4-10.2); Carbon Dioxide 16 mmol/L (22-29); Chloride 114 mmol/L (96-108); Creatinine Clr Calc Pharmacy 12.1; Estimated Glomerular Filt Rate 13; Glucose Random 325 mg/dL (60-115); Potassium 4.5 mmol/L (3.3-5.1); Sodium 146 mmol/L (135-145)
[2024-08-29 06:49] LABS: Basophils Absolute Auto 0.1 X10*3/uL (0.0-0.2); Basophils Percent Auto 0.3 % (0-2); Eosinophils Percent Auto 0.1 % (0-4); Hemoglobin 11.8 g/dl (14.0-18.0); Imm Gran Abs Auto 0.77 X10*3/uL (0.00-0.03); Lymphocytes Absolute Auto 0.6 X10*3/uL (1.2-4.9); Lymphocytes Percent Auto 4.1 % (20-40); MANUAL DIFF FLAG SCAN; Mean Corpuscular HGB Conc 33.7 g/dl (31.0-36.0); Mean Corpuscular Hemoglobin 28.1 pg (27.0-33.0); Mean Corpuscular Volume 83.3 fL (80.0-98.0); Mean Platelet Volume 11.8 fL (9.4-12.4); Monocytes Absolute Auto 2.3 X10*3/uL (0.1-1.2); Monocytes Percent Auto 14.8 % (2-11); Neutrophils Absolute Auto 11.6 x10*3/uL (2.0-8.3); Neutrophils Percent Auto 75.7 % (45-73); Platelet Count 70 X10*3/uL (160-400); Red Cell Distribution Width 16.7 % (11.0-16.0); SCAN SMEAR FLAG 1; White Blood Count 15.3 X10*3/uL (4.8-10.8)
[2024-08-29 06:55] LABS: Blood Urea Nitrogen 124 mg/dL (9-16)
[2024-08-29 07:19] LABS: SLIDE REVIEW VERIFIED
[2024-08-29 08:16] LABS: Glucose, Whole Blood 325 mg/dL (60-115)
--- NOTE | 2024-08-29 08:45 | P.PNNP_ITS ---
Subjective Subjective Date of Service: 08/29/24 Interval history: Pt is a 84 y/o male with a medical history of CVA (30+ years ago), DMII, diabetic polyneuropathy, chronic bilateral diabetic foot wounds, CKD, HTN, sick sinus syndrome with pacemaker, s/p TAVR, HRrEF, afib. presented 08/26 with altered mental status, had reportedly been feeling unwell for 3-4 days, chills, reduced PO intake. had CT showing concern for nonhemorrhagic stroke/ischemia, neurology following also presented with MASSIMO on CKD4 for which nephrology consulted. baseline Creatinine 2.15-2.97, most recent prior to hospitalization on 04/16/24 was 2.16. 08/26/24 creatinine 2.86 08/27 creatinine 4.17, BUN 92 08/28 creatinine 4.54, BUN 122 creatinine 4.38, BUN urine +1 protein, 100 glucose, no blood or WBCs; most recent microalbumin/creatinine ratio 50 08/26 blood cultures preliminarily +GPC no renal imaging available presented with hyponatremia, Na 130, today sodium 134 pt has received 40mg IVP furosemide x2 08/26 chest xray showed mild interstitial edema, question of pleural effusion home medications include furosemide 20mg daily, no LUIS/ARB per records patient is awake in bed, son at bedside and provides some of history- patient provides one-word answers and is hard of hearing patient denies shortness of breath denies pain- chest pain, abdominal pain, flank pain denies urinary pain (bledsoe in place)- voided 1750mL over last 24 hours with diuresis Physical Exam 2 Vital Signs: Vital Signs: Last Vital Signs Temp 97.9 F 08/29/24 08:00 Pulse 60 08/29/24 08:00 Resp 20 08/29/24 08:00 BP 140/63 H 08/29/24 08:00 Pulse Ox 96 08/29/24 08:00 O2 Del Method Room Air 08/29/24 08:00 BMI result Body Mass Index 29.0 Const: General: alert and awake Resp: Effort & Inspection: normal respiratory effort Auscultation: clear to auscultation bilaterally Cardio: Jugular venous distension: no JVD Rate: regular rate Rhythm: r egular rhythm Heart sounds: S1 normal heart sound present and S2 normal heart sound present GI: Palpation (GI): Soft to palpation and nontender : General: Yes no CVA tenderness Back/Spine/Pelvis: Back: no CVA tenderness Skin: Rashes: no rashes Extrem: General: No edema Objective Data Labs 08/29/24 06:10 08/29/24 06:10 Labs: Laboratory Results - last 24 hr 08/28/24 08/28/24 08/28/24 07:33 08:49 11:07 WBC 15.3 H RBC 4.37 L Hgb 12.4 L Hct 36.2 L MCV 82.8 MCH 28.4 MCHC 34.3 RDW 16.4 H Plt Count 61 L D MPV 11.8 Immature Gran % (Auto) 1.9 H Neut % (Auto) 82.5 H Lymph % (Auto) 2.9 L Towns % (Auto) 11.6 H Eos % (Auto) 0.8 Baso % (Auto) 0.3 Lymph # (Auto) 0.5 L [place] # (Auto) 1.8 H Eos # (Auto) 0.1 Baso # (Auto) 0.1 Abs Immat Gran (auto) 0.29 H Absolute Neuts (auto) 12.6 H Absolute Nucleated RBC 0.000 Nucleated RBC % (auto) 0.0 Neutrophils % (Manual) 80 H Band Neutrophils % 9 H Lymphocytes % (Manual) 2 L Atypical Lymphs % (Man) 1 Monocytes % (Manual) 7 Metamyelocytes % 1 Abs Neuts (Manual) 13.6 H Lymphocytes # (Manual) 0.3 L Atyp Lymphs # (Manual) 0.2 Monocytes # (Manual) 1.1 Metamyelocytes # 0.2 Dohle Bodies PRESENT Platelet Estimate DECREASED Large Platelets PRESENT Plt Morphology Comment NOTED RBC Morphology NOTED Tear Drop Cells 1+ (0-2) Ovalocytes 1+ (5-14) Micheal Cells 3+ (>5) Acanthocytes (Spur) 2+ (3-5) Smear Tech's Comments VERIFIED PT INR APTT Fibrinogen VBG pH VBG pCO2 VBG pO2 VBG HCO3 VBG O2 Saturation VBG Base Excess Sodium Potassium Chloride Carbon Dioxide Anion Gap BUN Creatinine Estim Creat Clear Calc Estimated GFR POC Glucose 289 H Random Glucose Calcium Lactate Dehydrogenase 302 H Beta-Hydroxybutyrate 1.34 H Random Vancomycin 08/28/24 08/28/24 08/28/24 12:13 13:06 13:11 WBC RBC Hgb Hct MCV MCH MCHC RDW Plt Count MPV Immature Gran % (Auto) Neut % (Auto) Lymph % (Auto) [place] % (Auto) Eos % (Auto) Baso % (Auto) Lymph # (Auto) [place] # (Auto) Eos # (Auto) Baso # (Auto) Abs Immat Gran (auto) Absolute Neuts (auto) Absolute Nucleated RBC Nucleated RBC % (auto) Neutrophils % (Manual) Band Neutrophils % Lymphocytes % (Manual) Atypical Lymphs % (Man) Monocytes % (Manual) Metamyelocytes % Abs Neuts (Manual) Lymphocytes # (Manual) Atyp Lymphs # (Manual) Monocytes # (Manual) Metamyelocytes # Dohle Bodies Platelet Estimate Large Platelets Plt Morphology Comment RBC Morphology Tear Drop Cells Ovalocytes Micheal Cells Acanthocytes (Spur) Smear Tech's Comments PT 13.1 H D INR 1.1 APTT 31.0 Fibrinogen > 700 H VBG pH 7.42 VBG pCO2 24 VBG pO2 95 VBG HCO3 16 L VBG O2 Saturation 98.0 VBG Base Excess -6.4 Sodium Potassium Chloride Carbon Dioxide Anion Gap BUN Creatinine Estim Creat Clear Calc Estimated GFR POC Glucose Random Glucose Calcium Lactate Dehydrogenase Beta-Hydroxybutyrate Random Vancomycin 11.2 L 08/28/24 08/28/24 08/28/24 15:00 18:49 20:01 WBC RBC Hgb Hct MCV MCH MCHC RDW Plt Count MPV Immature Gran % (Auto) Neut % (Auto) Lymph % (Auto) [place] % (Auto) Eos % (Auto) Baso % (Auto) Lymph # (Auto) [place] # (Auto) Eos # (Auto) Baso # (Auto) Abs Immat Gran (auto) Absolute Neuts (auto) Absolute Nucleated RBC Nucleated RBC % (auto) Neutrophils % (Manual) Band Neutrophils % Lymphocytes % (Manual) Atypical Lymphs % (Man) Monocytes % (Manual) Metamyelocytes % Abs Neuts (Manual) Lymphocytes # (Manual) Atyp Lymphs # (Manual) Monocytes # (Manual) Metamyelocytes # Dohle Bodies Platelet Estimate Large Platelets Plt Morphology Comment RBC Morphology Tear Drop Cells Ovalocytes Micheal Cells Acanthocytes (Spur) Smear Tech's Comments PT INR APTT Fibrinogen VBG pH VBG pCO2 VBG pO2 VBG HCO3 VBG O2 Saturation VBG Base Excess Sodium 141 143 Potassium 4.5 4.3 Chloride 109 H 111 H Carbon Dioxide 16 L 17 L Anion Gap 21 H 19 BUN 110 H 122 H Creatinine 4.51 H* 4.54 H* Estim Creat Clear Calc 11.7 11.7 Estimated GFR 12 12 POC Glucose 336 H Random Glucose 380 H* 384 H* Calcium 8.5 8.7 Lactate Dehydrogenase Beta-Hydroxybutyrate Random Vancomycin 08/29/24 08/29/24 06:10 07:55 WBC 15.3 H RBC 4.20 L Hgb 11.8 L Hct 35.0 L MCV 83.3 MCH 28.1 MCHC 33.7 RDW 16.7 H Plt Count 70 L MPV 11.8 Immature Gran % (Auto) 5.0 H Neut % (Auto) 75.7 H Lymph % (Auto) 4.1 L Towns % (Auto) 14.8 H Eos % (Auto) 0.1 Baso % (Auto) 0.3 Lymph # (Auto) 0.6 L [place] # (Auto) 2.3 H Eos # (Auto) 0.0 Baso # (Auto) 0.1 Abs Immat Gran (auto) 0.77 H Absolute Neuts (auto) 11.6 H Absolute Nucleated RBC 0.000 Nucleated RBC % (auto) 0.0 Neutrophils % (Manual) Band Neutrophils % Lymphocytes % (Manual) Atypical Lymphs % (Man) Monocytes % (Manual) Metamyelocytes % Abs Neuts (Manual) Lymphocytes # (Manual) Atyp Lymphs # (Manual) Monocytes # (Manual) Metamyelocytes # Dohle Bodies Platelet Estimate Large Platelets Plt Morphology Comment RBC Morphology Tear Drop Cells Ovalocytes [place] Cells Acanthocytes (Spur) Smear Tech's Comments VERIFIED PT INR APTT Fibrinogen VBG pH VBG pCO2 VBG pO2 VBG HCO3 VBG O2 Saturation VBG Base Excess Sodium 146 H Potassium 4.5 Chloride 114 H Carbon Dioxide 16 L Anion Gap 21 H BUN 124 H Creatinine 4.38 H* Estim Creat Clear Calc 12.1 Estimated GFR 13 POC Glucose 325 H Random Glucose 325 H Calcium 8.8 Lactate Dehydrogenase Beta-Hydroxybutyrate Random Vancomycin Microbiology Microbiology Results: Microbiology 08/27/24 12:34 Foot - Wound Gram Stain - Final 08/27/24 12:34 Foot - Wound Routine Culture - Preliminary Staphylococcus aureus Enterococcus/Streptococcus sp 08/26/24 08:24 Blood - Venous Blood Culture - Final Staphylococcus aureus Enterococcus faecalis 08/26/24 08:19 Blood - Venous Blood Culture - Final Staphylococcus aureus Enterococcus faecalis Procedures Date of Service Date of Service: 08/29/24 Assessment & Plan Assessment and plan (1) Acute kidney injury superimposed on chronic kidney disease: Status: Acute (2) Acute hyponatremia: Status: Acute (3) Bacteremia: Status: Acute (4) Congestive heart failure (CHF): Status: Acute Plan MASSIMO on CKD likely secondary to tubular injury Mild improvement in creatinine level since diuresis yesterday. Given improvement, will continue diuresis with furosemide IVP 40mg BID No indication for dialysis at this time Ok for midline insertion for antibiotic administration Avoid nephrotoxins recommend daily electrolyte and renal function studies recommend regular blood pressure monitoring, avoid hypotension continue supportive care, will continue to follow Discussed with Dr Omer Time Spent With Patient Time: Total time managing care of this patient today ____ minutes. Progress Note: Quality Stroke Does the patient have a stroke diagnosis?: No
[2024-08-29 09:10] LABS: C Reactive Protein 32.02 mg/dL (< or = 0.50)
[2024-08-29] MEDS: Apixaban 2.5 MG TABLET PO ×2 (09:37→21:33)
[2024-08-29] MEDS: Insulin Lispro 100 UNIT/ML 3 ML VIAL SUBCUT ×4 (09:37→21:33)
[2024-08-29] MEDS: Amiodarone HCL 200 MG TABLET PO (09:37)
[2024-08-29] MEDS: Cholecalciferol (Vitamin D3) 25 MCG TABLET PO (09:37)
[2024-08-29] MEDS: 0.9 % Sodium Chloride Flush 3 ML SYRINGE IVFLUSH ×3 (09:37→21:33)
[2024-08-29] MEDS: Finasteride 5 MG TABLET PO (09:37)
--- NOTE | 2024-08-29 09:52 | P.PNCA_ITS ---
Subjective Subjective Date of Service: 08/29/24 Interval history: Still confused but probably a bit more awake. Son is still at the bedside. Review of Systems Review of Systems Unable to obtain full review of systems due to confusion. Physical Exam Vital Signs: Last Vital Signs Temp 97.9 F 08/29/24 08:00 Pulse 60 08/29/24 08:00 Resp 20 08/29/24 08:00 BP 140/63 H 08/29/24 08:00 Pulse Ox 96 08/29/24 08:00 O2 Del Method Room Air 08/29/24 08:00 BMI result Body Mass Index 29.0 Const General: ill appearing, lethargic, patient obtunded and tired appearing Orientation/consciousness: No patient oriented x3, patient obtunded and lethargic HEENT Other: Unremarkable Head: Yes normal to inspection Neck Neck: Yes normal visual inspection Chest Chest palpation & inspection: normal inspection of the chest Resp Auscultation: clear to auscultation bilaterally Cardio Palpation: normal PMI Heart sounds: S1 normal heart sound present, S2 normal heart sound present, no gallops, Murmur heart sound present systolic II/ and at the right sternal border and no rubs GI Palpation (GI): Soft to palpation Back/Spine/Pelvis Other: unremarkable Skin General skin exam: no rashes or lesions noted Neuro Other: No focal deficits General: No patient oriented x3 and patient obtunded Extrem General: Yes normal to inspection Psych Mental Status: mental status grossly abnormal Objective Labs and Meds 08/29/24 06:10 08/29/24 06:10 Lab results: Laboratory Results - last 24 hr 08/28/24 08/28/24 08/28/24 07:33 08:49 11:07 WBC RBC Hgb Hct MCV MCH MCHC RDW Plt Count MPV Immature Gran % (Auto) Neut % (Auto) Lymph % (Auto) [place] % (Auto) Eos % (Auto) Baso % (Auto) Lymph # (Auto) [place] # (Auto) Eos # (Auto) Baso # (Auto) Abs Immat Gran (auto) Absolute Neuts (auto) Absolute Nucleated RBC Nucleated RBC % (auto) Neutrophils % (Manual) 80 H Band Neutrophils % 9 H Lymphocytes % (Manual) 2 L Atypical Lymphs % (Man) 1 Monocytes % (Manual) 7 Metamyelocytes % 1 Abs Neuts (Manual) 13.6 H Lymphocytes # (Manual) 0.3 L Atyp Lymphs # (Manual) 0.2 Monocytes # (Manual) 1.1 Metamyelocytes # 0.2 Dohle Bodies PRESENT Platelet Estimate DECREASED Large Platelets PRESENT Plt Morphology Comment NOTED RBC Morphology NOTED Tear Drop Cells 1+ (0-2) Ovalocytes 1+ (5-14) [place] Cells 3+ (>5) Acanthocytes (Spur) 2+ (3-5) Smear Tech's Comments PT INR APTT Fibrinogen VBG pH VBG pCO2 VBG pO2 VBG HCO3 VBG O2 Saturation VBG Base Excess Sodium Potassium Chloride Carbon Dioxide Anion Gap BUN Creatinine Estim Creat Clear Calc Estimated GFR POC Glucose 289 H Random Glucose Calcium Lactate Dehydrogenase 302 H C-Reactive Protein Beta-Hydroxybutyrate 1.34 H Random Vancomycin 08/28/24 08/28/24 08/28/24 12:13 13:06 13:11 WBC RBC Hgb Hct MCV MCH MCHC RDW Plt Count MPV Immature Gran % (Auto) Neut % (Auto) Lymph % (Auto) [place] % (Auto) Eos % (Auto) Baso % (Auto) Lymph # (Auto) [place] # (Auto) Eos # (Auto) Baso # (Auto) Abs Immat Gran (auto) Absolute Neuts (auto) Absolute Nucleated RBC Nucleated RBC % (auto) Neutrophils % (Manual) Band Neutrophils % Lymphocytes % (Manual) Atypical Lymphs % (Man) Monocytes % (Manual) Metamyelocytes % Abs Neuts (Manual) Lymphocytes # (Manual) Atyp Lymphs # (Manual) Monocytes # (Manual) Metamyelocytes # Dohle Bodies Platelet Estimate Large Platelets Plt Morphology Comment RBC Morphology Tear Drop Cells Ovalocytes [place] Cells Acanthocytes (Spur) Smear Tech's Comments PT 13.1 H D INR 1.1 APTT 31.0 Fibrinogen > 700 H VBG pH 7.42 VBG pCO2 24 VBG pO2 95 VBG HCO3 16 L VBG O2 Saturation 98.0 VBG Base Excess -6.4 Sodium Potassium Chloride Carbon Dioxide Anion Gap BUN Creatinine Estim Creat Clear Calc Estimated GFR POC Glucose Random Glucose Calcium Lactate Dehydrogenase C-Reactive Protein Beta-Hydroxybutyrate Random Vancomycin 11.2 L 08/28/24 08/28/24 08/28/24 15:00 18:49 20:01 WBC RBC Hgb Hct MCV MCH MCHC RDW Plt Count MPV Immature Gran % (Auto) Neut % (Auto) Lymph % (Auto) [place] % (Auto) Eos % (Auto) Baso % (Auto) Lymph # (Auto) [place] # (Auto) Eos # (Auto) Baso # (Auto) Abs Immat Gran (auto) Absolute Neuts (auto) Absolute Nucleated RBC Nucleated RBC % (auto) Neutrophils % (Manual) Band Neutrophils % Lymphocytes % (Manual) Atypical Lymphs % (Man) Monocytes % (Manual) Metamyelocytes % Abs Neuts (Manual) Lymphocytes # (Manual) Atyp Lymphs # (Manual) Monocytes # (Manual) Metamyelocytes # Dohle Bodies Platelet Estimate Large Platelets Plt Morphology Comment RBC Morphology Tear Drop Cells Ovalocytes Micheal Cells Acanthocytes (Spur) Smear Tech's Comments PT INR APTT Fibrinogen VBG pH VBG pCO2 VBG pO2 VBG HCO3 VBG O2 Saturation VBG Base Excess Sodium 141 143 Potassium 4.5 4.3 Chloride 109 H 111 H Carbon Dioxide 16 L 17 L Anion Gap 21 H 19 BUN 110 H 122 H Creatinine 4.51 H* 4.54 H* Estim Creat Clear Calc 11.7 11.7 Estimated GFR 12 12 POC Glucose 336 H Random Glucose 380 H* 384 H* Calcium 8.5 8.7 Lactate Dehydrogenase C-Reactive Protein Beta-Hydroxybutyrate Random Vancomycin 08/29/24 08/29/24 06:10 07:55 WBC 15.3 H RBC 4.20 L Hgb 11.8 L Hct 35.0 L MCV 83.3 MCH 28.1 MCHC 33.7 RDW 16.7 H Plt Count 70 L MPV 11.8 Immature Gran % (Auto) 5.0 H Neut % (Auto) 75.7 H Lymph % (Auto) 4.1 L [place] % (Auto) 14.8 H Eos % (Auto) 0.1 Baso % (Auto) 0.3 Lymph # (Auto) 0.6 L [place] # (Auto) 2.3 H Eos # (Auto) 0.0 Baso # (Auto) 0.1 Abs Immat Gran (auto) 0.77 H Absolute Neuts (auto) 11.6 H Absolute Nucleated RBC 0.000 Nucleated RBC % (auto) 0.0 Neutrophils % (Manual) Band Neutrophils % Lymphocytes % (Manual) Atypical Lymphs % (Man) Monocytes % (Manual) Metamyelocytes % Abs Neuts (Manual) Lymphocytes # (Manual) Atyp Lymphs # (Manual) Monocytes # (Manual) Metamyelocytes # Dohle Bodies Platelet Estimate Large Platelets Plt Morphology Comment RBC Morphology Tear Drop Cells Ovalocytes [place] Cells Acanthocytes (Spur) Smear Tech's Comments VERIFIED PT INR APTT Fibrinogen VBG pH VBG pCO2 VBG pO2 VBG HCO3 VBG O2 Saturation VBG Base Excess Sodium 146 H Potassium 4.5 Chloride 114 H Carbon Dioxide 16 L Anion Gap 21 H BUN 124 H Creatinine 4.38 H* Estim Creat Clear Calc 12.1 Estimated GFR 13 POC Glucose 325 H Random Glucose 325 H Calcium 8.8 Lactate Dehydrogenase C-Reactive Protein 32.02 H Beta-Hydroxybutyrate Random Vancomycin Imaging Radiologist's impression: Impressions Abdomen/Pelvis CT 08/27/24 20:50 IMPRESSION: No acute intra-abdominal process seen. Mild constipation. Cholelithiasis without wall thickening. Significant prostate enlargement with a Zavala's catheter in the decompressed bladder. Fleischner guidelines were followed. Electronically signed by: Casey Herrera MD 08/28/2024 06:10 PM [facility] Chest X-Ray 08/28/24 12:25 IMPRESSION: 1. No active pulmonary disease. 2. Minor left greater than right basilar airspace disease seen on recent CT abdomen and pelvis is not well seen on today's radiograph. Electronically signed by: Darrius Somers MD 08/28/2024 02:44 PM Qraved RP Progress Note: A&P Assessment and plan (1) Encephalopathy: Status: Acute (2) Altered mental status: Status: Acute (3) Status post aortic valve replacement: Status: Acute (4) Nonischemic cardiomyopathy: Status: Acute (5) Sick sinus syndrome: Status: Acute (6) Cardiac pacemaker in situ: Status: Acute (7) Bacteremia: Status: Acute Plan Overall, bacteremia, positive cultures for Staphylococcus aureus/Enterococcus. Labs show leukocytosis, thrombocytopenia, acute on chronic renal failure. In the echocardiogram, LVEF is 54%. With regard to the bioprosthetic aortic valve, increased gradients which could be related to valve degeneration versus infection. Overall, bacteremia, possible endocarditis, delirium, renal failure, thrombocytopenia. Recommend empiric antibiotics at this time. Awaiting brain MRI. He is not a good candidate for MAYDA because of many comorbidities. Even if we are to find vegetations, he will not be a candidate for surgery. Hence most likely antibiotics only at this time. Guarded prognosis. Discussed with son at the bedside. Time Spent With Patient Time: Total time managing care of this patient today ____ minutes. Progress Note: Quality Stroke Does the patient have a stroke diagnosis?: No Procedures Date of Service Date of Service: 08/29/24
[2024-08-29 11:37] LABS: Glucose, Whole Blood 358 mg/dL (60-115)
--- NOTE | 2024-08-29 11:46 | MHC.SL.SWA ---
Speech Pathologist Impression: Risk of Aspiration, Oropharyngeal Dysphagia Risk of Aspiration Due to: Lethargy Neurological Condition Poor PO Intake Dysphasia Diet Status: No change at this time Liquid Consistency and Strategies for Safe Swallow: Liquid Intake Recommendation: Honey Thick Liquid Intake Strategies: No Straws Double Swallow Liquids by Teaspoon Only Solid Food Consistency: Dietary Recommendations: Pureed (NDD1) Additional Modifications to Solid Foods: Patient requires strict aspiration precautions. All puree/liquid by tsp only. Assure that patient is adequately alert and awake before attempting feeding, do not attempt if patient is lethargic or becomes lethargic during meal. Assure that patient has swallowed before presenting more food. Patient presents with a delay of swallow (2-3 seconds) observe for swallow before presenting more food/liquid. Discontinue with clinical signs of aspiration including wet voice, increased airway noise, coughing, drop in 02. MARINE SERVICE MANAGER will continue to follow. Oral Medication Intake: Crushed with Puree Please contact the pharmacy regarding appropriate crushable or liquid drug formulations that are available whenever modified delivery is recommended. Compensatory Strategies and Precautions to be Taken for Safe Swallow: Sitting Upright (90 deg) Double Swallow Liquids from Spoon Small Bites and Sips Alternate Liquids/Solids Supervision While Eating and Drinking for Safe Swallow: Total Assistance (1:1) Swallowing Recommended Treatments: Compens. Strategy Educat. Recommendation for Speech: Inpatient Speech Therapy Speech Therapy through Rehab Facility Comment: Patient presents with a moderate to severe oral pharyngeal dysphagia, and moderate to severe dysarthria, generalized weakness and lethargy. Patient is able to follow directions, answer questions in conversation, produces markedly slurred/imprecise speech that is at times unintelligible. On swallow, patient has marked delay of initiating swallow, appears to need to effortfully swallow, and often swallows twice to clear bolus, with reduced laryngeal elevation on swallow. Barrel Raiser Helper Clinican/Clinical Fellow: No Supervisory Statement: I have reviewed and agree with the student/clinical fellow's documentation: N/A Speech Language Pathologist: Twila Everett M.A., [facility]-MAR[employer] SERVICE MANAGER
[2024-08-29] MEDS: Lidocaine 4 % Patch ADH..PATCH 1 PATCH TRANSDERMA (11:50)
[2024-08-29] MEDS: oxyCODONE HCl Immed Release 5 MG TABLET PO ×2 (11:50→17:43)
[2024-08-29 12:50] LABS: Alanine Aminotransferase 16 U/L (0-40); Albumin Level 2.7 g/dL (3.5-5.0); Alkaline Phosphatase 102 U/L (39-117); Aspartate Amino Transferase 21 U/L (5-37); Bilirubin Direct 0.2 mg/dL (0.0-0.5); Bilirubin Total 0.4 mg/dL (0.0-1.0); Total Protein 6.1 g/dL (6.5-8.0)
[2024-08-29 12:58] LABS: Lactate Dehydrogenase 332 U/L (118-273)
--- NOTE | 2024-08-29 13:21 | MHC.CM.PN ---
Per rounds, pt. is still acute, will likely need STR at DC. CM will follow and assist with DC plan.
[2024-08-29 16:23] LABS: Glucose, Whole Blood 280 mg/dL (60-115)
--- NOTE | 2024-08-29 17:05 | P.PNIM_ITS ---
Subjective Subjective Date of Service: 08/29/24 Interval History: dysarthria improved; still confused no fever c/o back pain which is chronic for him foot wounds without pain Review of Systems Review of Systems: Yes all other systems are reviewed and are negative Physical Exam 2 Vital Signs: Vital Signs: Last Vital Signs Temp 97.5 F 08/29/24 15:43 Pulse 60 08/29/24 15:43 Resp 20 08/29/24 15:43 BP 149/65 H 08/29/24 15:43 Pulse Ox 97 08/29/24 15:43 O2 Del Method Room Air 08/29/24 15:43 BMI result Body Mass Index 29.0 Gen: in no acute distress HEENT: sclera anicteric, moist mucus membranes Neck: supple Lungs: clear to auscultation bilaterally Heart: regular rate and rhythm, no murmurs Abd: soft, non-tender, non-distended Ext: no edema Skin: warm/well-perfused Neuro: alert and oriented to self and place, no facial droop, no pronator drift, no unilateral weakness Psych: appropriate affect Objective Data Active Medications Acetaminophen (Acetaminophen 325 Mg Tablet) 650 mg PO Q6H PRN PRN Reason: Pain, Mild (Pain Scale 1-3), fever or headache Amiodarone HCl (Amiodarone Hcl 200 Mg Tablet) 200 mg PO DAILY [facility] Last Admin: 08/29/24 09:37 Dose: 200 mg Documented By: GIBRAN Apixaban (Apixaban 2.5 Mg Tablet) 2.5 mg PO BID [facility] Last Admin: 08/29/24 09:37 Dose: 2.5 mg Documented By: GIBRAN Calcium Carbonate (Calcium Carbonate 750 Mg Tab.Chew) 750 mg PO Q4H PRN PRN Reason: Heartburn Finasteride (Finasteride 5 Mg Tablet) 5 mg PO DAILY [facility] Last Admin: 08/29/24 09:37 Dose: 5 mg Documented By: GIBRAN Furosemide (Furosemide 40 Mg/4 Ml Vial) 40 mg IVPUSH BID@0900,1800 [facility]; Protocol Glucose (Glucose Gel 15 Gm Gel..Gram.) 15 gm PO Q15M PRN; Protocol PRN Reason: per Hypoglycemia Standing Ord. Daptomycin 650 mg/ Sodium (Chloride) 63 mls @ 99.912 mls/hr IV Q48H [facility] Last Infusion: 12/19/24 14:14 Dose: Infused Documented By: JADE Influenza Virus Vaccine (Flu Vacc [id number](6mos Up)/Pf 0.5 Ml Syringe) 0.5 ml IM .ONCE ONE Stop: 08/29/24 18:23 Insulin Human Lispro (Insulin Lispro 100 Unit/Ml 3 Ml Vial) 0 unit SUBCUT QIDACHS [facility]; Protocol Last Admin: 08/29/24 11:49 Dose: 15 unit Documented By: GIBRAN Lidocaine (Lidocaine 4 % Patch Adh..Patch) 1 patch TRANSDERMA DAILY [facility]; Protocol Last Admin: 08/29/24 11:50 Dose: 1 patch Documented By: GIBRAN Magnesium Hydroxide (Milk Of Magnesia 30 Ml Oral.Susp) 30 ml PO DAILY PRN PRN Reason: Constipation Melatonin (Melatonin 3 Mg Tablet) 6 mg PO BEDTIME PRN PRN Reason: Insomnia Metoprolol Succinate (Metoprolol Succinate Er 50 Mg Tab.Er.24h) 50 mg PO DAILY [facility]; Protocol Last Admin: 08/29/24 09:34 Dose: Not Given Documented By: GIBRAN Non-Admin Reason: Cant be crushed Ondansetron HCl (Ondansetron Hcl 4 Mg/2 Ml Vial) 4 mg IVPUSH Q8H PRN PRN Reason: Nausea and Vomiting Oxycodone HCl (Oxycodone Hcl Immed Release 5 Mg Tablet) 5 mg PO Q6H PRN PRN Reason: Pain, Severe (Pain Scale 7-10) Last Admin: 08/29/24 11:50 Dose: 5 mg Documented By: GIBRAN Sodium Chloride (0.9 % Sodium Chloride Flush 3 Ml Syringe) [facility] Last Admin: 08/29/24 09:37 Dose: 3 ml Documented By: GIBRAN Tamsulosin HCl (Tamsulosin Hcl 0.4 Mg Capsule) 0.4 mg PO DAILY [facility] Last Admin: 08/29/24 09:35 Dose: Not Given Documented By: GIBRAN Non-Admin Reason: Cant be crushed Vitamin D (Cholecalciferol (Vitamin D3) 25 Mcg Tablet) 25 mcg PO DAILY [facility] Last Admin: 08/29/24 09:37 Dose: 25 mcg Documented By: GIBRAN Labs 08/29/24 06:10 08/29/24 06:10 Labs: Laboratory Results - last 24 hr 08/28/24 08/28/24 08/29/24 18:49 20:01 06:10 MCV 83.3 MCH 28.1 MCHC 33.7 RDW 16.7 H Plt Count 70 L MPV 11.8 Immature Gran % (Auto) 5.0 H Neut % (Auto) 75.7 H Lymph % (Auto) 4.1 L [place] % (Auto) 14.8 H Eos % (Auto) 0.1 Baso % (Auto) 0.3 Lymph # (Auto) 0.6 L [place] # (Auto) 2.3 H Eos # (Auto) 0.0 Baso # (Auto) 0.1 Abs Immat Gran (auto) 0.77 H Absolute Neuts (auto) 11.6 H Absolute Nucleated RBC 0.000 Nucleated RBC % (auto) 0.0 Smear Tech's Comments VERIFIED Anion Gap 19 21 H Estim Creat Clear Calc 11.7 12.1 Estimated GFR 12 13 POC Glucose 336 H Random Glucose 384 H* 325 H Calcium 8.7 8.8 Total Bilirubin 0.4 Direct Bilirubin 0.2 AST 21 ALT 16 Alkaline Phosphatase 102 Lactate Dehydrogenase 332 H C-Reactive Protein 32.02 H Total Protein 6.1 L Albumin 2.7 L 08/29/24 08/29/24 08/29/24 07:55 11:26 16:09 MCV MCH MCHC RDW Plt Count MPV Immature Gran % (Auto) Neut % (Auto) Lymph % (Auto) [place] % (Auto) Eos % (Auto) Baso % (Auto) Lymph # (Auto) [place] # (Auto) Eos # (Auto) Baso # (Auto) Abs Immat Gran (auto) Absolute Neuts (auto) Absolute Nucleated RBC Nucleated RBC % (auto) Smear Tech's Comments Anion Gap Estim Creat Clear Calc Estimated GFR POC Glucose 325 H 358 H* 280 H Random Glucose Calcium Total Bilirubin Direct Bilirubin AST ALT Alkaline Phosphatase Lactate Dehydrogenase C-Reactive Protein Total Protein Albumin Impressions Abdomen/Pelvis CT 08/27/24 20:50 IMPRESSION: No acute intra-abdominal process seen. Mild constipation. Cholelithiasis without wall thickening. Significant prostate enlargement with a Zavala's catheter in the decompressed bladder. Fleischner guidelines were followed. Electronically signed by: Casey Herrera MD 08/28/2024 06:10 PM EST RP Brain MRI 08/29/24 12:45 IMPRESSION: -Multifocal acute infarcts scattered through the bilateral cerebral hemispheres and probably the right cerebellum most suggestive of embolic shower. No hemorrhagic transformation. -Chronic microangiopathy and global cerebral atrophy. Electronically signed by: Ariana Aguilera MD 08/29/2024 01:34 PM EST RP Microbiology Microbiology Results: Microbiology 08/28/24 13:06 Blood Culture - Preliminary Blood - Venous Prelim: GPC Gram Stain only 08/28/24 13:06 Blood Culture - Preliminary Blood - Venous No growth after 24 hours. 08/27/24 12:34 Gram Stain - Final Foot - Wound Routine Culture - Preliminary Staphylococcus aureus Enterococcus/Streptococcus sp 08/26/24 08:24 Blood Culture - Final Blood - Venous Staphylococcus aureus Enterococcus faecalis 08/26/24 08:19 Blood Culture - Final Blood - Venous Staphylococcus aureus Enterococcus faecalis Assessment and Plan (1) Bacteremia: Status: Acute (2) Encephalopathy: Status: Acute (3) Acute kidney injury superimposed on chronic kidney disease: Status: Acute Plan d4 84yo M with DM2, pAF on apixaban, SSS s/p PPM, HFrEF, NICM, HTN, CKD4, s/p TAVR presenting with AMS, lethargy, and dysarthria 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 Small vessel occlusive disease. Global atrophy. Atherosclerosis disease - MRI with Multifocal acute infarcts scattered through the bilateral cerebral hemispheres and probably the right cerebellum most suggestive of embolic shower. 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 NDD1 solids/honey liquids MSSA/Enterococcus faecalis bacteremia - corresponds to wound microbiology; daptomycin 08/28- - per ID 6 wk IV ABX from 1st neg culture [surveillance drawn 08/28]; will need Delgado or midline [if OK with Nephrology] to complete course - no acute source on CT A/P and no osteomyelitis on CT of the foot MASSIMO/CKD4 metabolic acidosis - trial of diuresis per Nephrology; risk of progressing to HD acute/chronic HFrEF - diuresis as above; Cardiolgy following - continue metoprolol succinate pAF - continue amiodarone, metoprolol succinate - continue apixaban acute encephalopathy - likely due to stroke + infection - EEG 08/28 with diffuse encephalopathy thrombocytopenia - likely due to infection; Hematology agrees BPH - continue tamsulosin + finasteride DM2 - judy-dose lispro incidental thyroid nodule - TSH normal; outpatient US VTE ppx - apixaban dispo - STR In my clinical judgment, the patient requires continued inpatient hospitalization for the following reasons: IV ABX, MASSIMO Total time managing care of this patient today: 55 minutes. Quality Stroke Does the patient have a stroke diagnosis?: No VTE Prior VTE?: No VTE Risk Level:: Medical - moderate - high VTE Device Contraindication: Treatment Not Indicated VTE Drug Contraindication: N/A - Med Ordered
[2024-08-29] MEDS: Furosemide 40 MG/4 ML VIAL IVPUSH (17:44)
[2024-08-29 20:51] LABS: Glucose, Whole Blood 281 mg/dL (60-115)
[2024-08-30 04:00] VITALS: BP 136/60; PULSE 60; RESP 20; TEMP 36.8
[2024-08-30 06:34] LABS: Basophils Absolute Auto 0.1 X10*3/uL (0.0-0.2); Basophils Percent Auto 0.3 % (0-2); Eosinophils Percent Auto 0.1 % (0-4); Hematocrit 37.5 % (42.0-52.0); Hemoglobin 12.9 g/dl (14.0-18.0); Imm Gran Pct Auto 3.7 % (0.0-0.4); Lymphocytes Absolute Auto 0.9 X10*3/uL (1.2-4.9); Lymphocytes Percent Auto 4.1 % (20-40); MANUAL DIFF FLAG SCAN; Mean Corpuscular HGB Conc 34.4 g/dl (31.0-36.0); Mean Corpuscular Hemoglobin 28.7 pg (27.0-33.0); Mean Corpuscular Volume 83.3 fL (80.0-98.0); Mean Platelet Volume 11.9 fL (9.4-12.4); Monocytes Absolute Auto 2.4 X10*3/uL (0.1-1.2); Neutrophils Absolute Auto 17.6 x10*3/uL (2.0-8.3); Neutrophils Percent Auto 80.8 % (45-73); Red Cell Distribution Width 16.8 % (11.0-16.0); SCAN SMEAR FLAG 1; White Blood Count 21.7 X10*3/uL (4.8-10.8)
[2024-08-30 06:36] LABS: Platelet Count 92 X10*3/uL (160-400)
[2024-08-30 06:50] LABS: Anion Gap 22 (12-20); Calcium 9.1 mg/dL (8.4-10.2); Carbon Dioxide 17 mmol/L (22-29); Chloride 116 mmol/L (96-108); Creatinine Clr Calc Pharmacy 12.3; Estimated Glomerular Filt Rate 13; Glucose Random 316 mg/dL (60-115); Potassium 4.5 mmol/L (3.3-5.1); Sodium 150 mmol/L (135-145)
[2024-08-30 06:52] LABS: B Type Natriuretic Peptide 603 pg/mL (<100); SLIDE REVIEW VERIFIED
[2024-08-30 06:58] LABS: Blood Urea Nitrogen 149 mg/dL (9-16)
[2024-08-30 07:25] VITALS: BP 147/73; PULSE 59; RESP 16; TEMP 36.2; O2SAT 97
[2024-08-30 07:32] LABS: Glucose, Whole Blood 268 mg/dL (60-115)
[2024-08-30 08:12] LABS: Magnesium 2.9 mg/dL (1.6-2.6)
[2024-08-30] MEDS: Tamsulosin HCL 0.4 MG CAPSULE PO (08:16)
[2024-08-30] MEDS: Finasteride 5 MG TABLET PO (08:16)
[2024-08-30] MEDS: Insulin Glargine,Hum.rec.anlog 100 UNIT/ML 10 ML VIAL 10 UNIT SUBCUT (08:16)
[2024-08-30] MEDS: Furosemide 40 MG/4 ML VIAL IVPUSH (08:17)
[2024-08-30] MEDS: Amiodarone HCL 200 MG TABLET PO (08:17)
[2024-08-30] MEDS: Cholecalciferol (Vitamin D3) 25 MCG TABLET PO (08:17)
[2024-08-30] MEDS: Apixaban 2.5 MG TABLET PO ×2 (08:17→19:30)
[2024-08-30] MEDS: Insulin Lispro 100 UNIT/ML 3 ML VIAL SUBCUT ×4 (08:17→20:34)
[2024-08-30] MEDS: Metoprolol Succinate ER 50 MG TAB.ER.24H PO (08:17)
[2024-08-30] MEDS: 0.9 % Sodium Chloride Flush 3 ML SYRINGE IVFLUSH ×3 (08:17→20:35)
[2024-08-30] MEDS: oxyCODONE HCl Immed Release 5 MG TABLET PO ×2 (08:28→19:32)
[2024-08-30] MEDS: Lidocaine 4 % Patch ADH..PATCH 1 PATCH TRANSDERMA (08:40)
--- NOTE | 2024-08-30 11:07 | P.PNIM_ITS ---
Subjective Subjective Date of Service: 08/30/24 Interval History: c/o generalized body aching, chronic neck pain thirsty afebrile Review of Systems Review of Systems: Yes all other systems are reviewed and are negative Physical Exam 2 Vital Signs: Vital Signs: Last Vital Signs Temp 97.2 F 08/30/24 07:25 Pulse 59 08/30/24 07:25 Resp 16 08/30/24 07:25 BP 147/73 H 08/30/24 07:25 Pulse Ox 97 08/30/24 07:25 O2 Del Method Room Air 08/30/24 07:25 BMI result Body Mass Index 29.0 Gen: in no acute distress HEENT: sclera anicteric, moist mucus membranes Neck: supple Lungs: clear to auscultation bilaterally Heart: regular rate and rhythm, no murmurs Abd: soft, non-tender, non-distended Ext: no edema Skin: warm/well-perfused Neuro: alert and oriented to self and place, no facial droop, no pronator drift, no unilateral weakness Psych: appropriate affect Objective Data Active Medications Acetaminophen (Acetaminophen 325 Mg Tablet) 650 mg PO Q6H PRN PRN Reason: Pain, Mild (Pain Scale 1-3), fever or headache Amiodarone HCl (Amiodarone Hcl 200 Mg Tablet) 200 mg PO DAILY [facility] Last Admin: 08/30/24 08:17 Dose: 200 mg Documented By: ERICA Apixaban (Apixaban 2.5 Mg Tablet) 2.5 mg PO BID [facility] Last Admin: 08/30/24 08:17 Dose: 2.5 mg Documented By: ERICA Calcium Carbonate (Calcium Carbonate 750 Mg Tab.Chew) 750 mg PO Q4H PRN PRN Reason: Heartburn Finasteride (Finasteride 5 Mg Tablet) 5 mg PO DAILY [facility] Last Admin: 08/30/24 08:16 Dose: 5 mg Documented By: ERICA Furosemide (Furosemide 40 Mg/4 Ml Vial) 40 mg IVPUSH BID@0900,1800 [facility]; Protocol Last Admin: 08/30/24 08:17 Dose: 40 mg Documented By: ERICA Glucose (Glucose Gel 15 Gm Gel..Gram.) 15 gm PO Q15M PRN; Protocol PRN Reason: per Hypoglycemia Standing Ord. Daptomycin 650 mg/ Sodium (Chloride) 63 mls @ 99.912 mls/hr IV Q48H [facility] Last Infusion: 08/28/24 14:14 Dose: Infused Documented By: JADE Insulin Glargine (Insulin Glargine,Hum.Rec.Anlog 100 Unit/Ml 10 Ml Vial) 10 unit SUBCUT DAILY [facility] Last Admin: 08/30/24 08:16 Dose: 10 unit Documented By: ERICA Insulin Human Lispro (Insulin Lispro 100 Unit/Ml 3 Ml Vial) 0 unit SUBCUT QIDACHS [facility]; Protocol Last Admin: 08/30/24 08:17 Dose: 9 unit Documented By: ERICA Lidocaine (Lidocaine 4 % Patch Adh..Patch) 1 patch TRANSDERMA DAILY [facility]; Protocol Last Admin: 08/30/24 08:40 Dose: 1 patch Documented By: ERICA Magnesium Hydroxide (Milk Of Magnesia 30 Ml Oral.Susp) 30 ml PO DAILY PRN PRN Reason: Constipation Melatonin (Melatonin 3 Mg Tablet) 6 mg PO BEDTIME PRN PRN Reason: Insomnia Metoprolol Succinate (Metoprolol Succinate Er 50 Mg Tab.Er.24h) 50 mg PO DAILY [facility]; Protocol Last Admin: 08/30/24 08:17 Dose: 50 mg Documented By: ERICA Ondansetron HCl (Ondansetron Hcl 4 Mg/2 Ml Vial) 4 mg IVPUSH Q8H PRN PRN Reason: Nausea and Vomiting Oxycodone HCl (Oxycodone Hcl Immed Release 5 Mg Tablet) 5 mg PO Q6H PRN PRN Reason: Pain, Severe (Pain Scale 7-10) Last Admin: 08/30/24 08:28 Dose: 5 mg Documented By: ERICA Sodium Chloride (0.9 % Sodium Chloride Flush 3 Ml Syringe) 3 ml IVFLUSH QSHIFT [facility] Last Admin: 08/30/24 08:17 Dose: 3 ml Documented By: ERICA Tamsulosin HCl (Tamsulosin Hcl 0.4 Mg Capsule) 0.4 mg PO DAILY [facility] Last Admin: 08/30/24 08:16 Dose: 0.4 mg Documented By: ERICA Vitamin D (Cholecalciferol (Vitamin D3) 25 Mcg Tablet) 25 mcg PO DAILY [facility] Last Admin: 08/30/24 08:17 Dose: 25 mcg Documented By: ERICA Labs 08/30/24 06:13 08/30/24 06:13 Labs: Laboratory Results - last 24 hr 08/29/24 08/29/24 08/29/24 06:10 11:26 16:09 MCV MCH MCHC RDW Plt Count MPV Immature Gran % (Auto) Neut % (Auto) Lymph % (Auto) [place] % (Auto) Eos % (Auto) Baso % (Auto) Lymph # (Auto) [place] # (Auto) Eos # (Auto) Baso # (Auto) Abs Immat Gran (auto) Absolute Neuts (auto) Absolute Nucleated RBC Nucleated RBC % (auto) Smear Tech's Comments Anion Gap Estim Creat Clear Calc Estimated GFR POC Glucose 358 H* 280 H Random Glucose Calcium Magnesium Total Bilirubin 0.4 Direct Bilirubin 0.2 AST 21 ALT 16 Alkaline Phosphatase 102 Lactate Dehydrogenase 332 H B-Natriuretic Peptide Total Protein 6.1 L Albumin 2.7 L 08/29/24 08/30/24 08/30/24 20:46 06:13 07:05 MCV 83.3 MCH 28.7 MCHC 34.4 RDW 16.8 H Plt Count 92 L D MPV 11.9 Immature Gran % (Auto) 3.7 H Neut % (Auto) 80.8 H Lymph % (Auto) 4.1 L [place] % (Auto) 11.0 Eos % (Auto) 0.1 Baso % (Auto) 0.3 Lymph # (Auto) 0.9 L [place] # (Auto) 2.4 H Eos # (Auto) 0.0 Baso # (Auto) 0.1 Abs Immat Gran (auto) 0.80 H Absolute Neuts (auto) 17.6 H Absolute Nucleated RBC 0.000 Nucleated RBC % (auto) 0.0 Smear Tech's Comments VERIFIED Anion Gap 22 H Estim Creat Clear Calc 12.3 Estimated GFR 13 POC Glucose 281 H 268 H Random Glucose 316 H Calcium 9.1 Magnesium 2.9 H Total Bilirubin Direct Bilirubin AST ALT Alkaline Phosphatase Lactate Dehydrogenase B-Natriuretic Peptide 603 H Total Protein Albumin Microbiology Microbiology Results: Microbiology 08/28/24 13:06 Blood Culture - Final Blood - Venous Staphylococcus aureus 08/28/24 13:06 Blood Culture - Preliminary Blood - Venous Prelim: GPC Gram Stain only 08/27/24 12:34 Gram Stain - Final Foot - Wound Routine Culture - Final Staphylococcus aureus Enterococcus faecalis 08/26/24 08:24 Blood Culture - Final Blood - Venous Staphylococcus aureus Enterococcus faecalis 08/26/24 08:19 Blood Culture - Final Blood - Venous Staphylococcus aureus Enterococcus faecalis Assessment and Plan (1) Bacteremia: Status: Acute (2) Encephalopathy: Status: Acute (3) Acute kidney injury superimposed on chronic kidney disease: Status: Acute Plan d5 84yo M with DM2, pAF on apixaban, SSS s/p PPM, HFrEF, NICM, HTN, CKD4, s/p TAVR presenting with AMS, lethargy, and dysarthria 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 global atrophy; atherosclerosis - MRI with multifocal acute infarcts scattered through the bilateral cerebral hemispheres and probably the right cerebellum most suggestive of embolic shower. 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 NDD1 solids/honey liquids MSSA/Enterococcus faecalis bacteremia - corresponds to wound microbiology; daptomycin 08/28- - per ID 6 wk IV ABX from 1st neg culture [surveillance drawn 08/28 and still positive; redraw today, 08/30]; will need Delgado to complete course - no acute source on CT A/P and no osteomyelitis on CT of the foot; suspect from wound but will also check CT neck to r/o osteo [though suboptimal as cannot give contrats] MASSIMO/CKD4 metabolic acidosis - continue diuresis; SCr improved today hyperNa - encourage free water intake, recheck BMP in AM acute/chronic HFrEF - diuresis as above; Cardiology following. Negative 2.1L cumulatively thus far. Monitor lytes, BNP. - continue metoprolol succinate pAF - continue amiodarone, metoprolol succinate - continue apixaban acute encephalopathy - likely due to stroke + infection - EEG 08/28 with diffuse encephalopathy thrombocytopenia - likely due to infection; Hematology agrees; improving BPH - continue tamsulosin + finasteride DM2 - judy-dose lispro incidental thyroid nodule - TSH normal; outpatient US VTE ppx - apixaban dispo - STR In my clinical judgment, the patient requires continued inpatient hospitalization for the following reasons: IV ABX, MASSIMO, bacteremia Total time managing care of this patient today: 50 minutes. Quality Stroke Does the patient have a stroke diagnosis?: No VTE Prior VTE?: No VTE Risk Level:: Medical - moderate - high VTE Device Contraindication: Treatment Not Indicated VTE Drug Contraindication: N/A - Med Ordered
[2024-08-30 11:20] VITALS: BP 127/61; PULSE 60; RESP 18; TEMP 36.6; O2SAT 94
[2024-08-30 11:25] LABS: Glucose, Whole Blood 306 mg/dL (60-115)
--- NOTE | 2024-08-30 11:46 | PM.PNCARD ---
Subjective Subjective Date of Service: 08/30/24 Interval history: Seen and examined patient and also discussed with girlfriend as well as son at the bedside. He still remains ill. Waxing and waning mental status. Even during the encounter, he seems awake at some point but then sleepy at other times. Wakes up for commands. States he does not feel too good. Review of Systems Review of Systems Yes all other systems are reviewed and are negative Constitutional: Reports as per HPI, Reports no additional constitutional complaints, Reports fatigue, Reports lethargy, Reports malaise and Reports weakness Eyes: Reports as per HPI and Denies no additional eye complaints Denies system reviewed and no additional complaints, except as documented, Reports as per HPI and Reports neck pain Cardiovascular: Reports as per HPI, Reports no additional cardiovascular complaints, Denies acrocyanosis, Denies cool extremities, Denies chest pain, Denies leg edema, Denies lightheadedness, Denies palpitations and Denies dyspnea Respiratory: Reports as per HPI, Denies no additional respiratory complaints and Denies dyspnea Gastrointestinal: Reports as per HPI and Denies no additional gastrointestinal complaints Genitourinary: Reports no additional male genitourinary complaints and Reports as per HPI Musculoskeletal: Reports no additional musculoskeletal complaints, Reports as per HPI and Reports neck pain Skin/Breast: Reports system reviewed and no additional complaints, except as docu Reports system reviewed and no additional complaints, except as documented, Reports as per HPI and Reports weakness Psychiatric: Reports no additional psychiatric complaints and Reports as per HPI Endocrine: Reports no additional endocrine complaints, Reports as per HPI, Reports fatigue and Denies palpitations Hematologic/Lymphatic: Reports no additional hematologic/lymphatic complaints and Reports as per HPI Allergic/Immunologic: Reports no additional allergic/immunologic complaints and Reports as per HPI Physical Exam Vital Signs: Last Vital Signs Temp 97.8 F 08/30/24 11:20 Pulse 60 08/30/24 11:20 Resp 18 08/30/24 11:20 BP 127/61 08/30/24 11:20 Pulse Ox 94 08/30/24 11:20 O2 Del Method Room Air 08/30/24 11:20 BMI result Body Mass Index 29.0 Const General: ill appearing, lethargic, patient obtunded and tired appearing Orientation/consciousness: No patient oriented x3, patient obtunded and lethargic HEENT Other: Unremarkable Head: Yes normal to inspection Neck Neck: Yes normal visual inspection Chest Chest palpation & inspection: normal inspection of the chest Resp Auscultation: clear to auscultation bilaterally Cardio Palpation: normal PMI Heart sounds: S1 normal heart sound present, S2 normal heart sound present, no gallops, Murmur heart sound present systolic II/ and at the right sternal border and no rubs GI Palpation (GI): Soft to palpation Back/Spine/Pelvis Other: unremarkable Skin General skin exam: no rashes or lesions noted Neuro Other: No focal deficits General: No patient oriented x3 and patient obtunded Extrem General: Yes normal to inspection Psych Mental Status: mental status grossly abnormal Objective Labs and Meds 08/30/24 06:13 08/30/24 06:13 Lab results: Laboratory Results - last 24 hr 08/29/24 08/29/24 08/29/24 06:10 16:09 20:46 WBC RBC Hgb Hct MCV MCH MCHC RDW Plt Count MPV Immature Gran % (Auto) Neut % (Auto) Lymph % (Auto) [place] % (Auto) Eos % (Auto) Baso % (Auto) Lymph # (Auto) [place] # (Auto) Eos # (Auto) Baso # (Auto) Abs Immat Gran (auto) Absolute Neuts (auto) Absolute Nucleated RBC Nucleated RBC % (auto) Smear Tech's Comments Sodium Potassium Chloride Carbon Dioxide Anion Gap BUN Creatinine Estim Creat Clear Calc Estimated GFR POC Glucose 280 H 281 H Random Glucose Calcium Magnesium Total Bilirubin 0.4 Direct Bilirubin 0.2 AST 21 ALT 16 Alkaline Phosphatase 102 Lactate Dehydrogenase 332 H B-Natriuretic Peptide Total Protein 6.1 L Albumin 2.7 L 08/30/24 08/30/24 08/30/24 06:13 07:05 11:19 WBC 21.7 H RBC 4.50 L Hgb 12.9 L Hct 37.5 L MCV 83.3 MCH 28.7 MCHC 34.4 RDW 16.8 H Plt Count 92 L D MPV 11.9 Immature Gran % (Auto) 3.7 H Neut % (Auto) 80.8 H Lymph % (Auto) 4.1 L [place] % (Auto) 11.0 Eos % (Auto) 0.1 Baso % (Auto) 0.3 Lymph # (Auto) 0.9 L [place] # (Auto) 2.4 H Eos # (Auto) 0.0 Baso # (Auto) 0.1 Abs Immat Gran (auto) 0.80 H Absolute Neuts (auto) 17.6 H Absolute Nucleated RBC 0.000 Nucleated RBC % (auto) 0.0 Smear Tech's Comments VERIFIED Sodium 150 H Potassium 4.5 Chloride 116 H Carbon Dioxide 17 L Anion Gap 22 H BUN 149 H Creatinine 4.29 H* Estim Creat Clear Calc 12.3 Estimated GFR 13 POC Glucose 268 H 306 H Random Glucose 316 H Calcium 9.1 Magnesium 2.9 H Total Bilirubin Direct Bilirubin AST ALT Alkaline Phosphatase Lactate Dehydrogenase B-Natriuretic Peptide 603 H Total Protein Albumin Imaging Radiologist's impression: Impressions Brain MRI 08/29/24 12:45 IMPRESSION: -Multifocal acute infarcts scattered through the bilateral cerebral hemispheres and probably the right cerebellum most suggestive of embolic shower. No hemorrhagic transformation. -Chronic microangiopathy and global cerebral atrophy. Electronically signed by: Ariana Aguilera MD 08/29/2024 01:34 PM [facility] [place], [place] Progress Note: A&P Assessment and plan (1) Encephalopathy: Status: Acute (2) Altered mental status: Status: Acute (3) Status post aortic valve replacement: Status: Acute (4) Nonischemic cardiomyopathy: Status: Acute (5) Sick sinus syndrome: Status: Acute (6) Cardiac pacemaker in situ: Status: Acute (7) Bacteremia: Status: Acute Plan Overall, bacteremia, positive cultures for Staphylococcus aureus/Enterococcus. Wound culture also shows the same. Labs show leukocytosis, thrombocytopenia, acute on chronic renal failure. In the echocardiogram, LVEF is 54%. With regard to the bioprosthetic aortic valve, increased gradients which could be related to valve degeneration versus infection. MRI shows multifocal acute infarcts, suggestive of embolic. Overall, suspect bacteremia, endocarditis, delirium, renal failure, thrombocytopenia. His mental status is waxing and waning. Considering the clinical status, he is not a good candidate for MAYDA/cardioversion and even if this is strongly positive, still he will not be a candidate for cardiac surgery. Extremely high risk of mortality and with surgery. We discussed about these today. For the time being, continue antibiotics. Apparently daughter is coming from [place] today and will discuss with her. To discuss with Nephrology regarding renal parameters and electrolytes. Goals of care will need to be decided. We will follow. Discussed with Dr. Jyothi. Time Spent With Patient Time: Total time managing care of this patient today ____ minutes. Progress Note: Quality Stroke Does the patient have a stroke diagnosis?: No Procedures Date of Service Date of Service: 08/30/24
--- NOTE | 2024-08-30 12:49 | MHC.CM.PN ---
PT is recommending STR; CM will follow.
[2024-08-30] MEDS: DAPTOmycin 650 MG in 0.9 % Sodium Chloride 50 ML 99.91 MG IV (12:52)
[2024-08-30 15:17] VITALS: BP 112/65; PULSE 61; RESP 17; TEMP 36.3; O2SAT 94
[2024-08-30 16:06] LABS: Glucose, Whole Blood 253 mg/dL (60-115)
[2024-08-30] MEDS: Acetaminophen 325 MG TABLET 650 MG PO (19:30)
[2024-08-30 19:51] VITALS: BP 118/67; PULSE 61; RESP 20; TEMP 37.1; O2SAT 95
[2024-08-30 20:09] LABS: Glucose, Whole Blood 188 mg/dL (60-115)
[2024-08-30 23:50] VITALS: BP 121/61; PULSE 60; RESP 20; TEMP 36.8; O2SAT 94
[2024-08-31 04:00] VITALS: BP 117/59; PULSE 60; RESP 20; TEMP 36.1; O2SAT 96
[2024-08-31 07:13] VITALS: BP 137/65; PULSE 60; RESP 18; TEMP 36.2; O2SAT 95
[2024-08-31 07:20] LABS: Glucose, Whole Blood 305 mg/dL (60-115)
[2024-08-31 07:41] LABS: Basophils Absolute Auto 0.1 X10*3/uL (0.0-0.2); Basophils Percent Auto 0.3 % (0-2); Eosinophils Percent Auto 0.1 % (0-4); Hematocrit 36.3 % (42.0-52.0); Hemoglobin 12.3 g/dl (14.0-18.0); Imm Gran Abs Auto 0.81 X10*3/uL (0.00-0.03); Imm Gran Pct Auto 2.7 % (0.0-0.4); Lymphocytes Absolute Auto 1.1 X10*3/uL (1.2-4.9); Lymphocytes Percent Auto 3.7 % (20-40); MANUAL DIFF FLAG SCAN; Mean Corpuscular HGB Conc 33.9 g/dl (31.0-36.0); Mean Corpuscular Hemoglobin 28.5 pg (27.0-33.0); Mean Corpuscular Volume 84.2 fL (80.0-98.0); Mean Platelet Volume 11.8 fL (9.4-12.4); Monocytes Absolute Auto 2.2 X10*3/uL (0.1-1.2); Monocytes Percent Auto 7.5 % (2-11); Neutrophils Absolute Auto 25.5 x10*3/uL (2.0-8.3); Neutrophils Percent Auto 85.7 % (45-73); Platelet Count 124 X10*3/uL (160-400); Red Blood Count 4.31 X10*6/uL (4.60-5.80); Red Cell Distribution Width 16.7 % (11.0-16.0); SCAN SMEAR FLAG 1; White Blood Count 29.8 X10*3/uL (4.8-10.8)
[2024-08-31 07:52] LABS: Anion Gap 22 (12-20); Calcium 8.8 mg/dL (8.4-10.2); Carbon Dioxide 16 mmol/L (22-29); Chloride 117 mmol/L (96-108); Creatinine Clr Calc Pharmacy 11.2; Estimated Glomerular Filt Rate 12; Glucose Random 345 mg/dL (60-115); Magnesium 3.1 mg/dL (1.6-2.6); Potassium 4.9 mmol/L (3.3-5.1); Sodium 150 mmol/L (135-145)
[2024-08-31 07:53] LABS: B Type Natriuretic Peptide 265 pg/mL (<100)
[2024-08-31 07:56] LABS: SLIDE REVIEW VERIFIED
[2024-08-31 08:03] LABS: Blood Urea Nitrogen 177 mg/dL (9-16)
[2024-08-31] MEDS: oxyCODONE HCl Immed Release 5 MG TABLET PO ×3 (08:48→21:10)
[2024-08-31] MEDS: Amiodarone HCL 200 MG TABLET PO (08:48)
[2024-08-31] MEDS: Metoprolol Succinate ER 50 MG TAB.ER.24H PO (08:48)
[2024-08-31] MEDS: Insulin Lispro 100 UNIT/ML 3 ML VIAL SUBCUT ×4 (08:49→21:11)
[2024-08-31] MEDS: Insulin Glargine,Hum.rec.anlog 100 UNIT/ML 10 ML VIAL 12 UNIT SUBCUT (08:49)
[2024-08-31] MEDS: Finasteride 5 MG TABLET PO (08:49)
[2024-08-31] MEDS: Tamsulosin HCL 0.4 MG CAPSULE PO (08:49)
[2024-08-31] MEDS: Cholecalciferol (Vitamin D3) 25 MCG TABLET PO (08:49)
[2024-08-31] MEDS: Apixaban 2.5 MG TABLET PO ×2 (08:49→21:11)
[2024-08-31] MEDS: 0.9 % Sodium Chloride Flush 3 ML SYRINGE IVFLUSH ×3 (09:25→21:18)
[2024-08-31] MEDS: Lidocaine 4 % Patch ADH..PATCH 1 PATCH TRANSDERMA (09:34)
[2024-08-31 09:59] LABS: C Reactive Protein 17.69 mg/dL (< or = 0.50)
--- NOTE | 2024-08-31 10:08 | PM.PNCARD ---
Subjective Subjective Date of Service: 08/31/24 Interval history: He continues to be ill. He states that his whole body is hurting. No clear-cut cardiac specific symptoms. Review of Systems Review of Systems Unable to obtain full review of systems due to confusion. Yes all other systems are reviewed and are negative Constitutional: Reports as per HPI, Reports body ache(s), Reports fatigue, Reports lethargy, Reports malaise and Reports weakness Eyes: Reports as per HPI and Denies no additional eye complaints Denies system reviewed and no additional complaints, except as documented, Reports as per HPI and Reports neck pain Cardiovascular: Reports as per HPI, Reports no additional cardiovascular complaints, Denies acrocyanosis, Denies cool extremities, Denies chest pain, Denies leg edema, Denies lightheadedness, Denies palpitations and Denies dyspnea Respiratory: Reports as per HPI, Denies no additional respiratory complaints and Denies dyspnea Gastrointestinal: Reports as per HPI and Denies no additional gastrointestinal complaints Genitourinary: Reports no additional male genitourinary complaints and Reports as per HPI Musculoskeletal: Reports no additional musculoskeletal complaints, Reports as per HPI, Reports back pain, Reports myalgias and Reports neck pain Skin/Breast: Reports system reviewed and no additional complaints, except as docu Reports system reviewed and no additional complaints, except as documented, Reports as per HPI and Reports weakness Psychiatric: Reports no additional psychiatric complaints and Reports as per HPI Endocrine: Reports no additional endocrine complaints, Reports as per HPI, Reports fatigue and Denies palpitations Hematologic/Lymphatic: Reports no additional hematologic/lymphatic complaints and Reports as per HPI Allergic/Immunologic: Reports no additional allergic/immunologic complaints and Reports as per HPI Physical Exam Vital Signs: Last Vital Signs Temp 97.2 F 08/31/24 07:13 Pulse 60 08/31/24 07:13 Resp 18 08/31/24 07:13 BP 137/65 08/31/24 07:13 Pulse Ox 95 08/31/24 07:13 O2 Del Method Room Air 08/31/24 07:13 BMI result Body Mass Index 29.0 Const General: ill appearing, lethargic and tired appearing Orientation/consciousness: No patient oriented x3 and lethargic HEENT Other: Unremarkable Head: Yes normal to inspection Neck Neck: Yes normal visual inspection Chest Chest palpation & inspection: normal inspection of the chest Resp Auscultation: clear to auscultation bilaterally Cardio Palpation: normal PMI Heart sounds: S1 normal heart sound present, S2 normal heart sound present, no gallops, Murmur heart sound present systolic II/ and at the right sternal border and no rubs GI Palpation (GI): Soft to palpation Back/Spine/Pelvis Other: unremarkable Skin General skin exam: no rashes or lesions noted Neuro Other: No focal deficits General: No patient oriented x3 Extrem General: Yes normal to inspection Psych Mental Status: mental status grossly abnormal Objective Labs and Meds 08/31/24 06:24 08/31/24 06:24 Lab results: Laboratory Results - last 24 hr 08/30/24 08/30/24 08/30/24 11:19 16:01 20:02 WBC RBC Hgb Hct MCV MCH MCHC RDW Plt Count MPV Immature Gran % (Auto) Neut % (Auto) Lymph % (Auto) [place] % (Auto) Eos % (Auto) Baso % (Auto) Lymph # (Auto) [place] # (Auto) Eos # (Auto) Baso # (Auto) Abs Immat Gran (auto) Absolute Neuts (auto) Absolute Nucleated RBC Nucleated RBC % (auto) Smear Tech's Comments Sodium Potassium Chloride Carbon Dioxide Anion Gap BUN Creatinine Estim Creat Clear Calc Estimated GFR POC Glucose 306 H 253 H 188 H Random Glucose Calcium Magnesium C-Reactive Protein B-Natriuretic Peptide 08/31/24 08/31/24 06:24 07:08 WBC 29.8 H RBC 4.31 L Hgb 12.3 L Hct 36.3 L MCV 84.2 MCH 28.5 MCHC 33.9 RDW 16.7 H Plt Count 124 L D MPV 11.8 Immature Gran % (Auto) 2.7 H Neut % (Auto) 85.7 H Lymph % (Auto) 3.7 L [place] % (Auto) 7.5 Eos % (Auto) 0.1 Baso % (Auto) 0.3 Lymph # (Auto) 1.1 L [place] # (Auto) 2.2 H Eos # (Auto) 0.0 Baso # (Auto) 0.1 Abs Immat Gran (auto) 0.81 H Absolute Neuts (auto) 25.5 H Absolute Nucleated RBC 0.000 Nucleated RBC % (auto) 0.0 Smear Tech's Comments VERIFIED Sodium 150 H Potassium 4.9 Chloride 117 H Carbon Dioxide 16 L Anion Gap 22 H BUN 177 H Creatinine 4.72 H* Estim Creat Clear Calc 11.2 Estimated GFR 12 POC Glucose 305 H Random Glucose 345 H Calcium 8.8 Magnesium 3.1 H C-Reactive Protein 17.69 H B-Natriuretic Peptide 265 H Imaging Radiologist's impression: Impressions Cervical Spine CT 08/30/24 11:03 IMPRESSION: 1. No evidence of acute fracture or traumatic subluxation of the cervical spine. 2. Multiple hypodense bilateral thyroid nodules, largest right-sided nodule measuring up to 1 cm and the largest left-sided nodule measuring up to 1.5 cm. If clinically warranted, consider nonemergent thyroid ultrasound for further assessment. Electronically signed by: Sarah Albert DO 08/30/2024 04:32 PM [facility] [place] Workstation: [id number] Progress Note: A&P Assessment and plan (1) Encephalopathy: Status: Acute (2) Altered mental status: Status: Acute (3) Status post aortic valve replacement: Status: Acute (4) Nonischemic cardiomyopathy: Status: Acute (5) Sick sinus syndrome: Status: Acute (6) Cardiac pacemaker in situ: Status: Acute (7) Bacteremia: Status: Acute Plan Bacteremia, positive cultures for Staphylococcus aureus/Enterococcus. Wound culture also shows the same. Labs show leukocytosis, thrombocytopenia, acute on chronic renal failure. In the echocardiogram, LVEF is 54%. With regard to the bioprosthetic aortic valve, increased gradients which could be related to valve degeneration versus infection. MRI shows multifocal acute infarcts, suggestive of embolic. Overall, suspect bacteremia from leg wound, endocarditis, delirium, renal failure, thrombocytopenia. His mental status is waxing and waning. Discussed clinical issues with his daughter who has come from [place] as well as the son. Daughter herself is an RN and she understands issues well. We discussed at length his clinical situation as well as biochemical markers. Overall, he seems to be rather declining to me. White cell count is going higher and the kidney function is also getting worse. In this context, we discussed about various treatment options including aggressive care which will need a MAYDA but will also be a high-risk case considering his overall clinical status. Even if that is going to be positive for aortic valve vegetation, he is not a candidate for open heart surgery and hence the findings on MAYDA will not influence management. We further discussed about keeping him on just antibiotics but that may land up being futile as the white cell count is still going up. Finally, we also discussed about goals of care/hospice and they might go that route but would like to further clarify with other family members. Hence definitive plan to be decided. For the time being, continue current level of care. Continue antibiotics. No invasive measures planned and this has been clarified with family multiple times. They are in agreement with the above. 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 Discussed with Dr. Roe. Time Spent With Patient Time: Total time managing care of this patient today ____ minutes. Progress Note: Quality Stroke Does the patient have a stroke diagnosis?: No Procedures Date of Service Date of Service: 08/31/24
[2024-08-31 11:15] VITALS: BP 124/63; PULSE 60; RESP 18; TEMP 36.4; O2SAT 96
[2024-08-31 11:21] LABS: Glucose, Whole Blood 350 mg/dL (60-115)
--- NOTE | 2024-08-31 12:18 | P.PNIM_ITS ---
Subjective Subjective Date of Service: 08/31/24 Interval History: having some visual difficulties- seeing stars no fever but endorses feeling hot no dyspnea or cough BUN/Cr worse Review of Systems Review of Systems: Yes all other systems are reviewed and are negative Physical Exam 2 Vital Signs: Vital Signs: Last Vital Signs Temp 97.5 F 08/31/24 11:15 Pulse 60 08/31/24 11:15 Resp 18 08/31/24 11:15 BP 124/63 08/31/24 11:15 Pulse Ox 96 08/31/24 11:15 O2 Del Method Room Air 08/31/24 11:15 BMI result Body Mass Index 29.0 Gen: in NAD but weak/ill-appearing HEENT: sclera anicteric, moist mucus membranes Neck: supple Lungs: clear to auscultation bilaterally Heart: regular rate and rhythm, no murmurs Abd: soft, non-tender, non-distended Ext: no edema Skin: warm/well-perfused Neuro: alert and oriented to self and place, no facial droop, no pronator drift, no unilateral weakness Psych: appropriate affect Objective Data Active Medications Acetaminophen (Acetaminophen 325 Mg Tablet) 650 mg PO Q6H PRN PRN Reason: Pain, Mild (Pain Scale 1-3), fever or headache Last Admin: 08/30/24 19:30 Dose: 650 mg Documented By: JAMIE Amiodarone HCl (Amiodarone Hcl 200 Mg Tablet) 200 mg PO DAILY [facility] Last Admin: 08/31/24 08:48 Dose: 200 mg Documented By: ERICA Apixaban (Apixaban 2.5 Mg Tablet) 2.5 mg PO BID [facility] Last Admin: 08/31/24 08:49 Dose: 2.5 mg Documented By: ERICA Calcium Carbonate (Calcium Carbonate 750 Mg Tab.Chew) 750 mg PO Q4H PRN PRN Reason: Heartburn Finasteride (Finasteride 5 Mg Tablet) 5 mg PO DAILY [facility] Last Admin: 08/31/24 08:49 Dose: 5 mg Documented By: ERICA Glucose (Glucose Gel 15 Gm Gel..Gram.) 15 gm PO Q15M PRN; Protocol PRN Reason: per Hypoglycemia Standing Ord. Daptomycin 650 mg/ Sodium (Chloride) 63 mls @ 99.912 mls/hr IV Q48H [facility] Last Infusion: 08/30/24 13:30 Dose: Infused Documented By: ERICA Insulin Glargine (Insulin Glargine,Hum.Rec.Anlog 100 Unit/Ml 10 Ml Vial) 12 unit SUBCUT DAILY [facility] Last Admin: 08/31/24 08:49 Dose: 12 unit Documented By: ERICA Insulin Human Lispro (Insulin Lispro 100 Unit/Ml 3 Ml Vial) 0 unit SUBCUT QIDACHS [facility]; Protocol Last Admin: 08/31/24 12:12 Dose: 18 unit Documented By: ERICA Comments: per MD, give 18 Lidocaine (Lidocaine 4 % Patch Adh..Patch) 1 patch TRANSDERMA DAILY [facility]; Protocol Last Admin: 08/31/24 09:34 Dose: 1 patch Documented By: ERICA Magnesium Hydroxide (Milk Of Magnesia 30 Ml Oral.Susp) 30 ml PO DAILY PRN PRN Reason: Constipation Melatonin (Melatonin 3 Mg Tablet) 6 mg PO BEDTIME PRN PRN Reason: Insomnia Metoprolol Succinate (Metoprolol Succinate Er 50 Mg Tab.Er.24h) 50 mg PO DAILY [facility]; Protocol Last Admin: 08/31/24 08:48 Dose: 50 mg Documented By: ERICA Ondansetron HCl (Ondansetron Hcl 4 Mg/2 Ml Vial) 4 mg IVPUSH Q8H PRN PRN Reason: Nausea and Vomiting Oxycodone HCl (Oxycodone Hcl Immed Release 5 Mg Tablet) 5 mg PO Q6H PRN PRN Reason: Pain, Severe (Pain Scale 7-10) Last Admin: 08/31/24 08:48 Dose: 5 mg Documented By: ERICA Sodium Chloride (0.9 % Sodium Chloride Flush 3 Ml Syringe) 3 ml IVFLUSH QSHIFT [facility] Last Admin: 08/31/24 09:25 Dose: 3 ml Documented By: ERICA Tamsulosin HCl (Tamsulosin Hcl 0.4 Mg Capsule) 0.4 mg PO DAILY [facility] Last Admin: 08/31/24 08:49 Dose: 0.4 mg Documented By: ERICA Vitamin D (Cholecalciferol (Vitamin D3) 25 Mcg Tablet) 25 mcg PO DAILY [facility] Last Admin: 08/31/24 08:49 Dose: 25 mcg Documented By: ERICA Labs 08/31/24 06:24 08/31/24 06:24 Labs: Laboratory Results - last 24 hr 08/30/24 08/30/24 08/31/24 16:01 20:02 06:24 MCV 84.2 MCH 28.5 MCHC 33.9 RDW 16.7 H Plt Count 124 L D MPV 11.8 Immature Gran % (Auto) 2.7 H Neut % (Auto) 85.7 H Lymph % (Auto) 3.7 L [place] % (Auto) 7.5 Eos % (Auto) 0.1 Baso % (Auto) 0.3 Lymph # (Auto) 1.1 L [place] # (Auto) 2.2 H Eos # (Auto) 0.0 Baso # (Auto) 0.1 Abs Immat Gran (auto) 0.81 H Absolute Neuts (auto) 25.5 H Absolute Nucleated RBC 0.000 Nucleated RBC % (auto) 0.0 Smear Tech's Comments VERIFIED Anion Gap 22 H Estim Creat Clear Calc 11.2 Estimated GFR 12 POC Glucose 253 H 188 H Random Glucose 345 H Calcium 8.8 Magnesium 3.1 H C-Reactive Protein 17.69 H B-Natriuretic Peptide 265 H 08/31/24 08/31/24 07:08 11:14 MCV MCH MCHC RDW Plt Count MPV Immature Gran % (Auto) Neut % (Auto) Lymph % (Auto) [place] % (Auto) Eos % (Auto) Baso % (Auto) Lymph # (Auto) [place] # (Auto) Eos # (Auto) Baso # (Auto) Abs Immat Gran (auto) Absolute Neuts (auto) Absolute Nucleated RBC Nucleated RBC % (auto) Smear Tech's Comments Anion Gap Estim Creat Clear Calc Estimated GFR POC Glucose 305 H 350 H* Random Glucose Calcium Magnesium C-Reactive Protein B-Natriuretic Peptide Microbiology Microbiology Results: Microbiology 08/30/24 06:13 Blood Culture - Preliminary Blood - Venous Prelim: GPC Gram Stain only 08/28/24 13:06 Blood Culture - Final Blood - Venous Staphylococcus aureus 08/28/24 13:06 Blood Culture - Preliminary Blood - Venous Enterococcus/Streptococcus sp 08/30/24 06:13 Blood Culture - Preliminary Blood - Venous No growth after 24 hours. 08/27/24 12:34 Gram Stain - Final Foot - Wound Routine Culture - Final Staphylococcus aureus Enterococcus faecalis Assessment and Plan (1) Bacteremia: Status: Acute (2) Encephalopathy: Status: Acute (3) Acute kidney injury superimposed on chronic kidney disease: Status: Acute Plan d6 84yo M with DM2, pAF on apixaban, SSS s/p PPM, HFrEF, NICM, HTN, CKD4, s/p TAVR presenting with AMS, lethargy, and dysarthria 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 global atrophy; atherosclerosis - MRI with multifocal acute infarcts scattered through the bilateral cerebral hemispheres and probably the right cerebellum most suggestive of embolic shower. - CTA head/neck without high-grade stenosis - on anticoagulation; per Cardiology not a good MAYDA candidate; continue antibiotics for now - PT/OT recommend STR upon discharge - per WELDER FITTER APPRENTICE NDD1 solids/honey liquids MSSA/Enterococcus faecalis bacteremia - corresponds to wound microbiology; daptomycin 08/28- - per ID 6 wk IV ABX from 1st neg culture but has not cleared yet- blood cultures from 08/28 and 08/30 still positive; will discuss with ID - will eventually need Delgado to complete course - no acute source on CT A/P and no osteomyelitis on CT of the foot; suspect from wound MASSIMO/CKD4 metabolic acidosis - diuresis stopped [negative 3L cumulatively]; BUN/Cr worse and at high risk of progressing to HD dependence; will discuss with Nephrology hyperNa - encourage free water intake, recheck BMP in AM acute/chronic HFrEF - diuresis as above; Cardiology following. Negative 3L cumulatively thus far. - continue metoprolol succinate pAF - continue amiodarone, metoprolol succinate - continue apixaban acute encephalopathy - likely due to stroke + infection - EEG 08/28 with diffuse encephalopathy thrombocytopenia - likely due to infection; Hematology agrees; improving BPH - continue tamsulosin + finasteride DM2 - judy-dose lispro incidental thyroid nodule - TSH normal; outpatient US VTE ppx - apixaban dispo - STR In my clinical judgment, the patient requires continued inpatient hospitalization for the following reasons: IV ABX, MASSIMO, bacteremia Total time managing care of this patient today: 50 minutes. Quality Stroke Does the patient have a stroke diagnosis?: No VTE Prior VTE?: No VTE Risk Level:: Medical - moderate - high VTE Device Contraindication: Treatment Not Indicated VTE Drug Contraindication: N/A - Med Ordered
--- NOTE | 2024-08-31 12:54 | MHC.CM.PN ---
Per MD's request, TIFFANI has asked [facility] to conduct a Hospice Informational; family is meeting today at 5PM to discuss the possibility of home with Hospice and if they are all in agreement, they will present the idea to Patient. TIFFANI will follow.
--- NOTE | 2024-08-31 13:32 | MHC.CM.PN ---
[facility] would not be able to admit Patient to Hospice until 09/04/2024 and the goal is home tomorrow if family and Patient ultimately agree on this plan. CM has referred to [facility]. CM will follow.
--- NOTE | 2024-08-31 14:11 | MHC.CM.PN ---
[facility] will be able to reach out to Son shortly after 3PM today; CM will follow. is aware.
[2024-08-31 15:15] VITALS: BP 141/81; PULSE 108; RESP 18; TEMP 36.2; O2SAT 100
[2024-08-31 15:23] VITALS: BP 108/58; PULSE 60; RESP 18; TEMP 36.6; O2SAT 98
--- NOTE | 2024-08-31 17:01 | W.MHC.ACPN ---
Advanced Care Planning Note Advanced Care Planning Note Discussed with: family member(s) Time spent (in minutes): 20 Narrative: Discussed pt's worsening clinical status with his daughter/HCP and 2 sons. Concern for non-clearing bacteremia, worsening uremia/renal failure and patient's fluctuating mental status. In their opinion, the patient would not want to live like this and they asked him whether he wanted to continue treatment in the hospital, in the hospital, or at home. He chose going home to . Will arrange hospice services. MOLST filled out. Problems Discussed (1) Bacteremia: (2) Encephalopathy: (3) Acute kidney injury superimposed on chronic kidney disease:
[2024-08-31 17:08] LABS: Glucose, Whole Blood 191 mg/dL (60-115)
[2024-08-31 20:00] VITALS: BP 109/57; PULSE 60; RESP 18; TEMP 35.8; O2SAT 97
[2024-08-31 20:49] LABS: Glucose, Whole Blood 195 mg/dL (60-115)
[2024-09-01 00:01] LABS: Glucose, Whole Blood 202 mg/dL (60-115)
[2024-09-01] MEDS: oxyCODONE HCl Immed Release 5 MG TABLET PO ×2 (03:13→09:02)
[2024-09-01 03:14] VITALS: BP 102/55; PULSE 56; RESP 16; TEMP 36.4; O2SAT 98
[2024-09-01 07:36] LABS: Glucose, Whole Blood 269 mg/dL (60-115)
[2024-09-01 08:00] VITALS: BP 114/55; PULSE 61; RESP 17; TEMP 36.2; O2SAT 96
[2024-09-01] MEDS: Finasteride 5 MG TABLET PO (08:50)
[2024-09-01] MEDS: Tamsulosin HCL 0.4 MG CAPSULE PO (08:50)
[2024-09-01] MEDS: Metoprolol Succinate ER 50 MG TAB.ER.24H PO (08:50)
[2024-09-01] MEDS: Insulin Glargine,Hum.rec.anlog 100 UNIT/ML 10 ML VIAL 12 UNIT SUBCUT (08:50)
[2024-09-01] MEDS: Apixaban 2.5 MG TABLET PO (08:50)
[2024-09-01] MEDS: Amiodarone HCL 200 MG TABLET PO (08:50)
[2024-09-01] MEDS: Cholecalciferol (Vitamin D3) 25 MCG TABLET PO (08:50)
[2024-09-01] MEDS: Insulin Lispro 100 UNIT/ML 3 ML VIAL SUBCUT (08:50)
[2024-09-01] MEDS: 0.9 % Sodium Chloride Flush 3 ML SYRINGE IVFLUSH (09:03)
--- NOTE | 2024-09-01 09:15 | P.PNNP_ITS ---
Subjective Subjective Date of Service: 09/01/24 Interval history: Family at bedside Physical Exam 2 Vital Signs: Vital Signs: Last Vital Signs Temp 97.1 F 09/01/24 08:00 Pulse 61 09/01/24 08:00 Resp 17 09/01/24 08:00 BP 114/55 L 09/01/24 08:00 Pulse Ox 96 09/01/24 08:00 O2 Del Method Room Air 09/01/24 08:00 BMI result Body Mass Index 29.0 Objective Data Labs 08/31/24 06:24 08/31/24 06:24 Labs: Laboratory Results - last 24 hr 08/31/24 08/31/24 08/31/24 06:24 11:14 17:05 POC Glucose 350 H* 191 H C-Reactive Protein 17.69 H 08/31/24 08/31/24 09/01/24 20:43 23:57 07:08 POC Glucose 195 H 202 H 269 H C-Reactive Protein Microbiology Microbiology Results: Microbiology 08/30/24 06:13 Blood - Venous Blood Culture - Final Staphylococcus aureus 08/30/24 06:13 Blood - Venous Blood Culture - Final Staphylococcus aureus 08/28/24 13:06 Blood - Venous Blood Culture - Final Enterococcus faecalis 08/28/24 13:06 Blood - Venous Blood Culture - Final Staphylococcus aureus 08/27/24 12:34 Foot - Wound Gram Stain - Final 08/27/24 12:34 Foot - Wound Routine Culture - Final Staphylococcus aureus Enterococcus faecalis 08/26/24 08:24 Blood - Venous Blood Culture - Final Staphylococcus aureus Enterococcus faecalis 08/26/24 08:19 Blood - Venous Blood Culture - Final Staphylococcus aureus Enterococcus faecalis Procedures Date of Service Date of Service: 09/01/24 Assessment & Plan Assessment and plan (1) Acute kidney injury superimposed on chronic kidney disease: Status: Acute (2) Acute hyponatremia: Status: Acute (3) Bacteremia: Status: Acute (4) Congestive heart failure (CHF): Status: Acute Plan MASSIMO on CKD likely secondary to tubular injury No renal recovery Due to co morbids, he has been placed on hospice Time Spent With Patient Time: Total time managing care of this patient today ____ minutes. Progress Note: Quality Stroke Does the patient have a stroke diagnosis?: No
--- NOTE | 2024-09-01 09:49 | P.DS_ITS ---
DS: Providers Provider Date of Service: 09/01/24 Date of admission: 08/26/24 14:38 Date of discharge: 09/01/24 Primary care physician: Talat Paz DO Consults: 08/26/24 14:46 Consult to Neurology Routine Consulting Provider: [facility] Reason for consultation: stroke 08/27/24 07:48 Consult to Cardiology Routine Consulting Provider: [facility] Reason for consultation: ? CHF , eleveated BNP 08/27/24 07:49 Consult to Nephrology Routine Consulting Provider: [facility] Reason for consultation: MASSIMO 08/27/24 08:24 Consult to Wound Care Routine Reason for consultation: Wound to toes, redness to coccyx 08/27/24 11:43 Consult to Infectious Diseases Routine Consulting Provider: [facility] Reason for consultation: bacteremia 08/28/24 12:25 Consult to Hematology / Oncology Routine Consulting Provider: [facility] Oncology/Hematology Reason for consultation: thrombocytopenia Has provider been notified: No DS: Diagnosis Discharge Diagnosis (1) Acute kidney injury superimposed on chronic kidney disease: Status: Acute (2) Acute hyponatremia: Status: Acute (3) Bacteremia: Status: Acute (4) Congestive heart failure (CHF): Status: Acute (5) Hypernatremia: Status: Acute (6) Nonischemic cardiomyopathy: Status: Acute (7) Thrombocytopenia: Status: Acute (8) Diabetes mellitus with hyperglycemia: Status: Acute (9) Embolic stroke: Status: Acute (10) Encephalopathy due to infection: Status: Acute DS: Summary Hospital Course Hospital Course: From the history and physical by the admitting hospitalist, Haritha Robertson NP, 08/26/24: 84 yo male with PMH significant for CVA (30+ years ago without residual deficits), non-insulin dependent DM, diabetic polyneuropathy, diabetic bilateral foot wounds, s/p CKD, HTN, sick sinus syndrome w/ pacemaker, s/p TAVR, heart failure with reduced EF, paroxysmal Afib anticoagulated with Eliquis presents to the ED today via EMS from home for evaluation of altered mental status, and garbled disoriented speech per family. Family indicate he has not been feeling well generally over the last 3-4 days, was reporting chills intermittently but without knowledge of fevers, reduced PO intake, and appetite, had a couple of episodes of where he was unstable while walking, GF at bedisde notes the son found him to be sitting down on the ground in his room likely trying to ambulate to bathroom overnight- no apparent injury was noted except some discomfort with ROM to R arm/shoulder. 84yo M with DM2, pAF on apixaban, SSS s/p PPM, HFrEF, NICM, HTN, CKD4, s/p TAVR presenting with AMS, lethargy, and dysarthria. He was ultimately diagnosed with multiple CVAs and persistent bacteremia. 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 global atrophy; atherosclerosis - MRI with multifocal acute infarcts scattered through the bilateral cerebral hemispheres and probably the right cerebellum most suggestive of embolic shower. 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 In light of the above issues with non-clearing bacteremia, worsening mental sta tus, and worsening renal failure, goals of care were discussed with the patient's family. They were confident that the patient would not want further invasive treatment and when confronted with his poor prognosis, he elected to go home with hospice care and family support. Time Attestation Discharge Coordination Time (in mins): 45 Quality: Safe Use of Opioids Does Pt have an Active Cancer Diagnosis on the Problem List?: No Quality: Stroke Does the patient have a stroke diagnosis?: No Physical Exam Vital Signs: Vital Signs: Last Vital Signs Temp 97.1 F 09/01/24 08:00 Pulse 61 09/01/24 08:00 Resp 17 09/01/24 08:00 BP 114/55 L 09/01/24 08:00 Pulse Ox 96 09/01/24 08:00 O2 Del Method Room Air 09/01/24 08:00 BMI result Body Mass Index 29.0 Gen: in NAD but weak/ill-appearing HEENT: sclera anicteric, moist mucus membranes Neck: supple Lungs: diminished Heart: regular rate and rhythm, no murmurs Abd: soft, non-tender, non-distended Ext: no edema Skin: warm/well-perfused Neuro: somnolent Psych: impaired insight DS: Data Data Completed and Pending Completed studies during hospitalization [Text1]: Laboratory Results WBC 29.8 X10*3/uL (4.8-10.8) H 08/31/24 06:24 RBC 4.31 X10*6/uL (4.60-5.80) L 08/31/24 06:24 Hgb 12.3 g/dl (14.0-18.0) L 08/31/24 06:24 Hct 36.3 % (42.0-52.0) L 08/31/24 06:24 MCV 84.2 fL (80.0-98.0) 08/31/24 06:24 MCH 28.5 pg (27.0-33.0) 08/31/24 06:24 MCHC 33.9 g/dl (31.0-36.0) 08/31/24 06:24 RDW 16.7 % (11.0-16.0) H 08/31/24 06:24 Plt Count 124 X10*3/uL (160-400) L D 08/31/24 06:24 MPV 11.8 fL (9.4-12.4) 08/31/24 06:24 Immature Gran % (Auto) 2.7 % (0.0-0.4) H 08/31/24 06:24 Neut % (Auto) 85.7 % (45-73) H 08/31/24 06:24 Lymph % (Auto) 3.7 % (20-40) L 08/31/24 06:24 [place] % (Auto) 7.5 % (2-11) 08/31/24 06:24 Eos % (Auto) 0.1 % (0-4) 08/31/24 06:24 Baso % (Auto) 0.3 % (0-2) 08/31/24 06:24 Lymph # (Auto) 1.1 X10*3/uL (1.2-4.9) L 08/31/24 06:24 [place] # (Auto) 2.2 X10*3/uL (0.1-1.2) H 08/31/24 06:24 Eos # (Auto) 0.0 X10*3/uL (0.0-0.4) 08/31/24 06:24 Baso # (Auto) 0.1 X10*3/uL (0.0-0.2) 08/31/24 06:24 Abs Immat Gran (auto) 0.81 X10*3/uL (0.00-0.03) H 08/31/24 06:24 Absolute Neuts (auto) 25.5 x10*3/uL (2.0-8.3) H 08/31/24 06:24 Absolute Nucleated RBC 0.000 X10*3/uL (0.0-0.012) 08/31/24 06:24 Nucleated RBC % (auto) 0.0 /100WBC (0.0-0.2) 08/31/24 06:24 Neutrophils % (Manual) 80 % (45-73) H 08/28/24 08:49 Band Neutrophils % 9 % (3-5) H 08/28/24 08:49 Lymphocytes % (Manual) 2 % (20-40) L 08/28/24 08:49 Atypical Lymphs % (Man) 1 % (0-6) 08/28/24 08:49 Monocytes % (Manual) 7 % (2-11) 08/28/24 08:49 Metamyelocytes % 1 % 08/28/24 08:49 Abs Neuts (Manual) 13.6 X10*3/uL (2.0-8.3) H 08/28/24 08:49 Lymphocytes # (Manual) 0.3 X10*3/uL (1.2-4.9) L 08/28/24 08:49 Atyp Lymphs # (Manual) 0.2 x10*3/uL 08/28/24 08:49 Monocytes # (Manual) 1.1 X10*3/uL (0.1-1.2) 08/28/24 08:49 Metamyelocytes # 0.2 X10*3/uL 08/28/24 08:49 Toxic Vacuolation PRESENT 08/26/24 08:19 Dohle Bodies PRESENT 08/28/24 08:49 Platelet Estimate DECREASED (NORMAL) 08/28/24 08:49 Large Platelets PRESENT 08/28/24 08:49 Plt Morphology Comment NOTED 08/28/24 08:49 RBC Morphology NOTED 08/28/24 08:49 Tear Drop Cells 1+ (0-2) /OIF 08/28/24 08:49 Ovalocytes 1+ (5-14) /OIF 08/28/24 08:49 Micheal Cells 3+ (>5) /OIF 08/28/24 08:49 Acanthocytes (Spur) 2+ (3-5) /OIF 08/28/24 08:49 Smear Tech's Comments VERIFIED 08/31/24 06:24 PT 13.1 SEC (10.9-12.4) H D 08/28/24 13:06 Whole Blood PT 19.5 sec (11.1-13.5) H 08/26/24 07:46 INR 1.1 (0.9-1.1) 08/28/24 13:06 Whole Blood INR 1.6 (0.9-1.1) H 08/26/24 07:46 APTT 31.0 SEC (26.0-36.8) 08/28/24 13:06 Fibrinogen > 700 MG/DL (259-690) H 08/28/24 13:06 VBG pH 7.42 (7.32-7.43) 08/28/24 13:11 VBG pCO2 24 mmHg 08/28/24 13:11 VBG pO2 95 mmHg 08/28/24 13:11 VBG HCO3 16 mmol/L (22-26) L 08/28/24 13:11 VBG O2 Saturation 98.0 % 08/28/24 13:11 VBG Base Excess -6.4 mmol/L 08/28/24 13:11 Sodium 150 mmol/L (135-145) H 08/31/24 06:24 Potassium 4.9 mmol/L (3.3-5.1) 08/31/24 06:24 Chloride 117 mmol/L (96-108) H 08/31/24 06:24 Carbon Dioxide 16 mmol/L (22-29) L 08/31/24 06:24 Anion Gap 22 (12-20) H 08/31/24 06:24 BUN 177 mg/dL (9-16) H 08/31/24 06:24 Creatinine 4.72 mg/dL (0.5-1.4) H* 08/31/24 06:24 Estim Creat Clear Calc 11.2 08/31/24 06:24 Estimated GFR 12 08/31/24 06:24 POC Glucose 269 mg/dL (60-115) H 09/01/24 07:08 Random Glucose 345 mg/dL (60-115) H 08/31/24 06:24 Lactic Acid 2.0 mmol/L (0.5-2.0) 08/26/24 08:19 Calcium 8.8 mg/dL (8.4-10.2) 08/31/24 06:24 Magnesium 3.1 mg/dL (1.6-2.6) H 08/31/24 06:24 Total Bilirubin 0.4 mg/dL (0.0-1.0) 08/29/24 06:10 Direct Bilirubin 0.2 mg/dL (0.0-0.5) 08/29/24 06:10 AST 21 U/L (5-37) 08/29/24 06:10 ALT 16 U/L (0-40) 08/29/24 06:10 Alkaline Phosphatase 102 U/L (39-117) 08/29/24 06:10 Ammonia 25 umol/L (13-55) 08/26/24 08:19 Lactate Dehydrogenase 332 U/L (118-273) H 08/29/24 06:10 Total Creatine Kinase 98 U/L (38-174) 08/26/24 08:19 Troponin I High Sens 117.5 ng/L (<3.5-35.0) H* 08/26/24 11:52 C-Reactive Protein 17.69 mg/dL (< or = 0.50) H 08/31/24 06:24 B-Natriuretic Peptide 265 pg/mL (<100) H 08/31/24 06:24 Total Protein 6.1 g/dL (6.5-8.0) L 08/29/24 06:10 Albumin 2.7 g/dL (3.5-5.0) L 08/29/24 06:10 Triglycerides 180 mg/dL (<150) H 08/27/24 07:03 Cholesterol 84 mg/dL (<200) 08/27/24 07:03 LDL Cholesterol, Calc 39 mg/dL (<100) 08/27/24 07:03 HDL Cholesterol 9 mg/dL (>40) L 08/27/24 07:03 Lipase 38 U/L (8-78) 08/26/24 08:19 Beta-Hydroxybutyrate 1.34 mmol/L (0.02-0.27) H 08/28/24 07:33 TSH 1.62 uIU/mL (0.32-4.0) 08/26/24 08:19 Urine Color Yellow 08/26/24 09:15 Urine Appearance Clear 08/26/24 09:15 Urine pH 5.0 (5.0-9.0) 08/26/24 09:15 Ur Specific [place] 1.015 (1.005-1.025) 08/26/24 09:15 Urine Protein 30 (1+) mg/dL (Neg-Trace) H 08/26/24 09:15 Urine Glucose (UA) 100 mg/dL (Negative) H 08/26/24 09:15 Urine Ketones Negative mg/dL (Negative) 08/26/24 09:15 Urine Blood Negative (Negative) 08/26/24 09:15 Urine Nitrite Negative (Negative) 08/26/24 09:15 Ur Leukocyte Esterase Negative (Negative) 08/26/24 09:15 Urine RBC 0-2 /HPF (0-2) 08/26/24 09:15 Urine WBC 0-5 /HPF (0-5) 08/26/24 09:15 Ur Squamous Epith Cells 6-10 /HPF (0-2) 08/26/24 09:15 Urine Bacteria None Seen (None Seen) 08/26/24 09:15 Hyaline Casts 0-2 /LPF (0-2) 08/26/24 09:15 Nasal Screen MRSA (PCR) NEGATIVE (Negative) 08/27/24 10:26 Nasal S. aureus Screen POSITIVE (Negative) A 08/27/24 10:26 Nasal MRSA/S.aureus Interp SEE NOTE 08/27/24 10:26 Random Vancomycin 11.2 mcg/mL (15-20) L 08/28/24 12:13 Urine Opiates Screen Not Detected (Not Detect) 08/26/24 09:15 Ur Buprenorphine Scrn Not Detected ng/mL (Not Detect) 08/26/24 09:15 Ur Oxycodone Screen Not Detected ng/mL (Not Detect) 08/26/24 09:15 Urine Methadone Screen Not Detected ng/mL (Not Detect) 08/26/24 09:15 Urine Fentanyl Screen Not Detected (Not Detect) 08/26/24 09:15 Ur Barbiturates Screen Not Detected (Not Detect) 08/26/24 09:15 Ur Phencyclidine Scrn Not Detected (Not Detect) 08/26/24 09:15 Ur Amphetamines Screen Not Detected (Not Detect) 08/26/24 09:15 U Benzodiazepines Scrn Not Detected (Not Detect) 08/26/24 09:15 Urine Cocaine Screen Not Detected (Not Detect) 08/26/24 09:15 U Marijuana (THC) Screen Not Detected (Not Detect) 08/26/24 09:15 Influenza Type A (PCR) NEGATIVE (Negative) 08/26/24 08:19 Influenza Type B (PCR) NEGATIVE (Negative) 08/26/24 08:19 RSV RNA Qual (PCR) NEGATIVE (Negative) 08/26/24 08:19 SARS-CoV-2 RNA (RT-PCR) NEGATIVE (Negative) 08/26/24 08:19 Impressions Head/Neck CTA 08/26/24 07:25 IMPRESSION: Head CT: 1. Right basal ganglial/crane radiata lacunar infarct, new from 2019. 2. No evidence for acute edematous territorial infarction or intracranial hemorrhage. CTA Head/Neck: 1. Multifocal moderate stenosis in the bilateral cavernous internal carotid arteries related to atherosclerotic calcifications. 2. Right P1 segment moderate stenosis. 3. No high-grade stenosis, proximal occlusion or saccular aneurysm of the vasculature of the head and neck. Nonvascular: Right thyroid 0.8 cm hypodense nodule. If clinically warranted, consider nonemergent thyroid ultrasound for further assessment. Electronically signed by: Sarah Albert DO 08/26/2024 08:38 AM [facility] Head CT 08/26/24 07:26 IMPRESSION: Concerning acute to subacute nonhemorrhagic stroke/ischemia centered in the right basal ganglia/frontal crane radiata white matter. Discussed with the emergency physician Dr. Makenna Tirado at 8:00 AM. Small vessel occlusive disease. Global atrophy. Atherosclerosis disease. This critical result was discussed with at hours on . It was ascertained that the content and urgency of the report was understood at the time of direct communication. Electronically signed by: Real Nunez MD 08/26/2024 08:04 AM EST RP Foot X-Ray 08/26/24 08:40 IMPRESSION: 1. Advanced degenerative changes in the acromioclavicular and glenohumeral joints. 2. There appears to be periosteal reaction/periostitis along the partially imaged proximal shaft of the humerus with faint calcifications in the adjacent soft tissues. Dedicated views of the right humerus recommended for further evaluation. 3. Interval resection of the fourth digit of the left foot at the level of the mid fourth metatarsal shaft. Interval resection of fifth digit at the level of the proximal fifth metatarsal shaft. Overlying soft tissue swelling with faint amorphous calcifications distal to the fourth and fifth metatarsal remnants. There are lucencies in the overlying soft tissues. This study was presented today. August 26, 2024. for interpretation. Stat results provided at this time as requested by referring provider. Electronically signed by: Erlinda Davis MD 08/26/2024 11:33 AM EST RP Shoulder X-Ray 08/26/24 08:40 IMPRESSION: 1. Advanced degenerative changes in the acromioclavicular and glenohumeral joints. 2. There appears to be periosteal reaction/periostitis along the partially imaged proximal shaft of the humerus with faint calcifications in the adjacent soft tissues. Dedicated views of the right humerus recommended for further evaluation. 3. Interval resection of the fourth digit of the left foot at the level of the mid fourth metatarsal shaft. Interval resection of fifth digit at the level of the proximal fifth metatarsal shaft. Overlying soft tissue swelling with faint amorphous calcifications distal to the fourth and fifth metatarsal remnants. There are lucencies in the overlying soft tissues. This study was presented today. August 26, 2024. for interpretation. Stat results provided at this time as requested by referring provider. Electronically signed by: Erlinda Davis MD 08/26/2024 11:33 AM EST RP Foot CT 08/27/24 10:09 IMPRESSION: 1. Status post resection of the fifth ray and the fourth ray at the level of the metatarsal shafts. No CT findings suggest definite osteomyelitis. 2. There is a soft tissue swelling in the foot, and in the first toe, with findings suggesting edema or cellulitis. No organized fluid collection is evident on the noncontrast CT. 3. No CT findings of definite osteomyelitis otherwise evident. MRI evaluation is more sensitive, could be considered as clinically indicated. Electronically signed by: Jone Fontaine MD 08/27/2024 05:40 PM EST RP Abdomen/Pelvis CT 08/27/24 20:50 IMPRESSION: No acute intra-abdominal process seen. Mild constipation. Cholelithiasis without wall thickening. Significant prostate enlargement with a Zavala's catheter in the decompressed bladder. Fleischner guidelines were followed. Electronically signed by: Casey Herrera MD 08/28/2024 06:10 PM EST RP Chest X-Ray 08/28/24 12:25 IMPRESSION: 1. No active pulmonary disease. 2. Minor left greater than right basilar airspace disease seen on recent CT abdomen and pelvis is not well seen on today's radiograph. Electronically signed by: Darrius Somers MD 08/28/2024 02:44 PM EST RP Brain MRI 08/29/24 12:45 IMPRESSION: -Multifocal acute infarcts scattered through the bilateral cerebral hemispheres and probably the right cerebellum most suggestive of embolic shower. No hemorrhagic transformation. -Chronic microangiopathy and global cerebral atrophy. Electronically signed by: Ariana Aguilera MD 08/29/2024 01:34 PM EST RP Cervical Spine CT 08/30/24 11:03 IMPRESSION: 1. No evidence of acute fracture or traumatic subluxation of the cervical spine. 2. Multiple hypodense bilateral thyroid nodules, largest right-sided nodule measuring up to 1 cm and the largest left-sided nodule measuring up to 1.5 cm. If clinically warranted, consider nonemergent thyroid ultrasound for further assessment. Electronically signed by: Sarah Albert DO 08/30/2024 04:32 PM EST RP Microbiology 08/30/24 06:13 Blood - Venous Blood Culture - Final Staphylococcus aureus 08/30/24 06:13 Blood - Venous Blood Culture - Final Staphylococcus aureus 08/28/24 13:06 Blood - Venous Blood Culture - Final Enterococcus faecalis 08/28/24 13:06 Blood - Venous Blood Culture - Final Staphylococcus aureus 08/27/24 12:34 Foot - Wound Gram Stain - Final 08/27/24 12:34 Foot - Wound Routine Culture - Final Staphylococcus aureus Enterococcus faecalis 08/26/24 08:24 Blood - Venous Blood Culture - Final Staphylococcus aureus Enterococcus faecalis 08/26/24 08:19 Blood - Venous Blood Culture - Final Staphylococcus aureus Enterococcus faecalis Discharge Plan Discharge Anticipated Discharge Date/Time: 09/01/24 09:33 Patient Disposition: Hospice - Home Discharge Diagnosis: renal failure bacteremia encephalopathy multiple embolic strokes Referrals: Talat Paz DO [Primary Care Provider] - 1 Week Discharge Medications: New morphine concentrate 100 mg/5 mL (20 mg/mL) solution 5 mg PO Q3H PRN (Reason: pain/comfort) 15 Days Qty: 30 0RF Rx Instructions: Partial Fill upon patient request. scopolamine base 1 mg over 3 days patch 3 day 1 patch transdermal Q72H 12 Days Qty: 4 0RF Rx Instructions: 1 patch behind ear Q72H for secretions lorazepam [Lorazepam Intensol] 2 mg/mL concentrate 0.5 mg PO Q4H PRN (Reason: anxiety/restlessness) Qty: 30 0RF Discontinued Eliquis 2.5 mg tablet 2.5 mg PO BID Qty: 180 3RF amiodarone 200 mg tablet 200 mg PO DAILY Qty: 90 3RF furosemide 20 mg tablet 20 mg PO DAILY finasteride 5 mg tablet 5 mg PO DAILY Trulicity 0.75 mg/0.5 mL pen injector 0.75 mg subcut MCCLURE cholecalciferol (vitamin D3) 25 mcg (1,000 unit) capsule 25 mcg PO DAILY tamsulosin 0.4 mg capsule 0.4 mg PO DAILY vitamin G79-ecldd acid 500-400 mcg tablet 1 tab PO DAILY Rx Instructions: administer with a meal glipizide 10 mg tablet extended release 24hr 10 mg PO BID metoprolol succinate 50 mg tablet extended release 24 hr 50 mg PO DAILY atorvastatin 10 mg tablet 10 mg PO DAILY Discharge Orders: Discharge Order (Routine); Ordered 09/01/24 Ordered By: Ovi Roe Diet: Advance to usual diet Activity on Discharge: As tolerated Stand Alone Forms: Patient Portal Discharge page Print Language: Tanzanian Care Plan Goals: comfort care Health Concerns: renal failure bacteremia encephalopathy multiple embolic strokes Plan of Treatment: comfort medications: morphine for pain/dyspnea, lorazepam for agitation/anxiety, scopolamine for secretions hospice services at home Assessment: See Discharge Summary.
--- NOTE | 2024-09-01 10:10 | MHC.CM.PN ---
Second IMM 09/01/24, Pt has been medically cleared, he will go home via BLS today, and have home care services from hospice [facility].
--- NOTE | 2024-09-01 12:58 | HO.PM.IMPN ---
Subjective Subjective Date of Service: 09/01/24 Interval History: Discharge cancelled; pt appears terminally ill and may not survive transport Transitioned to [employer] status Review of Systems Review of Systems: Yes Unobtainable due to mental status Physical Exam Vital Signs: Vital Signs: Last Vital Signs Temp 97.1 F 09/01/24 08:00 Pulse 61 09/01/24 08:00 Resp 17 09/01/24 08:00 BP 114/55 L 09/01/24 08:00 Pulse Ox 96 09/01/24 08:00 O2 Del Method Room Air 09/01/24 08:00 BMI result Body Mass Index 29.0 Gen: ill-appearing but comfortable HEENT: sclera anicteric, moist mucus membranes Neck: supple Lungs: diminished Heart: regular rate and rhythm, no murmurs Abd: soft, non-tender, non-distended Ext: no edema Skin: warm/well-perfused Neuro: somnolent Psych: impaired insight Objective Data Active Medications Acetaminophen (Acetaminophen 325 Mg Tablet) 650 mg PO Q6H PRN PRN Reason: Pain, Mild (Pain Scale 1-3), fever or headache Last Admin: 08/30/24 19:30 Dose: 650 mg Documented By: JAMIE Insulin Glargine (Insulin Glargine,Hum.Rec.Anlog 100 Unit/Ml 10 Ml Vial) 12 unit SUBCUT DAILY [facility] Last Admin: 09/01/24 08:50 Dose: 12 unit Documented By: ERICA Lorazepam (Lorazepam 2 Mg/Ml Vial) 1 mg IVPUSH Q2H PRN PRN Reason: anxiety or agitation Morphine Sulfate (Morphine Sulfate 2 Mg/Ml Cartridge) 2 mg IVPUSH Q2H PRN; Protocol PRN Reason: pain or dyspnea Oxycodone HCl (Oxycodone Hcl Immed Release 5 Mg Tablet) 5 mg PO Q6H PRN PRN Reason: Pain, Severe (Pain Scale 7-10) Last Admin: 09/01/24 09:02 Dose: 5 mg Documented By: ERICA Sodium Chloride (0.9 % Sodium Chloride Flush 3 Ml Syringe) 3 ml IVFLUSH QSHIFT [facility] Last Admin: 09/01/24 09:03 Dose: 3 ml Documented By: ERICA Labs 08/31/24 06:24 08/31/24 06:24 Labs: Laboratory Results - last 24 hr 08/31/24 08/31/24 08/31/24 17:05 20:43 23:57 POC Glucose 191 H 195 H 202 H 09/01/24 07:08 POC Glucose 269 H Microbiology Microbiology Results: Microbiology 08/30/24 06:13 Blood Culture - Final Blood - Venous Staphylococcus aureus 08/30/24 06:13 Blood Culture - Final Blood - Venous Staphylococcus aureus 08/28/24 13:06 Blood Culture - Final Blood - Venous Enterococcus faecalis 08/28/24 13:06 Blood Culture - Final Blood - Venous Staphylococcus aureus Assessment and Plan (1) Bacteremia: Status: Acute (2) Encephalopathy: Status: Acute (3) Acute kidney injury superimposed on chronic kidney disease: Status: Acute Plan d7 84yo M with DM2, pAF on apixaban, SSS s/p PPM, HFrEF, NICM, HTN, CKD4, s/p TAVR presenting with AMS, lethargy, and dysarthria, found to have multiple embolic CVAs, likely septic emboli from MSSA/Enterococcus faecalis bacteremia, 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 embolic CVA MSSA/Enterococcus faecalis bacteremia MASSIMO/CKD4 hyperNa acute encephalopathy due to infection - In discussion with pt and family on 08/31/24 in light of infection failing to clear, worsening renal failure, and worsening mental status, plans were made for him to go home on hospice. However he has declined much faster than anticipated and will transition to [employer]EL[employer] status with comfort measures in the hospital. Family present at bedside and updated. Patient currently appears comfortable; will d/c nonpalliative meds and give prn IV morphine/prn IV lorazepam and change goals of care to patient comfort. Total time managing care of this patient today: 45 minutes. Quality Stroke Does the patient have a stroke diagnosis?: No VTE Prior VTE?: No VTE Risk Level:: Medical - moderate - high VTE Device Contraindication: Treatment Not Indicated VTE Drug Contraindication: N/A - Med Ordered
--- NOTE | 2024-09-01 13:42 | MHC.SLORD ---
Speech Language Pathology Order Status: Pt son greeted TECHNICAL SALES SUPPORT MANAGER at pt door, noting pt will be d/c'd today with hospice. No further TECHNICAL SALES SUPPORT MANAGER indicated.
[2024-09-01] MEDS: Morphine Sulfate 2 MG/ML CARTRIDGE IVPUSH ×3 (13:57→21:12)
[2024-09-01] MEDS: LORazepam 2 MG/ML VIAL 1 MG IVPUSH (20:51)
[2024-09-02 05:28] VITALS: RESP 20
[2024-09-02] MEDS: Morphine Sulfate 2 MG/ML CARTRIDGE IVPUSH ×2 (05:28→10:15)
[2024-09-02] MEDS: 0.9 % Sodium Chloride Flush 3 ML SYRINGE IVFLUSH (09:14)
--- NOTE | 2024-09-02 09:15 | MHC.CM.PN ---
Pt remained in hosp overnight due a change in his breathing, he will go home today via BLS, and have [facility] hospice services.
--- NOTE | 2024-09-02 09:53 | P.DS_ITS ---
DS: Providers Provider Date of Service: 09/02/24 Date of admission: 08/26/24 14:38 Date of discharge: 09/02/24 Primary care physician: Talat Paz DO Consults: 08/26/24 14:46 Consult to Neurology Routine Consulting Provider: [facility] Reason for consultation: stroke 08/27/24 07:48 Consult to Cardiology Routine Consulting Provider: [facility] [place] [facility] Reason for consultation: ? CHF , eleveated BNP 08/27/24 07:49 Consult to Nephrology Routine Consulting Provider: [facility] [place] [facility] Reason for consultation: MASSIMO 08/27/24 08:24 Consult to Wound Care Routine Reason for consultation: Wound to toes, redness to coccyx 08/27/24 11:43 Consult to Infectious Diseases Routine Consulting Provider: [facility] [place] [facility] Reason for consultation: bacteremia 08/28/24 12:25 Consult to Hematology / Oncology Routine Consulting Provider: [facility] [place] Oncology/Hematology Reason for consultation: thrombocytopenia Has provider been notified: No DS: Diagnosis Discharge Diagnosis (1) Bacteremia: Status: Acute (2) Encephalopathy: Status: Acute (3) Acute kidney injury superimposed on chronic kidney disease: Status: Acute DS: Summary Hospital Course Hospital Course: From the history and physical by the admitting hospitalist, Haritha Robertson NP, 08/26/24: 84 yo male with PMH significant for CVA (30+ years ago without residual deficits), non-insulin dependent DM, diabetic polyneuropathy, diabetic bilateral foot wounds, s/p CKD, HTN, sick sinus syndrome w/ pacemaker, s/p TAVR, heart failure with reduced EF, paroxysmal Afib anticoagulated with Eliquis presents to the ED today via EMS from home for evaluation of altered mental status, and garbled disoriented speech per family. Family indicate he has not been feeling well generally over the last 3-4 days, was reporting chills intermittently but without knowledge of fevers, reduced PO intake, and appetite, had a couple of episodes of where he was unstable while walking, GF at bedisde notes the son found him to be sitting down on the ground in his room likely trying to ambulate to bathroom overnight- no apparent injury was noted except some discomfort with ROM to R arm/shoulder. 84yo M with DM2, pAF on apixaban, SSS s/p PPM, HFrEF, NICM, HTN, CKD4, s/p TAVR presenting with AMS, lethargy, and dysarthria. He was ultimately diagnosed with multiple CVAs and persistent bacteremia. 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 global atrophy; atherosclerosis - MRI with multifocal acute infarcts scattered through the bilateral cerebral hemispheres and probably the right cerebellum most suggestive of embolic shower. 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 In light of the above issues with non-clearing bacteremia, worsening mental status, and worsening renal failure, goals of care were discussed with the patient's family. They were confident that the patient would not want further invasive treatment and when confronted with his poor prognosis, he elected to go home with hospice care and family support. This was initially planned for 09/01 but delayed for 1 day as there was concern that the patient was going to imminently pass away in the hospital. 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 He appeared stable on 09/02 and thus was discharged home with hospice services per his and his family's wishes. 3 Time Attestation Discharge Coordination Time (in mins): 35 Quality: Safe Use of Opioids Does Pt have an Active Cancer Diagnosis on the Problem List?: No Quality: Stroke Does the patient have a stroke diagnosis?: No Physical Exam Vital Signs: Vital Signs: Last Vital Signs Temp 97.1 F 09/01/24 08:00 Pulse 61 09/01/24 08:00 Resp 20 09/02/24 05:28 BP 114/55 L 09/01/24 08:00 Pulse Ox 96 09/01/24 08:00 O2 Del Method Room Air 09/01/24 08:00 BMI result Body Mass Index 29.0 Gen: ill-appearing but comfortable HEENT: sclera anicteric, moist mucus membranes Neck: supple Lungs: diminished Heart: regular rate and rhythm, no murmurs Abd: soft, non-tender, non-distended Ext: no edema Skin: warm/well-perfused Neuro: somnolent Psych: impaired insight DS: Data Data Completed and Pending Completed studies during hospitalization [Text1]: Laboratory Results WBC 29.8 X10*3/uL (4.8-10.8) H 08/31/24 06:24 RBC 4.31 X10*6/uL (4.60-5.80) L 08/31/24 06:24 Hgb 12.3 g/dl (14.0-18.0) L 08/31/24 06:24 Hct 36.3 % (42.0-52.0) L 08/31/24 06:24 MCV 84.2 fL (80.0-98.0) 08/31/24 06:24 MCH 28.5 pg (27.0-33.0) 08/31/24 06:24 MCHC 33.9 g/dl (31.0-36.0) 08/31/24 06:24 RDW 16.7 % (11.0-16.0) H 08/31/24 06:24 Plt Count 124 X10*3/uL (160-400) L D 08/31/24 06:24 MPV 11.8 fL (9.4-12.4) 08/31/24 06:24 Immature Gran % (Auto) 2.7 % (0.0-0.4) H 08/31/24 06:24 Neut % (Auto) 85.7 % (45-73) H 08/31/24 06:24 Lymph % (Auto) 3.7 % (20-40) L 08/31/24 06:24 [place] % (Auto) 7.5 % (2-11) 08/31/24 06:24 Eos % (Auto) 0.1 % (0-4) 08/31/24 06:24 Baso % (Auto) 0.3 % (0-2) 08/31/24 06:24 Lymph # (Auto) 1.1 X10*3/uL (1.2-4.9) L 08/31/24 06:24 [place] # (Auto) 2.2 X10*3/uL (0.1-1.2) H 08/31/24 06:24 Eos # (Auto) 0.0 X10*3/uL (0.0-0.4) 08/31/24 06:24 Baso # (Auto) 0.1 X10*3/uL (0.0-0.2) 08/31/24 06:24 Abs Immat Gran (auto) 0.81 X10*3/uL (0.00-0.03) H 08/31/24 06:24 Absolute Neuts (auto) 25.5 x10*3/uL (2.0-8.3) H 08/31/24 06:24 Absolute Nucleated RBC 0.000 X10*3/uL (0.0-0.012) 08/31/24 06:24 Nucleated RBC % (auto) 0.0 /100WBC (0.0-0.2) 08/31/24 06:24 Neutrophils % (Manual) 80 % (45-73) H 08/28/24 08:49 Band Neutrophils % 9 % (3-5) H 08/28/24 08:49 Lymphocytes % (Manual) 2 % (20-40) L 08/28/24 08:49 Atypical Lymphs % (Man) 1 % (0-6) 08/28/24 08:49 Monocytes % (Manual) 7 % (2-11) 08/28/24 08:49 Metamyelocytes % 1 % 08/28/24 08:49 Abs Neuts (Manual) 13.6 X10*3/uL (2.0-8.3) H 08/28/24 08:49 Lymphocytes # (Manual) 0.3 X10*3/uL (1.2-4.9) L 08/28/24 08:49 Atyp Lymphs # (Manual) 0.2 x10*3/uL 08/28/24 08:49 Monocytes # (Manual) 1.1 X10*3/uL (0.1-1.2) 08/28/24 08:49 Metamyelocytes # 0.2 X10*3/uL 08/28/24 08:49 Toxic Vacuolation PRESENT 08/26/24 08:19 Dohle Bodies PRESENT 08/28/24 08:49 Platelet Estimate DECREASED (NORMAL) 08/28/24 08:49 Large Platelets PRESENT 08/28/24 08:49 Plt Morphology Comment NOTED 08/28/24 08:49 RBC Morphology NOTED 08/28/24 08:49 Tear Drop Cells 1+ (0-2) /OIF 08/28/24 08:49 Ovalocytes 1+ (5-14) /OIF 08/28/24 08:49 [place] Cells 3+ (>5) /OIF 08/28/24 08:49 Acanthocytes (Spur) 2+ (3-5) /OIF 08/28/24 08:49 Smear Tech's Comments VERIFIED 08/31/24 06:24 PT 13.1 SEC (10.9-12.4) H D 08/28/24 13:06 Whole Blood PT 19.5 sec (11.1-13.5) H 08/26/24 07:46 INR 1.1 (0.9-1.1) 08/28/24 13:06 Whole Blood INR 1.6 (0.9-1.1) H 08/26/24 07:46 APTT 31.0 SEC (26.0-36.8) 08/28/24 13:06 Fibrinogen > 700 MG/DL (259-690) H 08/28/24 13:06 VBG pH 7.42 (7.32-7.43) 08/28/24 13:11 VBG pCO2 24 mmHg 08/28/24 13:11 VBG pO2 95 mmHg 08/28/24 13:11 VBG HCO3 16 mmol/L (22-26) L 08/28/24 13:11 VBG O2 Saturation 98.0 % 08/28/24 13:11 VBG Base Excess -6.4 mmol/L 08/28/24 13:11 Sodium 150 mmol/L (135-145) H 08/31/24 06:24 Potassium 4.9 mmol/L (3.3-5.1) 08/31/24 06:24 Chloride 117 mmol/L (96-108) H 12/22/24 06:24 Carbon Dioxide 16 mmol/L (22-29) L 08/31/24 06:24 Anion Gap 22 (12-20) H 08/31/24 06:24 BUN 177 mg/dL (9-16) H 08/31/24 06:24 Creatinine 4.72 mg/dL (0.5-1.4) H* 08/31/24 06:24 Estim Creat Clear Calc 11.2 08/31/24 06:24 Estimated GFR 12 08/31/24 06:24 POC Glucose 269 mg/dL (60-115) H 09/01/24 07:08 Random Glucose 345 mg/dL (60-115) H 08/31/24 06:24 Lactic Acid 2.0 mmol/L (0.5-2.0) 08/26/24 08:19 Calcium 8.8 mg/dL (8.4-10.2) 08/31/24 06:24 Magnesium 3.1 mg/dL (1.6-2.6) H 08/31/24 06:24 Total Bilirubin 0.4 mg/dL (0.0-1.0) 08/29/24 06:10 Direct Bilirubin 0.2 mg/dL (0.0-0.5) 08/29/24 06:10 AST 21 U/L (5-37) 08/29/24 06:10 ALT 16 U/L (0-40) 08/29/24 06:10 Alkaline Phosphatase 102 U/L (39-117) 08/29/24 06:10 Ammonia 25 umol/L (13-55) 08/26/24 08:19 Lactate Dehydrogenase 332 U/L (118-273) H 08/29/24 06:10 Total Creatine Kinase 98 U/L (38-174) 08/26/24 08:19 Troponin I High Sens 117.5 ng/L (<3.5-35.0) H* 08/26/24 11:52 C-Reactive Protein 17.69 mg/dL (< or = 0.50) H 08/31/24 06:24 B-Natriuretic Peptide 265 pg/mL (<100) H 08/31/24 06:24 Total Protein 6.1 g/dL (6.5-8.0) L 08/29/24 06:10 Albumin 2.7 g/dL (3.5-5.0) L 08/29/24 06:10 Triglycerides 180 mg/dL (<150) H 08/27/24 07:03 Cholesterol 84 mg/dL (<200) 08/27/24 07:03 LDL Cholesterol, Calc 39 mg/dL (<100) 08/27/24 07:03 HDL Cholesterol 9 mg/dL (>40) L 08/27/24 07:03 Lipase 38 U/L (8-78) 08/26/24 08:19 Beta-Hydroxybutyrate 1.34 mmol/L (0.02-0.27) H 08/28/24 07:33 TSH 1.62 uIU/mL (0.32-4.0) 08/26/24 08:19 Urine Color Yellow 08/26/24 09:15 Urine Appearance Clear 08/26/24 09:15 Urine pH 5.0 (5.0-9.0) 08/26/24 09:15 Ur Specific [place] 1.015 (1.005-1.025) 08/26/24 09:15 Urine Protein 30 (1+) mg/dL (Neg-Trace) H 08/26/24 09:15 Urine Glucose (UA) 100 mg/dL (Negative) H 08/26/24 09:15 Urine Ketones Negative mg/dL (Negative) 08/26/24 09:15 Urine Blood Negative (Negative) 08/26/24 09:15 Urine Nitrite Negative (Negative) 08/26/24 09:15 Ur Leukocyte Esterase Negative (Negative) 08/26/24 09:15 Urine RBC 0-2 /HPF (0-2) 08/26/24 09:15 Urine WBC 0-5 /HPF (0-5) 08/26/24 09:15 Ur Squamous Epith Cells 6-10 /HPF (0-2) 08/26/24 09:15 Urine Bacteria None Seen (None Seen) 08/26/24 09:15 Hyaline Casts 0-2 /LPF (0-2) 08/26/24 09:15 Nasal Screen MRSA (PCR) NEGATIVE (Negative) 08/27/24 10:26 Nasal S. aureus Screen POSITIVE (Negative) A 08/27/24 10:26 Nasal MRSA/S.aureus Interp SEE NOTE 08/27/24 10:26 Random Vancomycin 11.2 mcg/mL (15-20) L 08/28/24 12:13 Urine Opiates Screen Not Detected (Not Detect) 08/26/24 09:15 Ur Buprenorphine Scrn Not Detected ng/mL (Not Detect) 08/26/24 09:15 Ur Oxycodone Screen Not Detected ng/mL (Not Detect) 08/26/24 09:15 Urine Methadone Screen Not Detected ng/mL (Not Detect) 08/26/24 09:15 Urine Fentanyl Screen Not Detected (Not Detect) 08/26/24 09:15 Ur Barbiturates Screen Not Detected (Not Detect) 08/26/24 09:15 Ur Phencyclidine Scrn Not Detected (Not Detect) 08/26/24 09:15 Ur Amphetamines Screen Not Detected (Not Detect) 08/26/24 09:15 U Benzodiazepines Scrn Not Detected (Not Detect) 08/26/24 09:15 Urine Cocaine Screen Not Detected (Not Detect) 08/26/24 09:15 U Marijuana (THC) Screen Not Detected (Not Detect) 08/26/24 09:15 Influenza Type A (PCR) NEGATIVE (Negative) 08/26/24 08:19 Influenza Type B (PCR) NEGATIVE (Negative) 08/26/24 08:19 RSV RNA Qual (PCR) NEGATIVE (Negative) 08/26/24 08:19 SARS-CoV-2 RNA (RT-PCR) NEGATIVE (Negative) 08/26/24 08:19 Impressions Head/Neck CTA 08/26/24 07:25 IMPRESSION: Head CT: 1. Right basal ganglial/crane radiata lacunar infarct, new from 2019. 2. No evidence for acute edematous territorial infarction or intracranial hemorrhage. CTA Head/Neck: 1. Multifocal moderate stenosis in the bilateral cavernous internal carotid arteries related to atherosclerotic calcifications. 2. Right P1 segment moderate stenosis. 3. No high-grade stenosis, proximal occlusion or saccular aneurysm of the vasculature of the head and neck. Nonvascular: Right thyroid 0.8 cm hypodense nodule. If clinically warranted, consider nonemergent thyroid ultrasound for further assessment. Electronically signed by: Sarah Albert DO 08/26/2024 08:38 AM [facility] Head CT 08/26/24 07:26 IMPRESSION: Concerning acute to subacute nonhemorrhagic stroke/ischemia centered in the right basal ganglia/frontal crane radiata white matter. Discussed with the emergency physician Dr. Makenna Tirado at 8:00 AM. Small vessel occlusive disease. Global atrophy. Atherosclerosis disease. This critical result was discussed with at hours on . It was ascertained that the content and urgency of the report was understood at the time of direct communication. Electronically signed by: Real Nunez MD 08/26/2024 08:04 AM EST RP Foot X-Ray 08/26/24 08:40 IMPRESSION: 1. Advanced degenerative changes in the acromioclavicular and glenohumeral joints. 2. There appears to be periosteal reaction/periostitis along the partially imaged proximal shaft of the humerus with faint calcifications in the adjacent soft tissues. Dedicated views of the right humerus recommended for further evaluation. 3. Interval resection of the fourth digit of the left foot at the level of the mid fourth metatarsal shaft. Interval resection of fifth digit at the level of the proximal fifth metatarsal shaft. Overlying soft tissue swelling with faint amorphous calcifications distal to the fourth and fifth metatarsal remnants. There are lucencies in the overlying soft tissues. This study was presented today. August 26, 2024. for interpretation. Stat results provided at this time as requested by referring provider. Electronically signed by: Erlinda Davis MD 08/26/2024 11:33 AM EST RP Shoulder X-Ray 08/26/24 08:40 IMPRESSION: 1. Advanced degenerative changes in the acromioclavicular and glenohumeral joints. 2. There appears to be periosteal reaction/periostitis along the partially imaged proximal shaft of the humerus with faint calcifications in the adjacent soft tissues. Dedicated views of the right humerus recommended for further evaluation. 3. Interval resection of the fourth digit of the left foot at the level of the mid fourth metatarsal shaft. Interval resection of fifth digit at the level of the proximal fifth metatarsal shaft. Overlying soft tissue swelling with faint amorphous calcifications distal to the fourth and fifth metatarsal remnants. There are lucencies in the overlying soft tissues. This study was presented today. August 26, 2024. for interpretation. Stat results provided at this time as requested by referring provider. Electronically signed by: Erlinda Davis MD 08/26/2024 11:33 AM EST RP Foot CT 08/27/24 10:09 IMPRESSION: 1. Status post resection of the fifth ray and the fourth ray at the level of the metatarsal shafts. No CT findings suggest definite osteomyelitis. 2. There is a soft tissue swelling in the foot, and in the first toe, with findings suggesting edema or cellulitis. No organized fluid collection is evident on the noncontrast CT. 3. No CT findings of definite osteomyelitis otherwise evident. MRI evaluation is more sensitive, could be considered as clinically indicated. Electronically signed by: Jone Fontaine MD 08/27/2024 05:40 PM EST RP Abdomen/Pelvis CT 08/27/24 20:50 IMPRESSION: No acute intra-abdominal process seen. Mild constipation. Cholelithiasis without wall thickening. Significant prostate enlargement with a Zavala's catheter in the decompressed bladder. Fleischner guidelines were followed. Electronically signed by: Casey Herrera MD 08/28/2024 06:10 PM EST RP Chest X-Ray 08/28/24 12:25 IMPRESSION: 1. No active pulmonary disease. 2. Minor left greater than right basilar airspace disease seen on recent CT abdomen and pelvis is not well seen on today's radiograph. Electronically signed by: Darrius Somers MD 08/28/2024 02:44 PM EST RP Brain MRI 08/29/24 12:45 IMPRESSION: -Multifocal acute infarcts scattered through the bilateral cerebral hemispheres and probably the right cerebellum most suggestive of embolic shower. No hemorrhagic transformation. -Chronic microangiopathy and global cerebral atrophy. Electronically signed by: Ariana Aguilera MD 08/29/2024 01:34 PM EST RP Cervical Spine CT 08/30/24 11:03 IMPRESSION: 1. No evidence of acute fracture or traumatic subluxation of the cervical spine. 2. Multiple hypodense bilateral thyroid nodules, largest right-sided nodule measuring up to 1 cm and the largest left-sided nodule measuring up to 1.5 cm. If clinically warranted, consider nonemergent thyroid ultrasound for further assessment. Electronically signed by: Sarah Albert DO 08/30/2024 04:32 PM EST RP Discharge Plan Discharge Anticipated Discharge Date/Time: 09/02/24 09:53 Patient Disposition: Hospice - Home Discharge Diagnosis: renal failure bacteremia encephalopathy multiple embolic strokes Referrals: [facility] GONZALEZ [Outside] - 1 Week Talat Paz DO [Primary Care Provider] - 1 Week Discharge Medications: New morphine concentrate 100 mg/5 mL (20 mg/mL) solution 5 mg PO Q3H PRN (Reason: pain/comfort) 15 Days Qty: 30 0RF Rx Instructions: Partial Fill upon patient request. scopolamine base 1 mg over 3 days patch 3 day 1 patch transdermal Q72H 12 Days Qty: 4 0RF Rx Instructions: 1 patch behind ear Q72H for secretions lorazepam [Lorazepam Intensol] 2 mg/mL concentrate 0.5 mg PO Q4H PRN (Reason: anxiety/restlessness) Qty: 30 0RF Discontinued Eliquis 2.5 mg tablet 2.5 mg PO BID Qty: 180 3RF amiodarone 200 mg tablet 200 mg PO DAILY Qty: 90 3RF furosemide 20 mg tablet 20 mg PO DAILY finasteride 5 mg tablet 5 mg PO DAILY Trulicity 0.75 mg/0.5 mL pen injector 0.75 mg subcut MCCLURE cholecalciferol (vitamin D3) 25 mcg (1,000 unit) capsule 25 mcg PO DAILY tamsulosin 0.4 mg capsule 0.4 mg PO DAILY vitamin [id number] acid 500-400 mcg tablet 1 tab PO DAILY Rx Instructions: administer with a meal glipizide 10 mg tablet extended release 24hr 10 mg PO BID metoprolol succinate 50 mg tablet extended release 24 hr 50 mg PO DAILY atorvastatin 10 mg tablet 10 mg PO DAILY Discharge Orders: Discharge Order (Routine); Ordered 09/02/24 Ordered By: Ovi Roe Diet: Advance to usual diet Activity on Discharge: As tolerated Stand Alone Forms: Patient Portal Discharge page Print Language: Ecuadorean Care Plan Goals: comfort care Health Concerns: renal failure bacteremia encephalopathy multiple embolic strokes Plan of Treatment: comfort medications: morphine for pain/dyspnea, lorazepam for agitation/anxiety, scopolamine for secretions hospice services at home Assessment: See Discharge Summary.
[2024-09-02 10:15] VITALS: RESP 20
== END 2024-09-02 10:33 | disposition hospice, home (50) | DRG 64 ==
LOC: HO.ED 11:41 → HO.EDOVER 14:47 → HO.IMC 16:31
PROVIDERS: Internal Medicine; Nurse Practitioner Family; Physician Assistant Medical; Admitting Provider Nurse Practitioner Acute Care; Emergency Provider Emergency Medicine Emergency Medical Services; PCP Internal Medicine; Visit Provider Family Medicine
DX: I63.40 Cerebral infarction due to embolism of unspecified cerebral artery (principal); G93.41 Metabolic encephalopathy; I50.23 Acute on chronic systolic (congestive) heart failure; I33.0 Acute and subacute infective endocarditis; I13.0 Hypertensive heart and chronic kidney disease with heart failure and stage 1 through stage 4 chronic kidney disease, or unspecified chronic kidney disease; N18.4 Chronic kidney disease, stage 4 (severe); L97.429 Non-pressure chronic ulcer of left heel and midfoot with unspecified severity; E87.1 Hypo-osmolality and hyponatremia; R78.81 Bacteremia; E87.0 Hyperosmolality and hypernatremia; F05 Delirium due to known physiological condition; G93.49 Other encephalopathy; I42.8 Other cardiomyopathies; R29.712 NIHSS score 12; E11.22 Type 2 diabetes mellitus with diabetic chronic kidney disease; E86.0 Dehydration; E11.621 Type 2 diabetes mellitus with foot ulcer; N40.0 Benign prostatic hyperplasia without lower urinary tract symptoms; B95.61 Methicillin susceptible Staphylococcus aureus infection as the cause of diseases classified elsewhere; Z51.5 Encounter for palliative care; B95.2 Enterococcus as the cause of diseases classified elsewhere; L97.529 Non-pressure chronic ulcer of other part of left foot with unspecified severity; L97.519 Non-pressure chronic ulcer of other part of right foot with unspecified severity; E11.42 Type 2 diabetes mellitus with diabetic polyneuropathy; D69.59 Other secondary thrombocytopenia; I49.5 Sick sinus syndrome; Z95.0 Presence of cardiac pacemaker; Z95.2 Presence of prosthetic heart valve; Z79.01 Long term (current) use of anticoagulants; Z79.899 Other long term (current) drug therapy
CPT/HCPCS: 0241U; 36415; 70450; 70496; 70498; 70551; 71045; 72125; 73030; 73630; 73700; 74176; 80048; 80053; 80061; 80076; 80202; 80307; 81001; 82010; 82140; 82550; 82803; 82947; 83605; 83615; 83690; 83735; 83880; 84443; 84484; 85007; 85025; 85027; 85384; 85610; 85730; 86140; 87040; 87070; 87077; 87147; 87186; 87205; 87640; 87641; 92526; 92610; 93005; 93306; 95816; 97162; 97167; 97530; 97535; 99285; C1758; J0456; J0690; J0878; J1644; J1720; J1940; J2060; J2270; J2543; J3371; Q9957; Q9967

== ENCOUNTER → 2024-08-26 07:17 | Outpatient (BNV) | payer MEDICARE, OTHER, SELFPAY | PROVIDERS: Admitting Provider Nurse Practitioner Acute Care; Emergency Provider Emergency Medicine Emergency Medical Services; PCP Internal Medicine; Visit Provider Internal Medicine | DX: R94.31 Abnormal electrocardiogram [ECG] [EKG] (principal) | CPT/HCPCS: 93010 ==

== ENCOUNTER → 2024-08-26 07:26 | Outpatient (BNV) | payer MEDICARE, OTHER, SELFPAY | PROVIDERS: Emergency Provider Emergency Medicine Emergency Medical Services; PCP Internal Medicine; Visit Provider Radiology Diagnostic Radiology | DX: I63.89 Other cerebral infarction (principal); J84.9 Interstitial pulmonary disease, unspecified; J90 Pleural effusion, not elsewhere classified | CPT/HCPCS: 70450; 71045 ==

== ENCOUNTER 2024-08-26 14:38 | Outpatient (BNV) | payer MEDICARE, OTHER, SELFPAY | END 2024-08-27 07:00 | PROVIDERS: Admitting Provider Nurse Practitioner Acute Care; Emergency Provider Emergency Medicine Emergency Medical Services; PCP Internal Medicine; Visit Provider Internal Medicine | DX: T82.09XA Other mechanical complication of heart valve prosthesis, initial encounter (principal) | CPT/HCPCS: 93306 ==

== ENCOUNTER 2024-08-26 14:38 | Outpatient (BNV) | payer MEDICARE, OTHER, SELFPAY | END 2024-08-28 12:25 | PROVIDERS: Admitting Provider Nurse Practitioner Acute Care; Emergency Provider Emergency Medicine Emergency Medical Services; PCP Internal Medicine; Visit Provider Radiology Diagnostic Radiology | DX: I70.0 Atherosclerosis of aorta (principal); Z95.0 Presence of cardiac pacemaker; Z95.3 Presence of xenogenic heart valve | CPT/HCPCS: 71045 ==

== ENCOUNTER → 2024-08-26 14:38 | Outpatient (BNV) | payer MEDICARE, OTHER, SELFPAY | PROVIDERS: Admitting Provider Nurse Practitioner Acute Care; Emergency Provider Emergency Medicine Emergency Medical Services; PCP Internal Medicine; Visit Provider Internal Medicine | DX: D69.6 Thrombocytopenia, unspecified (principal) | CPT/HCPCS: 99222 ==

== ENCOUNTER → 2024-08-26 14:38 | Outpatient (BNV) | payer MEDICARE, OTHER, SELFPAY | PROVIDERS: Admitting Provider Nurse Practitioner Acute Care; Emergency Provider Emergency Medicine Emergency Medical Services; PCP Internal Medicine; Visit Provider Nurse Practitioner Family | DX: N17.9 Acute kidney failure, unspecified (principal); N18.9 Chronic kidney disease, unspecified; E87.1 Hypo-osmolality and hyponatremia; I50.20 Unspecified systolic (congestive) heart failure; R78.81 Bacteremia | CPT/HCPCS: 99222 ==

== ENCOUNTER → 2024-08-26 14:38 | Outpatient (BNV) | payer MEDICARE, OTHER, SELFPAY | PROVIDERS: Admitting Provider Nurse Practitioner Acute Care; Emergency Provider Emergency Medicine Emergency Medical Services; PCP Internal Medicine; Visit Provider Psychiatry & Neurology Neurology | DX: G93.40 Encephalopathy, unspecified (principal) | CPT/HCPCS: 99222 ==

== ENCOUNTER → 2024-08-26 14:38 | Outpatient (BNV) | payer MEDICARE, OTHER, SELFPAY | PROVIDERS: Admitting Provider Nurse Practitioner Acute Care; Emergency Provider Emergency Medicine Emergency Medical Services; PCP Internal Medicine; Visit Provider Nurse Practitioner Acute Care | DX: R78.81 Bacteremia (principal); N17.9 Acute kidney failure, unspecified; N18.4 Chronic kidney disease, stage 4 (severe); G93.40 Encephalopathy, unspecified | CPT/HCPCS: 99223; 99232; 99233; 99239; 99497; 99499 ==

== ENCOUNTER → 2024-08-26 14:38 | Outpatient (BNV) | payer MEDICARE, OTHER, SELFPAY | PROVIDERS: Admitting Provider Nurse Practitioner Acute Care; Emergency Provider Emergency Medicine Emergency Medical Services; PCP Internal Medicine; Visit Provider Internal Medicine | DX: G93.40 Encephalopathy, unspecified (principal); R41.82 Altered mental status, unspecified; Z95.2 Presence of prosthetic heart valve; I42.8 Other cardiomyopathies; I49.5 Sick sinus syndrome; Z95.0 Presence of cardiac pacemaker; R78.81 Bacteremia | CPT/HCPCS: 99223 ==

== ENCOUNTER → 2024-08-26 14:38 | Outpatient (BNV) | payer MEDICARE, OTHER, SELFPAY | PROVIDERS: Admitting Provider Nurse Practitioner Acute Care; Emergency Provider Emergency Medicine Emergency Medical Services; PCP Internal Medicine; Visit Provider Internal Medicine | DX: R78.81 Bacteremia (principal); R41.82 Altered mental status, unspecified | CPT/HCPCS: 99222 ==